=== PATIENT | male | born 1965 | race Caucasian/White ===

== ENCOUNTER 2018-07-21 11:43 | Emergency (ER) | payer MEDICAID ==
[~2018-07-21] VITALS: Ht 182.9 cm; Wt 109.0 kg
[~2018-07-21 11:43] MED LIST: CLON-529 PO; HYDR-4353 PO; HYDR12.5 PO; LATA1OIL EACHEYE; LEVO500T2 PO; LISI40TA4 PO; METR500T4 PO
[2018-07-21 12:39] LABS: BASOPHILS % (AUTO) 0.4 % (0-1); EOSINOPHILS # (AUTO) 0.2 X10'3 (0-0.9); EOSINOPHILS % (AUTO) 1.6 % (0-6); HEMATOCRIT 44.9 % (42.0-52.0); HEMOGLOBIN 15.5 g/dl (14.0-17.9); LYMPHOCYTES # (AUTO) 2.5 X10'3 (1.1-4.8); LYMPHOCYTES % (AUTO) 22.2 % (21-51); MEAN CORPUSCULAR HEMOGLOBIN 28.2 PG (27.0-31.0); MEAN CORPUSCULAR HGB CONC 34.6 % (33.0-36.5); MEAN CORPUSCULAR VOLUME 81.3 FL (78-98); MEAN PLATELET VOLUME 7.1 FL (7.4-10.4); MONOCYTES # (AUTO) 0.5 X10'3 (0-0.9); MONOCYTES % (AUTO) 4.6 % (2-12); NEUTROPHILS # (AUTO) 8.1 X10'3 (1.8-7.7); NEUTROPHILS % (AUTO) 71.2 % (42-75); PLATELET COUNT 370 X10'3 (140-440); RED BLOOD COUNT 5.52 X10'6 (4.70-6.10); RED CELL DISTRIBUTION WIDTH 13.3 % (11.5-14.5); WHITE BLOOD COUNT 11.3 X10'3 (4.5-11.0)
[2018-07-21] MEDS ORDERED: normal saline 1000ML IV soln IVB ONE ×2 (12:45→13:20)
[2018-07-21] MEDS ORDERED: ondansetron/PF 4mg/2ml inj IV ONE (12:45)
[2018-07-21 12:54] LABS: ALANINE AMINOTRANSFERASE 31 U/L (12-78); ALBUMIN 3.3 G/DL (3.4-5.0); ALBUMIN/GLOBULIN RATIO 0.7 (1.1-1.5); ALKALINE PHOSPHATASE 87 IU/L (46-116); ANION GAP 12 (8-16); ASPARTATE AMINO TRANSFERASE 16 U/L (10-37); BILIRUBIN,TOTAL 0.3 MG/DL (0.1-1.0); BLOOD UREA NITROGEN 16 MG/DL (7-18); BUN/CREATININE RATIO 16.2 (5.4-32.0); CALCIUM 8.8 MG/DL (8.5-10.1); CHLORIDE 94 MMOL/L (99-107); CREATININE 0.99 MG/DL (0.60-1.10); GLUCOSE 324 MG/DL (70-104); POTASSIUM 4.1 MMOL/L (3.5-5.1); SODIUM 131 MMOL/L (135-145); TOTAL CARBON DIOXIDE 25.2 MMOL/L (24-32); eGFR 79 ML/MIN
[2018-07-21 13:07] LABS: INR 0.9 INR; PROTHROMBIN TIME 9.5 SECONDS (9.0-12.0)
[2018-07-21] MEDS: morphine 4 MG/ML inj SYRINge IV PRN ×2 (13:08→14:03)
[2018-07-21 13:13] LABS: CLARITY,URINE CLEAR (Clear); COLOR,URINE YELLOW (Yellow); GLUCOSE, URINE >=1000 mg/dl (Neg); KETONES,URINE NEGATIVE (Neg); LEUKOCYTE ESTERASE ,URINE NEGATIVE (Neg); NITRITES, URINE NEGATIVE (Neg); OCCULT BLOOD,URINE SMALL (Neg); PH,URINE 5.5 (4.8-8.0); PROTEIN,URINE NEGATIVE (Neg); UROBILINOGEN,URINE 0.2 E.U/dL (0.2-1.0)
[2018-07-21] MEDS ORDERED: iohexol 300mg/ml 100ml inj. ONE (13:13)
[2018-07-21 13:15] LABS: UA COLLECTION TYPE CLN CATCH MIDSTREAM
[2018-07-21] MEDS ORDERED: insulin regular, human 10 units/0.1 ml syringe IV ONE (13:20)
[2018-07-21 13:22] LABS: BACTERIA,URINE NONE SEEN /HPF (Neg); MUCUS STRANDS NONE SEEN /LPF (Neg); RBC,URINE 0-2 /HPF (0-2); SQUAMOUS EPITHELIAL CELL,UR NONE SEEN /LPF (FEW); WBC,URINE NONE SEEN /HPF (0-4)
[2018-07-21] MEDS ORDERED: MESSAGE TO NURSING PO SCH (13:25)
[2018-07-21 14:43] VITALS: BP 160/104
== END 2018-07-21 14:45 | disposition home or self-care (01) ==
LOC: ER 11:43
DX: R10.33 Periumbilical pain (principal); E11.9 Type 2 diabetes mellitus without complications; I10 Essential (primary) hypertension; Z85.038 Personal history of other malignant neoplasm of large intestine; Z98.890 Other specified postprocedural states; Z90.89 Acquired absence of other organs; Z88.0 Allergy status to penicillin; Z79.899 Other long term (current) drug therapy
CPT/HCPCS: 36415; 74177; 80053; 81001; 82948; 83605; 83690; 85025; 85610; 96361; 96374; 96375; 96376; 99285; J1815; J2270; J2405; J7030; Q9967

== ENCOUNTER 2018-08-10 15:28 | Emergency (ER) | payer MEDICAID ==
[~2018-08-10] VITALS: Ht 182.9 cm; Wt 108.2 kg
[~2018-08-10 15:28] MED LIST changes: -LEVO500T2 PO; -METR500T4 PO
[2018-08-10] MEDS ORDERED: aspirin 81mg tab.chew PO ONE (15:40)
[2018-08-10] MEDS ORDERED: normal saline 1000ML IV soln IVB ONE (15:45)
[2018-08-10] MEDS ORDERED: ondansetron/PF 4mg/2ml inj IV ONE (15:55)
[2018-08-10] MEDS ORDERED: morphine 4 MG/ML inj SYRINge IV ONE (15:55)
[2018-08-10 15:56] LABS: BASOPHILS % (AUTO) 0.4 % (0-1); EOSINOPHILS # (AUTO) 0.2 X10'3 (0-0.9); EOSINOPHILS % (AUTO) 1.9 % (0-6); HEMATOCRIT 40.5 % (42.0-52.0); LYMPHOCYTES # (AUTO) 2.3 X10'3 (1.1-4.8); LYMPHOCYTES % (AUTO) 22.9 % (21-51); MEAN CORPUSCULAR HEMOGLOBIN 28.2 PG (27.0-31.0); MEAN CORPUSCULAR HGB CONC 34.6 % (33.0-36.5); MEAN CORPUSCULAR VOLUME 81.7 FL (78-98); MEAN PLATELET VOLUME 7.2 FL (7.4-10.4); MONOCYTES # (AUTO) 0.8 X10'3 (0-0.9); MONOCYTES % (AUTO) 7.9 % (2-12); NEUTROPHILS # (AUTO) 6.8 X10'3 (1.8-7.7); NEUTROPHILS % (AUTO) 66.9 % (42-75); PLATELET COUNT 318 X10'3 (140-440); RED BLOOD COUNT 4.96 X10'6 (4.70-6.10); RED CELL DISTRIBUTION WIDTH 13.7 % (11.5-14.5); WHITE BLOOD COUNT 10.1 X10'3 (4.5-11.0)
[2018-08-10 16:12] LABS: ALANINE AMINOTRANSFERASE 25 U/L (12-78); ALBUMIN 2.9 G/DL (3.4-5.0); ALBUMIN/GLOBULIN RATIO 0.7 (1.1-1.5); ALKALINE PHOSPHATASE 76 IU/L (46-116); ANION GAP 12 (8-16); ASPARTATE AMINO TRANSFERASE 13 U/L (10-37); BILIRUBIN,TOTAL 0.3 MG/DL (0.1-1.0); BLOOD UREA NITROGEN 16 MG/DL (7-18); BUN/CREATININE RATIO 11.8 (5.4-32.0); CALCIUM 8.5 MG/DL (8.5-10.1); CHLORIDE 98 MMOL/L (99-107); CREATININE 1.36 MG/DL (0.60-1.10); GLUCOSE 448 MG/DL (70-104); POTASSIUM 3.6 MMOL/L (3.5-5.1); SODIUM 134 MMOL/L (135-145); TOTAL CARBON DIOXIDE 24.4 MMOL/L (24-32); TOTAL PROTEIN 6.9 G/DL (6.4-8.2); eGFR 55 ML/MIN
[2018-08-10] MEDS ORDERED: famotidine/PF 10 mg/ml inj IV ONE (16:25)
[2018-08-10] MEDS ORDERED: pantoprazole 40 MG vial IV ONE (16:25)
[2018-08-10] MEDS ORDERED: LIDOcaine Viscous 15ml cup PO ONE (16:25)
[2018-08-10] MEDS ORDERED: mag hydrox/Alum hydrox/simeth 30ml oral suspension PO ONE (16:25)
[2018-08-10] MEDS ORDERED: insulin regular, human 10 units/0.1 ml syringe IV ONE ×3 (16:40→21:10)
[2018-08-10 16:54] LABS: D-DIMER < 0.19 MG/L FEU (0-0.50)
[2018-08-10] MEDS ORDERED: magnesium 1gm/100ml D5W IVPB 100 ML IV SCH (17:05)
[2018-08-10] MEDS ORDERED: ketorolac tromethamine 15mg/ml inj. IV ONE (17:05)
[2018-08-10] MEDS ORDERED: HYDROcodone/acetaminophen 5mg/325mg tablet PO ONE ×2 (17:05→20:35)
[2018-08-10] MEDS ORDERED: magnesium 2GM in 50ml NS 50 ML IV ONE (17:15)
[2018-08-10 17:19] LABS: CLARITY,URINE CLEAR (Clear); COLOR,URINE YELLOW (Yellow); GLUCOSE, URINE >=1000 mg/dl (Neg); KETONES,URINE NEGATIVE (Neg); LEUKOCYTE ESTERASE ,URINE NEGATIVE (Neg); NITRITES, URINE NEGATIVE (Neg); OCCULT BLOOD,URINE TRACE-LYSED (Neg); PH,URINE 5.5 (4.8-8.0); PROTEIN,URINE NEGATIVE (Neg); UROBILINOGEN,URINE 0.2 E.U/dL (0.2-1.0)
[2018-08-10 17:24] LABS: UA COLLECTION TYPE VOIDED
[2018-08-10 17:25] LABS: BACTERIA,URINE NONE SEEN /HPF (Neg); MUCUS STRANDS FEW /LPF (Neg); RBC,URINE 0-2 /HPF (0-2); SQUAMOUS EPITHELIAL CELL,UR NONE SEEN /LPF (FEW); WBC,URINE NONE SEEN /HPF (0-4)
[2018-08-10 17:30] LABS: URINE AMPHETAMINE SCREEN NEGATIVE (Neg); URINE BARBITUATE SCREEN NEGATIVE (Neg); URINE BENZODIAZEPINES SCREEN NEGATIVE (Neg); URINE CANNABINOID SCREEN NEGATIVE (Neg); URINE COCAINE SCREEN NEGATIVE (Neg); URINE METHADONE SCREEN NEGATIVE (Neg); URINE OPIATE SCREEN NEGATIVE (Neg); URINE PHENCYCLIDINE SCREEN NEGATIVE (Neg)
[2018-08-10] MEDS ORDERED: HYDR-4353 PO (17:34)
[2018-08-10] MEDS ORDERED: METF-950 (17:34)
[2018-08-10 18:55] VITALS: BP 133/99
[2018-08-10] MEDS ORDERED: ONDA8TAB9 PO (20:33)
== END 2018-08-10 21:26 | disposition home or self-care (01) ==
LOC: ER 15:28
DX: R07.89 Other chest pain (principal); R00.2 Palpitations; R06.02 Shortness of breath; R11.0 Nausea; R55 Syncope and collapse; I10 Essential (primary) hypertension; E11.9 Type 2 diabetes mellitus without complications; Z85.038 Personal history of other malignant neoplasm of large intestine; Z98.890 Other specified postprocedural states; Z88.0 Allergy status to penicillin; Z79.899 Other long term (current) drug therapy
CPT/HCPCS: 36415; 71045; 80053; 80305; 81001; 82948; 83735; 83880; 84484; 85025; 85379; 93005; 96361; 96365; 96375; 96376; 99284; C9113; J1815; J1885; J2270; J2405; J3475; J3490; J7030

== ENCOUNTER 2018-10-14 16:16 | Inpatient (IN) | payer MEDICAID ==
[~2018-10-14] VITALS: Ht 182.9 cm; Wt 115.0 kg
[~2018-10-14 16:16] MED LIST changes: -LATA1OIL EACHEYE; +METF-950; +ONDA8TAB9 PO
[2018-10-14] MEDS ORDERED: morphine 4 MG/ML inj SYRINge IV ONE ×2 (16:55→18:40)
[2018-10-14] MEDS ORDERED: ondansetron/PF 4mg/2ml inj IV ONE (16:55)
[2018-10-14 17:02] LABS: BASOPHILS % (AUTO) 0.3 % (0-1); EOSINOPHILS # (AUTO) 0.4 X10'3 (0-0.9); EOSINOPHILS % (AUTO) 3.5 % (0-6); HEMATOCRIT 42.2 % (42.0-52.0); HEMOGLOBIN 14.4 g/dl (14.0-17.9); LYMPHOCYTES # (AUTO) 2.1 X10'3 (1.1-4.8); LYMPHOCYTES % (AUTO) 20.8 % (21-51); MEAN CORPUSCULAR HEMOGLOBIN 28.1 PG (27.0-31.0); MEAN CORPUSCULAR HGB CONC 34.2 % (33.0-36.5); MEAN CORPUSCULAR VOLUME 82.2 FL (78-98); MEAN PLATELET VOLUME 7.6 FL (7.4-10.4); MONOCYTES # (AUTO) 0.6 X10'3 (0-0.9); MONOCYTES % (AUTO) 5.8 % (2-12); NEUTROPHILS # (AUTO) 6.9 X10'3 (1.8-7.7); NEUTROPHILS % (AUTO) 69.6 % (42-75); PLATELET COUNT 286 X10'3 (140-440); RED BLOOD COUNT 5.13 X10'6 (4.70-6.10); RED CELL DISTRIBUTION WIDTH 13.2 % (11.5-14.5); WHITE BLOOD COUNT 9.9 X10'3 (4.5-11.0)
[2018-10-14 17:03] LABS: INR 0.9 INR; PARTIAL THROMBOPLASTIN TIME 25 SECONDS (22-32); PROTHROMBIN TIME 9.4 SECONDS (9.0-12.0)
[2018-10-14 17:04] LABS: ALANINE AMINOTRANSFERASE 33 U/L (12-78); ALBUMIN 3.2 G/DL (3.4-5.0); ALBUMIN/GLOBULIN RATIO 0.7 (1.1-1.5); ALKALINE PHOSPHATASE 93 IU/L (46-116); ANION GAP 13 (8-16); ASPARTATE AMINO TRANSFERASE 16 U/L (10-37); BILIRUBIN,TOTAL 0.3 MG/DL (0.1-1.0); BLOOD UREA NITROGEN 11 MG/DL (7-18); BUN/CREATININE RATIO 10.5 (5.4-32.0); CALCIUM 8.6 MG/DL (8.5-10.1); CHLORIDE 98 MMOL/L (99-107); CREATININE 1.05 MG/DL (0.60-1.10); GLUCOSE 440 MG/DL (70-104); POTASSIUM 3.7 MMOL/L (3.5-5.1); SODIUM 134 MMOL/L (135-145); TOTAL CARBON DIOXIDE 23.5 MMOL/L (24-32); TOTAL PROTEIN 7.6 G/DL (6.4-8.2); eGFR 74 ML/MIN
[2018-10-14] MEDS ORDERED: normal saline 1000ML IV soln IVB ONE (17:20)
[2018-10-14] MEDS ORDERED: insulin regular, human 10 units/0.1 ml syringe IV ONE (17:20)
[2018-10-14] MEDS ORDERED: METO50TA16 (19:29)
[2018-10-14] MEDS ORDERED: LANTUS SQ (19:30)
--- NOTE | 2018-10-14 19:31 | NUR ---
DR SORENSON UPDATED PT THAT HE IS TO BE PUT UP FOR ADMISSION. MED REC COMPLETED, PT JUST GIVEN MSIV FOR 7 OUT OF 10 RIGHT CP. BP NOW 155/106
[2018-10-14] MEDS ORDERED: LATA2.5D2 EACHEYE (19:35)
[2018-10-14] MEDS ORDERED: potassium Cl 40MEQ/NS 500ml 500 ML IV PRN ×2 (20:40)
[2018-10-14] MEDS ORDERED: magnesium 2GM in 50ml NS 50 ML IV PRN (20:40)
[2018-10-14] MEDS ORDERED: albuterol 2.5 MG/3 ML nebule NEB PRN (20:40)
[2018-10-14] MEDS ORDERED: morphine 4 MG/ML inj SYRINge IV PRN (20:40)
[2018-10-14] MEDS ORDERED: magnesium 4gm in 100ml NS 100 ML IV PRN (20:40)
[2018-10-14] MEDS ORDERED: dextrose 50%-water 50ml dispensing syringe IV PRN ×2 (20:40)
[2018-10-14] MEDS ORDERED: potassium Cl 20 mEq SR tablet PO PRN ×2 (20:40)
[2018-10-14] MEDS ORDERED: acetaminophen 325mg tablet PO PRN (20:40)
[2018-10-14] MEDS ORDERED: glucagon, human recombinant 1mg kit SUBCUT PRN (20:40)
[2018-10-14] MEDS ORDERED: insulin Lispro (HumaLOG) vial - multi-dose SQ SCH (20:40)
[2018-10-14] MEDS ORDERED: docusate sod 100mg capsule PO PRN (20:40)
[2018-10-14] MEDS ORDERED: MESSAGE TO PHARMACY PO ONE (20:40)
[2018-10-14] MEDS ORDERED: dextrose ORAL solution 15 GM/59 ML bottle PO PRN ×2 (20:40)
[2018-10-14] MEDS ORDERED: ondansetron/PF 4mg/2ml inj IV PRN (20:40)
[2018-10-14] MEDS ORDERED: hydrALAZINE 20mg/ml inj. IV PRN (20:50)
[2018-10-14] MEDS ORDERED: latanoprost 0.005% 2.5ml ophthalmic drops EACHEYE SCH (21:00)
[2018-10-14] MEDS ORDERED: insulin glargine (Lantus) pen - multi-dose SQ SCH (21:00)
[2018-10-14] MEDS: normal saline 1000ml 1,000 ML IV SCH (21:17)
[2018-10-14] MEDS: diatr meglu/diatrizoate 30ml oral sol.-(3 dose) bottle PO SCH (21:17)
[2018-10-14] MEDS: morphine 4 MG/ML inj SYRINge IV PRN (21:18)
--- NOTE | 2018-10-14 21:37 | NUR ---
BLOOD SUGAR 351, STARTED ON PROTOCOL AND GIVEN HUMALOG 3 U PER LEVEL 2 PROTOCOL. PT JUST GIVEN MSIV 2 MG FOR PAIN TO HIS BACK AND CHEST. MIVF INFUSING. AWAITING IPA.
[2018-10-15 00:04] LABS: HEMOGLOBIN A1C 8.8 % (4.5-6.2)
[2018-10-15] MEDS: morphine 4 MG/ML inj SYRINge IV PRN ×2 (00:27→04:26)
--- NOTE | 2018-10-15 00:32 | NUR ---
PT GIVEN MORPHINE FOR 7 OUT OF 10 PAIN TO HE CHEST AND LOW BACK. VSS. AWAITING IPA
--- NOTE | 2018-10-15 03:27 | NUR ---
NON-ADMIN OF NORCO SCHEDULED AT 0500 DUE TO PT GIVEN MORPHINE AT 0327.
[2018-10-15] MEDS: HYDROcodone/acetaminophen 10/325mg tab PO SCH ×2 (05:00→07:23)
[2018-10-15] MEDS: diatr meglu/diatrizoate 30ml oral sol.-(3 dose) bottle PO SCH ×2 (07:22→09:01)
[2018-10-15] MEDS: normal saline 1000ml 1,000 ML IV SCH (07:22)
[2018-10-15] MEDS ORDERED: iohexol 300mg/ml 100ml inj. ONE (07:26)
[2018-10-15] MEDS ORDERED: enoxaparin 40mg/0.4ml syringe SQ SCH (08:00)
[2018-10-15] MEDS ORDERED: K and/or MAG REPLACEMENT MC SCH (08:00)
[2018-10-15] MEDS ORDERED: HYDROchlorothiazide 12.5mg capsule PO SCH (08:00)
[2018-10-15] MEDS ORDERED: cloNIDine 0.1 mg tablet PO SCH (08:00)
[2018-10-15] MEDS ORDERED: HYDROcodone/acetaminophen 10/325mg tab PO SCH ×2 (08:00)
[2018-10-15] MEDS ORDERED: metoprolol tartrate 50mg tablet PO SCH (08:00)
--- NOTE | 2018-10-15 09:07 | NUR ---
OFF TO CT
[2018-10-15 10:00] VITALS: BP 116/79
[2018-10-15 10:03] LABS: BASOPHILS % (AUTO) 0.6 % (0-1); EOSINOPHILS # (AUTO) 0.4 X10'3 (0-0.9); EOSINOPHILS % (AUTO) 4.8 % (0-6); HEMOGLOBIN 13.4 g/dl (14.0-17.9); LYMPHOCYTES # (AUTO) 2.1 X10'3 (1.1-4.8); LYMPHOCYTES % (AUTO) 24.9 % (21-51); MEAN CORPUSCULAR HEMOGLOBIN 28.2 PG (27.0-31.0); MEAN CORPUSCULAR HGB CONC 34.3 % (33.0-36.5); MEAN CORPUSCULAR VOLUME 82.3 FL (78-98); MEAN PLATELET VOLUME 7.3 FL (7.4-10.4); MONOCYTES # (AUTO) 0.5 X10'3 (0-0.9); MONOCYTES % (AUTO) 5.9 % (2-12); NEUTROPHILS # (AUTO) 5.5 X10'3 (1.8-7.7); NEUTROPHILS % (AUTO) 63.8 % (42-75); PLATELET COUNT 248 X10'3 (140-440); RED BLOOD COUNT 4.73 X10'6 (4.70-6.10); RED CELL DISTRIBUTION WIDTH 13.3 % (11.5-14.5); WHITE BLOOD COUNT 8.6 X10'3 (4.5-11.0)
[2018-10-15 10:29] LABS: ALANINE AMINOTRANSFERASE 29 U/L (12-78); ALBUMIN 2.7 G/DL (3.4-5.0); ALBUMIN/GLOBULIN RATIO 0.7 (1.1-1.5); ALKALINE PHOSPHATASE 64 IU/L (46-116); ANION GAP 7 (8-16); ASPARTATE AMINO TRANSFERASE 16 U/L (10-37); BILIRUBIN,TOTAL 0.4 MG/DL (0.1-1.0); BLOOD UREA NITROGEN 9 MG/DL (7-18); BUN/CREATININE RATIO 10.8 (5.4-32.0); CALCIUM 7.8 MG/DL (8.5-10.1); CHLORIDE 100 MMOL/L (99-107); CHOL/HDL RATIO 4.1 (0.00-4.99); CHOLESTEROL 146 MG/DL (0-200); CREATININE 0.83 MG/DL (0.60-1.10); GLUCOSE 234 MG/DL (70-104); HDL CHOLESTEROL 36 MG/DL (35-60); LDL CHOLESTEROL 90 MG/DL (50-100); MAGNESIUM 1.8 MG/DL (1.5-2.4); POTASSIUM 3.7 MMOL/L (3.5-5.1); SODIUM 134 MMOL/L (135-145); TOTAL CARBON DIOXIDE 26.8 MMOL/L (24-32); TOTAL PROTEIN 6.4 G/DL (6.4-8.2); TRIGLYCERIDES 202 MG/DL (20-135); eGFR > 90 ML/MIN
[2018-10-15] MEDS ORDERED: ALPRAZolam 0.25mg tablet PO PRN (11:45)
[2018-10-15] MEDS ORDERED: NIFEdipine XL 30mg tablet PO SCH (11:45)
[2018-10-15] MEDS ORDERED: nitroGLYCERIN 0.4mg SUBLingual tab SL PRN (11:45)
--- NOTE | 2018-10-15 11:45 | NUR ---
PAGER ID: [phone] MESSAGE: [id number] pt Raf. He wants to order [employer]...can he eat or is he still NPO? - Ekaterina [id number]
--- NOTE | 2018-10-15 12:03 | NUR ---
PAGER ID: [phone] MESSAGE: [id number] pt Raf. KAM He asked for [place] I told him it was q12 per EMAR order. He got very upset, cursed and demanded to talk to MD. Velia Tobar
--- NOTE | 2018-10-15 12:13 | NUR ---
PAGER ID: [phone] MESSAGE: [id number] Ababruna HUMPHREY he declined the Xanax and left AMA, he said he will "go home watch football and take my pain pills" - Ekaterina
[2018-10-15] MEDS ORDERED: HYDROcodone/acetaminophen 10/325mg tab PO PRN (20:00)
[2018-10-16] MEDS ORDERED: chlorthalidone 25mg tablet PO SCH (08:00)
== END 2018-10-15 12:10 | disposition left against medical advice (07) | DRG 241 ==
LOC: ER 16:16 → ED HOLD 20:39 → PCU 3S 10-15 09:55
PROVIDERS: ADMIT Family Medicine; ATTEND Family Medicine
DX: K29.70 Gastritis, unspecified, without bleeding (principal); E11.65 Type 2 diabetes mellitus with hyperglycemia; E27.8 Other specified disorders of adrenal gland; I16.0 Hypertensive urgency; Z53.21 Procedure and treatment not carried out due to patient leaving prior to being seen by health care provider; I10 Essential (primary) hypertension; E66.9 Obesity, unspecified; K21.9 Gastro-esophageal reflux disease without esophagitis; F41.9 Anxiety disorder, unspecified; K57.30 Diverticulosis of large intestine without perforation or abscess without bleeding; Z88.0 Allergy status to penicillin; Z80.1 Family history of malignant neoplasm of trachea, bronchus and lung; Z82.49 Family history of ischemic heart disease and other diseases of the circulatory system; Z83.3 Family history of diabetes mellitus; Z85.038 Personal history of other malignant neoplasm of large intestine; Z87.891 Personal history of nicotine dependence; Z79.899 Other long term (current) drug therapy; Z90.49 Acquired absence of other specified parts of digestive tract; Z79.4 Long term (current) use of insulin; Z68.34 Body mass index [BMI] 34.0-34.9, adult
CPT/HCPCS: 36415; 71045; 74177; 80053; 80061; 82948; 83036; 83735; 84443; 84484; 85025; 85610; 85730; 93005; 93306; 94760; 96374; 96375; 96376; 99285; G0378; J0360; J1650; J1815; J2270; J2405; J7030; Q9963; Q9967

== ENCOUNTER 2019-05-18 16:00 | Inpatient (IN) | payer MEDICAID ==
[~2019-05-18] VITALS: Ht 182.9 cm; Wt 50.6 kg
[~2019-05-18 16:00] MED LIST changes: +LANTUS SQ; +LATA2.5D2 EACHEYE; -LISI40TA4 PO; -METF-950; +METO50TA16; -ONDA8TAB9 PO
[2019-05-18 16:25] LABS: BASOPHILS # (AUTO) 0.1 X10'3 (0-0.2); EOSINOPHILS # (AUTO) 0.1 X10'3 (0-0.9); EOSINOPHILS % (AUTO) 1.3 % (0-6); HEMATOCRIT 46.3 % (42.0-52.0); HEMOGLOBIN 15.9 g/dl (14.0-17.9); LYMPHOCYTES # (AUTO) 2.5 X10'3 (1.1-4.8); LYMPHOCYTES % (AUTO) 23.8 % (21-51); MEAN CORPUSCULAR HEMOGLOBIN 28.4 PG (27.0-31.0); MEAN CORPUSCULAR HGB CONC 34.4 g/dL (33.0-36.5); MEAN CORPUSCULAR VOLUME 82.4 FL (78-98); MEAN PLATELET VOLUME 7.1 FL (7.4-10.4); MONOCYTES # (AUTO) 0.7 X10'3 (0-0.9); MONOCYTES % (AUTO) 6.8 % (2-12); NEUTROPHILS % (AUTO) 67.1 % (42-75); PLATELET COUNT 373 X10'3 (140-440); RED BLOOD COUNT 5.61 X10'6 (4.70-6.10); RED CELL DISTRIBUTION WIDTH 13.5 % (11.5-14.5); WHITE BLOOD COUNT 10.5 X10'3 (4.5-11.0)
[2019-05-18 16:39] LABS: PARTIAL THROMBOPLASTIN TIME 27 SECONDS (22-32)
[2019-05-18 16:41] LABS: ALANINE AMINOTRANSFERASE 27 U/L (12-78); ALBUMIN 3.5 G/DL (3.4-5.0); ALBUMIN/GLOBULIN RATIO 0.8 (1.1-1.5); ALKALINE PHOSPHATASE 72 IU/L (46-116); ANION GAP 11 (8-16); ASPARTATE AMINO TRANSFERASE 17 U/L (10-37); BILIRUBIN,TOTAL 0.6 MG/DL (0.1-1.0); BLOOD UREA NITROGEN 10 MG/DL (7-18); BUN/CREATININE RATIO 9.1 (5.4-32.0); CALCIUM 8.9 MG/DL (8.5-10.1); CHLORIDE 101 MMOL/L (99-107); GLUCOSE 324 MG/DL (70-104); POTASSIUM 3.7 MMOL/L (3.5-5.1); SODIUM 138 MMOL/L (135-145); TOTAL CARBON DIOXIDE 26.4 MMOL/L (24-32); TOTAL PROTEIN 8.1 G/DL (6.4-8.2); eGFR 69 ML/MIN
[2019-05-18 17:30] LABS: URINE AMPHETAMINE SCREEN NEGATIVE (Neg); URINE BARBITUATE SCREEN NEGATIVE (Neg); URINE BENZODIAZEPINES SCREEN NEGATIVE (Neg); URINE CANNABINOID SCREEN NEGATIVE (Neg); URINE COCAINE SCREEN NEGATIVE (Neg); URINE METHADONE SCREEN NEGATIVE (Neg); URINE OPIATE SCREEN NEGATIVE (Neg); URINE PHENCYCLIDINE SCREEN NEGATIVE (Neg)
[2019-05-18] MEDS ORDERED: metoprolol tartrate 50mg tablet PO ONE (17:40)
[2019-05-18] MEDS ORDERED: metoprolol tartrate 1mg/ml inj IV ONE (17:40)
[2019-05-18 17:42] LABS: ETHANOL < 0.010 GM/DL (0.0-0.010); MAGNESIUM 2.1 MG/DL (1.5-2.4)
[2019-05-18] MEDS ORDERED: morphine 4 MG/ML inj SYRINge IV ONE (19:40)
[2019-05-18] MEDS ORDERED: acetaminophen 325mg tablet PO PRN ×2 (20:05)
[2019-05-18] MEDS ORDERED: morphine 2 MG/ML inj. syringe IV PRN ×2 (20:05)
[2019-05-18] MEDS ORDERED: mag hydrox/Alum hydrox/simeth 30ml oral suspension PO PRN (20:05)
[2019-05-18] MEDS ORDERED: potassium CL 10mEq/100ml bag 100 ML IV PRN ×2 (20:05)
[2019-05-18] MEDS ORDERED: magnesium Cl slow-release 64mg tablet PO PRN (20:05)
[2019-05-18] MEDS ORDERED: potassium Cl 20 mEq SR tablet PO PRN (20:05)
[2019-05-18] MEDS ORDERED: HYDROcodone/acetaminophen 5mg/325mg tablet PO PRN (20:05)
[2019-05-18] MEDS ORDERED: ondansetron/PF 4mg/2ml inj IV PRN (20:05)
[2019-05-18] MEDS ORDERED: magnesium hydroxide 30ml (MOM) UD suspension PO PRN (20:05)
[2019-05-18] MEDS ORDERED: magnesium 4gm in 100ml NS 100 ML IV PRN (20:05)
[2019-05-18] MEDS ORDERED: magnesium 2GM in 50ml NS 50 ML IV PRN (20:05)
[2019-05-18] MEDS ORDERED: dextrose ORAL solution 15 GM/59 ML bottle PO PRN ×2 (20:30)
[2019-05-18] MEDS ORDERED: MESSAGE TO PHARMACY PO ONE (20:30)
[2019-05-18] MEDS ORDERED: glucagon, human recombinant 1mg kit SUBCUT PRN (20:30)
[2019-05-18] MEDS ORDERED: dextrose 50%-water 50ml dispensing syringe IV PRN ×2 (20:30)
[2019-05-18 21:00] VITALS: BP 171/93
[2019-05-18] MEDS ORDERED: insulin glargine (Lantus) pen - multi-dose SQ SCH (21:00)
--- NOTE | 2019-05-18 21:09 | NUR ---
Patient in room PCU 3027. I have received report from Frank LAURA and had the opportunity to ask questions and assume patient care.
[2019-05-18] MEDS: hydrALAZINE 20mg/ml inj. IV PRN (21:31)
[2019-05-18 21:50] VITALS: BP 139/88
[2019-05-18 22:00] VITALS: BP 155/109
[2019-05-18 22:37] LABS: HEMOGLOBIN A1C 9.3 % (4.5-6.2)
[2019-05-18] MEDS: insulin Lispro (HumaLOG) vial - multi-dose SQ SCH (22:39)
[2019-05-18] MEDS: HYDROcodone/acetaminophen 10/325mg tab PO PRN (22:51)
[2019-05-18] MEDS ORDERED: metoprolol tartrate 1mg/ml inj IV PRN (23:05)
[2019-05-18] MEDS ORDERED: regadenoson 0.4mg/5ml syringe IV ONE (23:05)
[2019-05-18] MEDS ORDERED: nitroGLYCERIN 0.4mg SUBLingual tab SL PRN ×2 (23:05)
[2019-05-18] MEDS ORDERED: aminophylline 250mg/10ml inj. IV PRN (23:05)
[2019-05-19] VITALS (10 sets, daily range): BP systolic 104–141; BP diastolic 65–89
[2019-05-19] MEDS: HYDROcodone/acetaminophen 10/325mg tab PO PRN ×2 (03:02→13:15)
[2019-05-19] MEDS: hydrALAZINE 20mg/ml inj. IV PRN (03:10)
[2019-05-19 05:26] LABS: ALBUMIN 2.9 G/DL (3.4-5.0); ANION GAP 9 (8-16); BLOOD UREA NITROGEN 13 MG/DL (7-18); BUN/CREATININE RATIO 17.6 (5.4-32.0); CALCIUM 8.3 MG/DL (8.5-10.1); CHLORIDE 103 MMOL/L (99-107); CREATININE 0.74 MG/DL (0.60-1.10); GLUCOSE 270 MG/DL (70-104); POTASSIUM 3.2 MMOL/L (3.5-5.1); SODIUM 137 MMOL/L (135-145); eGFR > 90 ML/MIN
--- NOTE | 2019-05-19 06:17 | NUR ---
Problems reprioritized. Patient report given, questions answered & plan of care reviewed with Riana LAURA.
--- NOTE | 2019-05-19 06:17 | NUR ---
Patient in room PCU 3027. I have received report from Rio LAURA and had the opportunity to ask questions and assume patient care.
[2019-05-19 06:21] LABS: BASOPHILS # (AUTO) 0.1 X10'3 (0-0.2); BASOPHILS % (AUTO) 0.9 % (0-1); EOSINOPHILS # (AUTO) 0.3 X10'3 (0-0.9); EOSINOPHILS % (AUTO) 3.3 % (0-6); HEMATOCRIT 41.2 % (42.0-52.0); HEMOGLOBIN 14.2 g/dl (14.0-17.9); LYMPHOCYTES # (AUTO) 2.5 X10'3 (1.1-4.8); LYMPHOCYTES % (AUTO) 29.5 % (21-51); MEAN CORPUSCULAR HEMOGLOBIN 28.5 PG (27.0-31.0); MEAN CORPUSCULAR HGB CONC 34.5 g/dL (33.0-36.5); MEAN CORPUSCULAR VOLUME 82.5 FL (78-98); MEAN PLATELET VOLUME 7.5 FL (7.4-10.4); MONOCYTES # (AUTO) 0.7 X10'3 (0-0.9); MONOCYTES % (AUTO) 7.9 % (2-12); NEUTROPHILS % (AUTO) 58.4 % (42-75); PLATELET COUNT 285 X10'3 (140-440); RED BLOOD COUNT 4.99 X10'6 (4.70-6.10); RED CELL DISTRIBUTION WIDTH 13.8 % (11.5-14.5); WHITE BLOOD COUNT 8.6 X10'3 (4.5-11.0)
[2019-05-19] MEDS ORDERED: cloNIDine 0.1 mg tablet PO SCH (08:00)
[2019-05-19] MEDS ORDERED: HYDROchlorothiazide 12.5mg capsule PO SCH (08:00)
[2019-05-19] MEDS ORDERED: K and/or MAG REPLACEMENT MC SCH (08:00)
[2019-05-19] MEDS ORDERED: enoxaparin 40mg/0.4ml syringe SQ SCH (08:00)
[2019-05-19] MEDS ORDERED: aspirin 81mg tablet.DR PO SCH (08:00)
[2019-05-19] MEDS ORDERED: metoprolol tartrate 50mg tablet PO SCH (08:00)
[2019-05-19] MEDS: potassium Cl 20 mEq SR tablet PO PRN ×2 (08:03→13:26)
[2019-05-19] MEDS: insulin Lispro (HumaLOG) vial - multi-dose SQ SCH (13:24)
[2019-05-19] MEDS ORDERED: ASPI81TA52 PO (14:16)
[2019-05-19] MEDS ORDERED: INSU100C10 SQ (14:19)
[2019-05-19] MEDS ORDERED: LANTUS SQ (14:19)
--- NOTE | 2019-05-19 14:48 | NUR ---
DM consult: Pt with A1c 9.3 seen at bedside. Pt reports no questions about DM management at this time. Written DM education with referral to outpatient DM class and RD contact information provided. Pt admit with tachycardia. Based on documented wt hx and patient's visual appearance likely current documented wt of 50.62 kg resulting in BMI of 15.1 not accurate. Pt with scaled wt hx greater than 100 kg. Pt currently on CHO controlled diet with documented 75-100% PO intake. No edema or wounds. Pt currently pending discharge. Will continue to follow. Recommendations: 1) Continue CHO controlled diet 2) Wt per rx Addendum: 05/19/19 at [address] Amended: Links added.
--- NOTE | 2019-05-19 14:50 | NUR ---
patient discharged. All discharge instructions given to patient. Hand written prescription given to patient. Patient refused for me to call in aspirin prescription to his pharmacy since it was not written on the prescription. States he will get OTC. okay by Dr. Jamil. Tele removed and returned to tele box. IV removed cannula intact. Patient was accompanied and walked down where his ride was waiting for him
[2019-05-19] MEDS ORDERED: latanoprost 0.005% 2.5ml ophthalmic drops EACHEYE SCH (21:00)
== END 2019-05-19 14:50 | disposition home or self-care (01) | DRG 201 ==
LOC: ER 16:01 → PCU 3S 20:54
PROVIDERS: ADMIT Hospitalist; ATTEND Hospitalist
PROC: 4A02XM4 Measurement of Cardiac Total Activity, External Approach (ICD-10-PCS; principal; 2019-05-19)
PROC: 3E033HZ Introduction of Radioactive Substance into Peripheral Vein, Percutaneous Approach (ICD-10-PCS; 2019-05-19)
DX: I47.1 Supraventricular tachycardia (principal); I65.22 Occlusion and stenosis of left carotid artery; E11.9 Type 2 diabetes mellitus without complications; I10 Essential (primary) hypertension; Z80.1 Family history of malignant neoplasm of trachea, bronchus and lung; Z82.49 Family history of ischemic heart disease and other diseases of the circulatory system; Z88.0 Allergy status to penicillin; Z90.49 Acquired absence of other specified parts of digestive tract; Z83.3 Family history of diabetes mellitus; Z85.038 Personal history of other malignant neoplasm of large intestine; Z79.82 Long term (current) use of aspirin
CPT/HCPCS: 36415; 71045; 78452; 80048; 80053; 80305; 80320; 82948; 83036; 83735; 84443; 84484; 85025; 85610; 85730; 87081; 93005; 93017; 93306; 96374; 96375; 99285; A9500; G0378; J0360; J1650; J1815; J2270; J2785; J3490

== ENCOUNTER 2019-07-12 15:25 | Emergency (ER) | payer MEDICAID ==
[~2019-07-12] VITALS: Ht 182.9 cm; Wt 114.0 kg
[~2019-07-12 15:25] MED LIST changes: +ASPI81TA52 PO; -HYDR-4353 PO; +INSU100C10 SQ; -LANTUS SQ
[2019-07-12 16:53] LABS: CLARITY,URINE CLEAR (Clear); COLOR,URINE YELLOW (Yellow); GLUCOSE, URINE >=1000 mg/dl (Neg); KETONES,URINE NEGATIVE (Neg); LEUKOCYTE ESTERASE ,URINE NEGATIVE (Neg); NITRITES, URINE NEGATIVE (Neg); OCCULT BLOOD,URINE SMALL (Neg); PROTEIN,URINE 30 mg/dl (Neg); UROBILINOGEN,URINE 0.2 E.U/dL (0.2-1.0)
[2019-07-12 16:55] LABS: BASOPHILS # (AUTO) 0.1 X10'3 (0-0.2); BASOPHILS % (AUTO) 0.8 % (0-1); EOSINOPHILS # (AUTO) 0.1 X10'3 (0-0.9); EOSINOPHILS % (AUTO) 1.1 % (0-6); HEMATOCRIT 44.9 % (42.0-52.0); HEMOGLOBIN 15.7 g/dl (14.0-17.9); LYMPHOCYTES # (AUTO) 1.7 X10'3 (1.1-4.8); LYMPHOCYTES % (AUTO) 20.9 % (21-51); MEAN CORPUSCULAR HEMOGLOBIN 28.4 PG (27.0-31.0); MEAN CORPUSCULAR HGB CONC 34.9 g/dL (33.0-36.5); MEAN CORPUSCULAR VOLUME 81.4 FL (78-98); MEAN PLATELET VOLUME 7.5 FL (7.4-10.4); MONOCYTES # (AUTO) 0.4 X10'3 (0-0.9); MONOCYTES % (AUTO) 5.3 % (2-12); NEUTROPHILS # (AUTO) 5.9 X10'3 (1.8-7.7); NEUTROPHILS % (AUTO) 71.9 % (42-75); PLATELET COUNT 308 X10'3 (140-440); RED BLOOD COUNT 5.52 X10'6 (4.70-6.10); RED CELL DISTRIBUTION WIDTH 13.8 % (11.5-14.5); WHITE BLOOD COUNT 8.2 X10'3 (4.5-11.0)
[2019-07-12 17:00] LABS: ALANINE AMINOTRANSFERASE 27 U/L (12-78); ALBUMIN 3.5 G/DL (3.4-5.0); ALBUMIN/GLOBULIN RATIO 0.7 (1.1-1.5); ALKALINE PHOSPHATASE 79 IU/L (46-116); AMYLASE 31 U/L (25-115); ANION GAP 10 (8-16); ASPARTATE AMINO TRANSFERASE 22 U/L (10-37); BILIRUBIN,TOTAL 0.4 MG/DL (0.1-1.0); BLOOD UREA NITROGEN 7 MG/DL (7-18); BUN/CREATININE RATIO 6.5 (5.4-32.0); CALCIUM 9.4 MG/DL (8.5-10.1); CHLORIDE 97 MMOL/L (99-107); CREATININE 1.07 MG/DL (0.60-1.10); GLUCOSE 380 MG/DL (70-104); LIPASE 135 U/L (73-393); POTASSIUM 3.8 MMOL/L (3.5-5.1); SODIUM 134 MMOL/L (135-145); TOTAL CARBON DIOXIDE 26.8 MMOL/L (24-32); TOTAL PROTEIN 8.4 G/DL (6.4-8.2); eGFR 72 ML/MIN
[2019-07-12 17:00] LABS: UA COLLECTION TYPE CLN CATCH MIDSTREAM
[2019-07-12 17:01] LABS: BACTERIA,URINE NONE SEEN /HPF (Neg); SQUAMOUS EPITHELIAL CELL,UR NONE SEEN /LPF (FEW); WBC,URINE 0-4 /HPF (0-4)
--- NOTE | 2019-07-12 18:42 | NUR ---
EXPLAINED TO PATIENT WAIT TIME AND RETOOK HIS VS. HE STATES HIS PAIN HAS WORSENED. HE IS PWD AND HE ASKED ABOUT HIS LABS, INFORMED HIM. LAST SOLID BM YESTERDAY, 2 LIQUID BMS TODAY.
[2019-07-12] MEDS ORDERED: HYDROcodone/acetaminophen 5mg/325mg tablet PO ONE (20:20)
[2019-07-12] MEDS ORDERED: ketorolac trometh inj. 60 MG/2 ML VIAL IM ONE (20:20)
[2019-07-12] MEDS ORDERED: ondansetron 4mg rapidly disintigrating tab PO ONE (20:20)
[2019-07-12] MEDS ORDERED: HYDR-3965 PO (21:11)
[2019-07-12 21:21] VITALS: BP 171/114
== END 2019-07-12 21:25 | disposition home or self-care (01) ==
LOC: ER 15:25
DX: R91.1 Solitary pulmonary nodule (principal); R10.84 Generalized abdominal pain; I10 Essential (primary) hypertension; E11.9 Type 2 diabetes mellitus without complications; Z85.038 Personal history of other malignant neoplasm of large intestine; Z98.890 Other specified postprocedural states; Z90.49 Acquired absence of other specified parts of digestive tract; Z79.82 Long term (current) use of aspirin; Z79.4 Long term (current) use of insulin; Z88.0 Allergy status to penicillin; Z88.8 Allergy status to other drugs, medicaments and biological substances
CPT/HCPCS: 36415; 74176; 80053; 81001; 82150; 82948; 83605; 83690; 85025; 85610; 99284; J1885

== ENCOUNTER 2019-10-08 17:09 | Emergency (ER) | payer MEDICAID ==
[~2019-10-08] VITALS: Ht 182.9 cm; Wt 123.4 kg
[2019-10-08 17:46] LABS: BASOPHILS # (AUTO) 0.1 X10'3 (0-0.2); BASOPHILS % (AUTO) 1.1 % (0-1); EOSINOPHILS # (AUTO) 0.2 X10'3 (0-0.9); EOSINOPHILS % (AUTO) 3.6 % (0-6); HEMATOCRIT 41.7 % (42.0-52.0); HEMOGLOBIN 14.5 g/dl (14.0-17.9); LYMPHOCYTES # (AUTO) 1.8 X10'3 (1.1-4.8); LYMPHOCYTES % (AUTO) 40.9 % (21-51); MEAN CORPUSCULAR HGB CONC 34.8 g/dL (33.0-36.5); MEAN CORPUSCULAR VOLUME 77.7 FL (78-98); MEAN PLATELET VOLUME 6.7 FL (7.4-10.4); MONOCYTES # (AUTO) 0.5 X10'3 (0-0.9); MONOCYTES % (AUTO) 10.5 % (2-12); NEUTROPHILS % (AUTO) 43.9 % (42-75); PLATELET COUNT 275 X10'3 (140-440); RED BLOOD COUNT 5.37 X10'6 (4.70-6.10); RED CELL DISTRIBUTION WIDTH 14.4 % (11.5-14.5); WHITE BLOOD COUNT 4.5 X10'3 (4.5-11.0)
[2019-10-08 17:56] LABS: PARTIAL THROMBOPLASTIN TIME 27 SECONDS (22-32)
[2019-10-08 18:05] LABS: ALANINE AMINOTRANSFERASE 25 U/L (12-78); ALBUMIN/GLOBULIN RATIO 0.6 (1.1-1.5); ALKALINE PHOSPHATASE 92 IU/L (46-116); ANION GAP 6 (8-16); ASPARTATE AMINO TRANSFERASE 20 U/L (10-37); BILIRUBIN,TOTAL 0.3 MG/DL (0.1-1.0); BLOOD UREA NITROGEN 12 MG/DL (7-18); BUN/CREATININE RATIO 11.8 (5.4-32.0); CALCIUM 8.8 MG/DL (8.5-10.1); CHLORIDE 99 MMOL/L (99-107); CREATININE 1.02 MG/DL (0.60-1.10); GLUCOSE 307 MG/DL (70-104); POTASSIUM 3.3 MMOL/L (3.5-5.1); SODIUM 137 MMOL/L (135-145); TOTAL CARBON DIOXIDE 32.2 MMOL/L (24-32); TOTAL PROTEIN 8.1 G/DL (6.4-8.2); eGFR 76 ML/MIN
[2019-10-08 18:30] LABS: CLARITY,URINE CLEAR (Clear); COLOR,URINE STRAW (Yellow); GLUCOSE, URINE >=1000 mg/dl (Neg); KETONES,URINE NEGATIVE (Neg); LEUKOCYTE ESTERASE ,URINE NEGATIVE (Neg); NITRITES, URINE NEGATIVE (Neg); OCCULT BLOOD,URINE LARGE (Neg); PROTEIN,URINE 100 mg/dl (Neg); UROBILINOGEN,URINE 0.2 E.U/dL (0.2-1.0)
[2019-10-08 18:32] LABS: UA COLLECTION TYPE CLN CATCH MIDSTREAM
[2019-10-08 18:40] LABS: MUCUS STRANDS FEW /LPF (Neg); SQUAMOUS EPITHELIAL CELL,UR FEW /LPF (FEW); TRANSITIONAL EPI CELLS,URINE FEW /HPF
[2019-10-08 18:41] LABS: BACTERIA,URINE NONE SEEN /HPF (Neg); RBC,URINE 20-50 /HPF (0-2); WBC,URINE 0-4 /HPF (0-4)
[2019-10-08] MEDS ORDERED: ipratropium/albuterol 3ml nebule NEB ONE (22:20)
[2019-10-08] MEDS ORDERED: PRED20TA PO (22:53)
[2019-10-08] MEDS ORDERED: ALBU8HFA PO (22:53)
[2019-10-08] MEDS ORDERED: AZIT-72 PO (22:53)
[2019-10-08 22:54] VITALS: BP 170/110
== END 2019-10-08 23:43 | disposition home or self-care (01) ==
LOC: ER 17:09
DX: J18.9 Pneumonia, unspecified organism (principal); I10 Essential (primary) hypertension; E11.9 Type 2 diabetes mellitus without complications; Z85.038 Personal history of other malignant neoplasm of large intestine; Z98.890 Other specified postprocedural states; Z88.0 Allergy status to penicillin; Z88.8 Allergy status to other drugs, medicaments and biological substances; Z79.82 Long term (current) use of aspirin; Z79.899 Other long term (current) drug therapy; Z79.4 Long term (current) use of insulin
CPT/HCPCS: 36415; 71045; 80053; 81001; 83605; 84145; 84484; 85025; 85610; 85730; 87040; 93005; 94640; 94760; 99284

== ENCOUNTER 2019-11-06 16:49 | Emergency (ER) | payer MEDICAID ==
[~2019-11-06] VITALS: Ht 182.9 cm; Wt 129.0 kg
[~2019-11-06 16:49] MED LIST changes: +ALBU8HFA PO
[2019-11-06 17:58] LABS: BASOPHILS # (AUTO) 0.1 X10'3 (0-0.2); BASOPHILS % (AUTO) 0.9 % (0-1); EOSINOPHILS # (AUTO) 0.1 X10'3 (0-0.9); EOSINOPHILS % (AUTO) 1.2 % (0-6); HEMATOCRIT 38.8 % (42.0-52.0); HEMOGLOBIN 13.2 g/dl (14.0-17.9); LYMPHOCYTES # (AUTO) 0.8 X10'3 (1.1-4.8); LYMPHOCYTES % (AUTO) 9.4 % (21-51); MEAN CORPUSCULAR HEMOGLOBIN 27.1 PG (27.0-31.0); MEAN CORPUSCULAR HGB CONC 34.1 g/dL (33.0-36.5); MEAN CORPUSCULAR VOLUME 79.4 FL (78-98); MEAN PLATELET VOLUME 6.7 FL (7.4-10.4); MONOCYTES # (AUTO) 0.5 X10'3 (0-0.9); MONOCYTES % (AUTO) 6.3 % (2-12); NEUTROPHILS # (AUTO) 7.1 X10'3 (1.8-7.7); NEUTROPHILS % (AUTO) 82.2 % (42-75); PLATELET COUNT 337 X10'3 (140-440); RED BLOOD COUNT 4.89 X10'6 (4.70-6.10); RED CELL DISTRIBUTION WIDTH 15.7 % (11.5-14.5); WHITE BLOOD COUNT 8.6 X10'3 (4.5-11.0)
[2019-11-06 18:06] LABS: ALANINE AMINOTRANSFERASE 29 U/L (12-78); ALBUMIN 3.2 G/DL (3.4-5.0); ALBUMIN/GLOBULIN RATIO 0.7 (1.1-1.5); ALKALINE PHOSPHATASE 73 IU/L (46-116); ANION GAP 11 (8-16); ASPARTATE AMINO TRANSFERASE 17 U/L (10-37); BILIRUBIN,TOTAL 0.5 MG/DL (0.1-1.0); BLOOD UREA NITROGEN 8 MG/DL (7-18); BUN/CREATININE RATIO 7.1 (5.4-32.0); CALCIUM 8.8 MG/DL (8.5-10.1); CHLORIDE 104 MMOL/L (99-107); CREATININE 1.13 MG/DL (0.60-1.10); GLUCOSE 234 MG/DL (70-104); POTASSIUM 3.6 MMOL/L (3.5-5.1); SODIUM 141 MMOL/L (135-145); TOTAL CARBON DIOXIDE 26.2 MMOL/L (24-32); TOTAL PROTEIN 7.5 G/DL (6.4-8.2); eGFR 67 ML/MIN
[2019-11-06 18:13] LABS: LIPASE 123 U/L (73-393)
[2019-11-06] MEDS ORDERED: furosemide 10 MG/1 ML 10ml inj IV ONE (19:40)
[2019-11-06] MEDS ORDERED: nitroGLYCERIN 0.4mg/hour patch TD ONE (19:40)
[2019-11-06 20:16] LABS: MAGNESIUM 2.1 MG/DL (1.5-2.4); TROPONIN I < 0.04 NG/ML (0.0-0.05)
[2019-11-06] MEDS ORDERED: ondansetron/PF 4mg/2ml inj IV ONE (20:50)
[2019-11-06] MEDS ORDERED: ketorolac tromethamine 15mg/ml inj. IV ONE (20:50)
[2019-11-06] MEDS ORDERED: dicyclomine 10 MG capsule PO ONE (20:50)
[2019-11-06] MEDS ORDERED: morphine 4 MG/ML inj SYRINge IV ONE (20:50)
[2019-11-06] MEDS ORDERED: carVEDilol 12.5mg tablet PO ONE (20:55)
[2019-11-06] MEDS ORDERED: carVEDilol 12.5mg tablet PO SCH (20:55)
[2019-11-06] MEDS ORDERED: DICY10CA88 PO (21:04)
[2019-11-06 21:51] LABS: CLARITY,URINE CLEAR (Clear); COLOR,URINE YELLOW (Yellow); GLUCOSE, URINE 100 mg/dl (Neg); KETONES,URINE NEGATIVE (Neg); LEUKOCYTE ESTERASE ,URINE NEGATIVE (Neg); NITRITES, URINE NEGATIVE (Neg); OCCULT BLOOD,URINE MODERATE (Neg); PH,URINE 7.5 (4.8-8.0); PROTEIN,URINE >=300 mg/dl (Neg)
[2019-11-06 22:01] LABS: URINE AMPHETAMINE SCREEN NEGATIVE (Neg); URINE BARBITUATE SCREEN NEGATIVE (Neg); URINE BENZODIAZEPINES SCREEN NEGATIVE (Neg); URINE CANNABINOID SCREEN NEGATIVE (Neg); URINE COCAINE SCREEN NEGATIVE (Neg); URINE METHADONE SCREEN NEGATIVE (Neg); URINE OPIATE SCREEN POSITIVE (Neg); URINE PHENCYCLIDINE SCREEN NEGATIVE (Neg)
[2019-11-06 22:05] LABS: UA COLLECTION TYPE NON-SPECIFIED
[2019-11-06 22:07] LABS: BACTERIA,URINE NONE SEEN /HPF (Neg); RBC,URINE 20-50 /HPF (0-2); SQUAMOUS EPITHELIAL CELL,UR NONE SEEN /LPF (FEW); WBC,URINE 0-4 /HPF (0-4)
[2019-11-06 22:08] LABS: OVAL FAT BODIES,URINE 1+ /HPF (NEGATIVE)
--- NOTE | 2019-11-06 22:40 | NUR ---
Called to give report to floor, no RN availble to take report.
[2019-11-07 00:12] VITALS: BP 158/58
== END 2019-11-07 00:14 | disposition home or self-care (01) ==
LOC: ER 16:50
DX: I11.0 Hypertensive heart disease with heart failure (principal); I50.9 Heart failure, unspecified; I48.91 Unspecified atrial fibrillation; E11.9 Type 2 diabetes mellitus without complications; R10.84 Generalized abdominal pain; Z93.3 Colostomy status; Z85.038 Personal history of other malignant neoplasm of large intestine; Z88.0 Allergy status to penicillin; Z88.8 Allergy status to other drugs, medicaments and biological substances; Z79.82 Long term (current) use of aspirin; Z79.4 Long term (current) use of insulin
CPT/HCPCS: 36415; 71045; 80053; 80305; 81001; 83690; 83735; 83880; 84484; 85025; 93005; 94660; 94760; 96374; 96375; 99285; J1885; J1940; J2270; J2405

== ENCOUNTER 2020-02-07 11:41 | Emergency (ER) | payer MEDICAID ==
[~2020-02-07] VITALS: Ht 182.9 cm; Wt 118.2 kg
[~2020-02-07 11:41] MED LIST changes: -ALBU8HFA PO; +DICY10CA88 PO
[2020-02-07 12:01] VITALS: BP 206/119
== END 2020-02-07 13:54 | disposition home or self-care (01) ==
LOC: ER 11:43
DX: G56.21 Lesion of ulnar nerve, right upper limb (principal); M25.511 Pain in right shoulder; I10 Essential (primary) hypertension; E11.9 Type 2 diabetes mellitus without complications; Z98.890 Other specified postprocedural states; Z88.0 Allergy status to penicillin; Z88.8 Allergy status to other drugs, medicaments and biological substances; Z79.82 Long term (current) use of aspirin; Z79.899 Other long term (current) drug therapy
CPT/HCPCS: 99281

== ENCOUNTER 2022-07-23 15:07 | Outpatient (CLI) | payer MEDICAID ==
[~2022-07-23 15:07] MED LIST changes: +LATA2.5D14 EACHEYE; -LATA2.5D2 EACHEYE
== END 2022-07-23 23:59 | disposition home or self-care (01) ==
LOC: VAS 15:07
PROVIDERS: ATTEND Family Medicine
DX: R22.43 Localized swelling, mass and lump, lower limb, bilateral (principal)
CPT/HCPCS: 93970

== ENCOUNTER 2024-03-02 09:08 | Emergency (ER) | payer MEDICAID ==
[~2024-03-02] VITALS: Ht 185.4 cm; Wt 130.2 kg
[2024-03-02] MEDS: normal saline 1000ml 1,000 ML IV ONE ×2 (09:48→10:35)
[2024-03-02 10:45] LABS: BASOPHILS # (AUTO) 0.1 X10'3 (0-0.2); BASOPHILS % (AUTO) 0.9 % (0-1); EOSINOPHILS % (AUTO) 0.4 % (0-6); HEMATOCRIT 43.2 % (42.0-52.0); HEMOGLOBIN 14.5 g/dl (14.0-17.9); LYMPHOCYTES # (AUTO) 1.7 X10'3 (1.1-4.8); LYMPHOCYTES % (AUTO) 13.2 % (21-51); MEAN CORPUSCULAR HEMOGLOBIN 26.8 PG (27.0-31.0); MEAN CORPUSCULAR HGB CONC 33.5 g/dL (33.0-36.5); MONOCYTES # (AUTO) 0.6 X10'3 (0-0.9); MONOCYTES % (AUTO) 4.4 % (2-12); NEUTROPHILS # (AUTO) 10.3 X10'3 (1.8-7.7); NEUTROPHILS % (AUTO) 81.1 % (42-75); PLATELET COUNT 323 X10'3 (140-440); WHITE BLOOD COUNT 12.7 X10'3 (4.5-11.0)
[2024-03-02 11:04] LABS: ALANINE AMINOTRANSFERASE 34 U/L (12-78); ALBUMIN 3.2 G/DL (3.4-5.0); ALBUMIN/GLOBULIN RATIO 0.7 (1.1-1.5); ALKALINE PHOSPHATASE 98 IU/L (46-116); ANION GAP 14 (8-16); ASPARTATE AMINO TRANSFERASE 18 U/L (10-37); BILIRUBIN,TOTAL 0.8 MG/DL (0.1-1.0); BLOOD UREA NITROGEN 15 MG/DL (7-18); BUN/CREATININE RATIO 12.2 (10.0-20.0); CHLORIDE 97 MMOL/L (99-107); CREATININE 1.23 MG/DL (0.60-1.10); GLUCOSE 356 MG/DL (70-104); LIPASE 39 U/L (16-77); POTASSIUM 4.1 MMOL/L (3.5-5.1); SODIUM 134 MMOL/L (135-145); TOTAL CARBON DIOXIDE 23.2 MMOL/L (24-32); TOTAL PROTEIN 8.1 G/DL (6.4-8.2); eCRCL 72 ML/MIN; eGFR 60 ML/MIN
[2024-03-02 11:46] LABS: BILIRUBIN,URINE NEGATIVE (Neg); CLARITY,URINE CLEAR (Clear); COLOR,URINE YELLOW (Yellow); GLUCOSE, URINE >=1000 mg/dl (Neg); KETONES,URINE NEGATIVE (Neg); LEUKOCYTE ESTERASE ,URINE NEGATIVE (Neg); NITRITES, URINE NEGATIVE (Neg); OCCULT BLOOD,URINE NEGATIVE (Neg); PH,URINE 7.5 (4.8-8.0); PROTEIN,URINE TRACE mg/dl (Neg); UROBILINOGEN,URINE 0.2 E.U/dL (0.2-1.0)
[2024-03-02 11:53] LABS: UA COLLECTION TYPE CLN CATCH MIDSTREAM
[2024-03-02 12:17] LABS: RBC,URINE 0-2 /HPF (0-2); WBC,URINE 0-4 /HPF (0-4)
[2024-03-02 12:18] LABS: BACTERIA,URINE NONE SEEN /HPF (Neg); MUCUS STRANDS NONE SEEN /LPF (Neg); SQUAMOUS EPITHELIAL CELL,UR NONE SEEN /LPF (FEW)
[2024-03-02 12:34] VITALS: TEMP 98.1
[2024-03-02] MEDS: HYDROcodone/acetaminophen 10/325mg tab PO ONE (13:00)
[2024-03-02 13:10] VITALS: BP 152/95; PULSE 84; RESP 18; O2SAT 98
== END 2024-03-02 13:14 | disposition home or self-care (01) ==
LOC: ER 09:08
DX: K62.5 Hemorrhage of anus and rectum (principal); R10.84 Generalized abdominal pain; I10 Essential (primary) hypertension; E11.9 Type 2 diabetes mellitus without complications; Z79.01 Long term (current) use of anticoagulants; Z98.890 Other specified postprocedural states; Z88.0 Allergy status to penicillin; Z88.8 Allergy status to other drugs, medicaments and biological substances; Z79.899 Other long term (current) drug therapy
CPT/HCPCS: 36415; 80053; 81001; 82948; 83690; 85025; 96360; 96361; 99285; J7030

== ENCOUNTER 2024-03-03 10:33 | Emergency (ER) | payer MEDICAID ==
[~2024-03-03] VITALS: Ht 185.4 cm; Wt 132.0 kg
[2024-03-03 11:34] LABS: BILIRUBIN,URINE NEGATIVE (Neg); CLARITY,URINE CLEAR (Clear); COLOR,URINE YELLOW (Yellow); GLUCOSE, URINE >=1000 mg/dl (Neg); KETONES,URINE NEGATIVE (Neg); LEUKOCYTE ESTERASE ,URINE NEGATIVE (Neg); NITRITES, URINE NEGATIVE (Neg); OCCULT BLOOD,URINE TRACE-INTACT (Neg); PH,URINE 5.5 (4.8-8.0); PROTEIN,URINE NEGATIVE (Neg); UROBILINOGEN,URINE 0.2 E.U/dL (0.2-1.0)
[2024-03-03 11:37] LABS: UA COLLECTION TYPE VOIDED
[2024-03-03 11:39] LABS: BACTERIA,URINE NONE SEEN /HPF (Neg); MUCUS STRANDS NONE SEEN /LPF (Neg); RBC,URINE 0-2 /HPF (0-2); SQUAMOUS EPITHELIAL CELL,UR NONE SEEN /LPF (FEW); WBC,URINE NONE SEEN /HPF (0-4)
[2024-03-03 12:03] LABS: ALBUMIN 3.4 G/DL (3.4-5.0); ANION GAP 9 (8-16); BLOOD UREA NITROGEN 15 MG/DL (7-18); BUN/CREATININE RATIO 12.2 (10.0-20.0); CALCIUM 8.8 MG/DL (8.5-10.1); CHLORIDE 98 MMOL/L (99-107); CREATININE 1.23 MG/DL (0.60-1.10); POTASSIUM 3.9 MMOL/L (3.5-5.1); SODIUM 134 MMOL/L (135-145); TOTAL CARBON DIOXIDE 26.7 MMOL/L (24-32); eCRCL 72 ML/MIN; eGFR 60 ML/MIN
[2024-03-03 12:06] LABS: BASOPHILS # (AUTO) 0.3 X10'3 (0-0.2); BASOPHILS % (AUTO) 2.5 % (0-1); EOSINOPHILS # (AUTO) 0.2 X10'3 (0-0.9); EOSINOPHILS % (AUTO) 1.4 % (0-6); HEMATOCRIT 43.2 % (42.0-52.0); HEMOGLOBIN 14.4 g/dl (14.0-17.9); LYMPHOCYTES # (AUTO) 1.3 X10'3 (1.1-4.8); LYMPHOCYTES % (AUTO) 10.6 % (21-51); MEAN CORPUSCULAR HEMOGLOBIN 26.8 PG (27.0-31.0); MEAN CORPUSCULAR HGB CONC 33.3 g/dL (33.0-36.5); MEAN CORPUSCULAR VOLUME 80.6 FL (78-98); MEAN PLATELET VOLUME 7.8 FL (7.4-10.4); MONOCYTES # (AUTO) 0.7 X10'3 (0-0.9); MONOCYTES % (AUTO) 5.2 % (2-12); NEUTROPHILS # (AUTO) 10.1 X10'3 (1.8-7.7); NEUTROPHILS % (AUTO) 80.3 % (42-75); PLATELET COUNT 317 X10'3 (140-440); RED BLOOD COUNT 5.36 X10'6 (4.70-6.10); WHITE BLOOD COUNT 12.6 X10'3 (4.5-11.0)
[2024-03-03 12:08] LABS: GLUCOSE 436 MG/DL (70-104)
[2024-03-03] MEDS: normal saline 1000ml 1,000 ML IV ONE ×2 (12:33)
[2024-03-03 13:49] VITALS: BP 138/59; PULSE 73; RESP 16; TEMP 98.6; O2SAT 98
== END 2024-03-03 13:50 | disposition home or self-care (01) ==
LOC: ER 10:34
DX: R10.84 Generalized abdominal pain (principal); Z79.01 Long term (current) use of anticoagulants; E11.65 Type 2 diabetes mellitus with hyperglycemia; Z88.0 Allergy status to penicillin; Z88.8 Allergy status to other drugs, medicaments and biological substances; Z79.82 Long term (current) use of aspirin; Z79.4 Long term (current) use of insulin; Z79.899 Other long term (current) drug therapy; I10 Essential (primary) hypertension; Z85.038 Personal history of other malignant neoplasm of large intestine
CPT/HCPCS: 36415; 74176; 80048; 81001; 82948; 85025; 96360; 99284; J7030

== ENCOUNTER 2024-03-04 11:30 | Emergency (ER) | payer MEDICAID ==
[~2024-03-04] VITALS: Ht 185.4 cm; Wt 130.8 kg
[2024-03-04] MEDS ORDERED: INSULIN LISPRO 100 UNIT/ML INSULN.PEN MULTI-DOSE SQ SCH (13:50)
[2024-03-04] MEDS ORDERED: ketorolac tromethamine 15mg/ml inj. IM ONE (13:55)
[2024-03-04] MEDS: normal saline 1000ml 1,000 ML IV ONE (14:26)
[2024-03-04] MEDS: insulin regular, human 10 units/0.1 ml syringe IV ONE (14:27)
[2024-03-04 14:53] LABS: BASOPHILS # (AUTO) 0.1 X10'3 (0-0.2); EOSINOPHILS # (AUTO) 0.1 X10'3 (0-0.9); EOSINOPHILS % (AUTO) 1.1 % (0-6); HEMATOCRIT 39.9 % (42.0-52.0); HEMOGLOBIN 13.5 g/dl (14.0-17.9); LYMPHOCYTES # (AUTO) 2.3 X10'3 (1.1-4.8); LYMPHOCYTES % (AUTO) 17.8 % (21-51); MEAN CORPUSCULAR VOLUME 79.4 FL (78-98); MEAN PLATELET VOLUME 7.7 FL (7.4-10.4); MONOCYTES # (AUTO) 0.9 X10'3 (0-0.9); MONOCYTES % (AUTO) 6.9 % (2-12); NEUTROPHILS # (AUTO) 9.5 X10'3 (1.8-7.7); NEUTROPHILS % (AUTO) 73.2 % (42-75); PLATELET COUNT 289 X10'3 (140-440); RED BLOOD COUNT 5.03 X10'6 (4.70-6.10); RED CELL DISTRIBUTION WIDTH 15.3 % (11.5-14.5); WHITE BLOOD COUNT 12.9 X10'3 (4.5-11.0)
[2024-03-04] MEDS ORDERED: HYDROcodone/acetaminophen 10/325mg tab PO ONE (15:00)
[2024-03-04 15:04] LABS: ALANINE AMINOTRANSFERASE 34 U/L (12-78); ALBUMIN 3.1 G/DL (3.4-5.0); ALBUMIN/GLOBULIN RATIO 0.7 (1.1-1.5); ALKALINE PHOSPHATASE 95 IU/L (46-116); ANION GAP 10 (8-16); ASPARTATE AMINO TRANSFERASE 17 U/L (10-37); BILIRUBIN,TOTAL 0.5 MG/DL (0.1-1.0); BLOOD UREA NITROGEN 18 MG/DL (7-18); BUN/CREATININE RATIO 15.1 (10.0-20.0); CALCIUM 8.5 MG/DL (8.5-10.1); CHLORIDE 100 MMOL/L (99-107); CREATININE 1.19 MG/DL (0.60-1.10); GLUCOSE 349 MG/DL (70-104); LIPASE 88 U/L (16-77); POTASSIUM 3.7 MMOL/L (3.5-5.1); SODIUM 137 MMOL/L (135-145); TOTAL CARBON DIOXIDE 26.9 MMOL/L (24-32); TOTAL PROTEIN 7.7 G/DL (6.4-8.2); eCRCL 75 ML/MIN; eGFR 62 ML/MIN
[2024-03-04] MEDS: normal saline 1000ml 1,000 ML IV SCH (15:13)
[2024-03-04] MEDS: HYDROcodone/acetaminophen 10/325mg tab PO ONE (15:13)
[2024-03-04 15:43] VITALS: BP 155/78; PULSE 68; RESP 14; TEMP 98; O2SAT 100
[2024-03-05] MEDS ORDERED: LISI40TA13 PO (19:01)
[2024-03-05] MEDS ORDERED: APIX5TAB3 PO (19:01)
[2024-03-05] MEDS ORDERED: SITA100T11 PO (19:02)
[2024-03-05] MEDS ORDERED: BUME1TAB8 PO (19:03)
[2024-03-05] MEDS ORDERED: CARV-50 PO (19:03)
[2024-03-05] MEDS ORDERED: ISOS30TA9 PO (19:03)
[2024-03-05] MEDS ORDERED: AMI200T PO (19:04)
[2024-03-05] MEDS ORDERED: HYDR-3973 PO (19:05)
[2024-03-05] MEDS ORDERED: AMLO2.5T2 PO (19:05)
[2024-03-05] MEDS ORDERED: ATOR40TA PO (19:06)
[2024-03-05] MEDS ORDERED: INSU100C10 SQ (19:06)
[2024-03-05] MEDS ORDERED: INSU100I31 SQ (19:07)
== END 2024-03-04 15:45 | disposition home or self-care (01) ==
LOC: ER 11:31
DX: E11.43 Type 2 diabetes mellitus with diabetic autonomic (poly)neuropathy (principal); K31.84 Gastroparesis; I10 Essential (primary) hypertension; E11.9 Type 2 diabetes mellitus without complications; Z88.0 Allergy status to penicillin; Z88.8 Allergy status to other drugs, medicaments and biological substances; Z79.82 Long term (current) use of aspirin; Z79.4 Long term (current) use of insulin; Z79.899 Other long term (current) drug therapy; Z90.49 Acquired absence of other specified parts of digestive tract; Z85.038 Personal history of other malignant neoplasm of large intestine
CPT/HCPCS: 36415; 80053; 82948; 83690; 85025; 96361; 96374; 99285; J1815; J7030

== ENCOUNTER 2024-03-05 13:56 | Inpatient (IN) | payer MEDICAID ==
[~2024-03-05] VITALS: Ht 185.4 cm; Wt 106.0 kg
[2024-03-05 16:16] LABS: BILIRUBIN,URINE NEGATIVE (Neg); CLARITY,URINE CLEAR (Clear); COLOR,URINE STRAW (Yellow); GLUCOSE, URINE >=1000 mg/dl (Neg); KETONES,URINE NEGATIVE (Neg); LEUKOCYTE ESTERASE ,URINE NEGATIVE (Neg); NITRITES, URINE NEGATIVE (Neg); OCCULT BLOOD,URINE TRACE-INTACT (Neg); PROTEIN,URINE NEGATIVE (Neg); UROBILINOGEN,URINE 0.2 E.U/dL (0.2-1.0)
[2024-03-05 16:31] LABS: UA COLLECTION TYPE CLN CATCH MIDSTREAM
[2024-03-05 16:32] LABS: BACTERIA,URINE FEW /HPF (Neg); RBC,URINE 0-2 /HPF (0-2); SQUAMOUS EPITHELIAL CELL,UR FEW /LPF (FEW); WBC,URINE 0-4 /HPF (0-4)
[2024-03-05 16:38] LABS: ALANINE AMINOTRANSFERASE 35 U/L (12-78); ALBUMIN 3.4 G/DL (3.4-5.0); ALBUMIN/GLOBULIN RATIO 0.6 (1.1-1.5); ALKALINE PHOSPHATASE 107 IU/L (46-116); ANION GAP 9 (8-16); ASPARTATE AMINO TRANSFERASE 18 U/L (10-37); BILIRUBIN,TOTAL 0.5 MG/DL (0.1-1.0); BLOOD UREA NITROGEN 15 MG/DL (7-18); CALCIUM 9.2 MG/DL (8.5-10.1); CHLORIDE 100 MMOL/L (99-107); CREATININE 1.15 MG/DL (0.60-1.10); GLUCOSE 358 MG/DL (70-104); LIPASE 99 U/L (16-77); POTASSIUM 3.7 MMOL/L (3.5-5.1); SODIUM 136 MMOL/L (135-145); TOTAL CARBON DIOXIDE 26.8 MMOL/L (24-32); eCRCL 77 ML/MIN; eGFR 65 ML/MIN
[2024-03-05] MEDS: hydrALAZINE 20mg/ml inj. IV ONE (16:44)
[2024-03-05] MEDS ORDERED: ketorolac tromethamine 15mg/ml inj. IV ONE (16:50)
[2024-03-05 17:00] LABS: ACETONE NEGATIVE (NEGATIVE)
[2024-03-05 17:24] LABS: BASOPHILS # (AUTO) 0.1 X10'3 (0-0.2); BASOPHILS % (AUTO) 1.1 % (0-1); EOSINOPHILS # (AUTO) 0.2 X10'3 (0-0.9); EOSINOPHILS % (AUTO) 1.6 % (0-6); HEMATOCRIT 42.5 % (42.0-52.0); HEMOGLOBIN 14.4 g/dl (14.0-17.9); LYMPHOCYTES # (AUTO) 2.5 X10'3 (1.1-4.8); LYMPHOCYTES % (AUTO) 20.4 % (21-51); MEAN CORPUSCULAR HEMOGLOBIN 26.9 PG (27.0-31.0); MEAN CORPUSCULAR HGB CONC 33.9 g/dL (33.0-36.5); MEAN CORPUSCULAR VOLUME 79.6 FL (78-98); MEAN PLATELET VOLUME 7.6 FL (7.4-10.4); MONOCYTES # (AUTO) 0.8 X10'3 (0-0.9); MONOCYTES % (AUTO) 6.5 % (2-12); NEUTROPHILS # (AUTO) 8.6 X10'3 (1.8-7.7); NEUTROPHILS % (AUTO) 70.4 % (42-75); PLATELET COUNT 282 X10'3 (140-440); RED BLOOD COUNT 5.34 X10'6 (4.70-6.10); WHITE BLOOD COUNT 12.2 X10'3 (4.5-11.0)
[2024-03-05] MEDS: HYDROmorphone inj. 0.5 MG/0.5 ML DISP.SYRIN IV ONE (17:29)
[2024-03-05] MEDS ORDERED: magnesium Cl slow-release 64mg tablet PO PRN (17:30)
[2024-03-05] MEDS ORDERED: potassium Cl 40MEQ/1/2NS 520ml 520 ML IV PRN (17:30)
[2024-03-05] MEDS ORDERED: magnesium hydroxide 30ml (MOM) UD suspension PO PRN (17:30)
[2024-03-05] MEDS ORDERED: ondansetron/PF 4mg/2ml inj IV PRN (17:30)
[2024-03-05] MEDS: normal saline 1000ml 1,000 ML IV SCH (17:30)
[2024-03-05] MEDS ORDERED: acetaminophen 325mg tablet PO PRN (17:30)
[2024-03-05] MEDS ORDERED: magnesium 4gm in 100ml NS 100 ML IV PRN (17:30)
[2024-03-05] MEDS ORDERED: potassium Cl 20 mEq SR tablet PO PRN ×2 (17:30)
[2024-03-05] MEDS ORDERED: mag hydrox/Alum hydrox/simeth 30ml oral suspension PO PRN (17:30)
[2024-03-05] MEDS ORDERED: dextrose 50%-water 50ml dispensing syringe IV PRN ×2 (18:05)
[2024-03-05] MEDS ORDERED: glucagon, human recombinant 1mg kit SUBCUT PRN (18:05)
[2024-03-05] MEDS ORDERED: metoclopramide 5 mg/ml inj IV PRN (18:05)
[2024-03-05] MEDS ORDERED: DEXTROSE 15 GM of carb/4 tabs (each vial/BOTTLE has 4 tablets) PO PRN ×2 (18:05)
[2024-03-05] MEDS ORDERED: LISI40TA13 PO (19:01)
[2024-03-05] MEDS ORDERED: APIX5TAB3 PO (19:01)
[2024-03-05] MEDS ORDERED: SITA100T11 PO (19:02)
[2024-03-05] MEDS ORDERED: CARV-50 PO (19:03)
[2024-03-05] MEDS ORDERED: ISOS30TA9 PO (19:03)
[2024-03-05] MEDS ORDERED: BUME1TAB8 PO (19:03)
[2024-03-05] MEDS ORDERED: AMI200T PO (19:04)
[2024-03-05] MEDS ORDERED: HYDR-3973 PO (19:05)
[2024-03-05] MEDS ORDERED: AMLO2.5T2 PO (19:05)
[2024-03-05] MEDS ORDERED: INSU100C10 SQ (19:06)
[2024-03-05] MEDS ORDERED: ATOR40TA PO (19:06)
[2024-03-05] MEDS ORDERED: INSU100I31 SQ (19:07)
[2024-03-05] MEDS: morphine 2 MG/ML inj. syringe IV PRN (19:12)
[2024-03-05] MEDS: docusate sod 100mg capsule PO SCH (19:13)
[2024-03-05] MEDS: metoprolol tartrate 50mg tablet PO SCH (19:16)
[2024-03-05] MEDS: enoxaparin 40mg/0.4ml syringe SQ SCH (19:17)
[2024-03-05] MEDS: cloNIDine 0.1 mg tablet PO SCH (19:17)
[2024-03-05] MEDS: insulin glargine (Lantus) pen - multi-dose SQ SCH (21:00)
[2024-03-05] MEDS: latanoprost 0.005% 2.5ml ophthalmic drops EACHEYE SCH (21:00)
[2024-03-05] MEDS ORDERED: temazepam 15mg capsule PO PRN (21:00)
[2024-03-05] MEDS: HYDROcodone/acetaminophen 10/325mg tab PO ONE (21:18)
[2024-03-05] MEDS: diatr meglu/diatrizoate 30ml oral sol.-(3 dose) bottle PO SCH (22:16)
[2024-03-06] VITALS (7 sets, daily range): BP systolic 132–160; BP diastolic 71–87; PULSE 60–78; RESP 16–18; TEMP 96.5–98.3; O2SAT 96–99
[2024-03-06] MEDS: metroNIDAZOLE-Flagyl 500mg/NS 100 ML IV SCH (02:32)
[2024-03-06] MEDS: HYDROcodone/acetaminophen 10/325mg tab PO ONE (03:45)
[2024-03-06 06:30] LABS: BASOPHILS # (AUTO) 0.1 X10'3 (0-0.2); BASOPHILS % (AUTO) 0.9 % (0-1); EOSINOPHILS # (AUTO) 0.3 X10'3 (0-0.9); EOSINOPHILS % (AUTO) 3.2 % (0-6); HEMATOCRIT 37.4 % (42.0-52.0); HEMOGLOBIN 12.8 g/dl (14.0-17.9); LYMPHOCYTES # (AUTO) 2.6 X10'3 (1.1-4.8); LYMPHOCYTES % (AUTO) 25.7 % (21-51); MEAN CORPUSCULAR HEMOGLOBIN 27.5 PG (27.0-31.0); MEAN CORPUSCULAR HGB CONC 34.3 g/dL (33.0-36.5); MEAN CORPUSCULAR VOLUME 80.1 FL (78-98); MEAN PLATELET VOLUME 7.3 FL (7.4-10.4); MONOCYTES # (AUTO) 0.7 X10'3 (0-0.9); NEUTROPHILS # (AUTO) 6.4 X10'3 (1.8-7.7); NEUTROPHILS % (AUTO) 63.2 % (42-75); PLATELET COUNT 226 X10'3 (140-440); RED BLOOD COUNT 4.67 X10'6 (4.70-6.10); WHITE BLOOD COUNT 10.1 X10'3 (4.5-11.0)
[2024-03-06 06:42] LABS: INR 1.1 INR; PROTHROMBIN TIME 11.1 SECONDS (9.0-12.0)
[2024-03-06 06:51] LABS: ALANINE AMINOTRANSFERASE 32 U/L (12-78); ALBUMIN 2.8 G/DL (3.4-5.0); ALBUMIN/GLOBULIN RATIO 0.7 (1.1-1.5); ALKALINE PHOSPHATASE 80 IU/L (46-116); ANION GAP 9 (8-16); ASPARTATE AMINO TRANSFERASE 19 U/L (10-37); BILIRUBIN,TOTAL 0.6 MG/DL (0.1-1.0); BLOOD UREA NITROGEN 13 MG/DL (7-18); BUN/CREATININE RATIO 14.8 (10.0-20.0); CALCIUM 8.2 MG/DL (8.5-10.1); CHLORIDE 104 MMOL/L (99-107); CREATININE 0.88 MG/DL (0.60-1.10); GLUCOSE 229 MG/DL (70-104); POTASSIUM 3.5 MMOL/L (3.5-5.1); SODIUM 139 MMOL/L (135-145); TOTAL CARBON DIOXIDE 26.3 MMOL/L (24-32); TOTAL PROTEIN 6.7 G/DL (6.4-8.2); eCRCL 101 ML/MIN; eGFR 88 ML/MIN
[2024-03-06] MEDS: INSULIN LISPRO 100 UNIT/ML INSULN.PEN MULTI-DOSE SQ SCH ×3 (07:30→19:26)
[2024-03-06] MEDS: pantoprazole 40mg Tablet.DR PO SCH (07:35)
[2024-03-06] MEDS: HYDROchlorothiazide 12.5mg capsule PO SCH (07:40)
[2024-03-06] MEDS ORDERED: SEMA0.258 SQ (07:53)
[2024-03-06] MEDS: levoFLOXACIN-Levaquin 750MG/D5 150 ML IV SCH (09:40)
[2024-03-06] MEDS: HYDROcodone/acetaminophen 10/325mg tab PO PRN (09:42)
[2024-03-06] MEDS: dicyclomine 10 MG capsule PO SCH (13:00)
[2024-03-06] MEDS ORDERED: iohexol 350MG/ML 100ml bottle IV ONE (13:08)
[2024-03-06] MEDS ORDERED: INSU100C10 SQ (14:50)
[2024-03-06] MEDS: apixaban 5mg tablet PO SCH (19:28)
[2024-03-06] MEDS: carVEDilol 12.5mg tablet PO SCH (19:30)
[2024-03-06] MEDS: lisinopril 20mg tablet PO SCH (19:31)
[2024-03-06] MEDS: PEG 3350/Na sulf,bicarb,Cl/KCl oral sol 4 liter bottle PO ONE (22:25)
[2024-03-07] VITALS (8 sets, daily range): BP systolic 115–166; BP diastolic 61–91; PULSE 63–89; RESP 16–19; TEMP 97–97.4; O2SAT 97–99
[2024-03-07 07:00] LABS: BASOPHILS # (AUTO) 0.1 X10'3 (0-0.2); EOSINOPHILS # (AUTO) 0.3 X10'3 (0-0.9); HEMATOCRIT 37.3 % (42.0-52.0); HEMOGLOBIN 12.5 g/dl (14.0-17.9); LYMPHOCYTES # (AUTO) 1.9 X10'3 (1.1-4.8); LYMPHOCYTES % (AUTO) 22.4 % (21-51); MEAN CORPUSCULAR HEMOGLOBIN 26.8 PG (27.0-31.0); MEAN CORPUSCULAR HGB CONC 33.4 g/dL (33.0-36.5); MEAN CORPUSCULAR VOLUME 80.4 FL (78-98); MEAN PLATELET VOLUME 7.5 FL (7.4-10.4); MONOCYTES # (AUTO) 0.7 X10'3 (0-0.9); MONOCYTES % (AUTO) 7.9 % (2-12); NEUTROPHILS # (AUTO) 5.4 X10'3 (1.8-7.7); NEUTROPHILS % (AUTO) 64.7 % (42-75); PLATELET COUNT 222 X10'3 (140-440); RED BLOOD COUNT 4.64 X10'6 (4.70-6.10); RED CELL DISTRIBUTION WIDTH 14.9 % (11.5-14.5); WHITE BLOOD COUNT 8.4 X10'3 (4.5-11.0)
[2024-03-07 07:10] LABS: PROTHROMBIN TIME 10.9 SECONDS (9.0-12.0)
[2024-03-07 07:28] LABS: ALANINE AMINOTRANSFERASE 29 U/L (12-78); ALBUMIN 2.6 G/DL (3.4-5.0); ALBUMIN/GLOBULIN RATIO 0.7 (1.1-1.5); ALKALINE PHOSPHATASE 80 IU/L (46-116); ANION GAP 9 (8-16); ASPARTATE AMINO TRANSFERASE 20 U/L (10-37); BILIRUBIN,TOTAL 0.5 MG/DL (0.1-1.0); BLOOD UREA NITROGEN 14 MG/DL (7-18); BUN/CREATININE RATIO 16.9 (10.0-20.0); CALCIUM 8.2 MG/DL (8.5-10.1); CHLORIDE 101 MMOL/L (99-107); CREATININE 0.83 MG/DL (0.60-1.10); GLUCOSE 236 MG/DL (70-104); POTASSIUM 3.7 MMOL/L (3.5-5.1); SODIUM 136 MMOL/L (135-145); TOTAL CARBON DIOXIDE 25.7 MMOL/L (24-32); TOTAL PROTEIN 6.2 G/DL (6.4-8.2); eCRCL 107 ML/MIN; eGFR > 90 ML/MIN
[2024-03-07] MEDS: isosorbide dinitrate 30mg tablet PO SCH (07:37)
[2024-03-07] MEDS: amLODIPine 5mg tablet PO SCH (07:38)
[2024-03-07] MEDS: atorvastatin 20mg tablet PO SCH (07:38)
[2024-03-07] MEDS: amiodarone 100mg tablet PO SCH (07:38)
[2024-03-07] MEDS: aspirin 81mg, enteric-coated 1 TAB TABLET.DR PO SCH (07:38)
[2024-03-07] MEDS ORDERED: fentaNYL/PF 50MCG/1 ML 2ML syringe ONE (17:18)
[2024-03-07] MEDS ORDERED: MIDAZolam 1 MG/ML 5ML VIAL ONE (17:18)
[2024-03-07] MEDS ORDERED: diphenhydrAMINE 50 mg/ml inj ONE (17:18)
[2024-03-07] MEDS: insulin glargine (Lantus) pen - multi-dose SQ SCH (21:05)
[2024-03-08 01:17] VITALS: BP 173/88; PULSE 71; RESP 15; TEMP 98.6; O2SAT 99
[2024-03-08 06:00] VITALS: BP 158/86; PULSE 66; RESP 17; TEMP 98.3; O2SAT 100
[2024-03-08 07:00] LABS: BASOPHILS # (AUTO) 0.1 X10'3 (0-0.2); BASOPHILS % (AUTO) 0.7 % (0-1); EOSINOPHILS # (AUTO) 0.2 X10'3 (0-0.9); EOSINOPHILS % (AUTO) 2.7 % (0-6); HEMATOCRIT 35.5 % (42.0-52.0); LYMPHOCYTES # (AUTO) 1.8 X10'3 (1.1-4.8); LYMPHOCYTES % (AUTO) 20.5 % (21-51); MEAN CORPUSCULAR HEMOGLOBIN 27.1 PG (27.0-31.0); MEAN CORPUSCULAR HGB CONC 33.8 g/dL (33.0-36.5); MEAN CORPUSCULAR VOLUME 80.1 FL (78-98); MEAN PLATELET VOLUME 7.5 FL (7.4-10.4); MONOCYTES # (AUTO) 0.6 X10'3 (0-0.9); MONOCYTES % (AUTO) 6.8 % (2-12); NEUTROPHILS # (AUTO) 5.9 X10'3 (1.8-7.7); NEUTROPHILS % (AUTO) 69.3 % (42-75); PLATELET COUNT 226 X10'3 (140-440); RED BLOOD COUNT 4.43 X10'6 (4.70-6.10); RED CELL DISTRIBUTION WIDTH 15.1 % (11.5-14.5); WHITE BLOOD COUNT 8.6 X10'3 (4.5-11.0)
[2024-03-08] MEDS: INSULIN LISPRO 100 UNIT/ML INSULN.PEN MULTI-DOSE SQ SCH ×3 (07:22→17:57)
[2024-03-08 07:27] LABS: ALANINE AMINOTRANSFERASE 31 U/L (12-78); ALBUMIN 2.6 G/DL (3.4-5.0); ALBUMIN/GLOBULIN RATIO 0.7 (1.1-1.5); ALKALINE PHOSPHATASE 76 IU/L (46-116); ANION GAP 7 (8-16); ASPARTATE AMINO TRANSFERASE 17 U/L (10-37); BILIRUBIN,TOTAL 0.3 MG/DL (0.1-1.0); BLOOD UREA NITROGEN 14 MG/DL (7-18); BUN/CREATININE RATIO 14.7 (10.0-20.0); CALCIUM 8.2 MG/DL (8.5-10.1); CHLORIDE 105 MMOL/L (99-107); CREATININE 0.95 MG/DL (0.60-1.10); GLUCOSE 165 MG/DL (70-104); POTASSIUM 3.8 MMOL/L (3.5-5.1); SODIUM 140 MMOL/L (135-145); TOTAL CARBON DIOXIDE 27.6 MMOL/L (24-32); TOTAL PROTEIN 6.3 G/DL (6.4-8.2); eCRCL 93 ML/MIN; eGFR 81 ML/MIN
[2024-03-08 10:00] VITALS: BP 123/64; PULSE 66; RESP 20; TEMP 97.4; O2SAT 98
[2024-03-08 18:00] VITALS: BP 154/90; PULSE 72; RESP 20; TEMP 98.1; O2SAT 98
[2024-03-08 22:00] VITALS: BP 138/90; PULSE 80; RESP 19; TEMP 98.2; O2SAT 97
[2024-03-09 03:07] VITALS: RESP 18
[2024-03-09 07:15] VITALS: BP_SYST 150
[2024-03-09 08:03] LABS: BASOPHILS # (AUTO) 0.1 X10'3 (0-0.2); BASOPHILS % (AUTO) 0.7 % (0-1); EOSINOPHILS # (AUTO) 0.2 X10'3 (0-0.9); EOSINOPHILS % (AUTO) 2.3 % (0-6); HEMATOCRIT 36.5 % (42.0-52.0); HEMOGLOBIN 12.2 g/dl (14.0-17.9); LYMPHOCYTES % (AUTO) 21.3 % (21-51); MEAN CORPUSCULAR HEMOGLOBIN 26.8 PG (27.0-31.0); MEAN CORPUSCULAR HGB CONC 33.5 g/dL (33.0-36.5); MEAN CORPUSCULAR VOLUME 79.9 FL (78-98); MEAN PLATELET VOLUME 7.9 FL (7.4-10.4); MONOCYTES # (AUTO) 0.7 X10'3 (0-0.9); MONOCYTES % (AUTO) 7.7 % (2-12); NEUTROPHILS # (AUTO) 6.5 X10'3 (1.8-7.7); PLATELET COUNT 230 X10'3 (140-440); RED BLOOD COUNT 4.57 X10'6 (4.70-6.10); RED CELL DISTRIBUTION WIDTH 14.9 % (11.5-14.5); WHITE BLOOD COUNT 9.5 X10'3 (4.5-11.0)
[2024-03-09 08:13] LABS: PROTHROMBIN TIME 10.9 SECONDS (9.0-12.0)
[2024-03-09 08:23] LABS: ALANINE AMINOTRANSFERASE 28 U/L (12-78); ALBUMIN 2.6 G/DL (3.4-5.0); ALBUMIN/GLOBULIN RATIO 0.7 (1.1-1.5); ALKALINE PHOSPHATASE 82 IU/L (46-116); ANION GAP 8 (8-16); ASPARTATE AMINO TRANSFERASE 17 U/L (10-37); BILIRUBIN,TOTAL 0.3 MG/DL (0.1-1.0); BLOOD UREA NITROGEN 19 MG/DL (7-18); BUN/CREATININE RATIO 18.8 (10.0-20.0); CALCIUM 8.4 MG/DL (8.5-10.1); CHLORIDE 103 MMOL/L (99-107); CREATININE 1.01 MG/DL (0.60-1.10); GLUCOSE 272 MG/DL (70-104); POTASSIUM 3.7 MMOL/L (3.5-5.1); SODIUM 136 MMOL/L (135-145); TOTAL CARBON DIOXIDE 25.4 MMOL/L (24-32); TOTAL PROTEIN 6.5 G/DL (6.4-8.2); eCRCL 88 ML/MIN; eGFR 75 ML/MIN
[2024-03-09] MEDS ORDERED: ASPI81TA52 PO (11:18)
[2024-03-09] MEDS ORDERED: LEVO-65 PO (11:18)
[2024-03-09] MEDS ORDERED: METR-159 PO (11:18)
[2024-03-09] MEDS ORDERED: BUME1TAB8 PO (11:18)
[2024-03-09] MEDS ORDERED: APIX5TAB3 PO (11:18)
[2024-03-09] MEDS ORDERED: ATOR40TA PO (11:18)
[2024-03-09] MEDS ORDERED: INSU100I31 SQ (11:18)
[2024-03-09] MEDS ORDERED: CARV-50 PO (11:18)
[2024-03-09] MEDS ORDERED: SITA100T11 PO (11:18)
[2024-03-09] MEDS ORDERED: LISI40TA13 PO (11:18)
== END 2024-03-09 14:50 | disposition home health service (06) | DRG 249 ==
LOC: ER 13:57 → ED HOLD 17:51 → ORTHO 4S 03-06 03:02
PROVIDERS: ADMIT Internal Medicine; ATTEND Internal Medicine
PROC: B4201ZZ Computerized Tomography (CT Scan) of Abdominal Aorta using Low Osmolar Contrast (ICD-10-PCS; 2024-03-06)
PROC: B4241ZZ Computerized Tomography (CT Scan) of Superior Mesenteric Artery using Low Osmolar Contrast (ICD-10-PCS; 2024-03-06)
PROC: B4281ZZ Computerized Tomography (CT Scan) of Bilateral Renal Arteries using Low Osmolar Contrast (ICD-10-PCS; 2024-03-06)
PROC: B42C1ZZ Computerized Tomography (CT Scan) of Pelvic Arteries using Low Osmolar Contrast (ICD-10-PCS; 2024-03-06)
PROC: B42H1ZZ Computerized Tomography (CT Scan) of Bilateral Lower Extremity Arteries using Low Osmolar Contrast (ICD-10-PCS; 2024-03-06)
PROC: B4211ZZ Computerized Tomography (CT Scan) of Celiac Artery using Low Osmolar Contrast (ICD-10-PCS; 2024-03-06)
PROC: 0DBK8ZZ Excision of Ascending Colon, Via Natural or Artificial Opening Endoscopic (ICD-10-PCS; principal; 2024-03-07)
PROC: 0DBL8ZZ Excision of Transverse Colon, Via Natural or Artificial Opening Endoscopic (ICD-10-PCS; 2024-03-07)
DX: K52.9 Noninfective gastroenteritis and colitis, unspecified (principal); N17.0 Acute kidney failure with tubular necrosis; K31.84 Gastroparesis; D12.2 Benign neoplasm of ascending colon; D12.3 Benign neoplasm of transverse colon; E11.21 Type 2 diabetes mellitus with diabetic nephropathy; I50.32 Chronic diastolic (congestive) heart failure; I11.0 Hypertensive heart disease with heart failure; E11.40 Type 2 diabetes mellitus with diabetic neuropathy, unspecified; I48.91 Unspecified atrial fibrillation; E11.43 Type 2 diabetes mellitus with diabetic autonomic (poly)neuropathy; K57.30 Diverticulosis of large intestine without perforation or abscess without bleeding; I25.10 Atherosclerotic heart disease of native coronary artery without angina pectoris; Z79.4 Long term (current) use of insulin; Z88.0 Allergy status to penicillin; Z88.6 Allergy status to analgesic agent; Z83.3 Family history of diabetes mellitus; Z80.1 Family history of malignant neoplasm of trachea, bronchus and lung
CPT/HCPCS: 36415; 45385; 74174; 74176; 80053; 81001; 82009; 82948; 83036; 83605; 83690; 84484; 85025; 85610; 87045; 87046; 87081; 93005; 93306; 93925; 99152; 99153; 99285; A4620; A6213; A6449; C1889; G0378; J0360; J1170; J1200; J1815; J1956; J2250; J2270; J3010; J3490; J7030; J7040; Q9963; Q9967

== ENCOUNTER 2024-04-03 12:45 | Emergency (ER) | payer MEDICAID ==
[~2024-04-03] VITALS: Ht 182.9 cm; Wt 132.8 kg
[~2024-04-03 12:45] MED LIST changes: +AMI200T PO; +APIX5TAB3 PO; +ATOR40TA PO; +BUME1TAB8 PO; +CARV-50 PO; -CLON-529 PO; -DICY10CA88 PO; +HYDR-3973 PO; -HYDR12.5 PO; +INSU100I31 SQ; +ISOS30TA9 PO; -LATA2.5D14 EACHEYE; +LISI40TA13 PO; -METO50TA16; +SEMA0.258 SQ; +SITA100T11 PO
[2024-04-03 13:45] LABS: BASOPHILS # (AUTO) 0.1 X10'3 (0-0.2); BASOPHILS % (AUTO) 0.7 % (0-1); EOSINOPHILS # (AUTO) 0.1 X10'3 (0-0.9); EOSINOPHILS % (AUTO) 0.5 % (0-6); HEMATOCRIT 39.3 % (42.0-52.0); HEMOGLOBIN 13.1 g/dl (14.0-17.9); LYMPHOCYTES # (AUTO) 1.6 X10'3 (1.1-4.8); LYMPHOCYTES % (AUTO) 14.5 % (21-51); MEAN CORPUSCULAR HEMOGLOBIN 26.9 PG (27.0-31.0); MEAN CORPUSCULAR HGB CONC 33.4 g/dL (33.0-36.5); MEAN CORPUSCULAR VOLUME 80.6 FL (78-98); MEAN PLATELET VOLUME 7.9 FL (7.4-10.4); MONOCYTES # (AUTO) 0.6 X10'3 (0-0.9); MONOCYTES % (AUTO) 5.7 % (2-12); NEUTROPHILS # (AUTO) 8.7 X10'3 (1.8-7.7); NEUTROPHILS % (AUTO) 78.6 % (42-75); PLATELET COUNT 252 X10'3 (140-440); RED BLOOD COUNT 4.88 X10'6 (4.70-6.10); WHITE BLOOD COUNT 11.1 X10'3 (4.5-11.0)
[2024-04-03] MEDS: normal saline 1000ml 1,000 ML IV ONE (13:45)
[2024-04-03 14:11] LABS: ALANINE AMINOTRANSFERASE 39 U/L (12-78); ALBUMIN/GLOBULIN RATIO 0.7 (1.1-1.5); ALKALINE PHOSPHATASE 86 IU/L (46-116); AMYLASE 38 U/L (25-115); ANION GAP 9 (8-16); ASPARTATE AMINO TRANSFERASE 16 U/L (10-37); BILIRUBIN,TOTAL 0.5 MG/DL (0.1-1.0); BLOOD UREA NITROGEN 19 MG/DL (7-18); BUN/CREATININE RATIO 16.5 (10.0-20.0); CALCIUM 8.7 MG/DL (8.5-10.1); CHLORIDE 98 MMOL/L (99-107); CREATININE 1.15 MG/DL (0.60-1.10); GLUCOSE 378 MG/DL (70-104); LIPASE 41 U/L (16-77); POTASSIUM 4.2 MMOL/L (3.5-5.1); SODIUM 133 MMOL/L (135-145); TOTAL CARBON DIOXIDE 25.9 MMOL/L (24-32); TOTAL PROTEIN 7.6 G/DL (6.4-8.2); eCRCL 75 ML/MIN; eGFR 65 ML/MIN
[2024-04-03 14:23] LABS: BILIRUBIN,URINE NEGATIVE (Neg); CLARITY,URINE CLEAR (Clear); COLOR,URINE YELLOW (Yellow); GLUCOSE, URINE >=1000 mg/dl (Neg); KETONES,URINE NEGATIVE (Neg); LEUKOCYTE ESTERASE ,URINE NEGATIVE (Neg); NITRITES, URINE NEGATIVE (Neg); OCCULT BLOOD,URINE TRACE-INTACT (Neg); PROTEIN,URINE NEGATIVE (Neg); UROBILINOGEN,URINE 0.2 E.U/dL (0.2-1.0)
[2024-04-03] MEDS ORDERED: iohexol 300mg/ml 100ml inj. ONE (14:24)
[2024-04-03 14:25] LABS: UA COLLECTION TYPE URINAL
[2024-04-03 14:27] VITALS: TEMP 98.3
[2024-04-03 14:30] LABS: SQUAMOUS EPITHELIAL CELL,UR NONE SEEN /LPF (FEW)
[2024-04-03] MEDS: ketorolac trometh. 30mg/ml inj. IV ONE (14:31)
[2024-04-03 14:32] LABS: BACTERIA,URINE NONE SEEN /HPF (Neg); RBC,URINE 0-2 /HPF (0-2); WBC,URINE NONE SEEN /HPF (0-4)
[2024-04-03] MEDS: ondansetron/PF 4mg/2ml inj IV ONE (14:48)
[2024-04-03 16:12] VITALS: BP 173/104; PULSE 74; O2SAT 98
[2024-04-03] MEDS: HYDROcodone/acetaminophen 10/325mg tab PO ONE (16:19)
[2024-04-03 17:08] VITALS: RESP 13
== END 2024-04-03 17:00 | disposition home or self-care (01) ==
LOC: ER 12:46
DX: R10.30 Lower abdominal pain, unspecified (principal); E11.65 Type 2 diabetes mellitus with hyperglycemia; R19.7 Diarrhea, unspecified; R11.2 Nausea with vomiting, unspecified; B34.9 Viral infection, unspecified; I10 Essential (primary) hypertension; Z85.038 Personal history of other malignant neoplasm of large intestine; Z98.890 Other specified postprocedural states; Z88.0 Allergy status to penicillin; Z88.8 Allergy status to other drugs, medicaments and biological substances; Z79.899 Other long term (current) drug therapy; Z79.82 Long term (current) use of aspirin; Z79.4 Long term (current) use of insulin
CPT/HCPCS: 36415; 74177; 80053; 81001; 82150; 83690; 85025; 96361; 96374; 99285; J2405; J7030; Q9967

== ENCOUNTER 2024-04-04 11:33 | Emergency (ER) | payer MEDICAID ==
[~2024-04-04] VITALS: Ht 182.9 cm; Wt 132.3 kg
[2024-04-04 11:59] VITALS: PULSE 80; TEMP 98; O2SAT 98
[2024-04-04 12:57] LABS: BASOPHILS # (AUTO) 0.1 X10'3 (0-0.2); BASOPHILS % (AUTO) 0.6 % (0-1); EOSINOPHILS # (AUTO) 0.1 X10'3 (0-0.9); EOSINOPHILS % (AUTO) 0.8 % (0-6); HEMATOCRIT 41.8 % (42.0-52.0); HEMOGLOBIN 13.9 g/dl (14.0-17.9); LYMPHOCYTES # (AUTO) 1.8 X10'3 (1.1-4.8); LYMPHOCYTES % (AUTO) 14.4 % (21-51); MEAN CORPUSCULAR HEMOGLOBIN 26.8 PG (27.0-31.0); MEAN CORPUSCULAR HGB CONC 33.3 g/dL (33.0-36.5); MEAN CORPUSCULAR VOLUME 80.7 FL (78-98); MEAN PLATELET VOLUME 7.8 FL (7.4-10.4); MONOCYTES # (AUTO) 0.7 X10'3 (0-0.9); MONOCYTES % (AUTO) 5.9 % (2-12); NEUTROPHILS # (AUTO) 9.8 X10'3 (1.8-7.7); NEUTROPHILS % (AUTO) 78.3 % (42-75); PLATELET COUNT 292 X10'3 (140-440); RED BLOOD COUNT 5.18 X10'6 (4.70-6.10); RED CELL DISTRIBUTION WIDTH 14.9 % (11.5-14.5); WHITE BLOOD COUNT 12.6 X10'3 (4.5-11.0)
[2024-04-04 13:07] LABS: ALANINE AMINOTRANSFERASE 34 U/L (12-78); ALBUMIN 3.3 G/DL (3.4-5.0); ALBUMIN/GLOBULIN RATIO 0.7 (1.1-1.5); ALKALINE PHOSPHATASE 91 IU/L (46-116); AMYLASE 41 U/L (25-115); ANION GAP 10 (8-16); ASPARTATE AMINO TRANSFERASE 17 U/L (10-37); BILIRUBIN,TOTAL 0.6 MG/DL (0.1-1.0); BLOOD UREA NITROGEN 19 MG/DL (7-18); BUN/CREATININE RATIO 16.1 (10.0-20.0); CALCIUM 9.1 MG/DL (8.5-10.1); CHLORIDE 100 MMOL/L (99-107); CREATININE 1.18 MG/DL (0.60-1.10); GLUCOSE 258 MG/DL (70-104); LIPASE 49 U/L (16-77); POTASSIUM 4.2 MMOL/L (3.5-5.1); SODIUM 137 MMOL/L (135-145); TOTAL CARBON DIOXIDE 27.1 MMOL/L (24-32); eCRCL 73 ML/MIN; eGFR 63 ML/MIN
[2024-04-04 13:38] VITALS: BP 166/103; RESP 18
[2024-04-04] MEDS: mag hydrox/Alum hydrox/simeth 30ml oral suspension PO ONE (14:32)
[2024-04-04] MEDS: LIDOcaine 2% Viscous 15ml cup MM PRN (14:33)
== END 2024-04-04 14:56 | disposition home or self-care (01) ==
LOC: ER 11:33
DX: R10.32 Left lower quadrant pain (principal); I10 Essential (primary) hypertension; E11.9 Type 2 diabetes mellitus without complications; Z85.038 Personal history of other malignant neoplasm of large intestine; Z98.890 Other specified postprocedural states; Z88.0 Allergy status to penicillin; Z88.8 Allergy status to other drugs, medicaments and biological substances; Z79.899 Other long term (current) drug therapy; Z72.89 Other problems related to lifestyle; Z79.4 Long term (current) use of insulin
CPT/HCPCS: 36415; 80053; 82150; 83690; 85025; 99284

== ENCOUNTER 2024-05-04 09:40 | Emergency (ER) | payer MEDICAID ==
[~2024-05-04] VITALS: Ht 182.9 cm; Wt 134.6 kg
[2024-05-04 09:48] VITALS: TEMP 97.1; O2SAT 99
[2024-05-04] MEDS ORDERED: OFLO5DRO5 RIGHT EAR (10:20)
[2024-05-04] MEDS: acetaminophen 325mg tablet PO ONE (10:52)
[2024-05-04 10:56] VITALS: BP 133/84; PULSE 85; RESP 20
== END 2024-05-04 10:55 | disposition home or self-care (01) ==
LOC: ER 09:41
DX: H60.91 Unspecified otitis externa, right ear (principal); H92.01 Otalgia, right ear; I10 Essential (primary) hypertension; E11.9 Type 2 diabetes mellitus without complications; Z88.0 Allergy status to penicillin; Z88.8 Allergy status to other drugs, medicaments and biological substances; Z79.899 Other long term (current) drug therapy; Z79.82 Long term (current) use of aspirin; Z79.4 Long term (current) use of insulin; Z79.2 Long term (current) use of antibiotics; Z90.49 Acquired absence of other specified parts of digestive tract
CPT/HCPCS: 99284

== ENCOUNTER 2024-05-06 12:24 | Emergency (ER) | payer MEDICAID ==
[~2024-05-06] VITALS: Ht 182.9 cm; Wt 134.0 kg
[~2024-05-06 12:24] MED LIST changes: +OFLO5DRO5 RIGHT EAR
[2024-05-06] MEDS: HYDROcodone/acetaminophen 10/325mg tab PO ONE (13:30)
[2024-05-06] MEDS: ketorolac trometh 30MG/ML vial 30 MG/ML VIAL IM ONE (13:30)
[2024-05-06 13:32] LABS: BASOPHILS # (AUTO) 0.1 X10'3 (0-0.2); BASOPHILS % (AUTO) 1.1 % (0-1); EOSINOPHILS # (AUTO) 0.2 X10'3 (0-0.9); EOSINOPHILS % (AUTO) 1.6 % (0-6); HEMOGLOBIN 13.3 g/dl (14.0-17.9); LYMPHOCYTES # (AUTO) 1.8 X10'3 (1.1-4.8); LYMPHOCYTES % (AUTO) 16.4 % (21-51); MEAN CORPUSCULAR HEMOGLOBIN 27.1 PG (27.0-31.0); MEAN CORPUSCULAR HGB CONC 33.1 g/dL (33.0-36.5); MEAN CORPUSCULAR VOLUME 81.8 FL (78-98); MEAN PLATELET VOLUME 7.8 FL (7.4-10.4); MONOCYTES # (AUTO) 0.7 X10'3 (0-0.9); MONOCYTES % (AUTO) 6.8 % (2-12); NEUTROPHILS # (AUTO) 8.2 X10'3 (1.8-7.7); NEUTROPHILS % (AUTO) 74.1 % (42-75); PLATELET COUNT 260 X10'3 (140-440); RED BLOOD COUNT 4.89 X10'6 (4.70-6.10)
[2024-05-06 13:53] LABS: ANION GAP 11 (8-16); BLOOD UREA NITROGEN 21 MG/DL (7-18); BUN/CREATININE RATIO 16.4 (10.0-20.0); CALCIUM 8.5 MG/DL (8.5-10.1); CHLORIDE 99 MMOL/L (99-107); CREATININE 1.28 MG/DL (0.60-1.10); GLUCOSE 368 MG/DL (70-104); PRO BRAIN NATRIURETIC PEPTIDE 125 PG/ML (0-125); SODIUM 135 MMOL/L (135-145); TOTAL CARBON DIOXIDE 24.6 MMOL/L (24-32); eCRCL 67 ML/MIN; eGFR 57 ML/MIN
[2024-05-06] MEDS: HYDROcodone/acetaminophen 5mg/325mg tablet PO ONE (14:23)
[2024-05-06] MEDS: cephalexin 250mg capsule PO ONE (14:23)
[2024-05-06] MEDS ORDERED: CEPH-585 PO (14:35)
[2024-05-06 14:39] VITALS: BP 133/79; PULSE 97; RESP 14; TEMP 98.8; O2SAT 97
[2024-05-07] MEDS ORDERED: ATOR-411 PO (22:41)
[2024-05-07] MEDS ORDERED: APIX5TAB3 PO (22:41)
[2024-05-07] MEDS ORDERED: BUME1TAB8 PO (22:43)
[2024-05-07] MEDS ORDERED: CARV-50 PO (22:43)
[2024-05-07] MEDS ORDERED: INSU100C10 SQ (22:45)
[2024-05-07] MEDS ORDERED: SITA100T15 PO (22:47)
[2024-05-07] MEDS ORDERED: LISI40TA13 PO (22:47)
[2024-05-07] MEDS ORDERED: INSU100I31 SQ (22:50)
== END 2024-05-06 14:41 | disposition home or self-care (01) ==
LOC: ER 12:25
DX: H60.91 Unspecified otitis externa, right ear (principal); I10 Essential (primary) hypertension; E11.9 Type 2 diabetes mellitus without complications; Z88.0 Allergy status to penicillin; Z79.84 Long term (current) use of oral hypoglycemic drugs; Z88.6 Allergy status to analgesic agent; Z79.899 Other long term (current) drug therapy; Z79.82 Long term (current) use of aspirin; Z79.2 Long term (current) use of antibiotics; Z79.4 Long term (current) use of insulin; Z90.49 Acquired absence of other specified parts of digestive tract
CPT/HCPCS: 36415; 71045; 80048; 83880; 84484; 85025; 93005; 99285

== ENCOUNTER 2024-05-07 19:18 | Inpatient (IN) | payer MEDICAID ==
[~2024-05-07] VITALS: Ht 182.9 cm; Wt 136.3 kg
[~2024-05-07 19:18] MED LIST changes: +CEPH-585 PO
[2024-05-07] MEDS: ondansetron 4mg rapidly disintigrating tab PO ONE (19:44)
[2024-05-07] MEDS: HYDROcodone/acetaminophen 5mg/325mg tablet PO ONE (19:44)
[2024-05-07] MEDS: meclizine 12.5mg tablet PO ONE (19:46)
[2024-05-07 19:50] LABS: BASOPHILS # (AUTO) 0.1 X10'3 (0-0.2); BASOPHILS % (AUTO) 0.7 % (0-1); EOSINOPHILS # (AUTO) 0.3 X10'3 (0-0.9); EOSINOPHILS % (AUTO) 2.2 % (0-6); HEMATOCRIT 39.9 % (42.0-52.0); HEMOGLOBIN 13.2 g/dl (14.0-17.9); LYMPHOCYTES # (AUTO) 2.5 X10'3 (1.1-4.8); LYMPHOCYTES % (AUTO) 22.1 % (21-51); MEAN CORPUSCULAR HEMOGLOBIN 26.8 PG (27.0-31.0); MEAN CORPUSCULAR HGB CONC 33.1 g/dL (33.0-36.5); MEAN CORPUSCULAR VOLUME 80.8 FL (78-98); MEAN PLATELET VOLUME 7.4 FL (7.4-10.4); MONOCYTES # (AUTO) 0.8 X10'3 (0-0.9); MONOCYTES % (AUTO) 7.1 % (2-12); NEUTROPHILS # (AUTO) 7.8 X10'3 (1.8-7.7); NEUTROPHILS % (AUTO) 67.9 % (42-75); PLATELET COUNT 239 X10'3 (140-440); RED BLOOD COUNT 4.94 X10'6 (4.70-6.10); RED CELL DISTRIBUTION WIDTH 14.7 % (11.5-14.5); WHITE BLOOD COUNT 11.5 X10'3 (4.5-11.0)
[2024-05-07 20:08] LABS: ALBUMIN 3.1 G/DL (3.4-5.0); ANION GAP 6 (8-16); BLOOD UREA NITROGEN 20 MG/DL (7-18); BUN/CREATININE RATIO 16.5 (10.0-20.0); CALCIUM 8.6 MG/DL (8.5-10.1); CHLORIDE 101 MMOL/L (99-107); CREATININE 1.21 MG/DL (0.60-1.10); GLUCOSE 298 MG/DL (70-104); MAGNESIUM 2.2 MG/DL (1.5-2.4); POTASSIUM 3.9 MMOL/L (3.5-5.1); PRO BRAIN NATRIURETIC PEPTIDE 95 PG/ML (0-125); SODIUM 137 MMOL/L (135-145); TOTAL CARBON DIOXIDE 29.8 MMOL/L (24-32); eCRCL 71 ML/MIN; eGFR 61 ML/MIN
[2024-05-07] MEDS: morphine 4 MG/ML inj SYRINge IV ONE (22:04)
[2024-05-07] MEDS ORDERED: magnesium sulf-water 2g/50mL 50 ML IV PRN (22:40)
[2024-05-07] MEDS ORDERED: magnesium Cl slow-release 64mg tablet PO PRN (22:40)
[2024-05-07] MEDS ORDERED: magnesium sulf-water 4G/100mL 100 ML IV PRN (22:40)
[2024-05-07] MEDS ORDERED: potassium Cl 20 mEq SR tablet PO PRN ×2 (22:40)
[2024-05-07] MEDS ORDERED: ondansetron/PF 4mg/2ml inj IV PRN (22:40)
[2024-05-07] MEDS ORDERED: mag hydrox/Alum hydrox/simeth 30ml oral suspension PO PRN (22:40)
[2024-05-07] MEDS ORDERED: potassium Cl 40MEQ/1/2NS 520ml 520 ML IV PRN (22:40)
[2024-05-07] MEDS ORDERED: acetaminophen 325mg tablet PO PRN ×2 (22:40)
[2024-05-07] MEDS ORDERED: APIX5TAB3 PO (22:41)
[2024-05-07] MEDS ORDERED: ATOR-411 PO (22:41)
[2024-05-07] MEDS ORDERED: BUME1TAB8 PO (22:43)
[2024-05-07] MEDS ORDERED: CARV-50 PO (22:43)
[2024-05-07] MEDS ORDERED: INSU100C10 SQ (22:45)
[2024-05-07] MEDS ORDERED: SITA100T15 PO (22:47)
[2024-05-07] MEDS ORDERED: LISI40TA13 PO (22:47)
[2024-05-07] MEDS ORDERED: INSU100I31 SQ (22:50)
[2024-05-07] MEDS ORDERED: dextrose 50%-water 50ml dispensing syringe IV PRN ×2 (23:20)
[2024-05-07] MEDS ORDERED: DEXTROSE 15 GM of carb/4 tabs (each vial/BOTTLE has 4 tablets) PO PRN ×2 (23:20)
[2024-05-07] MEDS ORDERED: glucagon, human recombinant 1mg kit SUBCUT PRN (23:20)
[2024-05-07] MEDS: normal saline 1000ml 1,000 ML IV SCH (23:51)
[2024-05-07] MEDS: HYDROcodone/acetaminophen 10/325mg tab PO PRN (23:51)
[2024-05-07 23:55] LABS: BILIRUBIN,URINE NEGATIVE (Neg); CLARITY,URINE CLEAR (Clear); COLOR,URINE YELLOW (Yellow); GLUCOSE, URINE >=1000 mg/dl (Neg); KETONES,URINE NEGATIVE (Neg); LEUKOCYTE ESTERASE ,URINE NEGATIVE (Neg); NITRITES, URINE NEGATIVE (Neg); OCCULT BLOOD,URINE TRACE-INTACT (Neg); PROTEIN,URINE NEGATIVE (Neg); UROBILINOGEN,URINE 0.2 E.U/dL (0.2-1.0)
[2024-05-08] VITALS (8 sets, daily range): BP systolic 111–181; BP diastolic 65–95; PULSE 63–75; RESP 18–20; TEMP 97.2–97.8; O2SAT 96–99
[2024-05-08 00:02] LABS: UA COLLECTION TYPE VOIDED
[2024-05-08 00:05] LABS: BACTERIA,URINE NONE SEEN /HPF (Neg); RBC,URINE 0-2 /HPF (0-2); SQUAMOUS EPITHELIAL CELL,UR NONE SEEN /LPF (FEW); WBC,URINE 0-4 /HPF (0-4)
[2024-05-08 00:06] LABS: STARCH,URINE FEW /HPF (NEGATIVE)
[2024-05-08 06:53] LABS: BASOPHILS # (AUTO) 0.1 X10'3 (0-0.2); BASOPHILS % (AUTO) 1.2 % (0-1); EOSINOPHILS # (AUTO) 0.3 X10'3 (0-0.9); EOSINOPHILS % (AUTO) 2.7 % (0-6); HEMATOCRIT 38.4 % (42.0-52.0); HEMOGLOBIN 12.6 g/dl (14.0-17.9); LYMPHOCYTES # (AUTO) 2.8 X10'3 (1.1-4.8); LYMPHOCYTES % (AUTO) 29.5 % (21-51); MEAN CORPUSCULAR HEMOGLOBIN 26.7 PG (27.0-31.0); MEAN CORPUSCULAR HGB CONC 32.8 g/dL (33.0-36.5); MEAN CORPUSCULAR VOLUME 81.3 FL (78-98); MEAN PLATELET VOLUME 7.7 FL (7.4-10.4); MONOCYTES # (AUTO) 0.7 X10'3 (0-0.9); MONOCYTES % (AUTO) 7.4 % (2-12); NEUTROPHILS # (AUTO) 5.7 X10'3 (1.8-7.7); NEUTROPHILS % (AUTO) 59.2 % (42-75); PLATELET COUNT 232 X10'3 (140-440); RED BLOOD COUNT 4.73 X10'6 (4.70-6.10); WHITE BLOOD COUNT 9.6 X10'3 (4.5-11.0)
[2024-05-08 06:54] LABS: PROTHROMBIN TIME 11.1 SECONDS (9.0-12.0)
[2024-05-08] MEDS: INSULIN LISPRO 100 UNIT/ML INSULN.PEN MULTI-DOSE SQ SCH ×2 (07:00→09:00)
[2024-05-08 07:14] LABS: ALBUMIN 2.8 G/DL (3.4-5.0); ANION GAP 8 (8-16); BLOOD UREA NITROGEN 17 MG/DL (7-18); BUN/CREATININE RATIO 16.8 (10.0-20.0); CALCIUM 8.2 MG/DL (8.5-10.1); CHLORIDE 102 MMOL/L (99-107); CREATININE 1.01 MG/DL (0.60-1.10); GLUCOSE 143 MG/DL (70-104); MAGNESIUM 2.2 MG/DL (1.5-2.4); PHOSPHORUS 4.3 MG/DL (2.3-4.5); POTASSIUM 3.7 MMOL/L (3.5-5.1); SODIUM 137 MMOL/L (135-145); TOTAL CARBON DIOXIDE 27.2 MMOL/L (24-32); eCRCL 85 ML/MIN; eGFR 75 ML/MIN
[2024-05-08] MEDS: apixaban 5mg tablet PO SCH (07:36)
[2024-05-08] MEDS: amiodarone 100mg tablet PO SCH (07:37)
[2024-05-08] MEDS: atorvastatin 20mg tablet PO SCH (07:37)
[2024-05-08] MEDS: K and/or MAG REPLACEMENT MC SCH (08:00)
[2024-05-08] MEDS: ringers solution, lacted 1,000 ML IV SCH (11:37)
[2024-05-08] MEDS: normal saline 500ml IV soln 500 ML IV ONE (11:37)
[2024-05-08] MEDS: Cipro HC otic suspension 10ML bottle RIGHT EAR SCH (13:18)
[2024-05-08] MEDS ORDERED: ondansetron 4mg rapidly disintigrating tab PO PRN (14:01)
[2024-05-08 14:18] LABS: HEMOGLOBIN A1C 8.6 % (4.5-6.2)
[2024-05-08] MEDS: HYDROcodone/acetaminophen 10/325mg tab PO PRN (14:49)
[2024-05-08] MEDS: lisinopril 20mg tablet PO SCH (20:19)
[2024-05-08] MEDS: carVEDilol 12.5mg tablet PO SCH (20:19)
[2024-05-08] MEDS: insulin glargine (Lantus) pen - multi-dose SQ SCH (20:51)
[2024-05-09 01:00] VITALS: BP 156/74; PULSE 55; RESP 13; TEMP 97.7; O2SAT 98
[2024-05-09 06:00] VITALS: BP 151/76; PULSE 63; RESP 14; TEMP 97.5; O2SAT 99
[2024-05-09 07:26] LABS: ALBUMIN 2.5 G/DL (3.4-5.0); ANION GAP 6 (8-16); BLOOD UREA NITROGEN 12 MG/DL (7-18); BUN/CREATININE RATIO 16.2 (10.0-20.0); CALCIUM 8.6 MG/DL (8.5-10.1); CHLORIDE 104 MMOL/L (99-107); CREATININE 0.74 MG/DL (0.60-1.10); GLUCOSE 143 MG/DL (70-104); MAGNESIUM 2.3 MG/DL (1.5-2.4); PHOSPHORUS 4.4 MG/DL (2.3-4.5); POTASSIUM 4.1 MMOL/L (3.5-5.1); SODIUM 137 MMOL/L (135-145); TOTAL CARBON DIOXIDE 27.1 MMOL/L (24-32); eCRCL 117 ML/MIN; eGFR > 90 ML/MIN
[2024-05-09 07:34] LABS: BASOPHILS # (AUTO) 0.1 X10'3 (0-0.2); BASOPHILS % (AUTO) 0.9 % (0-1); EOSINOPHILS # (AUTO) 0.3 X10'3 (0-0.9); EOSINOPHILS % (AUTO) 3.1 % (0-6); HEMATOCRIT 37.9 % (42.0-52.0); HEMOGLOBIN 12.6 g/dl (14.0-17.9); LYMPHOCYTES # (AUTO) 2.2 X10'3 (1.1-4.8); LYMPHOCYTES % (AUTO) 26.5 % (21-51); MEAN CORPUSCULAR HEMOGLOBIN 27.1 PG (27.0-31.0); MEAN CORPUSCULAR HGB CONC 33.4 g/dL (33.0-36.5); MEAN CORPUSCULAR VOLUME 81.2 FL (78-98); MEAN PLATELET VOLUME 7.9 FL (7.4-10.4); MONOCYTES # (AUTO) 0.6 X10'3 (0-0.9); MONOCYTES % (AUTO) 7.6 % (2-12); NEUTROPHILS # (AUTO) 5.1 X10'3 (1.8-7.7); NEUTROPHILS % (AUTO) 61.9 % (42-75); PLATELET COUNT 204 X10'3 (140-440); RED BLOOD COUNT 4.67 X10'6 (4.70-6.10); RED CELL DISTRIBUTION WIDTH 15.1 % (11.5-14.5); WHITE BLOOD COUNT 8.2 X10'3 (4.5-11.0)
[2024-05-09 08:00] VITALS: RESP 16; O2SAT 98
[2024-05-09] MEDS: bumetanide 1mg tablet PO SCH (08:55)
[2024-05-09 11:00] VITALS: BP 117/66; PULSE 60; RESP 16; TEMP 97.8; O2SAT 98
[2024-05-09] MEDS ORDERED: CIPR10DR RIGHT EAR (12:34)
[2024-05-09 13:18] VITALS: RESP 14
== END 2024-05-09 14:40 | disposition home or self-care (01) | DRG 204 ==
LOC: ER 19:20 → ED HOLD 22:49 → PCU 3S 05-08 00:50
PROVIDERS: ADMIT Surgery Surgical Critical Care; ATTEND Internal Medicine
DX: I95.1 Orthostatic hypotension (principal); E11.9 Type 2 diabetes mellitus without complications; I10 Essential (primary) hypertension; E86.0 Dehydration; I48.91 Unspecified atrial fibrillation; I25.10 Atherosclerotic heart disease of native coronary artery without angina pectoris; Z79.899 Other long term (current) drug therapy; Z82.49 Family history of ischemic heart disease and other diseases of the circulatory system; Z85.118 Personal history of other malignant neoplasm of bronchus and lung; Z83.3 Family history of diabetes mellitus; Z85.038 Personal history of other malignant neoplasm of large intestine; Z88.0 Allergy status to penicillin; Z88.8 Allergy status to other drugs, medicaments and biological substances; Z79.4 Long term (current) use of insulin; Z90.49 Acquired absence of other specified parts of digestive tract
CPT/HCPCS: 36415; 70450; 70480; 80048; 81001; 81003; 82948; 83036; 83735; 83880; 84100; 84484; 85025; 85610; 87081; 93005; 93306; 93308; 93880; 99285; G0378; J1815; J2270; J7030; J7040; J7120; J8597

== ENCOUNTER 2024-06-04 15:35 | Inpatient (IN) | payer MEDICAID, SELFPAY ==
[~2024-06-04] VITALS: Ht 185.4 cm; Wt 134.2 kg
[~2024-06-04 15:35] MED LIST changes: -ASPI81TA52 PO; +ATOR-411 PO; -ATOR40TA PO; -CEPH-585 PO; +CIPR10DR RIGHT EAR; -OFLO5DRO5 RIGHT EAR; -SEMA0.258 SQ; -SITA100T11 PO; +SITA100T15 PO
[2024-06-04] MEDS: meclizine 12.5mg tablet PO ONE (16:31)
[2024-06-04] MEDS: morphine 4 MG/ML inj SYRINge IV ONE ×2 (16:33→19:11)
[2024-06-04 16:42] LABS: BASOPHILS # (AUTO) 0.1 X10'3 (0-0.2); BASOPHILS % (AUTO) 1.2 % (0-1); EOSINOPHILS # (AUTO) 0.2 X10'3 (0-0.9); EOSINOPHILS % (AUTO) 1.6 % (0-6); HEMATOCRIT 41.3 % (42.0-52.0); HEMOGLOBIN 13.8 g/dl (14.0-17.9); LYMPHOCYTES # (AUTO) 2.3 X10'3 (1.1-4.8); LYMPHOCYTES % (AUTO) 19.9 % (21-51); MEAN CORPUSCULAR HEMOGLOBIN 27.3 PG (27.0-31.0); MEAN CORPUSCULAR HGB CONC 33.4 g/dL (33.0-36.5); MEAN CORPUSCULAR VOLUME 81.9 FL (78-98); MEAN PLATELET VOLUME 7.6 FL (7.4-10.4); MONOCYTES # (AUTO) 0.9 X10'3 (0-0.9); MONOCYTES % (AUTO) 7.4 % (2-12); NEUTROPHILS % (AUTO) 69.9 % (42-75); PLATELET COUNT 268 X10'3 (140-440); RED BLOOD COUNT 5.04 X10'6 (4.70-6.10); RED CELL DISTRIBUTION WIDTH 15.1 % (11.5-14.5); WHITE BLOOD COUNT 11.5 X10'3 (4.5-11.0)
[2024-06-04 16:59] LABS: ALANINE AMINOTRANSFERASE 26 U/L (12-78); ALBUMIN 3.1 G/DL (3.4-5.0); ALBUMIN/GLOBULIN RATIO 0.7 (1.1-1.5); ALKALINE PHOSPHATASE 88 IU/L (46-116); ANION GAP 10 (8-16); ASPARTATE AMINO TRANSFERASE 19 U/L (10-37); BILIRUBIN,TOTAL 0.4 MG/DL (0.1-1.0); BLOOD UREA NITROGEN 19 MG/DL (7-18); BUN/CREATININE RATIO 12.8 (10.0-20.0); CALCIUM 8.7 MG/DL (8.5-10.1); CHLORIDE 101 MMOL/L (99-107); CREATININE 1.49 MG/DL (0.60-1.10); GLUCOSE 266 MG/DL (70-104); POTASSIUM 4.2 MMOL/L (3.5-5.1); SODIUM 138 MMOL/L (135-145); TOTAL PROTEIN 7.5 G/DL (6.4-8.2); eCRCL 58 ML/MIN; eGFR 48 ML/MIN
[2024-06-04 17:03] LABS: PRO BRAIN NATRIURETIC PEPTIDE 92 PG/ML (0-125)
[2024-06-04] MEDS ORDERED: AMLO-708 PO (19:19)
[2024-06-04] MEDS ORDERED: INSU100I8 SQ (19:21)
[2024-06-04] MEDS ORDERED: potassium Cl 40MEQ/1/2NS 520ml 520 ML IV PRN (20:25)
[2024-06-04] MEDS ORDERED: mag hydrox/Alum hydrox/simeth 30ml oral suspension PO PRN (20:25)
[2024-06-04] MEDS ORDERED: ondansetron/PF 4mg/2ml inj IV PRN (20:25)
[2024-06-04] MEDS ORDERED: magnesium sulf-water 2g/50mL 50 ML IV PRN (20:25)
[2024-06-04] MEDS ORDERED: magnesium Cl slow-release 64mg tablet PO PRN (20:25)
[2024-06-04] MEDS ORDERED: magnesium hydroxide 30ml (MOM) UD suspension PO PRN (20:25)
[2024-06-04] MEDS ORDERED: potassium Cl 20 mEq SR tablet PO PRN ×2 (20:25)
[2024-06-04] MEDS ORDERED: magnesium sulf-water 4G/100mL 100 ML IV PRN (20:25)
[2024-06-04] MEDS ORDERED: acetaminophen 325mg tablet PO PRN (20:25)
[2024-06-04] MEDS: ofloxacin 0.3% 5ml otic drops RIGHT EAR SCH (20:30)
[2024-06-04] MEDS: PERFLUTREN PROTEIN-A MICROSPHR (Optison) 0.22 MG/ML 3ML VIAL IV ONE (20:31)
[2024-06-04] MEDS: K and/or MAG REPLACEMENT MC SCH (20:32)
[2024-06-04] MEDS ORDERED: PERFLUTREN PROTEIN-A MICROSPHR (Optison) 0.22 MG/ML 3ML VIAL IV PRN (20:32)
[2024-06-04] MEDS ORDERED: DEXTROSE 15 GM of carb/4 tabs (each vial/BOTTLE has 4 tablets) PO PRN ×2 (20:45)
[2024-06-04] MEDS ORDERED: dextrose 50%-water 50ml dispensing syringe IV PRN ×2 (20:45)
[2024-06-04] MEDS ORDERED: glucagon, human recombinant 1mg kit SUBCUT PRN (20:45)
[2024-06-04] MEDS: labetalol 20mg/4ml (5mg/ml) syringe IV ONE (20:47)
[2024-06-04] MEDS: HYDROcodone/acetaminophen 10/325mg tab PO PRN (21:01)
[2024-06-04] MEDS ORDERED: aminophylline 250mg/10ml inj. IV PRN (21:35)
[2024-06-04] MEDS ORDERED: metoprolol tartrate 1mg/ml inj IV PRN (21:35)
[2024-06-04] MEDS ORDERED: nitroGLYCERIN 0.4mg SUBLingual tab SL PRN (21:35)
[2024-06-04] MEDS: INSULIN LISPRO 100 UNIT/ML INSULN.PEN MULTI-DOSE SQ SCH (21:35)
[2024-06-04] MEDS: insulin glargine (Lantus) pen - multi-dose SQ SCH (21:36)
[2024-06-05] VITALS (16 sets, daily range): BP systolic 100–166; BP diastolic 52–78; PULSE 55–76; RESP 12–19; TEMP 97–98.4; O2SAT 95–100
[2024-06-05 06:32] LABS: BASOPHILS # (AUTO) 0.1 X10'3 (0-0.2); BASOPHILS % (AUTO) 1.1 % (0-1); EOSINOPHILS # (AUTO) 0.3 X10'3 (0-0.9); EOSINOPHILS % (AUTO) 2.8 % (0-6); HEMOGLOBIN 12.8 g/dl (14.0-17.9); LYMPHOCYTES # (AUTO) 2.9 X10'3 (1.1-4.8); LYMPHOCYTES % (AUTO) 30.9 % (21-51); MEAN CORPUSCULAR VOLUME 81.9 FL (78-98); MEAN PLATELET VOLUME 7.3 FL (7.4-10.4); MONOCYTES # (AUTO) 0.8 X10'3 (0-0.9); NEUTROPHILS # (AUTO) 5.2 X10'3 (1.8-7.7); NEUTROPHILS % (AUTO) 56.2 % (42-75); PLATELET COUNT 236 X10'3 (140-440); RED BLOOD COUNT 4.76 X10'6 (4.70-6.10); RED CELL DISTRIBUTION WIDTH 14.6 % (11.5-14.5); WHITE BLOOD COUNT 9.3 X10'3 (4.5-11.0)
[2024-06-05 06:45] LABS: ALANINE AMINOTRANSFERASE 24 U/L (12-78); ALBUMIN 2.8 G/DL (3.4-5.0); ALBUMIN/GLOBULIN RATIO 0.7 (1.1-1.5); ALKALINE PHOSPHATASE 71 IU/L (46-116); ANION GAP 7 (8-16); ASPARTATE AMINO TRANSFERASE 21 U/L (10-37); BILIRUBIN,TOTAL 0.4 MG/DL (0.1-1.0); BLOOD UREA NITROGEN 19 MG/DL (7-18); BUN/CREATININE RATIO 18.8 (10.0-20.0); CALCIUM 8.6 MG/DL (8.5-10.1); CHLORIDE 106 MMOL/L (99-107); CHOL/HDL RATIO 2.7 (0.00-4.99); CHOLESTEROL 101 MG/DL (0-200); CREATININE 1.01 MG/DL (0.60-1.10); GLUCOSE 133 MG/DL (70-104); HDL CHOLESTEROL 38 MG/DL (35-60); LDL CHOLESTEROL 44 MG/DL (50-100); MAGNESIUM 2.5 MG/DL (1.5-2.4); POTASSIUM 3.6 MMOL/L (3.5-5.1); SODIUM 140 MMOL/L (135-145); TOTAL CARBON DIOXIDE 26.9 MMOL/L (24-32); TOTAL PROTEIN 6.8 G/DL (6.4-8.2); TRIGLYCERIDES 125 MG/DL (20-135); eCRCL 88 ML/MIN; eGFR 75 ML/MIN
[2024-06-05] MEDS: docusate sod 100mg capsule PO SCH (08:00)
[2024-06-05] MEDS: INSULIN LISPRO 100 UNIT/ML INSULN.PEN MULTI-DOSE SQ SCH (08:45)
[2024-06-05] MEDS: atorvastatin 20mg tablet PO SCH (08:54)
[2024-06-05] MEDS: bumetanide 1mg tablet PO SCH (08:54)
[2024-06-05] MEDS: isosorbide dinitrate 30mg tablet PO SCH (08:54)
[2024-06-05] MEDS: lisinopril 20mg tablet PO SCH (08:55)
[2024-06-05] MEDS: carVEDilol 12.5mg tablet PO SCH (08:55)
[2024-06-05] MEDS: apixaban 5mg tablet PO SCH (08:55)
[2024-06-05] MEDS: linagliptin 5mg tablet PO SCH (10:32)
[2024-06-05] MEDS: regadenoson 0.4mg/5ml syringe IV PRN (12:38)
[2024-06-05] MEDS: amLODIPine 5mg tablet PO STA (17:53)
[2024-06-05] MEDS ORDERED: iohexol 350MG/ML 100ml bottle IV ONE (18:03)
[2024-06-06 02:00] VITALS: BP 132/70; PULSE 59; RESP 14; TEMP 97.7; O2SAT 98
[2024-06-06 06:28] LABS: BASOPHILS # (AUTO) 0.1 X10'3 (0-0.2); BASOPHILS % (AUTO) 1.1 % (0-1); EOSINOPHILS # (AUTO) 0.3 X10'3 (0-0.9); EOSINOPHILS % (AUTO) 3.3 % (0-6); HEMATOCRIT 36.9 % (42.0-52.0); HEMOGLOBIN 12.4 g/dl (14.0-17.9); LYMPHOCYTES # (AUTO) 2.8 X10'3 (1.1-4.8); LYMPHOCYTES % (AUTO) 28.5 % (21-51); MEAN CORPUSCULAR HEMOGLOBIN 27.7 PG (27.0-31.0); MEAN CORPUSCULAR HGB CONC 33.7 g/dL (33.0-36.5); MEAN CORPUSCULAR VOLUME 82.3 FL (78-98); MEAN PLATELET VOLUME 7.4 FL (7.4-10.4); MONOCYTES # (AUTO) 0.8 X10'3 (0-0.9); MONOCYTES % (AUTO) 8.4 % (2-12); NEUTROPHILS # (AUTO) 5.8 X10'3 (1.8-7.7); NEUTROPHILS % (AUTO) 58.7 % (42-75); PLATELET COUNT 228 X10'3 (140-440); RED BLOOD COUNT 4.48 X10'6 (4.70-6.10); RED CELL DISTRIBUTION WIDTH 14.7 % (11.5-14.5); WHITE BLOOD COUNT 9.8 X10'3 (4.5-11.0)
[2024-06-06 06:45] LABS: ALANINE AMINOTRANSFERASE 27 U/L (12-78); ALBUMIN 2.6 G/DL (3.4-5.0); ALBUMIN/GLOBULIN RATIO 0.7 (1.1-1.5); ALKALINE PHOSPHATASE 74 IU/L (46-116); ANION GAP 6 (8-16); ASPARTATE AMINO TRANSFERASE 18 U/L (10-37); BILIRUBIN,TOTAL 0.6 MG/DL (0.1-1.0); BLOOD UREA NITROGEN 19 MG/DL (7-18); CALCIUM 8.2 MG/DL (8.5-10.1); CHLORIDE 104 MMOL/L (99-107); GLUCOSE 159 MG/DL (70-104); MAGNESIUM 2.1 MG/DL (1.5-2.4); POTASSIUM 3.9 MMOL/L (3.5-5.1); SODIUM 138 MMOL/L (135-145); TOTAL CARBON DIOXIDE 27.8 MMOL/L (24-32); TOTAL PROTEIN 6.4 G/DL (6.4-8.2); eCRCL 89 ML/MIN; eGFR 76 ML/MIN
[2024-06-06 07:00] VITALS: BP 128/68; PULSE 60; RESP 17; TEMP 97.4; O2SAT 99
[2024-06-06 08:00] VITALS: BP_SYST 91; BP_SYST 95; BP_SYST 98; BP_DIAS 49; BP_DIAS 55; BP_DIAS 68; PULSE 80; PULSE 82
[2024-06-06] MEDS: pantoprazole 40 MG vial IV SCH (08:16)
[2024-06-06] MEDS: amLODIPine 5mg tablet PO SCH (08:18)
[2024-06-06] MEDS ORDERED: CARV6.253 PO (10:35)
[2024-06-06 11:00] VITALS: BP 96/56; PULSE 68; RESP 13; TEMP 97.6; O2SAT 96
[2024-06-06 13:33] VITALS: RESP 17
[2024-06-06] MEDS ORDERED: carvedilol 6.25mg tablet PO SCH (20:00)
== END 2024-06-06 13:50 | disposition home or self-care (01) | DRG 199 ==
LOC: ER 15:36 → ED HOLD 20:28 → EDBEDREQ 23:53 → PCU 3S 06-05 00:27
PROVIDERS: ADMIT Internal Medicine Critical Care Medicine; ATTEND Nurse Practitioner Family
PROC: B3251ZZ Computerized Tomography (CT Scan) of Bilateral Common Carotid Arteries using Low Osmolar Contrast (ICD-10-PCS; principal; 2024-06-05)
PROC: B32G1ZZ Computerized Tomography (CT Scan) of Bilateral Vertebral Arteries using Low Osmolar Contrast (ICD-10-PCS; 2024-06-05)
PROC: B32R1ZZ Computerized Tomography (CT Scan) of Intracranial Arteries using Low Osmolar Contrast (ICD-10-PCS; 2024-06-05)
PROC: B3281ZZ Computerized Tomography (CT Scan) of Bilateral Internal Carotid Arteries using Low Osmolar Contrast (ICD-10-PCS; 2024-06-05)
PROC: 4A02XM4 Measurement of Cardiac Total Activity, External Approach (ICD-10-PCS; 2024-06-05)
PROC: 3E033HZ Introduction of Radioactive Substance into Peripheral Vein, Percutaneous Approach (ICD-10-PCS; 2024-06-05)
DX: I16.0 Hypertensive urgency (principal); I48.11 Longstanding persistent atrial fibrillation; E11.9 Type 2 diabetes mellitus without complications; G89.29 Other chronic pain; M54.9 Dorsalgia, unspecified; I10 Essential (primary) hypertension; Z79.01 Long term (current) use of anticoagulants; Z88.0 Allergy status to penicillin; Z88.8 Allergy status to other drugs, medicaments and biological substances; Z79.899 Other long term (current) drug therapy; Z85.038 Personal history of other malignant neoplasm of large intestine; Z85.118 Personal history of other malignant neoplasm of bronchus and lung; Z90.49 Acquired absence of other specified parts of digestive tract; Z83.3 Family history of diabetes mellitus
CPT/HCPCS: 36415; 70450; 70496; 70498; 71045; 78452; 80053; 80061; 82948; 83735; 83880; 84484; 85025; 87081; 93005; 93017; 96374; 96376; 97161; 97530; 97535; 99285; A9500; G0378; J1815; J2270; J2470; J2785; J3490; J8597; Q9967

== ENCOUNTER 2024-06-30 11:39 | Inpatient (IN) | payer MEDICAID ==
[~2024-06-30] VITALS: Ht 185.4 cm; Wt 131.8 kg
[~2024-06-30 11:39] MED LIST changes: -AMI200T PO; -CARV-50 PO; +CARV6.253 PO; -CIPR10DR RIGHT EAR; -INSU100C10 SQ; +INSU100I8 SQ
[2024-06-30] MEDS ORDERED: iohexol 350MG/ML 100ml bottle IV ONE (11:56)
[2024-06-30 12:07] LABS: BASOPHILS # (AUTO) 0.1 X10'3 (0-0.2); EOSINOPHILS # (AUTO) 0.1 X10'3 (0-0.9); EOSINOPHILS % (AUTO) 0.6 % (0-6); HEMATOCRIT 41.4 % (42.0-52.0); LYMPHOCYTES # (AUTO) 1.6 X10'3 (1.1-4.8); LYMPHOCYTES % (AUTO) 13.9 % (21-51); MEAN CORPUSCULAR HEMOGLOBIN 27.6 PG (27.0-31.0); MEAN CORPUSCULAR HGB CONC 33.9 g/dL (33.0-36.5); MEAN CORPUSCULAR VOLUME 81.5 FL (78-98); MEAN PLATELET VOLUME 7.5 FL (7.4-10.4); MONOCYTES # (AUTO) 0.6 X10'3 (0-0.9); NEUTROPHILS # (AUTO) 8.9 X10'3 (1.8-7.7); NEUTROPHILS % (AUTO) 79.5 % (42-75); PLATELET COUNT 272 X10'3 (140-440); RED BLOOD COUNT 5.07 X10'6 (4.70-6.10); RED CELL DISTRIBUTION WIDTH 14.6 % (11.5-14.5); WHITE BLOOD COUNT 11.1 X10'3 (4.5-11.0)
[2024-06-30 12:23] LABS: ALANINE AMINOTRANSFERASE 22 U/L (12-78); ALBUMIN 3.2 G/DL (3.4-5.0); ALBUMIN/GLOBULIN RATIO 0.7 (1.1-1.5); ALKALINE PHOSPHATASE 94 IU/L (46-116); ANION GAP 9 (8-16); ASPARTATE AMINO TRANSFERASE 16 U/L (10-37); BILIRUBIN,TOTAL 0.6 MG/DL (0.1-1.0); BLOOD UREA NITROGEN 12 MG/DL (7-18); BUN/CREATININE RATIO 10.2 (10.0-20.0); CALCIUM 8.6 MG/DL (8.5-10.1); CHLORIDE 98 MMOL/L (99-107); CREATININE 1.18 MG/DL (0.60-1.10); ETHANOL < 10 MG/DL (<10); GLUCOSE 311 MG/DL (70-104); POTASSIUM 4.1 MMOL/L (3.5-5.1); SODIUM 133 MMOL/L (135-145); TOTAL CARBON DIOXIDE 26.2 MMOL/L (24-32); TOTAL PROTEIN 7.8 G/DL (6.4-8.2); eCRCL 75 ML/MIN; eGFR 63 ML/MIN
[2024-06-30] MEDS: HYDROcodone/acetaminophen 10/325mg tab PO ONE (14:40)
[2024-06-30 15:02] LABS: BILIRUBIN,URINE NEGATIVE (Neg); CLARITY,URINE CLEAR (Clear); COLOR,URINE STRAW (Yellow); GLUCOSE, URINE 500 mg/dl (Neg); KETONES,URINE NEGATIVE (Neg); LEUKOCYTE ESTERASE ,URINE NEGATIVE (Neg); NITRITES, URINE NEGATIVE (Neg); OCCULT BLOOD,URINE TRACE-INTACT (Neg); PROTEIN,URINE NEGATIVE (Neg); UROBILINOGEN,URINE 0.2 E.U/dL (0.2-1.0)
[2024-06-30 15:06] LABS: UA COLLECTION TYPE VOIDED
[2024-06-30 15:07] LABS: BACTERIA,URINE FEW /HPF (Neg); RBC,URINE 0-2 /HPF (0-2); SQUAMOUS EPITHELIAL CELL,UR FEW /LPF (FEW); WBC,URINE 0-4 /HPF (0-4)
[2024-06-30 15:22] LABS: URINE AMPHETAMINE SCREEN NEGATIVE (Neg); URINE BARBITUATE SCREEN NEGATIVE (Neg); URINE BENZODIAZEPINES SCREEN NEGATIVE (Neg); URINE CANNABINOID SCREEN NEGATIVE (Neg); URINE COCAINE SCREEN NEGATIVE (Neg); URINE METHADONE SCREEN NEGATIVE (Neg); URINE OPIATE SCREEN POSITIVE (Neg); URINE PHENCYCLIDINE SCREEN NEGATIVE (Neg)
[2024-06-30] MEDS ORDERED: ondansetron/PF 4mg/2ml inj IV PRN (16:45)
[2024-06-30] MEDS ORDERED: magnesium hydroxide 30ml (MOM) UD suspension PO PRN (16:45)
[2024-06-30] MEDS ORDERED: magnesium sulf-water 4G/100mL 100 ML IV PRN (16:45)
[2024-06-30] MEDS ORDERED: HYDROcodone/acetaminophen 5mg/325mg tablet PO PRN (16:45)
[2024-06-30] MEDS ORDERED: potassium Cl 20 mEq SR tablet PO PRN ×2 (16:45)
[2024-06-30] MEDS ORDERED: mag hydrox/Alum hydrox/simeth 30ml oral suspension PO PRN (16:45)
[2024-06-30] MEDS ORDERED: potassium Cl 40MEQ/1/2NS 520ml 520 ML IV PRN (16:45)
[2024-06-30] MEDS ORDERED: acetaminophen 325mg tablet PO PRN ×2 (16:45)
[2024-06-30] MEDS ORDERED: magnesium Cl slow-release 64mg tablet PO PRN (16:45)
[2024-06-30] MEDS ORDERED: magnesium sulf-water 2g/50mL 50 ML IV PRN (16:45)
[2024-06-30 17:19] LABS: CHOL/HDL RATIO 2.5 (0.00-4.99); CHOLESTEROL 107 MG/DL (0-200); HDL CHOLESTEROL 43 MG/DL (35-60); LDL CHOLESTEROL 48 MG/DL (50-100); TRIGLYCERIDES 172 MG/DL (20-135)
[2024-06-30] MEDS ORDERED: DEXTROSE 15 GM of carb/4 tabs (each vial/BOTTLE has 4 tablets) PO PRN ×2 (17:40)
[2024-06-30] MEDS ORDERED: glucagon, human recombinant 1mg kit SUBCUT PRN (17:40)
[2024-06-30] MEDS ORDERED: dextrose 50%-water 50ml dispensing syringe IV PRN ×2 (17:40)
[2024-06-30] MEDS ORDERED: hydrALAZINE 20mg/ml inj. IV PRN (17:45)
[2024-06-30] MEDS: HYDROcodone/acetaminophen 10/325mg tab PO PRN (18:25)
[2024-06-30 18:46] LABS: OSMOLALITY 297 MOSM/K (280-300)
[2024-06-30 20:00] VITALS: BP 187/84; PULSE 71; RESP 19; TEMP 97.8; O2SAT 99
[2024-06-30] MEDS: K and/or MAG REPLACEMENT MC SCH (20:00)
[2024-06-30 20:30] VITALS: RESP 19; O2SAT 99
[2024-06-30] MEDS: apixaban 5mg tablet PO SCH (21:02)
[2024-06-30] MEDS: INSULIN LISPRO 100 UNIT/ML INSULN.PEN MULTI-DOSE SQ SCH (21:25)
[2024-06-30] MEDS: insulin glargine (Lantus) pen - multi-dose SQ SCH (21:27)
[2024-06-30 22:00] VITALS: BP 138/80; PULSE 61; RESP 21; TEMP 97.2; O2SAT 99
[2024-07-01] VITALS (7 sets, daily range): BP systolic 110–159; BP diastolic 48–94; PULSE 62–88; RESP 11–16; TEMP 96.7–97.9; O2SAT 93–98
[2024-07-01 07:00] LABS: ALANINE AMINOTRANSFERASE 22 U/L (12-78); ALBUMIN 2.8 G/DL (3.4-5.0); ALBUMIN/GLOBULIN RATIO 0.7 (1.1-1.5); ALKALINE PHOSPHATASE 74 IU/L (46-116); ANION GAP 3 (8-16); ASPARTATE AMINO TRANSFERASE 19 U/L (10-37); BILIRUBIN,TOTAL 0.5 MG/DL (0.1-1.0); BLOOD UREA NITROGEN 11 MG/DL (7-18); BUN/CREATININE RATIO 12.2 (10.0-20.0); CALCIUM 8.7 MG/DL (8.5-10.1); CHLORIDE 101 MMOL/L (99-107); GLUCOSE 160 MG/DL (70-104); POTASSIUM 3.7 MMOL/L (3.5-5.1); SODIUM 135 MMOL/L (135-145); TOTAL CARBON DIOXIDE 31.1 MMOL/L (24-32); TOTAL PROTEIN 6.8 G/DL (6.4-8.2); eCRCL 99 ML/MIN; eGFR 86 ML/MIN
[2024-07-01 07:22] LABS: BASOPHILS # (AUTO) 0.1 X10'3 (0-0.2); EOSINOPHILS # (AUTO) 0.2 X10'3 (0-0.9); EOSINOPHILS % (AUTO) 2.8 % (0-6); HEMATOCRIT 39.2 % (42.0-52.0); LYMPHOCYTES # (AUTO) 2.2 X10'3 (1.1-4.8); MEAN CORPUSCULAR HEMOGLOBIN 27.2 PG (27.0-31.0); MEAN CORPUSCULAR HGB CONC 33.3 g/dL (33.0-36.5); MEAN CORPUSCULAR VOLUME 81.6 FL (78-98); MEAN PLATELET VOLUME 7.8 FL (7.4-10.4); MONOCYTES # (AUTO) 0.7 X10'3 (0-0.9); NEUTROPHILS % (AUTO) 61.2 % (42-75); PLATELET COUNT 236 X10'3 (140-440); RED CELL DISTRIBUTION WIDTH 14.9 % (11.5-14.5); WHITE BLOOD COUNT 8.2 X10'3 (4.5-11.0)
[2024-07-01] MEDS: aspirin 81mg tab.chew PO SCH (08:02)
[2024-07-01] MEDS: normal saline 1000ml 1,000 ML IV SCH (08:38)
[2024-07-01] MEDS: carvedilol 6.25mg tablet PO SCH (20:25)
[2024-07-02 06:00] VITALS: BP 158/80; PULSE 88; RESP 18; TEMP 97.5; O2SAT 98
[2024-07-02 06:14] LABS: BASOPHILS # (AUTO) 0.1 X10'3 (0-0.2); BASOPHILS % (AUTO) 1.2 % (0-1); EOSINOPHILS # (AUTO) 0.3 X10'3 (0-0.9); EOSINOPHILS % (AUTO) 3.9 % (0-6); HEMATOCRIT 39.6 % (42.0-52.0); HEMOGLOBIN 13.2 g/dl (14.0-17.9); LYMPHOCYTES # (AUTO) 2.2 X10'3 (1.1-4.8); LYMPHOCYTES % (AUTO) 28.7 % (21-51); MEAN CORPUSCULAR HEMOGLOBIN 27.2 PG (27.0-31.0); MEAN CORPUSCULAR HGB CONC 33.3 g/dL (33.0-36.5); MEAN CORPUSCULAR VOLUME 81.7 FL (78-98); MEAN PLATELET VOLUME 7.3 FL (7.4-10.4); MONOCYTES # (AUTO) 0.6 X10'3 (0-0.9); MONOCYTES % (AUTO) 8.3 % (2-12); NEUTROPHILS # (AUTO) 4.4 X10'3 (1.8-7.7); NEUTROPHILS % (AUTO) 57.9 % (42-75); PLATELET COUNT 221 X10'3 (140-440); RED BLOOD COUNT 4.85 X10'6 (4.70-6.10); RED CELL DISTRIBUTION WIDTH 14.7 % (11.5-14.5); WHITE BLOOD COUNT 7.6 X10'3 (4.5-11.0)
[2024-07-02 06:32] LABS: ALANINE AMINOTRANSFERASE 16 U/L (12-78); ALBUMIN 2.7 G/DL (3.4-5.0); ALBUMIN/GLOBULIN RATIO 0.7 (1.1-1.5); ALKALINE PHOSPHATASE 69 IU/L (46-116); ANION GAP 4 (8-16); ASPARTATE AMINO TRANSFERASE 17 U/L (10-37); BILIRUBIN,TOTAL 0.4 MG/DL (0.1-1.0); BLOOD UREA NITROGEN 14 MG/DL (7-18); BUN/CREATININE RATIO 15.4 (10.0-20.0); CALCIUM 8.2 MG/DL (8.5-10.1); CHLORIDE 103 MMOL/L (99-107); CREATININE 0.91 MG/DL (0.60-1.10); GLUCOSE 147 MG/DL (70-104); MAGNESIUM 2.3 MG/DL (1.5-2.4); POTASSIUM 3.9 MMOL/L (3.5-5.1); SODIUM 136 MMOL/L (135-145); TOTAL CARBON DIOXIDE 29.2 MMOL/L (24-32); TOTAL PROTEIN 6.7 G/DL (6.4-8.2); eCRCL 98 ML/MIN; eGFR 85 ML/MIN
[2024-07-02 08:00] VITALS: RESP 18; O2SAT 98
[2024-07-02 10:00] VITALS: BP 140/81; PULSE 69; RESP 18; TEMP 97.8; O2SAT 99
[2024-07-02] MEDS ORDERED: LISI5TAB22 PO (15:29)
[2024-07-02 16:00] VITALS: BP_SYST 189; BP_SYST 193; BP_SYST 201; BP_DIAS 101; BP_DIAS 94; BP_DIAS 96; PULSE 66; PULSE 67; PULSE 72
[2024-07-02 16:30] VITALS: BP 172/91; PULSE 75; RESP 18; TEMP 98.8; O2SAT 97
== END 2024-07-02 18:11 | disposition home or self-care (01) | DRG 47 ==
LOC: ER 11:39 → ED HOLD 16:50 → ORTHO 4S 19:55
PROVIDERS: ADMIT Family Medicine; ATTEND Family Medicine
PROC: B3251ZZ Computerized Tomography (CT Scan) of Bilateral Common Carotid Arteries using Low Osmolar Contrast (ICD-10-PCS; principal; 2024-06-30)
PROC: B32G1ZZ Computerized Tomography (CT Scan) of Bilateral Vertebral Arteries using Low Osmolar Contrast (ICD-10-PCS; 2024-06-30)
PROC: B32R1ZZ Computerized Tomography (CT Scan) of Intracranial Arteries using Low Osmolar Contrast (ICD-10-PCS; 2024-06-30)
PROC: B3281ZZ Computerized Tomography (CT Scan) of Bilateral Internal Carotid Arteries using Low Osmolar Contrast (ICD-10-PCS; 2024-06-30)
DX: G45.9 Transient cerebral ischemic attack, unspecified (principal); N17.0 Acute kidney failure with tubular necrosis; E11.22 Type 2 diabetes mellitus with diabetic chronic kidney disease; I48.91 Unspecified atrial fibrillation; E78.5 Hyperlipidemia, unspecified; I12.9 Hypertensive chronic kidney disease with stage 1 through stage 4 chronic kidney disease, or unspecified chronic kidney disease; M54.9 Dorsalgia, unspecified; G89.29 Other chronic pain; I16.1 Hypertensive emergency; N18.9 Chronic kidney disease, unspecified; Z88.0 Allergy status to penicillin; Z88.8 Allergy status to other drugs, medicaments and biological substances; Z79.01 Long term (current) use of anticoagulants; Z79.4 Long term (current) use of insulin; Z85.038 Personal history of other malignant neoplasm of large intestine; Z79.899 Other long term (current) drug therapy; Z90.49 Acquired absence of other specified parts of digestive tract
CPT/HCPCS: 36415; 70450; 70496; 70498; 71045; 80053; 80061; 80305; 80320; 81001; 82948; 83036; 83735; 83930; 84484; 85025; 87081; 92508; 92616; 93306; 97116; 97161; 97530; 99285; G0378; J1815; J7030; Q9967

== ENCOUNTER 2024-07-31 10:39 | Inpatient (IN) | payer MEDICAID ==
[~2024-07-31] VITALS: Ht 182.9 cm; Wt 136.6 kg
[~2024-07-31 10:39] MED LIST changes: -LISI40TA13 PO; +LISI5TAB22 PO
[2024-07-31] MEDS ORDERED: iohexol 350MG/ML 100ml bottle IV ONE (10:50)
[2024-07-31 11:36] LABS: BILIRUBIN,URINE NEGATIVE (Neg); CLARITY,URINE CLEAR (Clear); COLOR,URINE STRAW (Yellow); GLUCOSE, URINE >=1000 mg/dl (Neg); KETONES,URINE NEGATIVE (Neg); LEUKOCYTE ESTERASE ,URINE NEGATIVE (Neg); NITRITES, URINE NEGATIVE (Neg); OCCULT BLOOD,URINE NEGATIVE (Neg); PROTEIN,URINE NEGATIVE (Neg); UROBILINOGEN,URINE 0.2 E.U/dL (0.2-1.0)
[2024-07-31 11:40] LABS: BASOPHILS # (AUTO) 0.1 X10'3 (0-0.2); BASOPHILS % (AUTO) 0.8 % (0-1); EOSINOPHILS # (AUTO) 0.1 X10'3 (0-0.9); HEMATOCRIT 37.2 % (42.0-52.0); HEMOGLOBIN 12.7 g/dl (14.0-17.9); LYMPHOCYTES # (AUTO) 1.3 X10'3 (1.1-4.8); LYMPHOCYTES % (AUTO) 13.5 % (21-51); MEAN CORPUSCULAR HEMOGLOBIN 27.8 PG (27.0-31.0); MEAN CORPUSCULAR HGB CONC 34.2 g/dL (33.0-36.5); MEAN CORPUSCULAR VOLUME 81.1 FL (78-98); MEAN PLATELET VOLUME 7.4 FL (7.4-10.4); MONOCYTES # (AUTO) 0.6 X10'3 (0-0.9); MONOCYTES % (AUTO) 6.1 % (2-12); NEUTROPHILS # (AUTO) 7.4 X10'3 (1.8-7.7); NEUTROPHILS % (AUTO) 78.6 % (42-75); PLATELET COUNT 251 X10'3 (140-440); RED BLOOD COUNT 4.58 X10'6 (4.70-6.10); RED CELL DISTRIBUTION WIDTH 14.5 % (11.5-14.5); WHITE BLOOD COUNT 9.5 X10'3 (4.5-11.0)
[2024-07-31 11:41] LABS: UA COLLECTION TYPE VOIDED
[2024-07-31 11:42] LABS: BACTERIA,URINE NONE SEEN /HPF (Neg); MUCUS STRANDS FEW /LPF (Neg); RBC,URINE 0-2 /HPF (0-2); SQUAMOUS EPITHELIAL CELL,UR FEW /LPF (FEW); WBC,URINE 0-4 /HPF (0-4)
[2024-07-31 11:44] LABS: URINE AMPHETAMINE SCREEN NEGATIVE (Neg); URINE BARBITUATE SCREEN NEGATIVE (Neg); URINE BENZODIAZEPINES SCREEN NEGATIVE (Neg); URINE CANNABINOID SCREEN NEGATIVE (Neg); URINE COCAINE SCREEN NEGATIVE (Neg); URINE METHADONE SCREEN NEGATIVE (Neg); URINE OPIATE SCREEN POSITIVE (Neg); URINE PHENCYCLIDINE SCREEN NEGATIVE (Neg)
[2024-07-31 11:58] LABS: ALANINE AMINOTRANSFERASE 20 U/L (12-78); ALBUMIN 2.8 G/DL (3.4-5.0); ALBUMIN/GLOBULIN RATIO 0.7 (1.1-1.5); ALKALINE PHOSPHATASE 83 IU/L (46-116); ANION GAP 7 (8-16); ASPARTATE AMINO TRANSFERASE 19 U/L (10-37); BILIRUBIN,TOTAL 0.5 MG/DL (0.1-1.0); BLOOD UREA NITROGEN 15 MG/DL (7-18); BUN/CREATININE RATIO 13.4 (10.0-20.0); CHLORIDE 97 MMOL/L (99-107); CREATININE 1.12 MG/DL (0.60-1.10); GLUCOSE 348 MG/DL (70-104); POTASSIUM 4.1 MMOL/L (3.5-5.1); SODIUM 132 MMOL/L (135-145); TOTAL CARBON DIOXIDE 27.9 MMOL/L (24-32); TOTAL PROTEIN 6.8 G/DL (6.4-8.2); eCRCL 77 ML/MIN; eGFR 67 ML/MIN
[2024-07-31 12:00] LABS: ETHANOL < 10 MG/DL (<10)
[2024-07-31] MEDS ORDERED: magnesium hydroxide 30ml (MOM) UD suspension PO PRN (15:40)
[2024-07-31] MEDS ORDERED: HYDROmorphone inj. 0.5 MG/0.5 ML DISP.SYRIN IV PRN (15:40)
[2024-07-31] MEDS ORDERED: acetaminophen 325mg tablet PO PRN (15:40)
[2024-07-31] MEDS ORDERED: potassium Cl 40MEQ/1/2NS 520ml 520 ML IV PRN (15:40)
[2024-07-31] MEDS ORDERED: potassium Cl 20 mEq SR tablet PO PRN ×2 (15:40)
[2024-07-31] MEDS ORDERED: magnesium sulf-water 4G/100mL 100 ML IV PRN (15:40)
[2024-07-31] MEDS ORDERED: magnesium sulf-water 2g/50mL 50 ML IV PRN (15:40)
[2024-07-31] MEDS ORDERED: ondansetron/PF 4mg/2ml inj IV PRN (15:40)
[2024-07-31] MEDS ORDERED: mag hydrox/Alum hydrox/simeth 30ml oral suspension PO PRN (15:40)
[2024-07-31] MEDS ORDERED: magnesium Cl slow-release 64mg tablet PO PRN (15:40)
[2024-07-31] MEDS ORDERED: morphine 2 MG/ML inj. syringe IV PRN (15:40)
[2024-07-31] MEDS: normal saline 1000ml 1,000 ML IV SCH (15:52)
[2024-07-31] MEDS: HYDROcodone/acetaminophen 10/325mg tab PO ONE (15:55)
[2024-07-31] MEDS ORDERED: DEXTROSE 15 GM of carb/4 tabs (each vial/BOTTLE has 4 tablets) PO PRN ×2 (16:00)
[2024-07-31] MEDS ORDERED: dextrose 50%-water 50ml dispensing syringe IV PRN ×2 (16:00)
[2024-07-31] MEDS ORDERED: glucagon, human recombinant 1mg kit SUBCUT PRN (16:00)
[2024-07-31] MEDS: atorvastatin 20mg tablet PO SCH (17:36)
[2024-07-31] MEDS: aspirin 81mg, enteric-coated 1 TAB TABLET.DR PO SCH (17:36)
[2024-07-31] MEDS: INSULIN LISPRO 100 UNIT/ML INSULN.PEN MULTI-DOSE SQ SCH (17:38)
[2024-07-31] MEDS ORDERED: labetalol 20mg/4ml (5mg/ml) syringe IV PRN ×2 (19:20→21:45)
[2024-07-31] MEDS: HYDROcodone/acetaminophen 10/325mg tab PO PRN (19:33)
[2024-07-31] MEDS: docusate sod 100mg capsule PO SCH (20:00)
[2024-07-31] MEDS: K and/or MAG REPLACEMENT MC SCH (20:00)
[2024-07-31 20:01] LABS: CREATININE 1.21 MG/DL (0.60-1.10); SODIUM 135 MMOL/L (135-145); eCRCL 71 ML/MIN; eGFR 61 ML/MIN
[2024-07-31 20:17] LABS: OSMOLALITY 297.5 MOSM/K (280-300)
[2024-07-31] MEDS: carvedilol 6.25mg tablet PO SCH (20:40)
[2024-07-31] MEDS: bumetanide 1mg tablet PO SCH (20:40)
[2024-07-31] MEDS: insulin glargine (Lantus) pen - multi-dose SQ SCH (20:46)
[2024-07-31 22:50] VITALS: BP 167/92; RESP 15; TEMP 97.9; O2SAT 99
[2024-08-01 06:00] VITALS: BP 157/77; PULSE 58; RESP 18; TEMP 96.7; O2SAT 97
[2024-08-01 06:09] LABS: BASOPHILS # (AUTO) 0.1 X10'3 (0-0.2); BASOPHILS % (AUTO) 0.9 % (0-1); EOSINOPHILS # (AUTO) 0.2 X10'3 (0-0.9); EOSINOPHILS % (AUTO) 2.6 % (0-6); HEMATOCRIT 38.2 % (42.0-52.0); HEMOGLOBIN 12.8 g/dl (14.0-17.9); LYMPHOCYTES % (AUTO) 23.3 % (21-51); MEAN CORPUSCULAR HEMOGLOBIN 27.4 PG (27.0-31.0); MEAN CORPUSCULAR HGB CONC 33.6 g/dL (33.0-36.5); MEAN CORPUSCULAR VOLUME 81.6 FL (78-98); MEAN PLATELET VOLUME 7.6 FL (7.4-10.4); MONOCYTES # (AUTO) 0.6 X10'3 (0-0.9); MONOCYTES % (AUTO) 7.7 % (2-12); NEUTROPHILS # (AUTO) 5.5 X10'3 (1.8-7.7); NEUTROPHILS % (AUTO) 65.5 % (42-75); PLATELET COUNT 250 X10'3 (140-440); RED BLOOD COUNT 4.68 X10'6 (4.70-6.10); RED CELL DISTRIBUTION WIDTH 14.4 % (11.5-14.5); WHITE BLOOD COUNT 8.4 X10'3 (4.5-11.0)
[2024-08-01 06:22] LABS: ALANINE AMINOTRANSFERASE 22 U/L (12-78); ALBUMIN 2.8 G/DL (3.4-5.0); ALBUMIN/GLOBULIN RATIO 0.7 (1.1-1.5); ALKALINE PHOSPHATASE 79 IU/L (46-116); ANION GAP 10 (8-16); ASPARTATE AMINO TRANSFERASE 14 U/L (10-37); BILIRUBIN,TOTAL 0.5 MG/DL (0.1-1.0); BLOOD UREA NITROGEN 13 MG/DL (7-18); BUN/CREATININE RATIO 13.3 (10.0-20.0); CALCIUM 8.3 MG/DL (8.5-10.1); CHLORIDE 102 MMOL/L (99-107); CHOL/HDL RATIO 2.4 (0.00-4.99); CHOLESTEROL 88 MG/DL (0-200); CREATININE 0.98 MG/DL (0.60-1.10); GLUCOSE 232 MG/DL (70-104); HDL CHOLESTEROL 36 MG/DL (35-60); LDL CHOLESTEROL 40 MG/DL (50-100); MAGNESIUM 2.1 MG/DL (1.5-2.4); POTASSIUM 3.9 MMOL/L (3.5-5.1); SODIUM 139 MMOL/L (135-145); TOTAL CARBON DIOXIDE 27.4 MMOL/L (24-32); TOTAL PROTEIN 6.8 G/DL (6.4-8.2); TRIGLYCERIDES 136 MG/DL (20-135); eCRCL 88 ML/MIN; eGFR 78 ML/MIN
[2024-08-01] MEDS: lisinopril 5mg tablet PO SCH (07:54)
[2024-08-01 10:00] VITALS: BP 152/67; PULSE 71; RESP 20; TEMP 97.6; O2SAT 97
[2024-08-01 18:00] VITALS: BP 158/88; PULSE 66; RESP 18; TEMP 97.5; O2SAT 98
[2024-08-01] MEDS: apixaban 5mg tablet PO SCH (19:37)
[2024-08-01] MEDS: insulin glargine (Lantus) pen - multi-dose SQ SCH (21:43)
[2024-08-01 22:00] VITALS: BP 140/71; PULSE 63; RESP 16; TEMP 98.8; O2SAT 97
[2024-08-02 02:00] VITALS: BP 145/76; PULSE 68; RESP 19; TEMP 97.9; O2SAT 97
[2024-08-02 06:00] VITALS: BP 159/90; PULSE 60; RESP 20; TEMP 98.6; O2SAT 97
[2024-08-02 06:50] LABS: BASOPHILS # (AUTO) 0.1 X10'3 (0-0.2); EOSINOPHILS # (AUTO) 0.3 X10'3 (0-0.9); EOSINOPHILS % (AUTO) 3.1 % (0-6); HEMATOCRIT 39.2 % (42.0-52.0); HEMOGLOBIN 13.3 g/dl (14.0-17.9); LYMPHOCYTES # (AUTO) 1.9 X10'3 (1.1-4.8); LYMPHOCYTES % (AUTO) 22.7 % (21-51); MEAN CORPUSCULAR HEMOGLOBIN 27.8 PG (27.0-31.0); MEAN CORPUSCULAR VOLUME 81.7 FL (78-98); MEAN PLATELET VOLUME 7.6 FL (7.4-10.4); MONOCYTES # (AUTO) 0.7 X10'3 (0-0.9); MONOCYTES % (AUTO) 8.1 % (2-12); NEUTROPHILS # (AUTO) 5.4 X10'3 (1.8-7.7); NEUTROPHILS % (AUTO) 65.1 % (42-75); PLATELET COUNT 227 X10'3 (140-440); RED CELL DISTRIBUTION WIDTH 14.2 % (11.5-14.5); WHITE BLOOD COUNT 8.2 X10'3 (4.5-11.0)
[2024-08-02 07:02] LABS: ALANINE AMINOTRANSFERASE 21 U/L (12-78); ALBUMIN/GLOBULIN RATIO 0.7 (1.1-1.5); ALKALINE PHOSPHATASE 85 IU/L (46-116); ANION GAP 5 (8-16); ASPARTATE AMINO TRANSFERASE 20 U/L (10-37); BILIRUBIN,TOTAL 0.6 MG/DL (0.1-1.0); BLOOD UREA NITROGEN 16 MG/DL (7-18); BUN/CREATININE RATIO 16.2 (10.0-20.0); CALCIUM 8.2 MG/DL (8.5-10.1); CHLORIDE 99 MMOL/L (99-107); CREATININE 0.99 MG/DL (0.60-1.10); GLUCOSE 228 MG/DL (70-104); MAGNESIUM 2.1 MG/DL (1.5-2.4); POTASSIUM 3.9 MMOL/L (3.5-5.1); SODIUM 135 MMOL/L (135-145); TOTAL CARBON DIOXIDE 30.6 MMOL/L (24-32); TOTAL PROTEIN 7.1 G/DL (6.4-8.2); eCRCL 87 ML/MIN; eGFR 77 ML/MIN
[2024-08-02] MEDS: isosorbide dinitrate 30mg tablet PO SCH (07:31)
[2024-08-02 10:00] VITALS: BP 105/73; PULSE 82; RESP 18; TEMP 97.3; O2SAT 92
[2024-08-02] MEDS ORDERED: ASPI-1071 PO (10:17)
[2024-08-02 14:00] VITALS: RESP 18
== END 2024-08-02 14:05 | disposition home health service (06) | DRG 47 ==
LOC: ER 10:39 → ED HOLD 14:58 → ORTHO 4S 22:50
PROVIDERS: ADMIT Family Medicine; ATTEND Family Medicine
PROC: B3251ZZ Computerized Tomography (CT Scan) of Bilateral Common Carotid Arteries using Low Osmolar Contrast (ICD-10-PCS; principal; 2024-07-31)
PROC: B32G1ZZ Computerized Tomography (CT Scan) of Bilateral Vertebral Arteries using Low Osmolar Contrast (ICD-10-PCS; 2024-07-31)
PROC: B32R1ZZ Computerized Tomography (CT Scan) of Intracranial Arteries using Low Osmolar Contrast (ICD-10-PCS; 2024-07-31)
PROC: B3281ZZ Computerized Tomography (CT Scan) of Bilateral Internal Carotid Arteries using Low Osmolar Contrast (ICD-10-PCS; 2024-07-31)
DX: G45.9 Transient cerebral ischemic attack, unspecified (principal); N17.0 Acute kidney failure with tubular necrosis; E11.22 Type 2 diabetes mellitus with diabetic chronic kidney disease; I16.1 Hypertensive emergency; I12.9 Hypertensive chronic kidney disease with stage 1 through stage 4 chronic kidney disease, or unspecified chronic kidney disease; N18.9 Chronic kidney disease, unspecified; I48.91 Unspecified atrial fibrillation; G89.29 Other chronic pain; M54.9 Dorsalgia, unspecified; Z88.0 Allergy status to penicillin; Z88.8 Allergy status to other drugs, medicaments and biological substances; Z79.01 Long term (current) use of anticoagulants; Z79.899 Other long term (current) drug therapy; Z79.4 Long term (current) use of insulin; Z90.49 Acquired absence of other specified parts of digestive tract; Z85.038 Personal history of other malignant neoplasm of large intestine
CPT/HCPCS: 36415; 70450; 70496; 70498; 70551; 71045; 80053; 80061; 80305; 80320; 81001; 82565; 82948; 83605; 83735; 83930; 84295; 84484; 85025; 87081; 92508; 92616; 93005; 97110; 97116; 97161; 97530; 99285; A6212; G0378; J1815; J7030; Q9967

== ENCOUNTER 2024-08-08 17:32 | Emergency (ER) | payer MEDICAID ==
[~2024-08-08] VITALS: Ht 182.9 cm; Wt 134.5 kg
[~2024-08-08 17:32] MED LIST changes: +ASPI-1071 PO
[2024-08-08 17:58] LABS: BASOPHILS # (AUTO) 0.1 X10'3 (0-0.2); EOSINOPHILS # (AUTO) 0.2 X10'3 (0-0.9); EOSINOPHILS % (AUTO) 1.8 % (0-6); HEMATOCRIT 39.6 % (42.0-52.0); HEMOGLOBIN 13.5 g/dl (14.0-17.9); LYMPHOCYTES # (AUTO) 2.2 X10'3 (1.1-4.8); LYMPHOCYTES % (AUTO) 19.8 % (21-51); MEAN CORPUSCULAR HEMOGLOBIN 27.9 PG (27.0-31.0); MEAN CORPUSCULAR HGB CONC 34.1 g/dL (33.0-36.5); MEAN CORPUSCULAR VOLUME 81.6 FL (78-98); MEAN PLATELET VOLUME 7.6 FL (7.4-10.4); MONOCYTES # (AUTO) 0.7 X10'3 (0-0.9); NEUTROPHILS # (AUTO) 7.8 X10'3 (1.8-7.7); NEUTROPHILS % (AUTO) 71.4 % (42-75); PLATELET COUNT 292 X10'3 (140-440); RED BLOOD COUNT 4.86 X10'6 (4.70-6.10); RED CELL DISTRIBUTION WIDTH 14.5 % (11.5-14.5); WHITE BLOOD COUNT 10.9 X10'3 (4.5-11.0)
[2024-08-08 18:17] LABS: ALANINE AMINOTRANSFERASE 29 U/L (12-78); ALBUMIN 3.1 G/DL (3.4-5.0); ALBUMIN/GLOBULIN RATIO 0.7 (1.1-1.5); ALKALINE PHOSPHATASE 108 IU/L (46-116); ANION GAP 9 (8-16); ASPARTATE AMINO TRANSFERASE 13 U/L (10-37); BILIRUBIN,TOTAL 0.5 MG/DL (0.1-1.0); BLOOD UREA NITROGEN 17 MG/DL (7-18); BUN/CREATININE RATIO 14.4 (10.0-20.0); CALCIUM 8.6 MG/DL (8.5-10.1); CHLORIDE 102 MMOL/L (99-107); CREATININE 1.18 MG/DL (0.60-1.10); POTASSIUM 3.7 MMOL/L (3.5-5.1); SODIUM 137 MMOL/L (135-145); TOTAL CARBON DIOXIDE 26.4 MMOL/L (24-32); TOTAL PROTEIN 7.5 G/DL (6.4-8.2); eCRCL 73 ML/MIN; eGFR 63 ML/MIN
[2024-08-08 18:24] LABS: PRO BRAIN NATRIURETIC PEPTIDE 72 PG/ML (0-125)
[2024-08-08 18:27] LABS: GLUCOSE 412 MG/DL (70-104)
[2024-08-08] MEDS: HYDROcodone/acetaminophen 10/325mg tab PO ONE (20:10)
[2024-08-08] MEDS: insulin regular, human 10 units/0.1 ml syringe IV ONE (20:14)
[2024-08-08 20:32] VITALS: BP 123/97; PULSE 81; RESP 16; TEMP 98.5; O2SAT 97
== END 2024-08-08 20:34 | disposition home or self-care (01) ==
LOC: ER 17:33
DX: R07.89 Other chest pain (principal); R11.0 Nausea; I48.91 Unspecified atrial fibrillation; I10 Essential (primary) hypertension; E11.9 Type 2 diabetes mellitus without complications; Z88.0 Allergy status to penicillin; Z88.5 Allergy status to narcotic agent; Z88.6 Allergy status to analgesic agent; Z88.8 Allergy status to other drugs, medicaments and biological substances; Z90.49 Acquired absence of other specified parts of digestive tract; Z85.038 Personal history of other malignant neoplasm of large intestine
CPT/HCPCS: 36415; 71045; 80053; 83880; 84484; 85025; 93005; 96374; 99285; J1815

== ENCOUNTER 2024-08-31 17:02 | Emergency (ER) | payer MEDICAID ==
[~2024-08-31] VITALS: Ht 182.9 cm; Wt 131.8 kg
[2024-08-31 17:46] LABS: BASOPHILS # (AUTO) 0.1 X10'3 (0-0.2); BASOPHILS % (AUTO) 1.2 % (0-1); EOSINOPHILS # (AUTO) 0.1 X10'3 (0-0.9); HEMATOCRIT 41.6 % (42.0-52.0); HEMOGLOBIN 14.1 g/dl (14.0-17.9); LYMPHOCYTES # (AUTO) 2.4 X10'3 (1.1-4.8); MEAN CORPUSCULAR HEMOGLOBIN 27.6 PG (27.0-31.0); MEAN CORPUSCULAR VOLUME 81.4 FL (78-98); MEAN PLATELET VOLUME 7.4 FL (7.4-10.4); MONOCYTES # (AUTO) 0.8 X10'3 (0-0.9); MONOCYTES % (AUTO) 6.2 % (2-12); NEUTROPHILS # (AUTO) 9.1 X10'3 (1.8-7.7); NEUTROPHILS % (AUTO) 72.6 % (42-75); PLATELET COUNT 309 X10'3 (140-440); RED CELL DISTRIBUTION WIDTH 14.9 % (11.5-14.5); WHITE BLOOD COUNT 12.5 X10'3 (4.5-11.0)
[2024-08-31 18:04] LABS: ALANINE AMINOTRANSFERASE 18 U/L (12-78); ALBUMIN 3.4 G/DL (3.4-5.0); ALBUMIN/GLOBULIN RATIO 0.7 (1.1-1.5); ALKALINE PHOSPHATASE 97 IU/L (46-116); ANION GAP 14 (8-16); ASPARTATE AMINO TRANSFERASE 15 U/L (10-37); BILIRUBIN,TOTAL 0.7 MG/DL (0.1-1.0); BLOOD UREA NITROGEN 17 MG/DL (7-18); BUN/CREATININE RATIO 13.2 (10.0-20.0); CALCIUM 8.9 MG/DL (8.5-10.1); CHLORIDE 99 MMOL/L (99-107); CREATININE 1.29 MG/DL (0.60-1.10); GLUCOSE 307 MG/DL (70-104); POTASSIUM 3.8 MMOL/L (3.5-5.1); SODIUM 136 MMOL/L (135-145); TOTAL CARBON DIOXIDE 22.7 MMOL/L (24-32); TOTAL PROTEIN 8.3 G/DL (6.4-8.2); eCRCL 67 ML/MIN; eGFR 57 ML/MIN
[2024-08-31 18:09] LABS: PRO BRAIN NATRIURETIC PEPTIDE 226 PG/ML (0-125)
[2024-08-31] MEDS: HYDROcodone/acetaminophen 10/325mg tab PO ONE (19:13)
[2024-08-31] MEDS: normal saline 1000ml 1,000 ML IV ONE (19:24)
[2024-08-31 19:53] VITALS: TEMP 98.2
[2024-08-31 21:49] LABS: BILIRUBIN,URINE NEGATIVE (Neg); CLARITY,URINE CLEAR (Clear); COLOR,URINE YELLOW (Yellow); GLUCOSE, URINE 250 mg/dl (Neg); KETONES,URINE NEGATIVE (Neg); LEUKOCYTE ESTERASE ,URINE NEGATIVE (Neg); NITRITES, URINE NEGATIVE (Neg); OCCULT BLOOD,URINE TRACE-INTACT (Neg); PH,URINE 5.5 (4.8-8.0); PROTEIN,URINE 100 mg/dl (Neg); UROBILINOGEN,URINE 0.2 E.U/dL (0.2-1.0)
[2024-08-31] MEDS: acetaminophen 325mg tablet PO ONE (22:06)
[2024-08-31] MEDS: traMADol 50MG tablet PO ONE (22:15)
[2024-08-31 22:16] LABS: URINE AMPHETAMINE SCREEN NEGATIVE (Neg); URINE BARBITUATE SCREEN NEGATIVE (Neg); URINE BENZODIAZEPINES SCREEN NEGATIVE (Neg); URINE CANNABINOID SCREEN NEGATIVE (Neg); URINE COCAINE SCREEN NEGATIVE (Neg); URINE METHADONE SCREEN NEGATIVE (Neg); URINE OPIATE SCREEN POSITIVE (Neg); URINE PHENCYCLIDINE SCREEN NEGATIVE (Neg)
[2024-08-31 22:22] LABS: UA COLLECTION TYPE CLN CATCH MIDSTREAM
[2024-08-31 22:23] LABS: SQUAMOUS EPITHELIAL CELL,UR FEW /LPF (FEW)
[2024-08-31 22:24] LABS: BACTERIA,URINE FEW /HPF (Neg); MUCUS STRANDS MODERATE /LPF (Neg); WBC,URINE 0-4 /HPF (0-4)
[2024-08-31] MEDS: insulin regular, human 10 units/0.1 ml syringe SQ ONE (22:45)
[2024-08-31 22:54] VITALS: BP 140/90; PULSE 89; RESP 16; O2SAT 98
== END 2024-08-31 22:56 | disposition home or self-care (01) ==
LOC: ER 17:03
DX: R00.2 Palpitations (principal); E11.9 Type 2 diabetes mellitus without complications; I48.91 Unspecified atrial fibrillation; I10 Essential (primary) hypertension; Z88.0 Allergy status to penicillin; Z88.6 Allergy status to analgesic agent; Z85.038 Personal history of other malignant neoplasm of large intestine; Z90.49 Acquired absence of other specified parts of digestive tract
CPT/HCPCS: 36415; 71045; 80053; 80305; 81001; 82948; 83880; 84484; 85025; 93005; 96360; 96361; 96372; 99285; J1815; J7030

== ENCOUNTER 2024-09-04 11:40 | Inpatient (IN) | payer MEDICAID ==
[~2024-09-04] VITALS: Ht 185.4 cm; Wt 127.3 kg
[2024-09-04 12:11] LABS: BASOPHILS # (AUTO) 0.1 X10'3 (0-0.2); EOSINOPHILS # (AUTO) 0.2 X10'3 (0-0.9); EOSINOPHILS % (AUTO) 1.4 % (0-6); HEMATOCRIT 40.4 % (42.0-52.0); HEMOGLOBIN 13.8 g/dl (14.0-17.9); LYMPHOCYTES # (AUTO) 2.1 X10'3 (1.1-4.8); LYMPHOCYTES % (AUTO) 17.3 % (21-51); MEAN CORPUSCULAR HEMOGLOBIN 27.7 PG (27.0-31.0); MEAN CORPUSCULAR HGB CONC 34.2 g/dL (33.0-36.5); MEAN PLATELET VOLUME 7.4 FL (7.4-10.4); MONOCYTES # (AUTO) 0.9 X10'3 (0-0.9); MONOCYTES % (AUTO) 7.2 % (2-12); NEUTROPHILS % (AUTO) 73.1 % (42-75); PLATELET COUNT 297 X10'3 (140-440); RED BLOOD COUNT 4.99 X10'6 (4.70-6.10); RED CELL DISTRIBUTION WIDTH 14.4 % (11.5-14.5); WHITE BLOOD COUNT 12.2 X10'3 (4.5-11.0)
[2024-09-04 12:31] LABS: ALANINE AMINOTRANSFERASE 34 U/L (12-78); ALBUMIN 3.2 G/DL (3.4-5.0); ALBUMIN/GLOBULIN RATIO 0.7 (1.1-1.5); ALKALINE PHOSPHATASE 101 IU/L (46-116); ANION GAP 8 (8-16); ASPARTATE AMINO TRANSFERASE 17 U/L (10-37); BILIRUBIN,TOTAL 0.6 MG/DL (0.1-1.0); BLOOD UREA NITROGEN 14 MG/DL (7-18); CALCIUM 8.8 MG/DL (8.5-10.1); CHLORIDE 102 MMOL/L (99-107); CREATININE 1.17 MG/DL (0.60-1.10); GLUCOSE 271 MG/DL (70-104); SODIUM 138 MMOL/L (135-145); TOTAL CARBON DIOXIDE 27.9 MMOL/L (24-32); TOTAL PROTEIN 7.9 G/DL (6.4-8.2); eCRCL 76 ML/MIN; eGFR 64 ML/MIN
[2024-09-04 12:39] LABS: PRO BRAIN NATRIURETIC PEPTIDE 176 PG/ML (0-125)
[2024-09-04] MEDS: HYDROmorphone 1 mg/ml syringe IV ONE (14:07)
[2024-09-04] MEDS ORDERED: magnesium hydroxide 30ml (MOM) UD suspension PO PRN (15:15)
[2024-09-04] MEDS ORDERED: metoprolol tartrate 1mg/ml inj IV PRN (15:15)
[2024-09-04] MEDS ORDERED: morphine 2 MG/ML inj. syringe IV PRN (15:15)
[2024-09-04] MEDS ORDERED: acetaminophen 325mg tablet PO PRN ×2 (15:15)
[2024-09-04] MEDS ORDERED: aminophylline 250mg/10ml inj. IV PRN (15:15)
[2024-09-04] MEDS ORDERED: regadenoson 0.4mg/5ml syringe IV PRN (15:15)
[2024-09-04] MEDS ORDERED: mag hydrox/Alum hydrox/simeth 30ml oral suspension PO PRN (15:15)
[2024-09-04] MEDS ORDERED: nitroGLYCERIN 0.4mg SUBLingual tab SL PRN ×2 (15:15)
[2024-09-04] MEDS ORDERED: ondansetron/PF 4mg/2ml inj IV PRN (15:15)
[2024-09-04 15:45] LABS: D-DIMER < 0.19 MG/L FEU (0-0.50)
[2024-09-04] MEDS: HYDROcodone/acetaminophen 5mg/325mg tablet PO PRN (15:52)
[2024-09-04] MEDS: morphine 2 MG/ML inj. syringe IV PRN (16:50)
[2024-09-04 17:06] LABS: HEMOGLOBIN A1C 8.5 % (4.5-6.2)
[2024-09-04] MEDS: docusate sod 100mg capsule PO SCH (19:59)
[2024-09-04 20:00] VITALS: RESP 12; O2SAT 99
[2024-09-04 20:05] VITALS: BP 144/82; PULSE 78; RESP 12; TEMP 98.6; O2SAT 99
[2024-09-04] MEDS ORDERED: DEXTROSE 15 GM of carb/4 tabs (each vial/BOTTLE has 4 tablets) PO PRN ×2 (20:50)
[2024-09-04] MEDS ORDERED: dextrose 50%-water 50ml dispensing syringe IV PRN ×2 (20:50)
[2024-09-04] MEDS ORDERED: glucagon, human recombinant 1mg kit SUBCUT PRN (20:50)
[2024-09-04] MEDS: HYDROcodone/acetaminophen 10/325mg tab PO PRN (21:10)
[2024-09-04 22:00] VITALS: BP 135/70; PULSE 64; RESP 18; TEMP 97.8; O2SAT 98
[2024-09-04] MEDS: INSULIN LISPRO 100 UNIT/ML INSULN.PEN MULTI-DOSE SQ SCH (22:08)
[2024-09-04] MEDS: insulin glargine (Lantus) pen - multi-dose SQ SCH (22:10)
[2024-09-05] VITALS (14 sets, daily range): BP systolic 101–188; BP diastolic 56–93; PULSE 58–87; RESP 11–20; TEMP 97.7–98.7; O2SAT 97–99
[2024-09-05 07:07] LABS: BASOPHILS # (AUTO) 0.1 X10'3 (0-0.2); BASOPHILS % (AUTO) 0.9 % (0-1); EOSINOPHILS # (AUTO) 0.3 X10'3 (0-0.9); EOSINOPHILS % (AUTO) 3.5 % (0-6); HEMATOCRIT 36.5 % (42.0-52.0); HEMOGLOBIN 12.7 g/dl (14.0-17.9); LYMPHOCYTES # (AUTO) 2.8 X10'3 (1.1-4.8); LYMPHOCYTES % (AUTO) 28.4 % (21-51); MEAN CORPUSCULAR HEMOGLOBIN 28.1 PG (27.0-31.0); MEAN CORPUSCULAR HGB CONC 34.8 g/dL (33.0-36.5); MEAN CORPUSCULAR VOLUME 80.9 FL (78-98); MEAN PLATELET VOLUME 7.7 FL (7.4-10.4); MONOCYTES # (AUTO) 0.7 X10'3 (0-0.9); MONOCYTES % (AUTO) 7.6 % (2-12); NEUTROPHILS # (AUTO) 5.8 X10'3 (1.8-7.7); NEUTROPHILS % (AUTO) 59.6 % (42-75); PLATELET COUNT 230 X10'3 (140-440); RED BLOOD COUNT 4.51 X10'6 (4.70-6.10); RED CELL DISTRIBUTION WIDTH 14.4 % (11.5-14.5); WHITE BLOOD COUNT 9.7 X10'3 (4.5-11.0)
[2024-09-05 07:35] LABS: ALBUMIN 2.9 G/DL (3.4-5.0); ANION GAP 5 (8-16); BLOOD UREA NITROGEN 16 MG/DL (7-18); CHLORIDE 103 MMOL/L (99-107); CHOL/HDL RATIO 2.2 (0.00-4.99); CHOLESTEROL 83 MG/DL (0-200); GLUCOSE 168 MG/DL (70-104); HDL CHOLESTEROL 38 MG/DL (35-60); LDL CHOLESTEROL 35 MG/DL (50-100); POTASSIUM 3.5 MMOL/L (3.5-5.1); SODIUM 137 MMOL/L (135-145); TOTAL CARBON DIOXIDE 28.7 MMOL/L (24-32); TRIGLYCERIDES 149 MG/DL (20-135); eCRCL 89 ML/MIN; eGFR 76 ML/MIN
[2024-09-05 08:34] LABS: CALCIUM 8.8 MG/DL (8.5-10.1)
[2024-09-05] MEDS: aspirin 81mg, enteric-coated 1 TAB TABLET.DR PO SCH (09:45)
[2024-09-05] MEDS: regadenoson 0.4mg/5ml syringe IV PRN (15:48)
[2024-09-05] MEDS: insulin glargine (Lantus) pen - multi-dose SQ SCH (21:18)
[2024-09-05] MEDS: INSULIN LISPRO 100 UNIT/ML INSULN.PEN MULTI-DOSE SQ SCH (21:18)
[2024-09-06 02:00] VITALS: BP 125/51; PULSE 78; RESP 16; TEMP 98.2; O2SAT 98
[2024-09-06 05:58] LABS: BASOPHILS # (AUTO) 0.1 X10'3 (0-0.2); BASOPHILS % (AUTO) 0.9 % (0-1); EOSINOPHILS # (AUTO) 0.3 X10'3 (0-0.9); EOSINOPHILS % (AUTO) 3.5 % (0-6); HEMATOCRIT 35.3 % (42.0-52.0); HEMOGLOBIN 12.2 g/dl (14.0-17.9); LYMPHOCYTES # (AUTO) 2.7 X10'3 (1.1-4.8); LYMPHOCYTES % (AUTO) 28.5 % (21-51); MEAN CORPUSCULAR HEMOGLOBIN 27.8 PG (27.0-31.0); MEAN CORPUSCULAR HGB CONC 34.4 g/dL (33.0-36.5); MEAN CORPUSCULAR VOLUME 80.8 FL (78-98); MEAN PLATELET VOLUME 7.4 FL (7.4-10.4); MONOCYTES # (AUTO) 0.8 X10'3 (0-0.9); MONOCYTES % (AUTO) 8.9 % (2-12); NEUTROPHILS # (AUTO) 5.4 X10'3 (1.8-7.7); NEUTROPHILS % (AUTO) 58.2 % (42-75); PLATELET COUNT 211 X10'3 (140-440); RED BLOOD COUNT 4.37 X10'6 (4.70-6.10); RED CELL DISTRIBUTION WIDTH 14.6 % (11.5-14.5); WHITE BLOOD COUNT 9.3 X10'3 (4.5-11.0)
[2024-09-06 06:00] VITALS: BP 135/74; PULSE 67; RESP 12; TEMP 96.7; O2SAT 98
[2024-09-06 06:34] LABS: ALBUMIN 2.6 G/DL (3.4-5.0); ANION GAP 9 (8-16); BLOOD UREA NITROGEN 18 MG/DL (7-18); BUN/CREATININE RATIO 16.4 (10.0-20.0); CALCIUM 8.1 MG/DL (8.5-10.1); CHLORIDE 102 MMOL/L (99-107); GLUCOSE 274 MG/DL (70-104); POTASSIUM 3.6 MMOL/L (3.5-5.1); SODIUM 137 MMOL/L (135-145); TOTAL CARBON DIOXIDE 26.1 MMOL/L (24-32); eCRCL 81 ML/MIN; eGFR 68 ML/MIN
[2024-09-06 08:00] VITALS: RESP 12; O2SAT 98
[2024-09-06] MEDS ORDERED: aspirin 81mg, enteric-coated 1 TAB TABLET.DR PO SCH (08:00)
[2024-09-06] MEDS: atorvastatin 20mg tablet PO SCH (08:06)
[2024-09-06] MEDS: carvedilol 6.25mg tablet PO SCH (08:06)
[2024-09-06] MEDS: bumetanide 1mg tablet PO SCH (08:07)
[2024-09-06] MEDS: linagliptin 5mg tablet PO SCH (08:07)
[2024-09-06] MEDS: apixaban 5mg tablet PO SCH (08:07)
[2024-09-06] MEDS: isosorbide dinitrate 30mg tablet PO SCH (08:08)
[2024-09-06] MEDS: lisinopril 5mg tablet PO SCH (08:08)
[2024-09-06 11:00] VITALS: BP 123/77; PULSE 80; RESP 17; TEMP 98.3; O2SAT 100
[2024-09-06] MEDS ORDERED: PANT-47 PO (11:57)
[2024-09-06 14:24] VITALS: RESP 15
== END 2024-09-06 15:06 | disposition home or self-care (01) | DRG 243 ==
LOC: ER 11:41 → ED HOLD 15:20 → PCU 3S 20:03
PROVIDERS: ADMIT Internal Medicine; ATTEND Internal Medicine
PROC: 4A02XM4 Measurement of Cardiac Total Activity, External Approach (ICD-10-PCS; principal; 2024-09-05)
PROC: 3E033HZ Introduction of Radioactive Substance into Peripheral Vein, Percutaneous Approach (ICD-10-PCS; 2024-09-05)
DX: K21.9 Gastro-esophageal reflux disease without esophagitis (principal); I20.0 Unstable angina; I10 Essential (primary) hypertension; I48.0 Paroxysmal atrial fibrillation; E78.5 Hyperlipidemia, unspecified; E11.9 Type 2 diabetes mellitus without complications; G89.29 Other chronic pain; M54.9 Dorsalgia, unspecified; Z79.01 Long term (current) use of anticoagulants; Z79.82 Long term (current) use of aspirin; Z79.4 Long term (current) use of insulin; Z79.899 Other long term (current) drug therapy; Z85.038 Personal history of other malignant neoplasm of large intestine; Z90.49 Acquired absence of other specified parts of digestive tract; Z83.3 Family history of diabetes mellitus; Z82.49 Family history of ischemic heart disease and other diseases of the circulatory system; Z88.0 Allergy status to penicillin; Z80.1 Family history of malignant neoplasm of trachea, bronchus and lung
CPT/HCPCS: 36415; 71045; 78452; 80048; 80053; 80061; 82948; 83036; 83880; 84484; 85025; 85379; 87081; 93005; 93017; 96374; 99285; A6449; A9500; G0378; J1171; J1815; J2270; J2785

== ENCOUNTER 2024-10-01 14:20 | Inpatient (IN) | payer MEDICAID, SELFPAY ==
[~2024-10-01] VITALS: Ht 185.4 cm; Wt 137.7 kg
[~2024-10-01 14:20] MED LIST changes: +PANT-47 PO
[2024-10-01 14:53] LABS: BASOPHILS # (AUTO) 0.1 X10'3 (0-0.2); BASOPHILS % (AUTO) 0.8 % (0-1); EOSINOPHILS # (AUTO) 0.1 X10'3 (0-0.9); EOSINOPHILS % (AUTO) 0.6 % (0-6); HEMATOCRIT 39.5 % (42.0-52.0); HEMOGLOBIN 13.7 g/dl (14.0-17.9); LYMPHOCYTES # (AUTO) 1.7 X10'3 (1.1-4.8); LYMPHOCYTES % (AUTO) 13.9 % (21-51); MEAN CORPUSCULAR HGB CONC 34.8 g/dL (33.0-36.5); MEAN CORPUSCULAR VOLUME 80.4 FL (78-98); MEAN PLATELET VOLUME 7.5 FL (7.4-10.4); MONOCYTES # (AUTO) 0.6 X10'3 (0-0.9); MONOCYTES % (AUTO) 4.9 % (2-12); NEUTROPHILS # (AUTO) 9.6 X10'3 (1.8-7.7); NEUTROPHILS % (AUTO) 79.8 % (42-75); PLATELET COUNT 287 X10'3 (140-440); RED BLOOD COUNT 4.91 X10'6 (4.70-6.10); RED CELL DISTRIBUTION WIDTH 14.6 % (11.5-14.5)
[2024-10-01 14:57] LABS: APTT 25 SECONDS (22-32); PROTHROMBIN TIME 10.7 SECONDS (9.0-12.0)
[2024-10-01] MEDS ORDERED: iohexol 350MG/ML 100ml bottle IV ONE (15:08)
[2024-10-01 16:36] LABS: ALANINE AMINOTRANSFERASE 31 U/L (12-78); ALBUMIN 3.2 G/DL (3.4-5.0); ALBUMIN/GLOBULIN RATIO 0.7 (1.1-1.5); ANION GAP 9 (8-16); ASPARTATE AMINO TRANSFERASE 26 U/L (10-37); BILIRUBIN,TOTAL 0.6 MG/DL (0.1-1.0); BLOOD UREA NITROGEN 13 MG/DL (7-18); CALCIUM 8.7 MG/DL (8.5-10.1); CHLORIDE 99 MMOL/L (99-107); CREATININE 1.18 MG/DL (0.60-1.10); POTASSIUM 4.4 MMOL/L (3.5-5.1); SODIUM 135 MMOL/L (135-145); TOTAL CARBON DIOXIDE 27.2 MMOL/L (24-32); TOTAL PROTEIN 7.6 G/DL (6.4-8.2); eGFR 63 ML/MIN
[2024-10-01 16:40] LABS: ETHANOL < 10 MG/DL (<10); MAGNESIUM 2.2 MG/DL (1.5-2.4)
[2024-10-01 16:41] LABS: ALKALINE PHOSPHATASE 108 IU/L (46-116); GLUCOSE 349 MG/DL (70-104); PRO BRAIN NATRIURETIC PEPTIDE 226 PG/ML (0-125)
[2024-10-01] MEDS: normal saline 1000ml 1,000 ML IV ONE (17:42)
[2024-10-01 17:53] LABS: URINE AMPHETAMINE SCREEN NEGATIVE (Neg); URINE BARBITUATE SCREEN NEGATIVE (Neg); URINE BENZODIAZEPINES SCREEN NEGATIVE (Neg); URINE CANNABINOID SCREEN NEGATIVE (Neg); URINE COCAINE SCREEN NEGATIVE (Neg); URINE METHADONE SCREEN NEGATIVE (Neg); URINE OPIATE SCREEN POSITIVE (Neg); URINE PHENCYCLIDINE SCREEN NEGATIVE (Neg)
[2024-10-01] MEDS: HYDROcodone/acetaminophen 10/325mg tab PO ONE ×2 (18:04→22:35)
[2024-10-01 20:40] LABS: BILIRUBIN,URINE NEGATIVE (Neg); CLARITY,URINE CLEAR (Clear); COLOR,URINE YELLOW (Yellow); GLUCOSE, URINE >=1000 mg/dl (Neg); KETONES,URINE TRACE mg/dl (Neg); LEUKOCYTE ESTERASE ,URINE NEGATIVE (Neg); NITRITES, URINE NEGATIVE (Neg); OCCULT BLOOD,URINE TRACE-INTACT (Neg); PROTEIN,URINE 30 mg/dl (Neg); UROBILINOGEN,URINE 0.2 E.U/dL (0.2-1.0)
[2024-10-01 20:45] LABS: UA COLLECTION TYPE NON-SPECIFIED
[2024-10-01 20:48] LABS: BACTERIA,URINE NONE SEEN /HPF (Neg); RBC,URINE 0-2 /HPF (0-2); SQUAMOUS EPITHELIAL CELL,UR FEW /LPF (FEW); WBC,URINE 0-4 /HPF (0-4)
[2024-10-01] MEDS ORDERED: magnesium Cl slow-release 64mg tablet PO PRN (22:50)
[2024-10-01] MEDS ORDERED: potassium Cl 20 mEq SR tablet PO PRN ×2 (22:50)
[2024-10-01] MEDS ORDERED: magnesium sulf-water 4G/100mL 100 ML IV PRN (22:50)
[2024-10-01] MEDS ORDERED: magnesium hydroxide 30ml (MOM) UD suspension PO PRN (22:50)
[2024-10-01] MEDS: PERFLUTREN PROTEIN-A MICROSPHR (Optison) 0.22 MG/ML 3ML VIAL IV ONE (22:50)
[2024-10-01] MEDS ORDERED: HYDROmorphone/PF 0.2 MG/ML SYRINGE IV PRN (22:50)
[2024-10-01] MEDS ORDERED: ondansetron/PF 4mg/2ml inj IV PRN (22:50)
[2024-10-01] MEDS ORDERED: potassium Cl 40MEQ/1/2NS 520ml 520 ML IV PRN (22:50)
[2024-10-01] MEDS ORDERED: HYDROmorphone inj. 0.5 MG/0.5 ML DISP.SYRIN IV PRN (22:50)
[2024-10-01] MEDS ORDERED: mag hydrox/Alum hydrox/simeth 30ml oral suspension PO PRN (22:50)
[2024-10-01] MEDS ORDERED: acetaminophen 325mg tablet PO PRN (22:50)
[2024-10-01] MEDS ORDERED: magnesium sulf-water 2g/50mL 50 ML IV PRN (22:50)
[2024-10-01] MEDS ORDERED: ASPI-1265 PO (23:28)
[2024-10-01] MEDS ORDERED: LISI40TA13 PO (23:28)
[2024-10-01] MEDS ORDERED: SEMA0.258 SQ (23:28)
[2024-10-01] MEDS ORDERED: CARV-50 PO (23:29)
[2024-10-01] MEDS ORDERED: isosorbide dinitrate 30mg tablet PO SCH (23:35)
[2024-10-01] MEDS ORDERED: ISOS30TA84 PO (23:52)
[2024-10-02] MEDS: aspirin 81mg tab.chew PO SCH (00:38)
[2024-10-02] MEDS: PERFLUTREN PROTEIN-A MICROSPHR (Optison) 0.22 MG/ML 3ML VIAL IV ONE (00:48)
[2024-10-02] MEDS ORDERED: HYDROmorphone inj. 0.5 MG/0.5 ML DISP.SYRIN IV PRN (01:50)
[2024-10-02] MEDS ORDERED: HYDROmorphone/PF 0.2 MG/ML SYRINGE IV PRN (01:50)
[2024-10-02 02:05] VITALS: BP 162/82; PULSE 67; RESP 19; TEMP 98.1; O2SAT 97
[2024-10-02] MEDS ORDERED: dextrose 50%-water 50ml dispensing syringe IV PRN ×2 (02:05)
[2024-10-02] MEDS ORDERED: DEXTROSE 15 GM of carb/4 tabs (each vial/BOTTLE has 4 tablets) PO PRN ×2 (02:05)
[2024-10-02] MEDS ORDERED: glucagon, human recombinant 1mg kit SUBCUT PRN (02:05)
[2024-10-02] MEDS ORDERED: insulin glargine (Lantus) pen - multi-dose SQ SCH (02:05)
[2024-10-02] MEDS: HYDROcodone/acetaminophen 10/325mg tab PO PRN (03:00)
[2024-10-02] MEDS: INSULIN LISPRO 100 UNIT/ML INSULN.PEN MULTI-DOSE SQ SCH (03:02)
[2024-10-02 04:50] VITALS: RESP 17; O2SAT 95
[2024-10-02 06:00] VITALS: BP 151/91; PULSE 76; RESP 16; TEMP 98.4; O2SAT 98
[2024-10-02 06:24] LABS: BASOPHILS # (AUTO) 0.1 X10'3 (0-0.2); BASOPHILS % (AUTO) 1.1 % (0-1); EOSINOPHILS # (AUTO) 0.2 X10'3 (0-0.9); EOSINOPHILS % (AUTO) 2.7 % (0-6); HEMATOCRIT 37.2 % (42.0-52.0); HEMOGLOBIN 12.7 g/dl (14.0-17.9); LYMPHOCYTES # (AUTO) 2.2 X10'3 (1.1-4.8); LYMPHOCYTES % (AUTO) 25.4 % (21-51); MEAN CORPUSCULAR HGB CONC 34.3 g/dL (33.0-36.5); MEAN CORPUSCULAR VOLUME 81.6 FL (78-98); MEAN PLATELET VOLUME 7.3 FL (7.4-10.4); MONOCYTES # (AUTO) 0.7 X10'3 (0-0.9); MONOCYTES % (AUTO) 8.3 % (2-12); NEUTROPHILS # (AUTO) 5.5 X10'3 (1.8-7.7); NEUTROPHILS % (AUTO) 62.5 % (42-75); PLATELET COUNT 252 X10'3 (140-440); RED BLOOD COUNT 4.56 X10'6 (4.70-6.10); RED CELL DISTRIBUTION WIDTH 14.7 % (11.5-14.5); WHITE BLOOD COUNT 8.8 X10'3 (4.5-11.0)
[2024-10-02 06:29] LABS: ALANINE AMINOTRANSFERASE 27 U/L (12-78); ALBUMIN 2.8 G/DL (3.4-5.0); ALBUMIN/GLOBULIN RATIO 0.7 (1.1-1.5); ALKALINE PHOSPHATASE 87 IU/L (46-116); ANION GAP 8 (8-16); ASPARTATE AMINO TRANSFERASE 21 U/L (10-37); BILIRUBIN,TOTAL 0.8 MG/DL (0.1-1.0); BLOOD UREA NITROGEN 13 MG/DL (7-18); BUN/CREATININE RATIO 14.6 (10.0-20.0); CALCIUM 8.3 MG/DL (8.5-10.1); CHLORIDE 103 MMOL/L (99-107); CREATININE 0.89 MG/DL (0.60-1.10); GLUCOSE 198 MG/DL (70-104); MAGNESIUM 2.3 MG/DL (1.5-2.4); POTASSIUM 3.9 MMOL/L (3.5-5.1); SODIUM 137 MMOL/L (135-145); TOTAL CARBON DIOXIDE 26.2 MMOL/L (24-32); TOTAL PROTEIN 6.7 G/DL (6.4-8.2); eCRCL 100 ML/MIN; eGFR 87 ML/MIN
[2024-10-02] MEDS: K and/or MAG REPLACEMENT MC SCH (06:58)
[2024-10-02] MEDS: bumetanide 1mg tablet PO SCH (07:07)
[2024-10-02] MEDS: docusate sod 100mg capsule PO SCH (07:09)
[2024-10-02] MEDS: atorvastatin 20mg tablet PO SCH (07:09)
[2024-10-02] MEDS: carVEDilol 12.5mg tablet PO SCH (07:10)
[2024-10-02] MEDS: isosorbide mononitrate 30mg tab.SR.24H PO SCH (07:10)
[2024-10-02] MEDS: apixaban 5mg tablet PO SCH (07:10)
[2024-10-02] MEDS: lisinopril 20mg tablet PO SCH (07:11)
[2024-10-02 07:44] LABS: TOTAL PROTEIN,URINE RANDOM 67.3 MG/DL
[2024-10-02 08:07] LABS: BILIRUBIN,URINE NEGATIVE (Neg); CLARITY,URINE CLEAR (Clear); COLOR,URINE YELLOW (Yellow); GLUCOSE, URINE 500 mg/dl (Neg); KETONES,URINE NEGATIVE (Neg); LEUKOCYTE ESTERASE ,URINE NEGATIVE (Neg); NITRITES, URINE NEGATIVE (Neg); OCCULT BLOOD,URINE TRACE-INTACT (Neg); PROTEIN,URINE 30 mg/dl (Neg); UROBILINOGEN,URINE 0.2 E.U/dL (0.2-1.0)
[2024-10-02 08:08] LABS: OSMOLALITY 291 MOSM/K (280-300)
[2024-10-02 08:20] LABS: UA COLLECTION TYPE CLN CATCH MIDSTREAM
[2024-10-02 08:21] LABS: BACTERIA,URINE NONE SEEN /HPF (Neg); MUCUS STRANDS NONE SEEN /LPF (Neg); RBC,URINE 0-2 /HPF (0-2); SQUAMOUS EPITHELIAL CELL,UR NONE SEEN /LPF (FEW); WBC,URINE 0-4 /HPF (0-4)
[2024-10-02 08:22] LABS: HYALINE CASTS 0-3 /LPF (NEGATIVE)
[2024-10-02 10:00] VITALS: BP 120/70; PULSE 70; RESP 16; TEMP 97.5; O2SAT 97
[2024-10-02 18:00] VITALS: BP 143/74; PULSE 88; RESP 18; TEMP 97.5; O2SAT 94
[2024-10-02] MEDS: insulin glargine (Lantus) pen - multi-dose SQ SCH (20:08)
[2024-10-02 22:00] VITALS: BP_SYST 139; BP_SYST 146; BP_SYST 148; BP_DIAS 77; BP_DIAS 81; PULSE 60; PULSE 71; PULSE 72; RESP 12; TEMP 97.6; O2SAT 97
[2024-10-02] MEDS: prednisone 10mg tablet PO SCH (22:10)
[2024-10-03 02:00] VITALS: BP 132/60; PULSE 57; RESP 18; TEMP 97.1; O2SAT 98
[2024-10-03 06:00] VITALS: BP 146/78; PULSE 57; RESP 12; TEMP 97; O2SAT 97
[2024-10-03 06:14] LABS: BASOPHILS # (AUTO) 0.1 X10'3 (0-0.2); EOSINOPHILS # (AUTO) 0.3 X10'3 (0-0.9); EOSINOPHILS % (AUTO) 3.6 % (0-6); HEMOGLOBIN 12.5 g/dl (14.0-17.9); LYMPHOCYTES # (AUTO) 2.3 X10'3 (1.1-4.8); LYMPHOCYTES % (AUTO) 26.1 % (21-51); MEAN CORPUSCULAR HEMOGLOBIN 27.7 PG (27.0-31.0); MEAN CORPUSCULAR HGB CONC 33.9 g/dL (33.0-36.5); MEAN CORPUSCULAR VOLUME 81.7 FL (78-98); MEAN PLATELET VOLUME 7.3 FL (7.4-10.4); MONOCYTES # (AUTO) 0.8 X10'3 (0-0.9); NEUTROPHILS # (AUTO) 5.3 X10'3 (1.8-7.7); NEUTROPHILS % (AUTO) 60.3 % (42-75); PLATELET COUNT 244 X10'3 (140-440); RED BLOOD COUNT 4.53 X10'6 (4.70-6.10); RED CELL DISTRIBUTION WIDTH 14.5 % (11.5-14.5); WHITE BLOOD COUNT 8.8 X10'3 (4.5-11.0)
[2024-10-03 06:51] LABS: ALANINE AMINOTRANSFERASE 31 U/L (12-78); ALBUMIN 2.8 G/DL (3.4-5.0); ALBUMIN/GLOBULIN RATIO 0.7 (1.1-1.5); ALKALINE PHOSPHATASE 85 IU/L (46-116); ANION GAP 9 (8-16); ASPARTATE AMINO TRANSFERASE 21 U/L (10-37); BILIRUBIN,TOTAL 0.5 MG/DL (0.1-1.0); BLOOD UREA NITROGEN 18 MG/DL (7-18); BUN/CREATININE RATIO 19.8 (10.0-20.0); CALCIUM 8.2 MG/DL (8.5-10.1); CHLORIDE 102 MMOL/L (99-107); CREATININE 0.91 MG/DL (0.60-1.10); GLUCOSE 148 MG/DL (70-104); MAGNESIUM 1.9 MG/DL (1.5-2.4); POTASSIUM 3.9 MMOL/L (3.5-5.1); SODIUM 137 MMOL/L (135-145); TOTAL CARBON DIOXIDE 25.9 MMOL/L (24-32); TOTAL PROTEIN 6.6 G/DL (6.4-8.2); eCRCL 98 ML/MIN; eGFR 85 ML/MIN
[2024-10-03 08:00] VITALS: RESP 16; O2SAT 96
[2024-10-03] MEDS: pantoprazole 40 MG vial IV SCH (08:00)
[2024-10-03 08:13] LABS: CHOL/HDL RATIO 2.6 (0.00-4.99); CHOLESTEROL 96 MG/DL (0-200); HDL CHOLESTEROL 37 MG/DL (35-60); LDL CHOLESTEROL 41 MG/DL (50-100); TRIGLYCERIDES 167 MG/DL (20-135)
[2024-10-03 10:00] VITALS: BP 137/80; PULSE 55; RESP 16; TEMP 97.5; O2SAT 96
[2024-10-03 13:29] VITALS: RESP 14
== END 2024-10-03 15:05 | disposition home or self-care (01) | DRG 47 ==
LOC: ER 14:21 → ED HOLD 22:25 → ORTHO 4S 10-02 02:13
PROVIDERS: ADMIT Surgery; ATTEND Internal Medicine
PROC: B3251ZZ Computerized Tomography (CT Scan) of Bilateral Common Carotid Arteries using Low Osmolar Contrast (ICD-10-PCS; 2024-10-01)
PROC: B32G1ZZ Computerized Tomography (CT Scan) of Bilateral Vertebral Arteries using Low Osmolar Contrast (ICD-10-PCS; 2024-10-01)
PROC: B32R1ZZ Computerized Tomography (CT Scan) of Intracranial Arteries using Low Osmolar Contrast (ICD-10-PCS; 2024-10-01)
PROC: B3281ZZ Computerized Tomography (CT Scan) of Bilateral Internal Carotid Arteries using Low Osmolar Contrast (ICD-10-PCS; 2024-10-01)
PROC: 4A00X4Z Measurement of Central Nervous Electrical Activity, External Approach (ICD-10-PCS; principal; 2024-10-03)
DX: G45.9 Transient cerebral ischemic attack, unspecified (principal); N17.9 Acute kidney failure, unspecified; R56.9 Unspecified convulsions; E11.9 Type 2 diabetes mellitus without complications; E78.5 Hyperlipidemia, unspecified; K21.9 Gastro-esophageal reflux disease without esophagitis; I10 Essential (primary) hypertension; M54.9 Dorsalgia, unspecified; I48.0 Paroxysmal atrial fibrillation; G89.29 Other chronic pain; Z85.038 Personal history of other malignant neoplasm of large intestine; Z79.01 Long term (current) use of anticoagulants; Z79.82 Long term (current) use of aspirin; Z79.899 Other long term (current) drug therapy
CPT/HCPCS: 36415; 70450; 70496; 70498; 70551; 71045; 80053; 80061; 80305; 80320; 81001; 82570; 82948; 83735; 83880; 83930; 83935; 84145; 84156; 84300; 84484; 85025; 85610; 85730; 87081; 87207; 87502; 87503; 92508; 92616; 93005; 93306; 95816; 99285; G0378; J1815; J7030; J7512; Q9967

== ENCOUNTER 2024-10-30 10:22 | Emergency (ER) | payer MEDICAID ==
[~2024-10-30] VITALS: Ht 182.9 cm; Wt 120.1 kg
[~2024-10-30 10:22] MED LIST changes: -ASPI-1071 PO; +ASPI-1265 PO; +CARV-50 PO; -CARV6.253 PO; +ISOS30TA84 PO; -ISOS30TA9 PO; +LISI40TA13 PO; -LISI5TAB22 PO; -PANT-47 PO; +SEMA0.258 SQ
[2024-10-30 12:22] LABS: BASOPHILS # (AUTO) 0.1 X10'3 (0-0.2); BASOPHILS % (AUTO) 0.8 % (0-1); EOSINOPHILS # (AUTO) 0.1 X10'3 (0-0.9); EOSINOPHILS % (AUTO) 0.8 % (0-6); HEMATOCRIT 41.6 % (42.0-52.0); HEMOGLOBIN 14.1 g/dl (14.0-17.9); LYMPHOCYTES # (AUTO) 1.4 X10'3 (1.1-4.8); LYMPHOCYTES % (AUTO) 13.2 % (21-51); MEAN CORPUSCULAR HEMOGLOBIN 27.7 PG (27.0-31.0); MEAN CORPUSCULAR HGB CONC 33.9 g/dL (33.0-36.5); MEAN CORPUSCULAR VOLUME 81.8 FL (78-98); MEAN PLATELET VOLUME 8.2 FL (7.4-10.4); MONOCYTES # (AUTO) 0.5 X10'3 (0-0.9); MONOCYTES % (AUTO) 4.6 % (2-12); NEUTROPHILS # (AUTO) 8.4 X10'3 (1.8-7.7); NEUTROPHILS % (AUTO) 80.6 % (42-75); PLATELET COUNT 290 X10'3 (140-440); RED BLOOD COUNT 5.08 X10'6 (4.70-6.10); RED CELL DISTRIBUTION WIDTH 14.6 % (11.5-14.5); WHITE BLOOD COUNT 10.4 X10'3 (4.5-11.0)
[2024-10-30 12:39] LABS: ALBUMIN 3.4 G/DL (3.4-5.0); ANION GAP 8 (8-16); BLOOD UREA NITROGEN 16 MG/DL (7-18); CALCIUM 8.9 MG/DL (8.5-10.1); CHLORIDE 100 MMOL/L (99-107); CREATININE 1.07 MG/DL (0.60-1.10); GLUCOSE 346 MG/DL (70-104); POTASSIUM 4.2 MMOL/L (3.5-5.1); PRO BRAIN NATRIURETIC PEPTIDE 116 PG/ML (0-125); SODIUM 138 MMOL/L (135-145); TOTAL CARBON DIOXIDE 29.7 MMOL/L (24-32); eCRCL 81 ML/MIN; eGFR 70 ML/MIN
[2024-10-30] MEDS: oxyCODONE/APAP 10/325mg tablet PO ONE (13:25)
[2024-10-30] MEDS: normal saline 1000ML IV soln IVB ONE (13:26)
[2024-10-30 15:07] VITALS: BP 156/86; PULSE 70; RESP 16; TEMP 97.7; O2SAT 98
== END 2024-10-30 15:08 | disposition home or self-care (01) ==
LOC: ER 10:23
DX: R07.89 Other chest pain (principal); I48.0 Paroxysmal atrial fibrillation; I10 Essential (primary) hypertension; E11.9 Type 2 diabetes mellitus without complications; Z85.038 Personal history of other malignant neoplasm of large intestine; Z88.0 Allergy status to penicillin; Z88.8 Allergy status to other drugs, medicaments and biological substances; Z90.49 Acquired absence of other specified parts of digestive tract; Z98.890 Other specified postprocedural states; Z79.82 Long term (current) use of aspirin
CPT/HCPCS: 36415; 71045; 80048; 83735; 83880; 84484; 85025; 93005; 96360; 99285; J7030

== ENCOUNTER 2024-11-01 11:13 | Emergency (ER) | payer MEDICAID ==
[~2024-11-01] VITALS: Ht 185.4 cm; Wt 131.8 kg
[2024-11-01 11:49] VITALS: TEMP 97.5
[2024-11-01 12:02] LABS: BASOPHILS # (AUTO) 0.1 X10'3 (0-0.2); BASOPHILS % (AUTO) 0.9 % (0-1); EOSINOPHILS # (AUTO) 0.1 X10'3 (0-0.9); HEMATOCRIT 41.5 % (42.0-52.0); HEMOGLOBIN 14.1 g/dl (14.0-17.9); LYMPHOCYTES # (AUTO) 1.8 X10'3 (1.1-4.8); LYMPHOCYTES % (AUTO) 15.3 % (21-51); MEAN CORPUSCULAR HEMOGLOBIN 27.6 PG (27.0-31.0); MEAN CORPUSCULAR VOLUME 81.2 FL (78-98); MEAN PLATELET VOLUME 7.8 FL (7.4-10.4); MONOCYTES # (AUTO) 0.7 X10'3 (0-0.9); MONOCYTES % (AUTO) 6.1 % (2-12); NEUTROPHILS # (AUTO) 9.1 X10'3 (1.8-7.7); NEUTROPHILS % (AUTO) 76.7 % (42-75); PLATELET COUNT 316 X10'3 (140-440); RED BLOOD COUNT 5.11 X10'6 (4.70-6.10); RED CELL DISTRIBUTION WIDTH 14.5 % (11.5-14.5); WHITE BLOOD COUNT 11.9 X10'3 (4.5-11.0)
[2024-11-01 12:23] LABS: ALANINE AMINOTRANSFERASE 33 U/L (12-78); ALBUMIN 3.4 G/DL (3.4-5.0); ALBUMIN/GLOBULIN RATIO 0.7 (1.1-1.5); ALKALINE PHOSPHATASE 103 IU/L (46-116); ANION GAP 9 (8-16); ASPARTATE AMINO TRANSFERASE 16 U/L (10-37); BILIRUBIN,TOTAL 0.5 MG/DL (0.1-1.0); BLOOD UREA NITROGEN 16 MG/DL (7-18); BUN/CREATININE RATIO 13.8 (10.0-20.0); CALCIUM 8.8 MG/DL (8.5-10.1); CHLORIDE 99 MMOL/L (99-107); CREATININE 1.16 MG/DL (0.60-1.10); POTASSIUM 4.1 MMOL/L (3.5-5.1); PRO BRAIN NATRIURETIC PEPTIDE 160 PG/ML (0-125); SODIUM 137 MMOL/L (135-145); TOTAL CARBON DIOXIDE 28.7 MMOL/L (24-32); TOTAL PROTEIN 8.2 G/DL (6.4-8.2); eCRCL 77 ML/MIN; eGFR 64 ML/MIN
[2024-11-01 12:32] LABS: GLUCOSE 460 MG/DL (70-104)
[2024-11-01] MEDS ORDERED: ketorolac trometh 15mg/ml vial 15 MG/ML ML IV ONE (13:05)
[2024-11-01] MEDS: normal saline 1000ml 1,000 ML IV ONE (13:21)
[2024-11-01] MEDS: HYDROcodone/acetaminophen 10/325mg tab PO ONE (13:33)
[2024-11-01] MEDS: insulin regular, human 10 units/0.1 ml syringe IV ONE (13:35)
[2024-11-01 15:07] VITALS: BP 145/102; PULSE 92; RESP 18; O2SAT 96
== END 2024-11-01 15:09 | disposition home or self-care (01) ==
LOC: ER 11:14
DX: R07.89 Other chest pain (principal); E11.65 Type 2 diabetes mellitus with hyperglycemia; I10 Essential (primary) hypertension; I48.91 Unspecified atrial fibrillation; Z85.038 Personal history of other malignant neoplasm of large intestine; Z90.49 Acquired absence of other specified parts of digestive tract; Z88.0 Allergy status to penicillin; Z88.8 Allergy status to other drugs, medicaments and biological substances; Z79.82 Long term (current) use of aspirin; Z79.4 Long term (current) use of insulin; Z79.899 Other long term (current) drug therapy
CPT/HCPCS: 36415; 71045; 80053; 82948; 83880; 84484; 85025; 93005; 96361; 96374; 99285; J1815; J7030

== ENCOUNTER 2024-11-26 11:25 | Emergency (ER) | payer MEDICAID ==
[~2024-11-26] VITALS: Ht 182.9 cm; Wt 132.8 kg
[2024-11-26 11:42] VITALS: BP 116/72; PULSE 89; RESP 18; TEMP 97.8; O2SAT 98
[2024-11-26 12:41] LABS: BASOPHILS # (AUTO) 0.1 X10'3 (0-0.2); BASOPHILS % (AUTO) 0.7 % (0-1); EOSINOPHILS # (AUTO) 0.1 X10'3 (0-0.9); HEMATOCRIT 40.1 % (42.0-52.0); HEMOGLOBIN 13.3 g/dl (14.0-17.9); LYMPHOCYTES # (AUTO) 1.7 X10'3 (1.1-4.8); LYMPHOCYTES % (AUTO) 13.6 % (21-51); MEAN CORPUSCULAR HGB CONC 33.2 g/dL (33.0-36.5); MEAN CORPUSCULAR VOLUME 81.2 FL (78-98); MEAN PLATELET VOLUME 7.6 FL (7.4-10.4); MONOCYTES # (AUTO) 0.7 X10'3 (0-0.9); NEUTROPHILS # (AUTO) 9.6 X10'3 (1.8-7.7); NEUTROPHILS % (AUTO) 78.7 % (42-75); PLATELET COUNT 281 X10'3 (140-440); RED BLOOD COUNT 4.94 X10'6 (4.70-6.10); RED CELL DISTRIBUTION WIDTH 14.6 % (11.5-14.5); WHITE BLOOD COUNT 12.2 X10'3 (4.5-11.0)
[2024-11-26 13:01] LABS: ALANINE AMINOTRANSFERASE 28 U/L (12-78); ALBUMIN 3.3 G/DL (3.4-5.0); ALBUMIN/GLOBULIN RATIO 0.7 (1.1-1.5); ALKALINE PHOSPHATASE 88 IU/L (46-116); ANION GAP 10 (8-16); ASPARTATE AMINO TRANSFERASE 16 U/L (10-37); BILIRUBIN,TOTAL 0.5 MG/DL (0.1-1.0); BLOOD UREA NITROGEN 13 MG/DL (7-18); BUN/CREATININE RATIO 13.7 (10.0-20.0); CALCIUM 8.7 MG/DL (8.5-10.1); CHLORIDE 98 MMOL/L (99-107); CREATININE 0.95 MG/DL (0.60-1.10); GLUCOSE 391 MG/DL (70-104); LIPASE 46 U/L (16-77); POTASSIUM 4.6 MMOL/L (3.5-5.1); SODIUM 136 MMOL/L (135-145); TOTAL CARBON DIOXIDE 27.8 MMOL/L (24-32); TOTAL PROTEIN 7.9 G/DL (6.4-8.2); eCRCL 91 ML/MIN; eGFR 81 ML/MIN
== END 2024-11-26 13:08 | disposition left against medical advice (07) ==
LOC: ER 11:26
DX: K92.1 Melena (principal); Z53.21 Procedure and treatment not carried out due to patient leaving prior to being seen by health care provider; Z88.0 Allergy status to penicillin; Z88.8 Allergy status to other drugs, medicaments and biological substances
CPT/HCPCS: 36415; 80053; 83690; 85025

== ENCOUNTER 2024-12-05 13:04 | Inpatient (IN) | payer MEDICAID ==
[~2024-12-05] VITALS: Ht 182.9 cm; Wt 129.9 kg
[2024-12-05 13:35] LABS: BASOPHILS # (AUTO) 0.1 X10'3 (0-0.2); BASOPHILS % (AUTO) 0.8 % (0-1); EOSINOPHILS # (AUTO) 0.1 X10'3 (0-0.9); HEMATOCRIT 44.4 % (42.0-52.0); HEMOGLOBIN 14.8 g/dl (14.0-17.9); LYMPHOCYTES # (AUTO) 1.9 X10'3 (1.1-4.8); LYMPHOCYTES % (AUTO) 14.8 % (21-51); MEAN CORPUSCULAR HEMOGLOBIN 26.9 PG (27.0-31.0); MEAN CORPUSCULAR HGB CONC 33.3 g/dL (33.0-36.5); MEAN CORPUSCULAR VOLUME 80.7 FL (78-98); MEAN PLATELET VOLUME 7.6 FL (7.4-10.4); MONOCYTES # (AUTO) 0.8 X10'3 (0-0.9); MONOCYTES % (AUTO) 6.5 % (2-12); NEUTROPHILS # (AUTO) 9.8 X10'3 (1.8-7.7); NEUTROPHILS % (AUTO) 76.9 % (42-75); PLATELET COUNT 334 X10'3 (140-440); RED CELL DISTRIBUTION WIDTH 14.7 % (11.5-14.5); WHITE BLOOD COUNT 12.8 X10'3 (4.5-11.0)
[2024-12-05 13:48] LABS: ALANINE AMINOTRANSFERASE 44 U/L (12-78); ALBUMIN 3.3 G/DL (3.4-5.0); ALBUMIN/GLOBULIN RATIO 0.7 (1.1-1.5); ALKALINE PHOSPHATASE 94 IU/L (46-116); ANION GAP 9 (8-16); ASPARTATE AMINO TRANSFERASE 32 U/L (10-37); BILIRUBIN,TOTAL 0.7 MG/DL (0.1-1.0); BLOOD UREA NITROGEN 21 MG/DL (7-18); BUN/CREATININE RATIO 13.5 (10.0-20.0); CALCIUM 8.8 MG/DL (8.5-10.1); CHLORIDE 99 MMOL/L (99-107); CREATININE 1.55 MG/DL (0.60-1.10); GLUCOSE 299 MG/DL (70-104); POTASSIUM 3.8 MMOL/L (3.5-5.1); SODIUM 137 MMOL/L (135-145); TOTAL CARBON DIOXIDE 28.8 MMOL/L (24-32); TOTAL PROTEIN 8.1 G/DL (6.4-8.2); eCRCL 55 ML/MIN; eGFR 46 ML/MIN
[2024-12-05 13:54] LABS: PRO BRAIN NATRIURETIC PEPTIDE 138 PG/ML (0-125)
[2024-12-05] MEDS: meclizine 12.5mg tablet PO ONE (16:30)
[2024-12-05] MEDS: normal saline 1000ML IV soln IVB ONE ×2 (16:31→17:00)
[2024-12-05] MEDS: HYDROmorphone 1 mg/ml syringe IV ONE (17:42)
[2024-12-05] MEDS ORDERED: magnesium Cl slow-release 64mg tablet PO PRN (17:45)
[2024-12-05] MEDS ORDERED: potassium Cl 40MEQ/1/2NS 520ml 520 ML IV PRN (17:45)
[2024-12-05] MEDS ORDERED: magnesium sulf-water 4G/100mL 100 ML IV PRN (17:45)
[2024-12-05] MEDS ORDERED: magnesium sulf-water 2g/50mL 50 ML IV PRN (17:45)
[2024-12-05] MEDS ORDERED: normal saline 1000ml 1,000 ML IV SCH (17:45)
[2024-12-05] MEDS ORDERED: potassium Cl 20 mEq SR tablet PO PRN ×2 (17:45)
[2024-12-05] MEDS ORDERED: acetaminophen 325mg tablet PO PRN (17:45)
[2024-12-05] MEDS ORDERED: ondansetron/PF 4mg/2ml inj IV PRN (17:45)
[2024-12-05] MEDS ORDERED: HYDROcodone/acetaminophen 5mg/325mg tablet PO PRN (17:45)
[2024-12-05] MEDS ORDERED: glucagon, human recombinant 1mg kit SUBCUT PRN (17:55)
[2024-12-05] MEDS ORDERED: DEXTROSE 15 GM of carb/4 tabs (each vial/BOTTLE has 4 tablets) PO PRN ×2 (17:55)
[2024-12-05] MEDS ORDERED: dextrose 50%-water 50ml dispensing syringe IV PRN ×2 (17:55)
[2024-12-05] MEDS ORDERED: labetalol 20mg/4ml (5mg/ml) syringe IV PRN (18:25)
[2024-12-05 18:38] LABS: HEMOGLOBIN A1C 8.6 % (4.5-6.2)
[2024-12-05 18:55] LABS: BILIRUBIN,URINE NEGATIVE (Neg); CLARITY,URINE CLEAR (Clear); COLOR,URINE YELLOW (Yellow); GLUCOSE, URINE 500 mg/dl (Neg); KETONES,URINE TRACE mg/dl (Neg); LEUKOCYTE ESTERASE ,URINE NEGATIVE (Neg); NITRITES, URINE NEGATIVE (Neg); OCCULT BLOOD,URINE NEGATIVE (Neg); PROTEIN,URINE 30 mg/dl (Neg); UROBILINOGEN,URINE 0.2 E.U/dL (0.2-1.0)
[2024-12-05 19:01] LABS: UA COLLECTION TYPE URINAL
[2024-12-05 19:03] LABS: BACTERIA,URINE FEW /HPF (Neg); HYALINE CASTS >30 /LPF (NEGATIVE); RBC,URINE 0-2 /HPF (0-2); SQUAMOUS EPITHELIAL CELL,UR FEW /LPF (FEW); WBC,URINE 0-4 /HPF (0-4)
[2024-12-05] MEDS: labetalol 20mg/4ml (5mg/ml) syringe IV ONE (19:10)
[2024-12-05] MEDS: apixaban 5mg tablet PO SCH (19:34)
[2024-12-05] MEDS: HYDROcodone/acetaminophen 10/325mg tab PO PRN (19:35)
[2024-12-05] MEDS: carVEDilol 12.5mg tablet PO SCH (19:35)
[2024-12-05] MEDS: docusate sod 100mg capsule PO SCH (19:36)
[2024-12-05] MEDS: INSULIN LISPRO 100 UNIT/ML INSULN.PEN MULTI-DOSE SQ SCH (19:47)
[2024-12-05] MEDS: K and/or MAG REPLACEMENT MC SCH (20:00)
[2024-12-05] MEDS: bumetanide 1mg tablet PO SCH (20:46)
[2024-12-05] MEDS: insulin glargine (Lantus) pen - multi-dose SQ SCH (21:36)
[2024-12-05 23:37] VITALS: BP 121/79; PULSE 70; RESP 18; TEMP 98.4; O2SAT 96
[2024-12-06] VITALS (11 sets, daily range): BP systolic 91–137; BP diastolic 53–81; PULSE 61–79; RESP 11–20; TEMP 97.2–97.8; O2SAT 94–98
[2024-12-06] MEDS ORDERED: CYAN-104 PO (01:02)
[2024-12-06] MEDS ORDERED: CHOL500044 PO (01:02)
[2024-12-06 05:56] LABS: BASOPHILS # (AUTO) 0.1 X10'3 (0-0.2); BASOPHILS % (AUTO) 1.1 % (0-1); EOSINOPHILS # (AUTO) 0.4 X10'3 (0-0.9); EOSINOPHILS % (AUTO) 3.5 % (0-6); HEMATOCRIT 39.3 % (42.0-52.0); HEMOGLOBIN 13.4 g/dl (14.0-17.9); LYMPHOCYTES # (AUTO) 2.7 X10'3 (1.1-4.8); LYMPHOCYTES % (AUTO) 25.1 % (21-51); MEAN CORPUSCULAR HEMOGLOBIN 27.7 PG (27.0-31.0); MEAN CORPUSCULAR HGB CONC 34.1 g/dL (33.0-36.5); MEAN CORPUSCULAR VOLUME 81.3 FL (78-98); MEAN PLATELET VOLUME 7.5 FL (7.4-10.4); MONOCYTES # (AUTO) 0.8 X10'3 (0-0.9); MONOCYTES % (AUTO) 7.7 % (2-12); NEUTROPHILS # (AUTO) 6.7 X10'3 (1.8-7.7); NEUTROPHILS % (AUTO) 62.6 % (42-75); PLATELET COUNT 251 X10'3 (140-440); RED BLOOD COUNT 4.83 X10'6 (4.70-6.10); RED CELL DISTRIBUTION WIDTH 14.6 % (11.5-14.5); WHITE BLOOD COUNT 10.7 X10'3 (4.5-11.0)
[2024-12-06 06:21] LABS: ANION GAP 8 (8-16); BLOOD UREA NITROGEN 18 MG/DL (7-18); BUN/CREATININE RATIO 17.1 (10.0-20.0); CALCIUM 8.2 MG/DL (8.5-10.1); CHLORIDE 103 MMOL/L (99-107); CREATININE 1.05 MG/DL (0.60-1.10); GLUCOSE 197 MG/DL (70-104); MAGNESIUM 1.9 MG/DL (1.5-2.4); POTASSIUM 3.7 MMOL/L (3.5-5.1); SODIUM 138 MMOL/L (135-145); TOTAL CARBON DIOXIDE 26.6 MMOL/L (24-32); eCRCL 81 ML/MIN; eGFR 72 ML/MIN
[2024-12-06] MEDS ORDERED: CefTRIAXone/D5W-Rocephin 1gm 50 ML IV SCH (08:00)
[2024-12-06] MEDS: aspirin 81mg tab.chew PO SCH (08:10)
[2024-12-06] MEDS: isosorbide mononitrate 30mg tab.SR.24H PO SCH (08:10)
[2024-12-06] MEDS: atorvastatin 20mg tablet PO SCH (08:11)
[2024-12-06] MEDS: lisinopril 20mg tablet PO SCH (08:12)
[2024-12-06] MEDS: cyanocobalamin 500mcg tablet PO SCH (08:17)
[2024-12-06] MEDS: meclizine 12.5mg tablet PO SCH (13:00)
[2024-12-06] MEDS: normal saline 1000ml 1,000 ML IV SCH (14:20)
[2024-12-06 18:58] LABS: ALBUMIN 2.9 G/DL (3.4-5.0); ANION GAP 8 (8-16); BLOOD UREA NITROGEN 26 MG/DL (7-18); BUN/CREATININE RATIO 17.4 (10.0-20.0); CALCIUM 8.3 MG/DL (8.5-10.1); CHLORIDE 101 MMOL/L (99-107); CREATININE 1.49 MG/DL (0.60-1.10); GLUCOSE 307 MG/DL (70-104); POTASSIUM 4.3 MMOL/L (3.5-5.1); SODIUM 136 MMOL/L (135-145); TOTAL CARBON DIOXIDE 27.5 MMOL/L (24-32); eCRCL 57 ML/MIN; eGFR 48 ML/MIN
[2024-12-06] MEDS: INSULIN LISPRO 100 UNIT/ML INSULN.PEN MULTI-DOSE SQ SCH (19:02)
[2024-12-06] MEDS: normal saline 1000ml 1,000 ML IV ONE (19:03)
[2024-12-06] MEDS: insulin glargine (Lantus) pen - multi-dose SQ SCH (20:10)
[2024-12-07 05:08] LABS: BASOPHILS # (AUTO) 0.1 X10'3 (0-0.2); EOSINOPHILS # (AUTO) 0.3 X10'3 (0-0.9); HEMATOCRIT 34.5 % (42.0-52.0); HEMOGLOBIN 11.7 g/dl (14.0-17.9); LYMPHOCYTES # (AUTO) 2.1 X10'3 (1.1-4.8); LYMPHOCYTES % (AUTO) 24.9 % (21-51); MEAN CORPUSCULAR HEMOGLOBIN 27.6 PG (27.0-31.0); MEAN CORPUSCULAR HGB CONC 33.8 g/dL (33.0-36.5); MEAN CORPUSCULAR VOLUME 81.7 FL (78-98); MEAN PLATELET VOLUME 7.6 FL (7.4-10.4); MONOCYTES # (AUTO) 0.8 X10'3 (0-0.9); MONOCYTES % (AUTO) 9.1 % (2-12); NEUTROPHILS # (AUTO) 5.2 X10'3 (1.8-7.7); PLATELET COUNT 194 X10'3 (140-440); RED BLOOD COUNT 4.22 X10'6 (4.70-6.10); RED CELL DISTRIBUTION WIDTH 14.9 % (11.5-14.5); WHITE BLOOD COUNT 8.6 X10'3 (4.5-11.0)
[2024-12-07 05:26] LABS: ALBUMIN 2.4 G/DL (3.4-5.0); ANION GAP 6 (8-16); BLOOD UREA NITROGEN 24 MG/DL (7-18); BUN/CREATININE RATIO 21.4 (10.0-20.0); CALCIUM 7.9 MG/DL (8.5-10.1); CHLORIDE 107 MMOL/L (99-107); CREATININE 1.12 MG/DL (0.60-1.10); GLUCOSE 168 MG/DL (70-104); POTASSIUM 4.6 MMOL/L (3.5-5.1); SODIUM 141 MMOL/L (135-145); TOTAL CARBON DIOXIDE 28.5 MMOL/L (24-32); eCRCL 76 ML/MIN; eGFR 67 ML/MIN
[2024-12-07 06:00] VITALS: BP 114/66; PULSE 59; RESP 17; TEMP 97.9; O2SAT 97
[2024-12-07 08:00] VITALS: BP_SYST 146; BP_SYST 160; BP_SYST 179; BP_DIAS 82; BP_DIAS 89; BP_DIAS 91; PULSE 60; PULSE 67
[2024-12-07] MEDS ORDERED: MECL-226 PO (08:23)
[2024-12-07] MEDS: normal saline 1000ml 1,000 ML IV ONE (08:27)
[2024-12-07] MEDS ORDERED: INSULIN LISPRO 100 UNIT/ML INSULN.PEN MULTI-DOSE SQ SCH (09:00)
[2024-12-07 10:00] VITALS: BP 143/78; PULSE 72; RESP 11; TEMP 97.9; O2SAT 96
[2024-12-07] MEDS ORDERED: AMLO5TAB PO (11:54)
== END 2024-12-07 13:01 | disposition home or self-care (01) | DRG 204 ==
LOC: ER 13:05 → ED HOLD 17:46 → ORTHO 4S 23:35
PROVIDERS: ADMIT Family Medicine; ATTEND Family Medicine
DX: I95.1 Orthostatic hypotension (principal); I42.1 Obstructive hypertrophic cardiomyopathy; N17.9 Acute kidney failure, unspecified; E11.40 Type 2 diabetes mellitus with diabetic neuropathy, unspecified; E66.9 Obesity, unspecified; E78.5 Hyperlipidemia, unspecified; G31.9 Degenerative disease of nervous system, unspecified; I48.0 Paroxysmal atrial fibrillation; N18.9 Chronic kidney disease, unspecified; I12.9 Hypertensive chronic kidney disease with stage 1 through stage 4 chronic kidney disease, or unspecified chronic kidney disease; G89.29 Other chronic pain; M54.50 Low back pain, unspecified; Z79.01 Long term (current) use of anticoagulants; Z79.4 Long term (current) use of insulin; Z79.891 Long term (current) use of opiate analgesic; Z79.899 Other long term (current) drug therapy; Z80.1 Family history of malignant neoplasm of trachea, bronchus and lung; Z86.73 Personal history of transient ischemic attack (TIA), and cerebral infarction without residual deficits; Z85.038 Personal history of other malignant neoplasm of large intestine; Z85.118 Personal history of other malignant neoplasm of bronchus and lung; Z83.3 Family history of diabetes mellitus; Z90.49 Acquired absence of other specified parts of digestive tract; Z88.0 Allergy status to penicillin; Z88.8 Allergy status to other drugs, medicaments and biological substances; Z68.38 Body mass index [BMI] 38.0-38.9, adult
CPT/HCPCS: 36415; 70450; 70551; 71045; 73130; 80048; 80053; 81001; 82570; 82948; 83036; 83735; 83880; 83930; 83935; 84133; 84300; 84484; 84540; 85025; 87081; 93005; 93308; 96361; 96372; 96374; 97116; 97161; 97530; 99285; G0378; J1171; J1815; J3490; J7030; J8597

== ENCOUNTER 2024-12-28 11:23 | Emergency (ER) | payer MEDICAID ==
[~2024-12-28] VITALS: Ht 182.9 cm; Wt 132.0 kg
[~2024-12-28 11:23] MED LIST changes: +AMLO5TAB PO; -BUME1TAB8 PO; +CHOL500044 PO; +CYAN-104 PO; +MECL-226 PO; -SEMA0.258 SQ; -SITA100T15 PO
[2024-12-28 12:09] LABS: BASOPHILS # (AUTO) 0.1 X10'3 (0-0.2); BASOPHILS % (AUTO) 0.8 % (0-1); EOSINOPHILS # (AUTO) 0.1 X10'3 (0-0.9); EOSINOPHILS % (AUTO) 1.2 % (0-6); HEMATOCRIT 40.3 % (42.0-52.0); HEMOGLOBIN 13.7 g/dl (14.0-17.9); LYMPHOCYTES # (AUTO) 1.4 X10'3 (1.1-4.8); LYMPHOCYTES % (AUTO) 13.6 % (21-51); MEAN CORPUSCULAR HEMOGLOBIN 27.3 PG (27.0-31.0); MEAN CORPUSCULAR HGB CONC 33.9 g/dL (33.0-36.5); MEAN CORPUSCULAR VOLUME 80.5 FL (78-98); MEAN PLATELET VOLUME 7.4 FL (7.4-10.4); MONOCYTES # (AUTO) 0.5 X10'3 (0-0.9); MONOCYTES % (AUTO) 5.3 % (2-12); NEUTROPHILS # (AUTO) 7.9 X10'3 (1.8-7.7); NEUTROPHILS % (AUTO) 79.1 % (42-75); PLATELET COUNT 294 X10'3 (140-440); RED BLOOD COUNT 5.01 X10'6 (4.70-6.10); RED CELL DISTRIBUTION WIDTH 14.9 % (11.5-14.5)
[2024-12-28 12:19] LABS: ALANINE AMINOTRANSFERASE 26 U/L (12-78); ALBUMIN 3.5 G/DL (3.4-5.0); ALBUMIN/GLOBULIN RATIO 0.9 (1.1-1.5); ALKALINE PHOSPHATASE 102 IU/L (46-116); ANION GAP 8 (8-16); ASPARTATE AMINO TRANSFERASE 18 U/L (10-37); BILIRUBIN,TOTAL 0.7 MG/DL (0.1-1.0); BLOOD UREA NITROGEN 12 MG/DL (7-18); BUN/CREATININE RATIO 9.9 (10.0-20.0); CALCIUM 8.8 MG/DL (8.5-10.1); CHLORIDE 98 MMOL/L (99-107); CREATININE 1.21 MG/DL (0.60-1.10); LIPASE 49 U/L (16-77); POTASSIUM 4.8 MMOL/L (3.5-5.1); SODIUM 133 MMOL/L (135-145); TOTAL CARBON DIOXIDE 27.3 MMOL/L (24-32); TOTAL PROTEIN 7.6 G/DL (6.4-8.2); eCRCL 70 ML/MIN; eGFR 61 ML/MIN
[2024-12-28 12:25] LABS: BILIRUBIN,URINE NEGATIVE (Neg); CLARITY,URINE CLEAR (Clear); COLOR,URINE YELLOW (Yellow); GLUCOSE, URINE >=1000 mg/dl (Neg); KETONES,URINE NEGATIVE (Neg); LEUKOCYTE ESTERASE ,URINE NEGATIVE (Neg); NITRITES, URINE NEGATIVE (Neg); OCCULT BLOOD,URINE TRACE-INTACT (Neg); PROTEIN,URINE NEGATIVE (Neg); UROBILINOGEN,URINE 0.2 E.U/dL (0.2-1.0)
[2024-12-28 12:26] LABS: GLUCOSE 420 MG/DL (70-104)
[2024-12-28 12:40] LABS: UA COLLECTION TYPE VOIDED
[2024-12-28 12:42] LABS: BACTERIA,URINE NONE SEEN /HPF (Neg); MUCUS STRANDS NONE SEEN /LPF (Neg); SQUAMOUS EPITHELIAL CELL,UR FEW /LPF (FEW); WBC,URINE 0-4 /HPF (0-4)
[2024-12-28 12:43] LABS: HYALINE CASTS 0-3 /LPF (NEGATIVE)
[2024-12-28] MEDS: HYDROcodone/acetaminophen 10/325mg tab PO ONE (13:17)
[2024-12-28] MEDS: insulin regular, human 10 units/0.1 ml syringe SQ ONE (13:20)
[2024-12-28 13:59] VITALS: BP 172/90; PULSE 86; RESP 18; TEMP 98.3; O2SAT 99
== END 2024-12-28 14:11 | disposition home or self-care (01) ==
LOC: ER 11:24
DX: R10.84 Generalized abdominal pain (principal); E11.65 Type 2 diabetes mellitus with hyperglycemia; E11.22 Type 2 diabetes mellitus with diabetic chronic kidney disease; I12.9 Hypertensive chronic kidney disease with stage 1 through stage 4 chronic kidney disease, or unspecified chronic kidney disease; N18.9 Chronic kidney disease, unspecified; I48.91 Unspecified atrial fibrillation; Z88.8 Allergy status to other drugs, medicaments and biological substances; Z90.49 Acquired absence of other specified parts of digestive tract; Z85.038 Personal history of other malignant neoplasm of large intestine; Z79.82 Long term (current) use of aspirin; Z79.4 Long term (current) use of insulin; Z79.899 Other long term (current) drug therapy; Z88.0 Allergy status to penicillin
CPT/HCPCS: 36415; 80053; 81001; 82948; 83690; 85025; 96372; 99283; J1815

== ENCOUNTER 2025-01-22 10:54 | Inpatient (IN) | payer MEDICAID ==
[~2025-01-22] VITALS: Ht 182.9 cm; Wt 126.4 kg
--- NOTE | 2025-01-22 11:12 | ELECTROCARDIOGRAPH REPORT ---
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 Reading MD: Dr. New Loyd Measurements Intervals [place] Rate: 92 P: -54 NC: 168 QRS: 54 QRSD: 91 T: 46 QT: 365 QTc: 452 Interpretive Statements Ectopic atrial rhythm Electronically Signed On 01-23-2025 15:45:[address] New Loyd Please click the below link to view image of tracing.
--- NOTE | 2025-01-22 11:13 | Physician Documentation ---
History of Present Illness ~ Stated Complaint: DIZZINESS/L ARM NUMBNESS/HIGH BP Time Seen by MD: 11:07 Primary Medical Doctor: Lela Arellano ([facility]) [facility] This is a 59-year-old gentleman with a prior history of weakness on the right side, now resolved, prior history of TIAs, presents for evaluation of left-sided weakness that began sometime yesterday evening, got worse today at 7:00 a.m.. He had sustained a fall around 7:00 a.m. and hit the ground striking his head. He reports a weakness in the left upper extremity, numbness in the left upper extremity. The particular palliating or aggravating factors. Did not attempt to treat his symptoms. This is similar to his prior TIAs but on the other side. Denies any chest pain or difficulty breathing. Denies use of alcohol, drugs or tobacco Medication Reconciliation Allergies: Coded Allergies: Penicillins (Verified Allergy, Mild, HIVES, 01/22/25) metformin (Verified Allergy, Unknown, 01/22/25) ketorolac (Verified Adverse Reaction, Unknown, n/v, 01/22/25) Scheduled Amlodipine Besylate (Amlodipine Besylate), 1 TABLET PO DAILY Apixaban (Eliquis), 1 TAB PO Q12H, (Reported) Aspirin (Aspirin), 1 TAB PO DAILY, (Reported) Atorvastatin Calcium (Lipitor), 1 TAB PO DAILY, (Reported) Carvedilol (Carvedilol), 1 TAB PO BID, (Reported) Cholecalciferol (Vitamin D3) (Vitamin D3), 1 TAB PO DAILY, (Reported) Cyanocobalamin (Vitamin B-12), 1 TAB PO DAILY, (Reported) Insulin Glargine,Hum.rec.anlog (Basaglar Kwikpen U-100), 50 SQ HS, (Reported) Insulin Lispro (Humalog), 12 UNIT SQ TID, (Reported) Isosorbide Mononitrate (Isosorbide Mononitrate Er), 1 TAB PO DAILY, (Reported) Lisinopril* (Lisinopril*), 1 TAB PO BID, (Reported) Meclizine HCl (Meclizine HCl), 12.5 MG PO TID Scheduled PRN Hydrocodone Bit/Acetaminophen (Hydrocodone-Apap 10-325 Tablet), 1 TAB PO Q4H PRN for pain, (Reported) Past Medical History Past Medical History: Arrhythmia, Atrial Fibrillation, Hypertension, Chronic Kidney Disease, Diabetes, Colon Cancer Past Surgical History: cancer surgery, colectomy Patient History: FH: diabetes mellitus FATHER FH: lung cancer maternal uncle FH: myocardial infarction maternal grandfather FH: suicide FATHER Alcohol Use: None Drug Use: none Lives with: Mother, Family Lives In: Home Review of Systems ROS 10 point review of systems was performed and unless noted above in HPI is negative for acute process/complaint. Physical Exam General Appearance GENERAL: Awake, alert, oriented, GCS 15, no apparent distress, non-toxic appearing, answers questions, follows commands appropriately. HEENT: Atraumatic, normocephalic, pupils equal, extraocular muscles intact, sclerae anicteric, mucus membranes moist, oropharynx is clear, no stridor. NECK: supple, full active range of motion, trachea midline, no thyromegaly, no lymphadenopathy, no JVD. CARDIOVASCULAR: regular rate/rhythm, no murmurs/gallops/rubs, Pulses are 2+ in all extremities and symmetric. Capillary refill less than 2 seconds. PULMONARY: Nonlabored, good air movement ,no respiratory distress, speaking in full sentences, clear to auscultation bilaterally, no wheezing, no ronchi, no rales, no accessory muscle use. GASTROINTESTINAL: Soft, non-tender, non-distended, normal active bowel sounds, no organomegaly, no pulsatile masses, no CVA tenderness. NEUROLOGIC: Lucid with normal mental status. Normal facial symmetry. Moves all extremities symmetrically and with purpose. No truncal ataxia. Speech is fluid without evidence of dysarthria or aphasia, cranial nerves 2-12 are within normal limits and symmetric. Left upper extremity 4/5 strength in all muscle groups, right upper extremity is 5/5 strength in all muscle groups. Bilateral lower extremities 5/5 strength. DTRs globally depressed. No ataxia. Decreased sensation in the left upper extremity compared to contralateral side. MUSCULOSKELETAL: There is full range of motion of all extremities. There is no joint pain or joint swelling or joint erythema. There is no muscle pain or tenderness or swelling. EXTREMITIES: warm, well-perfused, no cyanosis, no clubbing, no edema, no acute deformities. Skin: warm, dry, no rashes or lesions, no jaundice, no petechiae orpurpura. No ecchymosis. PSYCHIATRIC: Normal affect, normal insight, normal concentration. Focused exam: [] Progress Results/Orders Results/Orders Orders - FERMÍN DOWD DO Type And Screen (01/22/25 11:09) Chest,Single View (01/22/25 11:09) Ct Stroke Alert (01/22/25 11:17) Cta Neck/Head (01/22/25 12:05) * Vital Signs Routine* [id number] (01/22/25 11:09) * Blood Glucose Assessment * ONCE (01/22/25 11:09) * Npo Until Passed Bedside Swa (01/22/25 11:09) Nursing Swallow Screen (01/22/25 11:09) Hs Troponin I W Calculations (01/22/25 13:09) Hs Troponin I W Calculations (01/22/25 14:09) [place] Prov.Neuro Consult (01/22/25 14:45) Completed Orders - FERMÍN DOWD DO Electrocardiogram (01/22/25 11:09) Cbc/Diff (01/22/25 11:09) BMP (01/22/25 11:09) Pt Inr (01/22/25 11:09) PTT (01/22/25 11:09) Drug Screen, Urine (01/22/25 11:09) Chest,Single View (01/22/25 11:09) Ct Stroke Alert (01/22/25 11:17) Cta Neck/Head (01/22/25 12:05) CMP (01/22/25 11:09) Hs Troponin I W Calculations (01/22/25 11:09) Iohexol 350mg/Ml 100ml (Omnipaque 350mg/ (01/22/25 11:36) Ua W/Microscopic, Cult If Ind (01/22/25 12:30) Vital Signs 01/22/25 01/22/25 01/22/25 01/22/25 11:12 11:43 11:52 12:29 Temp 98.6 98.6 Pulse 65 99 100 93 Resp 18 12 10 20 B/P (MAP) 153/83 165/90 142/84 148/90 (109) Pulse Ox 99 97 98 98 5/601/22/25 01/22/25 01/22/25 12:31 13:45 14:51 15:51 Temp 98.6 98.6 Pulse 89 99 98 Resp 13 10 15 13 B/P (MAP) 158/95 (116) 163/93 (116) 161/105 (123) Pulse Ox 98 96 98 O2 Flow Rate 0 0 Laboratory Tests Test 01/22/25 11:00 01/22/25 11:11 01/22/25 12:30 White Blood Count 11.1 H Red Blood Count 4.94 Hemoglobin 13.7 L Hematocrit 40.2 L Mean Corpuscular Volume 81.3 Mean Corpuscular Hemoglobin 27.6 Mean Corpuscular Hemoglobin Concent 34.0 Red Cell Distribution Width 14.8 H Platelet Count 272 Mean Platelet Volume 7.5 Neutrophils (%) (Auto) 82.2 H Lymphocytes (%) (Auto) 12.7 L Monocytes (%) (Auto) 3.8 Eosinophils (%) (Auto) 0.7 Basophils (%) (Auto) 0.6 Neutrophils # (Auto) 9.1 H Lymphocytes # (Auto) 1.4 Monocytes # (Auto) 0.4 Eosinophils # (Auto) 0.1 Basophils # (Auto) 0.1 CBC Comment Prothrombin Time 10.8 INR International Normalized Ratio 1.1 Activated Partial Thromboplast Time 24 Coagulation Comments Sodium Level 135 Potassium Level 5.0 Chloride Level 99 Carbon Dioxide Level 29.3 Anion Gap 7 L Blood Urea Nitrogen 13 Creatinine 1.25 H Estimated GFR/1.73 m2 59 BUN/Creatinine Ratio 10.4 Glucose Level 383 H Calcium Level 9.1 Total Bilirubin 0.6 Aspartate Amino Transf (AST/SGOT) 21 Alanine Aminotransferase (ALT/SGPT) 30 Alkaline Phosphatase 98 Troponin I High Sensitivity 7 Total Protein 7.8 Albumin 3.4 Globulin 4.4 H Albumin/Globulin Ratio 0.8 L Chemistry Comments Glucometer 356 H Urine Specimen Description Voided Urine Color Yellow Urine Clarity Clear Urine pH 6.0 Urine Specific [place] 1.010 Urine Protein Negative Urine Glucose (UA) >=1000 H Urine Ketones Negative Urine Occult Blood Negative Urine Nitrite Negative Urine Bilirubin Negative Urine Urobilinogen 0.2 Urine Leukocyte Esterase Negative Urine RBC 0-2 Urine WBC 0-4 Urine Squamous Epithelial Cells None seen Urine Bacteria None seen Urine Mucus None seen Urine Culture Indicated Not ind Volume Urine Centrifuged 10 ml Urine Comment Urine Opiates Screen Positive Urine Methadone Screen Negative Urine Fentanyl Screen Negative Urine Barbiturates Screen Negative Urine Phencyclidine Screen Negative Urine Amphetamines Screen Negative Urine Benzodiazepines Screen Negative Urine Cocaine Screen Negative Urine Cannabinoids Screen Negative Drug Screen Comment Medical Decision Making Findings Facility Status: ED Holds, [facility] process The plan was discussed with the patient, who demonstrates clear understanding of the plan and is in agreement with the plan unless otherwise noted in the chart. All questions have been answered, all concerns were addressed unless otherwise documented. I was available throughout their ED stay for frequent reassessment and questions. Differential Diagnoses (considered and possible or likely): [TIA, CVA, partial seizure, complex migraine, hypoglycemia, electrolyte derangement, intracranial neoplasm, trauma including subdural, subarachnoid, cervical spine fracture or subluxation given history of a fall] ??Differential Diagnoses (considered and unlikely, not requiring evaluation currently): [See above] MDM Data Please see [facility] for the following: Independent Historians and external Records Review. Historian: [Patient] Independent Historians: ?[Record review] Medication Management: [Reviewed medication list] Social History and determinants: [Reviewed] Please see the body of the note for the following: Any independent interpretations of ECG, imaging studies. All vitals signs/haemodynamics, ordered tests were independently reviewed and interpreted by myself. Nursing triage complaint and vitals reviewed, additional nursing notes were reviewed as available and I agree unless otherwise noted or documented in contradiction in the chart Vital Signs: Independently reviewed Labs: Independently interpreted Imaging: Independently interpreted Old Medical Records: Independently reviewed, see HPI for relevant summary and information Pulse Oximetry: [100%] interpreted as [normal on room air] by me [[employer] S[employer]: [Regular Rate, Regular rhythm, no ectopy, NSR] reviewed and interpreted by me] Additionally notably showing: [Hemodynamically stable. CT notable for diminut arabella left vertebral artery, no large vessel occlusion, no bleed.] Tests considered but not ordered include: [MRI can be done on an inpatient basis] Social Determinants of Health Impact: Patient was evaluated in [facility], or [facility] [place] to healthcare due to below par ratio of patient to medical providers. [] Comorbid Conditions Impacting Present Evaluation and Care/Treatment: [History of TIA] Management Discussions with other Healthcare Providers: [Tele neurology who recommends admission, MRI, hold Eliquis. Hospitalist regarding admission] Treatment and Disposition Medication Management (Given or considered): [TPA has been considered but risks outweigh benefits especially given uncertain timeline]. See EMR for details Consideration for Hospitalization/Escalation/Deescalation of Care: Admission for observation has been considered, and appears to be necessary for further management of his stroke-like symptoms in the workup per recommendation of specialist ?ED Course:?[No clinical deterioration] ?Shared decision making:?[] Code status:?FULL Please see the full Electronic Medical Record for full details of nursing documentation, medications list, other records of complete past medical history and conditions, vital signs, laboratory studies, and any radiologic study interpretations by radiologists. Portions of this note were completed using [employer] dictation software and as a result there may exist minor errors in spelling. I have reviewed elements of past family and social history and agree as included in note. Departure Disposition: ADMITTED INPATIENT Admitted to Inpatient Unit: to hospitalist Admission Level of Care: Med/Surg with Tele Impression: Primary Impression: Cerebrovascular accident Additional Impressions: Left upper extremity numbness Left arm weakness History of CVA (cerebrovascular accident) Anticoagulated Referrals: NO PRIMARY CARE PROVIDER (PCP) Critical Care Note Critical Care Note CRITICAL CARE TIME: [40 ] minutes Treatments/Evaluations: Close monitoring and treatment of unstable vital signs, cardiorespiratory, and neurologic status, while maintaining tight balance of fluid, respiratory, and cardiac interventions. This time includes discussing the case with the patient and the patients family. This time does not include all procedures stated elsewhere in this record. This time also includes reviewing old records, labs and radiological studies. This time includes examining and re- examining the patient. Additionally, this time also includes arranging care with admitting and consulting physicians. Signature Scribe Signature: No scribe Attestation: This note accurately reflects clinical decisions, work performed by myself, Fermín Dowd, FERMÍN BOYER DO January 22, 2025 11:13
[2025-01-22 11:19] LABS: BASOPHILS # (AUTO) 0.1 X10'3 (0-0.2); BASOPHILS % (AUTO) 0.6 % (0-1); EOSINOPHILS # (AUTO) 0.1 X10'3 (0-0.9); EOSINOPHILS % (AUTO) 0.7 % (0-6); HEMATOCRIT 40.2 % (42.0-52.0); HEMOGLOBIN 13.7 g/dl (14.0-17.9); LYMPHOCYTES # (AUTO) 1.4 X10'3 (1.1-4.8); LYMPHOCYTES % (AUTO) 12.7 % (21-51); MEAN CORPUSCULAR HEMOGLOBIN 27.6 PG (27.0-31.0); MEAN CORPUSCULAR VOLUME 81.3 FL (78-98); MEAN PLATELET VOLUME 7.5 FL (7.4-10.4); MONOCYTES # (AUTO) 0.4 X10'3 (0-0.9); MONOCYTES % (AUTO) 3.8 % (2-12); NEUTROPHILS # (AUTO) 9.1 X10'3 (1.8-7.7); NEUTROPHILS % (AUTO) 82.2 % (42-75); PLATELET COUNT 272 X10'3 (140-440); RED BLOOD COUNT 4.94 X10'6 (4.70-6.10); RED CELL DISTRIBUTION WIDTH 14.8 % (11.5-14.5); WHITE BLOOD COUNT 11.1 X10'3 (4.5-11.0)
[2025-01-22 11:31] LABS: APTT 24 SECONDS (22-32); INR 1.1 INR; PROTHROMBIN TIME 10.8 SECONDS (9.0-12.0)
[2025-01-22 11:32] LABS: ALANINE AMINOTRANSFERASE 30 U/L (12-78); ALBUMIN 3.4 G/DL (3.4-5.0); ALBUMIN/GLOBULIN RATIO 0.8 (1.1-1.5); ALKALINE PHOSPHATASE 98 IU/L (46-116); ANION GAP 7 (8-16); ASPARTATE AMINO TRANSFERASE 21 U/L (10-37); BILIRUBIN,TOTAL 0.6 MG/DL (0.1-1.0); BLOOD UREA NITROGEN 13 MG/DL (7-18); BUN/CREATININE RATIO 10.4 (10.0-20.0); CALCIUM 9.1 MG/DL (8.5-10.1); CHLORIDE 99 MMOL/L (99-107); CREATININE 1.25 MG/DL (0.60-1.10); GLUCOSE 383 MG/DL (70-104); SODIUM 135 MMOL/L (135-145); TOTAL CARBON DIOXIDE 29.3 MMOL/L (24-32); TOTAL PROTEIN 7.8 G/DL (6.4-8.2); eCRCL 68 ML/MIN; eGFR 59 ML/MIN
[2025-01-22] MEDS ORDERED: iohexol 350MG/ML 100ml bottle IV ONE (11:36)
--- NOTE | 2025-01-22 11:36 | RADIOLOGY REPORT ---
EXAM: CT CT STROKE ALERT INDICATION: LUE numbness and weaknbess x 4 hrs TECHNIQUE: CT of the head without intravenous contrast. Radiation Dose : 1. Head: CT Dose: CTDI volume is 66 mGy. Dose-length product is 1372.7 mGy*cm The dose indicators for CT are the volume Computed Tomography (CT) Dose Index (CTDIvol) and the Dose Length Product (DLP), and are measured in units of mGy and mGy-cm, respectively. These indicators are not patient dose, but values generated from the CT scanner acquisition factors. The report includes radiation exposure data for exposures received during this examination. COMPARISON: CT CT HEAD on DOS: 12/05/24, CT CT STROKE ALERT on DOS: 10/01/24, CT CT STROKE ALERT on DOS : 07/31/24, CT CT HEAD on DOS: 07/02/24, CT CT HEAD on DOS: 06/30/24 FINDINGS: There is no evidence of acute intracranial hemorrhage, extra-axial collection, mass effect, midline s hift, herniation or hydrocephalus. The ventricles, sulci and cisterns are age appropriate. The kennedy-white differentiation is intact. Patchy periventricular and subcortical white matter hypoattenuation is nonspecific but may be related to small vessel ischemic disease. The visualized paranasal sinuses and mastoid air cells are clear. The surrounding soft tissues and osseous structures are unremarkable. IMPRESSION: No acute intracranial abnormality. Radiation optimization: All CT scans at this facility use at least one of these dose optimization stephon hniques: automated exposure control mA and/or kV adjustment per patient size (includes targeted exam s where dose is matched to clinical indication) or iterative reconstruction.
--- NOTE | 2025-01-22 11:53 | RADIOLOGY REPORT ---
EXAM: DI CHEST,SINGLE VIEW Indication: Stroke Alert Technique: Single frontal view of the chest was obtained Comparison: DI CHEST,SINGLE VIEW on DOS: 12/25/24, DI CHEST,SINGLE VIEW on DOS: 12/05/24, DI CHEST,SINGL E VIEW on DOS: 11/01/24, DI CHEST,SINGLE VIEW on DOS: 10/30/24, DI CHEST,SINGLE VIEW on DOS: 10/01/24 FINDINGS: Lines and Tubes: None Lungs: No focal consolidation. Pleura: No effusion. No pneumothorax. Cardiomediastinal contours: Cardiomegaly. Bones: No acute osseous abnormality. IMPRESSION: No acute cardiopulmonary disease.
[2025-01-22 12:52] LABS: BILIRUBIN,URINE NEGATIVE (Neg); CLARITY,URINE CLEAR (Clear); COLOR,URINE YELLOW (Yellow); GLUCOSE, URINE >=1000 mg/dl (Neg); KETONES,URINE NEGATIVE (Neg); LEUKOCYTE ESTERASE ,URINE NEGATIVE (Neg); OCCULT BLOOD,URINE NEGATIVE (Neg); PROTEIN,URINE NEGATIVE (Neg); UROBILINOGEN,URINE 0.2 E.U/dL (0.2-1.0)
[2025-01-22 13:05] LABS: UA COLLECTION TYPE VOIDED
[2025-01-22 13:06] LABS: NITRITES, URINE NEGATIVE (Neg)
[2025-01-22 13:07] LABS: BACTERIA,URINE NONE SEEN /HPF (Neg); MUCUS STRANDS NONE SEEN /LPF (Neg); RBC,URINE 0-2 /HPF (0-2); SQUAMOUS EPITHELIAL CELL,UR NONE SEEN /LPF (FEW); WBC,URINE 0-4 /HPF (0-4)
--- NOTE | 2025-01-22 13:11 | RADIOLOGY REPORT ---
INDICATION: LUE numbness and weaknbess x 4 hrs COMPARISON: CT CTA NECK/HEAD on DOS: 10/01/24, CT CTA NECK/HEAD on DOS: 07/31/24, CT CTA NECK/HEAD on DOS: 06/30/24 TECHNIQUE: CTA head with intravenous contrast. CTA neck with intravenous contrast. 3D image postproce ssing was performed on a dedicated workstation and images were used for interpretation and reporting. Radiation Dose Information: CT Dose: CTDI volume is 18 mGy. Dose-length product is 778 mGy*cm CONTRAST: Type of contrast: Omni 350 Contrast injected: 100 ml FINDINGS: CTA head: There is normal enhancement of the visualized distal internal carotid, anterior and middle cerebral a rteries. There is calcified atherosclerotic disease involving the bilateral cavernous carotid arterie s without high-grade stenosis. Left V4 segment is diminutive and may be occluded. Dominant right post erior communicating artery. The vertebral, basilar, cerebellar and posterior cerebral arteries are ot herwise within normal limits. The early parenchymal enhancement is grossly unremarkable. The visualiz ed intracranial venous structures are grossly unremarkable. CTA neck: The visualized thoracic aortic arch and proximal great vessels are unremarkable. Calcified plaque in the proximal left internal carotid artery without hemodynamically significant wilfredo nosis. Dense calcified plaque in the right carotid bulb likely resulting in a [id number], approximatel y 50% stenosis. No hemodynamically significant stenosis in the right internal carotid artery. There is a high-grade stenosis of the origin of the left vertebral artery. Left vertebral artery is d iminutive. Right vertebral artery is patent without hemodynamically significant stenosis. The limited visualized lung apices are clear. Degenerative changes in the cervical spine. IMPRESSION: 1. Clam-hc-otapbijs, approximately 50% stenosis of the right carotid bulb. 2. Likely high-grade stenosis of the origin of the left vertebral artery which is diminutive througho ut its course. Left V4 segment is diminutive and may be occluded. 3. Overall, findings are not significantly changed compared to prior. All CT scans at this medical facility are performed using dose modulation techniques as appropriate t o a performed exam including the following: Automated exposure control was utilized; adjustment of th e MA and/or KV according to patient size; and use of iterative reconstruction technique. HS:Y
[2025-01-22 13:26] LABS: URINE AMPHETAMINE SCREEN NEGATIVE (Neg); URINE BARBITUATE SCREEN NEGATIVE (Neg); URINE BENZODIAZEPINES SCREEN NEGATIVE (Neg); URINE CANNABINOID SCREEN NEGATIVE (Neg); URINE COCAINE SCREEN NEGATIVE (Neg); URINE METHADONE SCREEN NEGATIVE (Neg); URINE OPIATE SCREEN POSITIVE (Neg); URINE PHENCYCLIDINE SCREEN NEGATIVE (Neg)
--- NOTE | 2025-01-22 16:31 | [facility] CONSULT REPORT ---
[facility] Procedure Note [facility] Procedure Note Consult [facility] Note # Demographics Consult Type: Acute Stroke Level 2 (4.5-24 hrs) Patient Location: Emergency Room First Name: FLYNN Last Name: WILBER Date of : 1965 Age: 59 Gender: Male Facility: [facility] Time of Initial Page (): 01/22/2025 15:59 Time of Return Call ( Time): 01/22/2025 15:59 # HPI History: 55 yo M PMH DM, CAD, afib on Eliquis last night onset 9 pm blood pressure 200 and felt dizzy, weak, tingling LUE, woke dizzy and "passed out", no feeling and can't grab things LUE, tingling/burning LUE fingers gluc 364 Eliquis BID and ASA every other day, no missed meds # Scores Time of exam and NIHSS (): 01/22/2025 16:10 Level of Consciousness 1a: [0] = Alert; keenly responsive LOC Questions 1b: [0] = Answers both questions correctly LOC Commands 1c: [0] = Performs both tasks correctly Best Gaze 2: [0] = Normal Visual 3: [0] = No visual loss Facial Palsy 4: [0] = Normal symmetrical movements Motor Arm Left 5a: [1] = Drift Motor Arm Right 5b: [0] = No drift Motor Leg Left 6a: [1] = Drift Motor Leg Right 6b: [1] = Drift Limb Ataxia 7: [1] = Present in one limb Sensory 8: [1] = Liap-me-nmlqeofj sensory loss Best Language 9: [0] = No aphasia Dysarthria 10: [0] = Normal Extinction and Inattention 11: [1] = Visual, tactile, auditory, spatial, or personal inattention NIHSS Total: 6 # Exam Additional Neurologic Exam: bouncing RLE, drifts more LLE. dec sens L face/LUE/LLE # Data Head CT: - no bleed - preliminarily reviewed by me, please refer to radiology read for official reading per ED per radiology CTA Head: - no large vessel occlusion - preliminarily reviewed by me, please refer to radiology read for official reading CTA Neck: - patent vessels - per radiologist read 50% stenosis R carotid bulb, L vert diminutive, no LVO, unchange # Assessment Impression: - Ischemic Stroke (Acute) # Plan Thrombolytic/Intervention: NOT IV Thrombolysis or IA Intervention candidate Thrombolytic Exclusion: > 4.5 hours Intraarterial Exclusion: - no large vessel occlusion (LVO) Target Blood Pressure: - SBP < 220 - DBP < 120 Labs: - hemoglobin A1c - lipid panel Imaging: (urgency: routine): - MRI Brain without contrast Diagnostic Test: - echo with bubble study Therapy/Evaluation: - NPO until swallow evaluation - PT/OT evaluation - speech/swallow consultation Medication: - aspirin 81 mg daily - start statin with goal of LDL < 70 HOLD Eliquis for now, MRI pending. Small stroke hold for 48 hrs, larger stroke hold Eliquis 7-10 days Other: - If patient has any neurological deterioration please call me back immediately - permissive hypertension - I have discussed my recommendations with the referring provider Additional Recommendations: outpatient vascular surgery referral to be seen within 1 week for R carotid stenosis 50% with L sided symptoms. # Logistics Attestation of consult completion: The patient is located at: [facility]. Facility staff participated in the visit. I performed this telemedicine visit from my offsite office utilizing interactive 2 way audio and visual telecommunication technology. Total time spent in telemedicine encounter: I spent 20 minutes reviewing clinical data and/or imaging, obtaining history, examining the patient, communicating with the onsite care team, and in preparation of this report. # Demographics First Name: FLYNN Last Name: WILBER Facility: [facility] Electronically signed at 01/22/2025 16:31 ([place] Time) by Eusebio Gupta MD Neuro Consult Order placed for: Yes EUSEBIO GUPTA MD January 22, 2025 16:31
[2025-01-22] MEDS ORDERED: bisacodyl 10mg suppository rectal RC PRN (16:50)
[2025-01-22] MEDS ORDERED: acetaminophen 325mg tablet PO PRN ×2 (16:50)
[2025-01-22] MEDS ORDERED: magnesium hydroxide 30ml (MOM) UD suspension PO PRN (16:50)
[2025-01-22] MEDS ORDERED: acetaminophen 650mg rectal suppository RC PRN (16:50)
[2025-01-22] MEDS ORDERED: mag hydrox/Alum hydrox/simeth 30ml oral suspension PO PRN (16:50)
[2025-01-22] MEDS ORDERED: diphenhydrAMINE 50 mg/ml inj IV PRN (16:50)
[2025-01-22] MEDS ORDERED: ondansetron 4mg rapidly disintigrating tab PO PRN (16:50)
[2025-01-22] MEDS ORDERED: ondansetron/PF 4mg/2ml inj IV PRN (16:50)
[2025-01-22] MEDS ORDERED: morphine 2 MG/ML inj. syringe IV PRN (16:50)
[2025-01-22] MEDS ORDERED: diphenhydrAMINE 25mg capsule PO PRN (16:50)
[2025-01-22] MEDS: HYDROcodone/acetaminophen 10/325mg tab PO PRN (17:10)
[2025-01-22] MEDS: normal saline 1000ml 1,000 ML IV SCH (17:13)
[2025-01-22] MEDS ORDERED: LIDO700A47 TOP (17:21)
[2025-01-22] MEDS ORDERED: SITA100T15 PO (17:21)
[2025-01-22] MEDS ORDERED: BUME1TAB8 PO (17:21)
[2025-01-22 17:32] LABS: APTT 25 SECONDS (22-32); PROTHROMBIN TIME 10.7 SECONDS (9.0-12.0)
[2025-01-22 17:47] LABS: MAGNESIUM 2.3 MG/DL (1.5-2.4); PHOSPHORUS 3.3 MG/DL (2.3-4.5)
[2025-01-22] MEDS ORDERED: DEXTROSE 15 GM of carb/4 tabs (each vial/BOTTLE has 4 tablets) PO PRN ×2 (17:50)
[2025-01-22] MEDS ORDERED: glucagon, human recombinant 1mg kit SUBCUT PRN (17:50)
[2025-01-22] MEDS ORDERED: dextrose 50%-water 50ml dispensing syringe IV PRN ×2 (17:50)
[2025-01-22 17:54] LABS: HEMOGLOBIN A1C 8.2 % (4.5-6.2)
--- NOTE | 2025-01-22 17:59 | HISTORY AND PHYSICAL ---
History & Physical Providers to Chief complaint, high blood pressure, left arm weakness ~ History of Present Illness Reason for Admit\Complaint: As above History of Present Illness This is a 59-year-old gentleman with history of multiple medical problems including uncontrolled hypertension, diabetes mellitus type 2 poor control, history of PVD carotids, history of chronic kidney disease, chronic tobacco abuse including currently, chronic pain syndrome, history of TIA in the past, dyslipidemia, atrial fibrillation on Eliquis at home, coronary artery disease, presented today to emergency department chief complaint left arm weakness paresthesias; in addition this is the patient with a prior history of weakness on the right side, now resolved, prior history of TIAs, presents for evaluation of left-sided weakness that began sometime yesterday evening, got worse today at 7:00 a.m.. He had sustained a fall around 7:00 a.m. and hit the ground striking his head. He reports a weakness in the left upper extremity, numbness in the left upper extremity. The particular palliating or aggravating factors. Did not attempt to treat his symptoms.This is similar to his prior TIAs but on the other side.Denies any chest pain or difficulty breathing.Denies use of alcohol, drugs . Emergency department he was evaluated by physician and virtual neurologist, was diagnosed with acute ischemic CVA, and decision was made to admit patient for further evaluation and treatment. No additional complaint or concern. Allergies: Coded Allergies: Penicillins (Verified Allergy, Mild, HIVES, 01/22/25) metformin (Verified Allergy, Unknown, 01/22/25) ketorolac (Verified Adverse Reaction, Unknown, n/v, 01/22/25) Home Medications Home Medications Active Amlodipine Besylate 5 Mg Tablet 1 Tablet PO DAILY Reported Lidocaine 5 % Adh..patch 1 Patch TOP DAILY Bumetanide 1 Mg Tablet 1 Tab PO BID Januvia* (Sitagliptin Phosphate*) 100 Mg Tablet 1 Tab PO DAILY Vitamin D3 (Cholecalciferol (Vitamin D3)) 125 Mcg (5000 Unit) Tablet 1 Tab PO DAILY Vitamin B-12 (Cyanocobalamin) 1,000 Mcg Tablet 1 Tab PO DAILY Isosorbide Mononitrate Er (Isosorbide Mononitrate) 30 Mg Tab.er.24h 1 Tab PO DAILY Carvedilol 12.5 Mg Tablet 1 Tab PO BID Aspirin 81 Mg Tab.chew 1 Tab PO DAILY 30 Days Lisinopril* (Lisinopril) 40 Mg Tablet 1 Tab PO BID Humalog (Insulin Lispro) 100 Unit/Ml Insuln.pen 12 Unit SQ TID Ronnieaglar Junaidikpen U-100 (Insulin Glargine,Hum.rec.anlog) 100 Unit/Ml (3 Ml) Insuln.pen 50 SQ HS Lipitor (Atorvastatin Calcium) 40 Mg Tablet 1 Tab PO DAILY Eliquis (Apixaban) 5 Mg Tablet 1 Tab PO Q12H Hydrocodone-Apap 10-325 Tablet (Acetaminophen/Hydrocodone Bitart) 10mg/325mg Tablet 1 Tab PO Q4H PRN 5 Days Past Medical History Past Medical History As in HPI Past Surgical History Surgical History Comment As in HPI Family History Family History: FH: diabetes mellitus FATHER FH: lung cancer maternal uncle FH: myocardial infarction maternal grandfather FH: suicide FATHER Past Social History Social History Comment Positive for chronic tobacco abuse including currently, deny illicit drug use or alcohol use, live with the family good social support Health Maintenance Health Maintenance Noncontributory ROS ROS Constitutional : no fever , no chills, or weakness. No diaphoresis. Allergic/Immunologic, no lymphadenopathy, no hives, no skin eruptions. Eyes, no recent visual changes, no eye pain, no photophobia. Ears, nose, mouth, throat, no sore throat, no nosebleed, no ear pain. Cardiovascular, no palpitations, skipped beats, chest pain, no peripheral edema, Respiratory, no dyspnea, orthopnea, cough, hemoptysis, chest wall pain. Gastrointestinal, no abdominal pain, nausea, vomiting, constipation or diarrhea. : no dysuria, hematuria, pelvic pain, urethral d/c. Endocrine, no polyuria, polydipsia, recent unintentional weight gain or loss. Hematologic/Lymphatic, no petechiae, no enlarged lymph nodes, no bone pain. Integumentary, no rash, no skin lesions, Musculoskeletal, no muscle aches, or pain, no muscle cramps, no recent change in gait Neurological, no dizziness, no headache, no syncope, positive for left arm weakness and paresthesia Psychiatric, no delusions, visual hallucinations, or hearing hallucinations. ROS - in rest is as in HPI. Exam Vitals: Vital Signs Date Time Temp Pulse Resp B/P (MAP) Pulse Ox O2 Delivery O2 Flow Rate FiO2 5/6/25 17:37 98.6 99 18 138/83 (101) 98 0 Vital signs, stable ,afebrile. Pulse Oximetry reflects adequate oxygenation. BMI is 37, weight 126 kg, blood pressure yesterday 9:00 p.m. was 200 General: well developed, well nourished. Awake , alert, and oriented x4, resting comfortably in the bed, in no acute distress . Skin: Warm, dry, no pallor, no rash or petechiae. HEENT: Atraumatic, normocephalic, EOMI, anicteric sclera B; pink conjunctiva; PERRLA, normal oropharynx, moist oral and nasal mucosa. Tympanic membrane , nose , throat clear. Neck: Trachea midline. Supple, full range of motion, no JVD, bruit , hepatojugular reflex , lymphadenopathy or masses, or other lesions Cardiac: Regular rhythm, regular rate no murmurs, rubs, or gallops. Normal S1 and S2, no S3 noticed. PMI is normal. Respiratory: Equal breath sounds bilaterally, no tachypnea; lungs clear to auscultation bilaterally, no wheezing ,rub or rales, or crackles. Chest wall is symmetric and without deformity. No signs of trauma. Chest wall is nontender. No signs of respiratory distress. Resonance is normal upon percussion bilaterally. Gastrointestinal: Abdomen symmetric, non-distended, soft, non-tender, normal bowel sounds x4 quadrant, normoactive, no hepatosplenomegaly , no masses , no bruit, no flank pain bilaterally. No voluntary guarding, rebound, or rigidity. No tenderness to percussion. No pulsatile masses. Equal femoral pulses. No Champagne's sign or McBurney point tenderness. Back; no CVA tenderness bilaterally, no deformities. Neck and back are without deformity as well. No tenderness noted on palpation of the spinous processes. Spinous processes are midline. Cervical, thoracic, and lumbar paraspinal muscles are not tender and are without spasm. : normal external genitalia, without lesions, swelling, masses or tenderness. Musculoskeletal: Extremities, normal range of motion, non-tender, muscle strength 5/5 x 4. Negative Homans signs bilaterally on lower extremity. Distal pulses full symmetrical, no clubbing, cyanosis , edema. Neurological: Speech is clear, alert, and oriented x 4. No motor or sensory deficit, deep tendon reflexes normal, cerebellar intact. Cranial nerves II-XII intact, locally, NIH SS score equaled six, including give him by virtual neurologist for paresthesia and weakness left upper and right lower extremity Psych: Alert and or appropriate, normal affect. Vascular: Good distal pulses, which are equal x4; capillary refill less than 2 seconds. Lymphatic, no lymphadenopathy. Diagnostic Data Last Recorded Lab Results: 01/22/25 1100 01/22/25 1100 Diagnostic Data: Laboratory Tests Test 01/22/25 17:05 Prothrombin Time 10.7 SECONDS (9.0-12.0) INR International Normalized Ratio 1.0 INR Activated Partial Thromboplast Time 25 SECONDS (22-32) Coagulation Comments Advance Care Planning Advanced Care plannin - 30 Minutes Additional Plan Assessment Acute ischemic CVA Hypertensive emergency Fall ground level secondary to all of the above Atrial fibrillation on Eliquis at home Chronic tobacco abuse including currently History of coronary artery disease, TIA, CKD, chronic pain syndrome Peripheral vascular disease, carotids Diabetes mellitus type 2 poor control Pre morbid obesity BMI 37 Plan Hyperglycemia sliding scale IV fluids keep patient well hydrated Euvolemic Permissive hypertension, Echocardiography and brain MRI pending Consulted for 5 minutes to stop using tobacco, patient states is not ready yet to quit smoking NPO until passing swallow test Patient was evaluated by virtual neurologist, recommendation to be implemented PT evaluation and treatment Hold Eliquis Neuro checks Reconciled home medications Additional lab work pending DVT gastropathy prophylaxis addressed Sepsis Screening Reassessment Date: January 22, 2025 Date of Service: January 22, 2025 Billing Provider: BRUNO COLON MD Common Visit Codes: [id number] INP/OBS CARE (HIGH) Secondary Visit Codes: [id number] CHNG SMOKING 3-10M, [id number] CARE PLAN ADDL 30MIN BRUNO COLON MD January 22, 2025 17:59
[2025-01-22 18:20] LABS: THYROID STIMULATING HORMONE 0.48 ulU/ml (0.34-4.50)
[2025-01-22 18:31] LABS: D-DIMER < 0.19 MG/L FEU (0-0.50)
[2025-01-22] MEDS: docusate sod 100mg capsule PO SCH (20:00)
[2025-01-22 20:30] VITALS: BP 145/125; PULSE 96; RESP 18; TEMP 98.3; O2SAT 98
[2025-01-22 21:00] VITALS: BP 124/79; PULSE 83
[2025-01-22] MEDS ORDERED: temazepam 15mg capsule PO PRN (21:00)
[2025-01-22] MEDS: INSULIN LISPRO 100 UNIT/ML INSULN.PEN MULTI-DOSE SQ SCH (21:53)
[2025-01-22] MEDS: insulin glargine (Lantus) pen - multi-dose SQ SCH (21:54)
[2025-01-22 22:00] VITALS: BP 133/74; PULSE 81; RESP 16; TEMP 97.7; O2SAT 96
[2025-01-23] MEDS: morphine 2 MG/ML inj. syringe IV PRN (01:13)
[2025-01-23 04:55] LABS: BASOPHILS # (AUTO) 0.1 X10'3 (0-0.2); BASOPHILS % (AUTO) 0.8 % (0-1); EOSINOPHILS # (AUTO) 0.3 X10'3 (0-0.9); EOSINOPHILS % (AUTO) 2.8 % (0-6); HEMATOCRIT 34.2 % (42.0-52.0); LYMPHOCYTES # (AUTO) 2.6 X10'3 (1.1-4.8); LYMPHOCYTES % (AUTO) 26.7 % (21-51); MEAN CORPUSCULAR VOLUME 79.9 FL (78-98); MEAN PLATELET VOLUME 7.3 FL (7.4-10.4); MONOCYTES # (AUTO) 0.9 X10'3 (0-0.9); NEUTROPHILS # (AUTO) 5.8 X10'3 (1.8-7.7); NEUTROPHILS % (AUTO) 60.7 % (42-75); PLATELET COUNT 211 X10'3 (140-440); RED BLOOD COUNT 4.28 X10'6 (4.70-6.10); RED CELL DISTRIBUTION WIDTH 14.9 % (11.5-14.5); WHITE BLOOD COUNT 9.7 X10'3 (4.5-11.0)
[2025-01-23 05:27] LABS: ALANINE AMINOTRANSFERASE 24 U/L (12-78); ALBUMIN 2.8 G/DL (3.4-5.0); ALBUMIN/GLOBULIN RATIO 0.8 (1.1-1.5); ALKALINE PHOSPHATASE 80 IU/L (46-116); ANION GAP 7 (8-16); ASPARTATE AMINO TRANSFERASE 14 U/L (10-37); BILIRUBIN,TOTAL 0.4 MG/DL (0.1-1.0); BLOOD UREA NITROGEN 15 MG/DL (7-18); BUN/CREATININE RATIO 15.3 (10.0-20.0); CALCIUM 8.5 MG/DL (8.5-10.1); CHLORIDE 103 MMOL/L (99-107); CHOL/HDL RATIO 2.6 (0.00-4.99); CHOLESTEROL 89 MG/DL (0-200); CREATININE 0.98 MG/DL (0.60-1.10); GLUCOSE 194 MG/DL (70-104); HDL CHOLESTEROL 34 MG/DL (35-60); LDL CHOLESTEROL 37 MG/DL (50-100); POTASSIUM 3.8 MMOL/L (3.5-5.1); SODIUM 138 MMOL/L (135-145); TOTAL CARBON DIOXIDE 28.2 MMOL/L (24-32); TOTAL PROTEIN 6.4 G/DL (6.4-8.2); TRIGLYCERIDES 133 MG/DL (20-135); eCRCL 87 ML/MIN; eGFR 78 ML/MIN
[2025-01-23 06:00] VITALS: BP 156/73; PULSE 72; RESP 12; TEMP 97.1; O2SAT 96
[2025-01-23] MEDS: pantoprazole 40mg Tablet.DR PO SCH (07:00)
[2025-01-23 10:00] VITALS: BP 145/82; PULSE 67; RESP 17; TEMP 98.3; O2SAT 98
[2025-01-23] MEDS ORDERED: HYDROcodone/acetaminophen 10/325mg tab PO PRN (11:00)
--- NOTE | 2025-01-23 14:08 | RADIOLOGY REPORT ---
CLINICAL INDICATION: Cerebrovascular accident. Prior CTA exam, left upper extremity numbness and weak ness COMPARISON: MR MRI HEAD on DOS: 12/06/24, CT CT HEAD on DOS: 12/05/24, MR MRI HEAD on DOS: 10/02/24 TECHNIQUE: Multisequence multiplanar MRI images of the brain were obtained without contrast. FINDINGS: Motion artifact limits evaluation on some sequences. No acute infarct or hemorrhage. No mas s or midline shift. Ventricles and sulci are within normal limits. Basal cisterns are patent. Cerebel lum, brainstem, and midline structures are within normal limits. Mild mucosal thickening of the paran laxmi sinuses. Orbits are grossly unremarkable. IMPRESSION: No evidence of acute intracranial abnormality. No acute infarct.
[2025-01-23] MEDS: HYDROcodone/acetaminophen 5mg/325mg tablet PO PRN (15:22)
--- NOTE | 2025-01-23 17:52 | CARDIOLOGY REPORT ---
APPROVED REPORT EXAM: Comprehensive 2D, Doppler, and color-flow Echocardiogram. 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 Anderson [facility] Cardiology Previous ECHO: 12/06/24, EF: 75-80 2D Dimensions LA Diam3.8 cm IVSd 0.8 (0.7-1.1cm) LVDd 4.1 cm PWd 0.9 (0.7-1.1cm) IVSs 1.1 (0.8-1.2cm) LVDs 2.7 (2.5-4.0cm) PWs 1.0 (0.8-1.2cm) LVOT Diameter 2.12 (1.8-2.4cm) LVEF(%) 61.8 (>50%) Ao Asc Diam.2.89 cm IVC 18.99 mmFS (%) 32.8 % SV 44.7 ml CO 3.0 L/min M-Mode Dimensions Left Atrium(MM) 4.13 (2.5-4.0cm) Aortic Root 3.88 (2.2-3.7cm) Aortic Cusp Exc 2.42 (1.5-2.0cm) MV EPSS 0.3 (<0.5cm) Aortic Valve AoV Peak Jaylen. 197.1 cm/s AoV VTI 36.3 cm AO Peak GR. 15.5 mmHg AO Mean GR. 9 mmHg LVOT VTI 24.62 cm LVOT Peak Jaylen. 110.9 cm/s GINA(VTI)/BSA 2.39 cm2/m2 GINA (VTI) 2.39 cm2 Mitral Valve MV E Velocity 89.2 cm/s MV Peak Gr. 4 mmHg MV DECEL TIME 320 ms MV A Velocity 103.5 cm/s MV PHT 60 ms E/A Ratio 0.9 MVA (PHT) 3.67 cm2 MV VMax99.1 cm/s TDI Lateral E' P. V8.14 cm/s E/Lateral E' 11.0 Tricuspid Valve TR P. Velocity 148 cm/s RAP ESTIMATE 10 mmHg TR Peak Gr. 9 mmHg RVSP 19 mmHg LEFT VENTRICLE Normal LV size and wall thickness. Overall systolic function is normal. Overall LVEF is about 55-60%. RIGHT VENTRICLE RV is normal size and function. ATRIA The left atrium size is normal. AORTIC VALVE Trileaflet AV appears mildly sclerotic without stenosis. No insufficiency. MITRAL VALVE Mild mitral annular calcification without stenosis. Trace regurgitation TRICUSPID VALVE The tricuspid valve is normal in structure with trace regurgitation. PULMONIC VALVE Pulmonic valve is grossly normal in structure without insufficiency. GREAT VESSELS Aortic root is mildly dilated. The ascending aorta is normal in size. IVC is normal in size. PERICARDIUM Normal pericardium. No effusion. Prominent anterior epicardial fat pad is present. Other Information Study Quality: Fair due to body habitus Conclusion Overall LVEF is about 55-60%. Normal LV size and wall thickness. Overall systolic function is normal. RV is normal size and function. Trileaflet AV appears mildly sclerotic without stenosis. No insufficiency. Mild mitral annular calcification without stenosis. Trace regurgitation The tricuspid valve is normal in structure with trace regurgitation. Pulmonic valve is grossly normal in structure without insufficiency. Normal pericardium. No effusion. Prominent anterior epicardial fat pad is present.
[2025-01-23 18:00] VITALS: BP 160/90; PULSE 76; RESP 16; TEMP 97.4; O2SAT 96
--- NOTE | 2025-01-23 20:37 | PROGRESS NOTE ---
Daily Progress Note Providers to CC ~ complaint, headaches, anxiety Central Line/PICC still needed: No Antibiotic Timeout Antibiotic Ordered?: No Subjective As above Objective Vital Signs Date Time Temp Pulse Resp B/P (MAP) Pulse Ox O2 Delivery O2 Flow Rate FiO2 01/23/25 18:30 70 01/23/25 18:00 97.4 16 160/90 (113) 96 Room Air 01/23/25 08:00 0.0 Vital signs, stable ,afebrile. Pulse Oximetry reflects adequate oxygenation. General: well developed, well nourished. Awake , alert, and oriented x4, resting comfortably in the bed, in no acute distress . Skin: Warm, dry, no pallor, no rash or petechiae. HEENT: Atraumatic, normocephalic, EOMI, anicteric sclera B; pink conjunctiva; PERRLA, normal oropharynx, moist oral and nasal mucosa. Tympanic membrane , nose , throat clear. Neck: Trachea midline. Supple, full range of motion, no JVD, bruit , hepatojugular reflex , lymphadenopathy or masses, or other lesions Cardiac: Regular rhythm, regular rate no murmurs, rubs, or gallops. Normal S1 and S2, no S3 noticed. PMI is normal. Respiratory: Equal breath sounds bilaterally, no tachypnea; lungs clear to auscultation bilaterally, no wheezing ,rub or rales, or crackles. Chest wall is symmetric and without deformity. No signs of trauma. Chest wall is nontender. No signs of respiratory distress. Resonance is normal upon percussion bilaterally. Gastrointestinal: Abdomen symmetric, non-distended, soft, non-tender, normal bowel sounds x4 quadrant, normoactive, no hepatosplenomegaly , no masses , no bruit, no flank pain bilaterally. No voluntary guarding, rebound, or rigidity. No tenderness to percussion. No pulsatile masses. Equal femoral pulses. No Champagne's sign or McBurney point tenderness. Back; no CVA tenderness bilaterally, no deformities. Neck and back are without deformity as well. No tenderness noted on palpation of the spinous processes. Spinous processes are midline. Cervical, thoracic, and lumbar paraspinal muscles are not tender and are without spasm. : normal external genitalia, without lesions, swelling, masses or tenderness. Musculoskeletal: Extremities, normal range of motion, non-tender, muscle strength 5/5 x 4. Negative Homans signs bilaterally on lower extremity. Distal pulses full symmetrical, no clubbing, cyanosis , edema. Neurological: Speech is clear, alert, and oriented x 4. No motor or sensory deficit, deep tendon reflexes normal, cerebellar intact. Cranial nerves II-XII intact. Psych: Alert and or appropriate, normal affect. Anxious Vascular: Good distal pulses, which are equal x4; capillary refill less than 2 seconds. Lymphatic, no lymphadenopathy. Result Diagram: 01/23/2542801/23/25428 Coagulation Studies Laboratory Tests Test 01/22/25 17:05 Prothrombin Time 10.7 SECONDS (9.0-12.0) INR International Normalized Ratio 1.0 INR Activated Partial Thromboplast Time 25 SECONDS (22-32) D-Dimer < 0.19 MG/L FEU (0-0.50) D-Dimer Comment Coagulation Comments Problem\Assessment\Plan Assessment Acute ischemic CVA Common headache, acute Anxiety Hypertensive emergency Fall ground level secondary to all of the above Atrial fibrillation on Eliquis at home Chronic tobacco abuse including currently History of coronary artery disease, TIA, CKD, chronic pain syndrome Peripheral vascular disease, carotids Diabetes mellitus type 2 poor control Pre morbid obesity BMI 37 Plan Hyperglycemia sliding scale IV fluids keep patient well hydrated Euvolemic Permissive hypertension, Echocardiography and brain MRI completed NPO until passing swallow test Patient was evaluated by virtual neurologist, recommendation to be implemented PT evaluation and treatment Hold Eliquis Neuro checks Reconciled home medications Additional lab work pending DVT gastropathy prophylaxis addressed Sepsis Screening Reassessment Date: January 23, 2025 Date of Service: January 23, 2025 Billing Provider: BRUNO COLON MD Common Visit Codes: [id number] INP/OBS CARE(HIGH) BRUNO COLON MD January 23, 2025 20:37
[2025-01-23] MEDS: diazepam inj 5 MG/ML inj. IV ONE (21:31)
[2025-01-23] MEDS: carVEDilol 12.5mg tablet PO SCH (21:34)
[2025-01-23] MEDS: insulin glargine (Lantus) pen - multi-dose SQ ONE (21:34)
[2025-01-23 22:00] VITALS: BP 161/87; PULSE 68; RESP 18; TEMP 97.6; O2SAT 99
[2025-01-24 04:55] LABS: BASOPHILS # (AUTO) 0.1 X10'3 (0-0.2); BASOPHILS % (AUTO) 0.9 % (0-1); EOSINOPHILS # (AUTO) 0.2 X10'3 (0-0.9); EOSINOPHILS % (AUTO) 3.2 % (0-6); HEMATOCRIT 33.3 % (42.0-52.0); HEMOGLOBIN 11.4 g/dl (14.0-17.9); LYMPHOCYTES # (AUTO) 1.9 X10'3 (1.1-4.8); LYMPHOCYTES % (AUTO) 23.5 % (21-51); MEAN CORPUSCULAR HEMOGLOBIN 27.8 PG (27.0-31.0); MEAN CORPUSCULAR HGB CONC 34.3 g/dL (33.0-36.5); MEAN CORPUSCULAR VOLUME 80.8 FL (78-98); MEAN PLATELET VOLUME 7.4 FL (7.4-10.4); MONOCYTES # (AUTO) 0.7 X10'3 (0-0.9); MONOCYTES % (AUTO) 8.8 % (2-12); NEUTROPHILS % (AUTO) 63.6 % (42-75); PLATELET COUNT 200 X10'3 (140-440); RED BLOOD COUNT 4.12 X10'6 (4.70-6.10); RED CELL DISTRIBUTION WIDTH 14.8 % (11.5-14.5); WHITE BLOOD COUNT 7.9 X10'3 (4.5-11.0)
[2025-01-24 05:17] LABS: ALANINE AMINOTRANSFERASE 28 U/L (12-78); ALBUMIN 2.6 G/DL (3.4-5.0); ALBUMIN/GLOBULIN RATIO 0.7 (1.1-1.5); ALKALINE PHOSPHATASE 79 IU/L (46-116); ANION GAP 10 (8-16); ASPARTATE AMINO TRANSFERASE 16 U/L (10-37); BILIRUBIN,TOTAL 0.3 MG/DL (0.1-1.0); BLOOD UREA NITROGEN 14 MG/DL (7-18); BUN/CREATININE RATIO 17.7 (10.0-20.0); CALCIUM 8.4 MG/DL (8.5-10.1); CHLORIDE 104 MMOL/L (99-107); CREATININE 0.79 MG/DL (0.60-1.10); GLUCOSE 195 MG/DL (70-104); POTASSIUM 4.2 MMOL/L (3.5-5.1); SODIUM 141 MMOL/L (135-145); TOTAL CARBON DIOXIDE 27.1 MMOL/L (24-32); TOTAL PROTEIN 6.1 G/DL (6.4-8.2); eCRCL 108 ML/MIN; eGFR > 90 ML/MIN
[2025-01-24 07:00] VITALS: BP 123/62; PULSE 61; RESP 16; TEMP 98.5; O2SAT 97
[2025-01-24] MEDS: cyanocobalamin 500mcg tablet PO SCH (07:28)
[2025-01-24] MEDS: cholecalciferol (vitamin D3) 1,000 unit (25mcg) tablet PO SCH (07:28)
[2025-01-24] MEDS: atorvastatin 20mg tablet PO SCH (07:29)
[2025-01-24] MEDS: acetaminophen 1,000mg/100ml IV 100 ML IV SCH (07:31)
[2025-01-24] MEDS: isosorbide mononitrate 30mg tab.SR.24H PO SCH (08:50)
[2025-01-24 10:00] VITALS: BP 135/54; PULSE 58; RESP 17; TEMP 97.9; O2SAT 96
[2025-01-24 18:00] VITALS: BP 128/73; PULSE 66; RESP 16; TEMP 97.7; O2SAT 99
--- NOTE | 2025-01-24 19:58 | PROGRESS NOTE ---
Daily Progress Note Providers to CC Doing well today, headaches improving ~ Central Line/PICC still needed: No Coffey-Non Protocol [place] Indications Met/Not Met: F/C Indications Not Met Antibiotic Timeout Antibiotic Ordered?: No MRSA Education MRSA Education Provided to pt: No Subjective As above Objective Vital Signs Date Time Temp Pulse Resp B/P (MAP) Pulse Ox O2 Delivery O2 Flow Rate FiO2 01/24/25 16:49 16 01/24/25 10:00 97.9 58 135/54 (81) 96 Room Air 01/24/25 08:00 0.0 Vital signs, stable ,afebrile. Pulse Oximetry reflects adequate oxygenation. General: well developed, well nourished. Awake , alert, and oriented x4, resting comfortably in the bed, in no acute distress . Skin: Warm, dry, no pallor, no rash or petechiae. HEENT: Atraumatic, normocephalic, EOMI, anicteric sclera B; pink conjunctiva; PERRLA, normal oropharynx, moist oral and nasal mucosa. Tympanic membrane , nose , throat clear. Neck: Trachea midline. Supple, full range of motion, no JVD, bruit , hepatojugular reflex , lymphadenopathy or masses, or other lesions Cardiac: Regular rhythm, regular rate no murmurs, rubs, or gallops. Normal S1 and S2, no S3 noticed. PMI is normal. Respiratory: Equal breath sounds bilaterally, no tachypnea; lungs clear to auscultation bilaterally, no wheezing ,rub or rales, or crackles. Chest wall is symmetric and without deformity. No signs of trauma. Chest wall is nontender. No signs of respiratory distress. Resonance is normal upon percussion bilaterally. Gastrointestinal: Abdomen symmetric, non-distended, soft, non-tender, normal bowel sounds x4 quadrant, normoactive, no hepatosplenomegaly , no masses , no bruit, no flank pain bilaterally. No voluntary guarding, rebound, or rigidity. No tenderness to percussion. No pulsatile masses. Equal femoral pulses. No Champagne's sign or McBurney point tenderness. Back; no CVA tenderness bilaterally, no deformities. Neck and back are without deformity as well. No tenderness noted on palpation of the spinous processes. Spinous processes are midline. Cervical, thoracic, and lumbar paraspinal muscles are not tender and are without spasm. : normal external genitalia, without lesions, swelling, masses or tenderness. Musculoskeletal: Extremities, normal range of motion, non-tender, muscle strength 5/5 x 4. Negative Homans signs bilaterally on lower extremity. Distal pulses full symmetrical, no clubbing, cyanosis , edema. Neurological: Speech is clear, alert, and oriented x 4. No motor or sensory deficit, deep tendon reflexes normal, cerebellar intact. Cranial nerves II-XII intact. Psych: Alert and or appropriate, normal affect. Vascular: Good distal pulses, which are equal x4; capillary refill less than 2 seconds. Lymphatic, no lymphadenopathy. Result Diagram: 01/24/255 01/24/25434 Coagulation Studies Laboratory Tests Test 01/22/25 17:05 Prothrombin Time 10.7 SECONDS (9.0-12.0) INR International Normalized Ratio 1.0 INR Activated Partial Thromboplast Time 25 SECONDS (22-32) D-Dimer < 0.19 MG/L FEU (0-0.50) D-Dimer Comment Coagulation Comments Problem\Assessment\Plan Assessment Acute ischemic CVA Common headache, acute Anxiety Hypertensive emergency Fall ground level secondary to all of the above Atrial fibrillation on Eliquis at home Chronic tobacco abuse including currently History of coronary artery disease, TIA, CKD, chronic pain syndrome Peripheral vascular disease, carotids Diabetes mellitus type 2 poor control Pre morbid obesity BMI 37 Plan Hyperglycemia sliding scale IV fluids keep patient well hydrated Euvolemic Permissive hypertension, Echocardiography and brain MRI completed Low-sodium diet Patient was evaluated by virtual neurologist, recommendation to be implemented PT evaluation and treatment Hold Eliquis Neuro checks Reconciled home medications Additional lab work pending DVT gastropathy prophylaxis addressed Anticipate discharge in the morning Sepsis Screening Reassessment Date: January 24, 2025 Date of Service: January 24, 2025 Billing Provider: BRUNO COLON MD Common Visit Codes: [id number] INP/OBS CARE(HIGH) BRUNO COLON MD January 24, 2025 19:58
[2025-01-24] MEDS: apixaban 5mg tablet PO SCH (19:59)
[2025-01-24] MEDS: bumetanide 1mg tablet PO SCH (19:59)
[2025-01-24 20:00] VITALS: RESP 16; O2SAT 99
[2025-01-24] MEDS: lisinopril 20mg tablet PO SCH (20:00)
[2025-01-24 22:00] VITALS: BP 95/44; PULSE 58; RESP 18; TEMP 98; O2SAT 98
[2025-01-25 02:00] VITALS: BP 124/62; PULSE 60; RESP 18; TEMP 98.2; O2SAT 97
[2025-01-25 05:11] LABS: ALANINE AMINOTRANSFERASE 23 U/L (12-78); ALBUMIN 2.6 G/DL (3.4-5.0); ALBUMIN/GLOBULIN RATIO 0.8 (1.1-1.5); ALKALINE PHOSPHATASE 80 IU/L (46-116); ANION GAP 5 (8-16); ASPARTATE AMINO TRANSFERASE 14 U/L (10-37); BILIRUBIN,TOTAL 0.4 MG/DL (0.1-1.0); BLOOD UREA NITROGEN 15 MG/DL (7-18); BUN/CREATININE RATIO 16.9 (10.0-20.0); CALCIUM 8.2 MG/DL (8.5-10.1); CHLORIDE 105 MMOL/L (99-107); CREATININE 0.89 MG/DL (0.60-1.10); GLUCOSE 242 MG/DL (70-104); POTASSIUM 4.5 MMOL/L (3.5-5.1); SODIUM 139 MMOL/L (135-145); TOTAL CARBON DIOXIDE 28.6 MMOL/L (24-32); eCRCL 96 ML/MIN; eGFR 87 ML/MIN
[2025-01-25 05:15] LABS: BASOPHILS # (AUTO) 0.1 X10'3 (0-0.2); BASOPHILS % (AUTO) 0.9 % (0-1); EOSINOPHILS # (AUTO) 0.3 X10'3 (0-0.9); EOSINOPHILS % (AUTO) 3.6 % (0-6); HEMATOCRIT 33.4 % (42.0-52.0); HEMOGLOBIN 11.4 g/dl (14.0-17.9); LYMPHOCYTES % (AUTO) 25.3 % (21-51); MEAN CORPUSCULAR HEMOGLOBIN 27.7 PG (27.0-31.0); MEAN CORPUSCULAR HGB CONC 34.2 g/dL (33.0-36.5); MEAN PLATELET VOLUME 7.6 FL (7.4-10.4); MONOCYTES # (AUTO) 0.6 X10'3 (0-0.9); MONOCYTES % (AUTO) 7.1 % (2-12); NEUTROPHILS # (AUTO) 4.9 X10'3 (1.8-7.7); NEUTROPHILS % (AUTO) 63.1 % (42-75); PLATELET COUNT 196 X10'3 (140-440); RED BLOOD COUNT 4.12 X10'6 (4.70-6.10); RED CELL DISTRIBUTION WIDTH 14.9 % (11.5-14.5); WHITE BLOOD COUNT 7.8 X10'3 (4.5-11.0)
[2025-01-25 06:00] VITALS: BP 116/61; PULSE 70; RESP 18; TEMP 97.9; O2SAT 97
[2025-01-25 07:06] VITALS: PULSE 61
[2025-01-25 08:00] VITALS: RESP 16; O2SAT 99
[2025-01-25] MEDS: LIDOcaine 5% patch TP SCH (08:00)
[2025-01-25 09:30] VITALS: BP 130/64
[2025-01-25 09:56] VITALS: RESP 16
--- NOTE | 2025-01-25 18:48 | DISCHARGE SUMMARY ---
Discharge Summary Providers to No new complaint today, asking to be discharged home ~ Discharge Summary Assessment Acute ischemic CVA Hypertensive emergency Fall ground level secondary to all of the above Atrial fibrillation on Eliquis at home Chronic tobacco abuse including currently History of coronary artery disease, TIA, CKD, chronic pain syndrome Peripheral vascular disease, carotids Diabetes mellitus type 2 poor control Pre morbid obesity BMI 37 Admission Diagnosis: CVA Admission Diagnosis Comment: Acute ischemic CVA Hypertensive emergency Fall ground level secondary to all of the above Atrial fibrillation on Eliquis at home Chronic tobacco abuse including currently History of coronary artery disease, TIA, CKD, chronic pain syndrome Peripheral vascular disease, carotids Diabetes mellitus type 2 poor control Pre morbid obesity BMI 37 Hospital Course DATE OF ADMISSION: Jan 22 2025 DATE OF DISCHARGE: January 25, 2025 Discharge Diagnosis\Comment: Acute ischemic CVA Hypertensive emergency Fall ground level secondary to all of the above Atrial fibrillation on Eliquis at home Chronic tobacco abuse including currently History of coronary artery disease, TIA, CKD, chronic pain syndrome Peripheral vascular disease, carotids Diabetes mellitus type 2 poor control Pre morbid obesity BMI 37 Operations\Procedures: Non Consultants: Neurologist virtual Complications: Non Condition on DC: Stable Discharge Summary: This is a 59-year-old gentleman with history of multiple medical problems including uncontrolled hypertension, diabetes mellitus type 2 poor control, history of PVD carotids, history of chronic kidney disease, chronic tobacco a buse including currently, chronic pain syndrome, history of TIA in the past, dyslipidemia, atrial fibrillation on Eliquis at home, coronary artery disease, presented today to emergency department chief complaint left arm weakness paresthesias; in addition this is the patient with a prior history of weakness on the right side, now resolved, prior history of TIAs, presents for evaluation of left-sided weakness that began sometime yesterday evening, got worse today at 7:00 a.m.. He had sustained a fall around 7:00 a.m. and hit the ground striking his head. He reports a weakness in the left upper extremity, numbness in the left upper extremity. The particular palliating or aggravating factors. Did not attempt to treat his symptoms.This is similar to his prior TIAs but on the other side.Denies any chest pain or difficulty breathing.Denies use of alcohol, drugs . Emergency department he was evaluated by physician and virtual neurologist, was diagnosed with acute ischemic CVA, and decision was made to admit patient for further evaluation and treatment. No additional complaint or concern. After admission patient was extensively evaluated and treatment, today he is feeling better, no complaint, asking to be discharged home, he will be discharged in stable condition, medication reconciled, follow-up PCP in the morning, recommended to return to emergency department if condition worsens, to day on physical exam Vital signs, stable ,afebrile. Pulse Oximetry reflects adequate oxygenation. General: well developed, well nourished. Awake , alert, and oriented x4, resting comfortably in the bed, in no acute distress . Skin: Warm, dry, no pallor, no rash or petechiae. HEENT: Atraumatic, normocephalic, EOMI, anicteric sclera B; pink conjunctiva; PERRLA, normal oropharynx, moist oral and nasal mucosa. Tympanic membrane , nose , throat clear. Neck: Trachea midline. Supple, full range of motion, no JVD, bruit , hepatojugular reflex , lymphadenopathy or masses, or other lesions Cardiac: Regular rhythm, regular rate no murmurs, rubs, or gallops. Normal S1 and S2, no S3 noticed. PMI is normal. Respiratory: Equal breath sounds bilaterally, no tachypnea; lungs clear to auscultation bilaterally, no wheezing ,rub or rales, or crackles. Chest wall is symmetric and without deformity. No signs of trauma. Chest wall is nontender. No signs of respiratory distress. Resonance is normal upon percussion bilaterally. Gastrointestinal: Abdomen symmetric, non-distended, soft, non-tender, normal bowel sounds x4 quadrant, normoactive, no hepatosplenomegaly , no masses , no bruit, no flank pain bilaterally. No voluntary guarding, rebound, or rigidity. No tenderness to percussion. No pulsatile masses. Equal femoral pulses. No Champagne's sign or McBurney point tenderness. Back; no CVA tenderness bilaterally, no deformities. Neck and back are without deformity as well. No tenderness noted on palpation of the spinous processes. Spinous processes are midline. Cervical, thoracic, and lumbar paraspinal muscles are not tender and are without spasm. : normal external genitalia, without lesions, swelling, masses or tenderness. Musculoskeletal: Extremities, normal range of motion, non-tender, muscle strength 5/5 x 4. Negative Homans signs bilaterally on lower extremity. Distal pulses full symmetrical, no clubbing, cyanosis , edema. Neurological: Speech is clear, alert, and oriented x 4. No motor or sensory deficit, deep tendon reflexes normal, cerebellar intact. Cranial nerves II-XII intact. Psych: Alert and or appropriate, normal affect. Vascular: Good distal pulses, which are equal x4; capillary refill less than 2 seconds. Lymphatic, no lymphadenopathy. *Problems/Diagnosis: (1) Cerebrovascular accident Status: Acute Total Time Spent on D/C: > 30 Minutes Date of Service: January 25, 2025 Billing Provider: BRUNO COLON MD Common Visit Codes: 00349-REA/OBS DISCH DAY >30min BRUNO COLON MD January 25, 2025 18:48
== END 2025-01-25 10:30 | disposition home or self-care (01) | DRG 199 ==
LOC: ER 10:54 → ED HOLD 16:55 → EDBEDREQ 19:32 → ORTHO 4S 20:16
PROVIDERS: ADMIT Family Medicine; ATTEND Family Medicine
PROC: B3251ZZ Computerized Tomography (CT Scan) of Bilateral Common Carotid Arteries using Low Osmolar Contrast (ICD-10-PCS; principal; 2025-01-22)
PROC: B32G1ZZ Computerized Tomography (CT Scan) of Bilateral Vertebral Arteries using Low Osmolar Contrast (ICD-10-PCS; 2025-01-22)
PROC: B32R1ZZ Computerized Tomography (CT Scan) of Intracranial Arteries using Low Osmolar Contrast (ICD-10-PCS; 2025-01-22)
PROC: B3281ZZ Computerized Tomography (CT Scan) of Bilateral Internal Carotid Arteries using Low Osmolar Contrast (ICD-10-PCS; 2025-01-22)
DX: I16.1 Hypertensive emergency (principal); E11.22 Type 2 diabetes mellitus with diabetic chronic kidney disease; E11.51 Type 2 diabetes mellitus with diabetic peripheral angiopathy without gangrene; F41.9 Anxiety disorder, unspecified; G89.4 Chronic pain syndrome; I12.9 Hypertensive chronic kidney disease with stage 1 through stage 4 chronic kidney disease, or unspecified chronic kidney disease; E66.01 Morbid (severe) obesity due to excess calories; I48.91 Unspecified atrial fibrillation; N18.9 Chronic kidney disease, unspecified; I25.10 Atherosclerotic heart disease of native coronary artery without angina pectoris; E11.65 Type 2 diabetes mellitus with hyperglycemia; Z79.01 Long term (current) use of anticoagulants; Z79.4 Long term (current) use of insulin; Z79.82 Long term (current) use of aspirin; Z88.0 Allergy status to penicillin; Z88.8 Allergy status to other drugs, medicaments and biological substances; Z79.899 Other long term (current) drug therapy; Z85.038 Personal history of other malignant neoplasm of large intestine; Z90.49 Acquired absence of other specified parts of digestive tract; Z86.73 Personal history of transient ischemic attack (TIA), and cerebral infarction without residual deficits; Z68.37 Body mass index [BMI] 37.0-37.9, adult; Z72.0 Tobacco use; Z83.3 Family history of diabetes mellitus
CPT/HCPCS: 36415; 70450; 70496; 70498; 70551; 71045; 80053; 80061; 80305; 81001; 82948; 83036; 83735; 83880; 84100; 84443; 84484; 85025; 85379; 85610; 85730; 86885; 86900; 86901; 87081; 93005; 93306; 97161; 97530; 99291; G0378; J0131; J1815; J2270; J3490; J7030; Q9967

== ENCOUNTER 2025-01-31 13:42 | Emergency (ER) | payer MEDICAID ==
[~2025-01-31] VITALS: Ht 185.4 cm; Wt 131.8 kg
[~2025-01-31 13:42] MED LIST changes: +BUME1TAB8 PO; +LIDO700A47 TOP; -MECL-226 PO; +SITA100T15 PO
[2025-01-31 15:04] LABS: BASOPHILS # (AUTO) 0.1 X10'3 (0-0.2); BASOPHILS % (AUTO) 0.8 % (0-1); EOSINOPHILS # (AUTO) 0.1 X10'3 (0-0.9); EOSINOPHILS % (AUTO) 1.3 % (0-6); HEMATOCRIT 40.3 % (42.0-52.0); HEMOGLOBIN 13.7 g/dl (14.0-17.9); LYMPHOCYTES # (AUTO) 1.8 X10'3 (1.1-4.8); LYMPHOCYTES % (AUTO) 16.9 % (21-51); MEAN CORPUSCULAR HEMOGLOBIN 27.6 PG (27.0-31.0); MEAN CORPUSCULAR HGB CONC 34.1 g/dL (33.0-36.5); MEAN CORPUSCULAR VOLUME 80.8 FL (78-98); MEAN PLATELET VOLUME 7.8 FL (7.4-10.4); MONOCYTES # (AUTO) 0.6 X10'3 (0-0.9); MONOCYTES % (AUTO) 5.3 % (2-12); NEUTROPHILS # (AUTO) 8.2 X10'3 (1.8-7.7); NEUTROPHILS % (AUTO) 75.7 % (42-75); PLATELET COUNT 302 X10'3 (140-440); RED BLOOD COUNT 4.98 X10'6 (4.70-6.10); RED CELL DISTRIBUTION WIDTH 14.6 % (11.5-14.5); WHITE BLOOD COUNT 10.8 X10'3 (4.5-11.0)
[2025-01-31 15:15] LABS: ALANINE AMINOTRANSFERASE 31 U/L (12-78); ALBUMIN 3.2 G/DL (3.4-5.0); ALBUMIN/GLOBULIN RATIO 0.8 (1.1-1.5); ALKALINE PHOSPHATASE 99 IU/L (46-116); ANION GAP 6 (8-16); ASPARTATE AMINO TRANSFERASE 14 U/L (10-37); BLOOD UREA NITROGEN 12 MG/DL (7-18); BUN/CREATININE RATIO 11.2 (10.0-20.0); CALCIUM 8.6 MG/DL (8.5-10.1); CHLORIDE 101 MMOL/L (99-107); CREATININE 1.07 MG/DL (0.60-1.10); GLUCOSE 232 MG/DL (70-104); POTASSIUM 3.6 MMOL/L (3.5-5.1); SODIUM 139 MMOL/L (135-145); TOTAL CARBON DIOXIDE 31.7 MMOL/L (24-32); TOTAL PROTEIN 7.3 G/DL (6.4-8.2); eCRCL 82 ML/MIN; eGFR 70 ML/MIN
--- NOTE | 2025-01-31 15:15 | RADIOLOGY REPORT ---
CHEST RADIOGRAPH Indication: CP Technique: Single frontal view of the chest was obtained COMPARISON: DI CHEST,SINGLE VIEW on DOS: 01/22/25, DI CHEST,SINGLE VIEW on DOS: 12/25/24, DI CHEST,SINGLE VIEW on DOS: 12/05/24, DI CHEST,SINGLE VIEW on DOS: 11/01/24, DI CHEST,SINGLE VIEW on DOS: 10/30/24 FINDINGS: Lines and Tubes: None Lungs: Clear Pleura: No effusion. No pneumothorax. Cardiomediastinal contours: Unremarkable Bones: Unremarkable IMPRESSION: No acute disease.
--- NOTE | 2025-01-31 15:23 | ELECTROCARDIOGRAPH REPORT ---
[facility] Test Date: 2025-01-31 Test Time: 15:21:00 Pat Name: FLYNN MERINO Department: EMERGENCY ROOM Patient ID: [facility]-[id number] Room: Gender: M Reporting Analyst: KALE : 1965 Requested By: HANK LAMAR Order Number: [id number] Reading MD: Dr. New Loyd Measurements Intervals [place] Rate: 80 P: -17 ME: 204 QRS: 78 QRSD: 100 T: 82 QT: 371 QTc: 428 Interpretive Statements Sinus rhythm Borderline low voltage, extremity leads Electronically Signed On 02-06-2025 21:45:[address] New Loyd Please click the below link to view image of tracing.
[2025-01-31 15:24] LABS: PRO BRAIN NATRIURETIC PEPTIDE 117 PG/ML (0-125)
[2025-01-31 15:30] LABS: BILIRUBIN,TOTAL 0.5 MG/DL (0.1-1.0)
--- NOTE | 2025-01-31 18:07 | Physician Documentation ---
History of Present Illness ~ Chief Complaint: Weakness Stated Complaint: L SIDE WEAKNESS Time Seen by MD: 17:59 OK to notify your PCP?: Yes Primary Medical Doctor: Lela Arellano ([facility]) [place] [facility] Mode of Arrival: Ambulatory HPI Patient presents to the emergency room for evaluation of left upper extremity numbness. He has been seen here previously for said complaint in his also been seen by his primary care provider who tells him in his neuropathy. MRIs has been performed twice in the past six months for similar complaints. Patient has also been evaluated previously for syncope with negative workup. He has been followed up by his agriculture laboratory technician add under Holter monitor and has smell to in that has yet to hear back. He states he bent over to move a sprinkler and almost passed out today from dizziness. Although he endorses numbness to his left hand he denies any weakness. He is using a cane and walker at home. No head strike. On Eliquis. He called his primary care today to report he feels his symptoms may be worsening however could not be seen therefore was directed t o the emergency room. Medication Reconciliation Allergies: Coded Allergies: Penicillins (Verified Allergy, Mild, HIVES, 01/22/25) metformin (Verified Allergy, Unknown, 01/22/25) ketorolac (Verified Adverse Reaction, Unknown, n/v, 01/22/25) Scheduled Amlodipine Besylate (Amlodipine Besylate), 1 TABLET PO DAILY Apixaban (Eliquis), 1 TAB PO Q12H, (Reported) Aspirin (Aspirin), 1 TAB PO DAILY, (Reported) Atorvastatin Calcium (Lipitor), 1 TAB PO DAILY, (Reported) Bumetanide (Bumetanide), 1 TAB PO BID, (Reported) Carvedilol (Carvedilol), 1 TAB PO BID, (Reported) Cholecalciferol (Vitamin D3) (Vitamin D3), 1 TAB PO DAILY, (Reported) Cyanocobalamin (Vitamin B-12), 1 TAB PO DAILY, (Reported) Insulin Glargine,Hum.rec.anlog (Basaglar Kwikpen U-100), 50 SQ HS, (Reported) Insulin Lispro (Humalog), 12 UNIT SQ TID, (Reported) Isosorbide Mononitrate (Isosorbide Mononitrate Er), 1 TAB PO DAILY, (Reported) Lidocaine (Lidocaine), 1 PATCH TOP DAILY, (Reported) Lisinopril* (Lisinopril*), 1 TAB PO BID, (Reported) Sitagliptin Phosphate* (Januvia*), 1 TAB PO DAILY, (Reported) Scheduled PRN Hydrocodone Bit/Acetaminophen (Hydrocodone-Apap 10-325 Tablet), 1 TAB PO Q4H PRN for pain, (Reported) Past Medical History Past Medical History: Arrhythmia, Atrial Fibrillation, Hypertension, Chronic Kidney Disease, Diabetes, Colon Cancer Past Surgical History: cancer surgery, colectomy Patient History: FH: diabetes mellitus FATHER FH: lung cancer maternal uncle FH: myocardial infarction maternal grandfather FH: suicide FATHER Alcohol Use: None Drug Use: none Lives with: Mother, Family Lives In: Home Review of Systems ROS All review of systems negative except as per HPI Physical Exam Vital Signs: Temperature: 97.9, Heart Rate: 81, Respiratory Rate: 18, BP: 147/90, Pulse Oximetry: 97, Weight: 131.820 Oxygen Flow Rate: 0 Physical Exam General: Patient is awake, alert, oriented x4 in no acute distress, speaking clearly Head: Normocephalic and atraumatic. Eyes: Conjunctival normal. EOMI. PERRL. ENT: Mucous membranes moist. Neck: Supple, trachea is midline. Chest: Clear to auscultation bilaterally without rales, rhonchi, or wheezes. There is no accessory muscle use or retractions. Cardiac: RRR without murmurs, gallops, or rubs. Extremities: Normal strength. Normal range of motion. No deformities or edema. No weakness. Negative Tinel's Back: No midline spinal or CVA tenderness. Skin: Warm and dry with no significant rash appreciated. Neuro: Cranial nerves II-XII grossly intact. No focal neuro deficits. Progress Results/Orders Results/Orders Orders - MIKAEL HESTER MD Hydrocodone/Apap 10/325 ([place] 10/325mg (01/31/25 18:20) Vital Signs 01/31/25 01/31/25 13:54 17:39 Temp 97.9 Pulse 107 81 Resp 15 18 B/P (MAP) 120/84 147/90 (109) Pulse Ox 98 97 O2 Flow Rate 0 Laboratory Tests Test 01/31/25 13:52 01/31/25 16:41 White Blood Count 10.8 Red Blood Count 4.98 Hemoglobin 13.7 L Hematocrit 40.3 L Mean Corpuscular Volume 80.8 Mean Corpuscular Hemoglobin 27.6 Mean Corpuscular Hemoglobin Concent 34.1 Red Cell Distribution Width 14.6 H Platelet Count 302 Mean Platelet Volume 7.8 Neutrophils (%) (Auto) 75.7 H Lymphocytes (%) (Auto) 16.9 L Monocytes (%) (Auto) 5.3 Eosinophils (%) (Auto) 1.3 Basophils (%) (Auto) 0.8 Neutrophils # (Auto) 8.2 H Lymphocytes # (Auto) 1.8 Monocytes # (Auto) 0.6 Eosinophils # (Auto) 0.1 Basophils # (Auto) 0.1 CBC Comment Sodium Level 139 Potassium Level 3.6 Chloride Level 101 Carbon Dioxide Level 31.7 Anion Gap 6 L Blood Urea Nitrogen 12 Creatinine 1.07 Estimated GFR/1.73 m2 70 BUN/Creatinine Ratio 11.2 Glucose Level 232 H Calcium Level 8.6 Total Bilirubin 0.5 Aspartate Amino Transf (AST/SGOT) 14 Alanine Aminotransferase (ALT/SGPT) 31 Alkaline Phosphatase 99 Troponin I High Sensitivity 9 9 Pro-B-Type Natriuretic Peptide 117 Total Protein 7.3 Albumin 3.2 L Globulin 4.1 Albumin/Globulin Ratio 0.8 L Chemistry Comments Troponin I High Sens Percent Delta 0 Troponin I Hi Sens Absolute Change 0 EKG/XRAY/CT/US/VASC/MRI EKG : Additional Comment EKG interpreted by myself shows time of 1521, rate 80, sinus rhythm, normal axis, no ST changes Chest X-Ray : Additional Comments Exam: CHEST,SINGLE VIEW CHEST RADIOGRAPH Indication: CP Technique: Single frontal view of the chest was obtained COMPARISON: DI CHEST,SINGLE VIEW on DOS: 01/22/25, DI CHEST,SINGLE VIEW on DOS: 12/25/24, DI CHEST,SINGLE VIEW on DOS: 12/05/24, DI CHEST,SINGLE VIEW on DOS: 11/01, DI CHEST,SINGLE VIEW on DOS: 10/30/24 FINDINGS: Lines and Tubes: None Lungs: Clear Pleura: No effusion. No pneumothorax. Cardiomediastinal contours: Unremarkable Bones: Unremarkable IMPRESSION: No acute disease. Medical Decision Making Findings Patient presented to the emergency room with continued paresthesia in the near- syncope symptoms as per HPI. Differentials include but are not limited to stroke, diabetic neuropathy, cardiac arrhythmia, carpal tunnel therefore emergent labs indicated. Labs reassuring for no major pathologic derangements. Noted hyperglycemia but no DKA. Patient's symptoms are chronic in nature with no new symptoms and he had not feel he requires CT scan or admission for stroke workup. Previous MRIs are reassuring for similar symptoms. Working diagnosis by primary care provider is neuropathy. Patient may have autonomic dysregulation secondary to uncontrolled diabetes which could explain his symptoms. He was established with a agriculture laboratory technician. Patient may benefit from neurologic referral and this was discussed with the patient Departure Disposition: HOME / SELF CARE / HOMELESS Impression: Primary Impression: Diabetic neuropathy Condition: Stable Discharge Instructions: Diabetic Neuropathy Additional Instructions: Follow up with your doctor tomorrow. Inquire about possible neurologic referral. Referrals: NO PRIMARY CARE PROVIDER (PCP) Education Educated: Patient Educated regarding: diagnosis, need for follow up Signature Scribe Signature: No scribe Attestation: The note accurately reflects work and decisions made by me.Mikael Hester MD 01/31/25 18:27 MIKAEL HESTER MD January 31, 2025 18:07
[2025-01-31] MEDS: HYDROcodone/acetaminophen 10/325mg tab PO ONE (18:22)
[2025-01-31 18:41] VITALS: BP 155/90; PULSE 82; RESP 16; TEMP 97.9; O2SAT 98
== END 2025-01-31 18:44 | disposition home or self-care (01) ==
LOC: ER 13:43
DX: E11.40 Type 2 diabetes mellitus with diabetic neuropathy, unspecified (principal); I12.9 Hypertensive chronic kidney disease with stage 1 through stage 4 chronic kidney disease, or unspecified chronic kidney disease; E11.22 Type 2 diabetes mellitus with diabetic chronic kidney disease; N18.9 Chronic kidney disease, unspecified; I48.91 Unspecified atrial fibrillation; Z79.01 Long term (current) use of anticoagulants; Z88.0 Allergy status to penicillin; Z88.8 Allergy status to other drugs, medicaments and biological substances; Z90.49 Acquired absence of other specified parts of digestive tract; Z79.82 Long term (current) use of aspirin
CPT/HCPCS: 36415; 71045; 80053; 83880; 84484; 85025; 93005; 99285

== ENCOUNTER 2025-02-24 07:40 | Emergency (ER) | payer MEDICAID ==
[~2025-02-24] VITALS: Ht 185.4 cm; Wt 127.3 kg
--- NOTE | 2025-02-24 08:18 | Physician Documentation ---
History of Present Illness ~ Chief Complaint: Ear Pain Stated Complaint: R EAR INFECTION Time Seen by MD: 07:57 Primary Medical Doctor: [facility] Dr. Stephen CAMPO Pt comes in for evaluation of probable right ear infection. He reports that for the last three weeks or so he has had difficulty hearing out of his right ear, with some ear pain, and was given some antibiotic drops by his primary care doctor. He saw them again yesterday, and he was told that he did not have an infection, but says that they gave him one dose of antibiotics in clinic. A review with his pharmacy record shows that a prescription for clindamycin for 30 days was written yesterday, but the patient reports he did not know anything about it and has not picked it up. He has now had a week or two of pain in the right ear, both without manipulation of the pinna and more significantly when he touches his pinna, which creates quite a lot of pain, this has created headaches, no fever, but he did report that he had some chills at one point. He has had no sore throat but has had a mild cough productive of white phlegm and some rhinorrhea over the last three days or so. He is asking for hydrocodone, which he takes for his chronic back pain and did not take today. When asked about his diabetes he reports it a couple of weeks ago his blood sugar was as high as 490, but over the last few weeks has been fairly consistently in the 200s. Medication Reconciliation Allergies: Coded Allergies: Penicillins (Verified Allergy, Mild, HIVES, 02/24/25) metformin (Verified Allergy, Unknown, 01/22/25) ketorolac (Verified Adverse Reaction, Unknown, n/v, 01/22/25) Scheduled Amlodipine Besylate (Amlodipine Besylate), 1 TABLET PO DAILY Apixaban (Eliquis), 1 TAB PO Q12H, (Reported) Aspirin (Aspirin), 1 TAB PO DAILY, (Reported) Atorvastatin Calcium (Lipitor), 1 TAB PO DAILY, (Reported) Bumetanide (Bumetanide), 1 TAB PO BID, (Reported) Carvedilol (Carvedilol), 1 TAB PO BID, (Reported) Cholecalciferol (Vitamin D3) (Vitamin D3), 1 TAB PO DAILY, (Reported) Cyanocobalamin (Vitamin B-12), 1 TAB PO DAILY, (Reported) Insulin Glargine,Hum.rec.anlog (Basaglar Kwikpen U-100), 50 SQ HS, (Reported) Insulin Lispro (Humalog), 12 UNIT SQ TID, (Reported) Isosorbide Mononitrate (Isosorbide Mononitrate Er), 1 TAB PO DAILY, (Reported) Levofloxacin (Levofloxacin), 1 TAB PO DAILY Lidocaine (Lidocaine), 1 PATCH TOP DAILY, (Reported) Lisinopril* (Lisinopril*), 1 TAB PO BID, (Reported) Sitagliptin Phosphate* (Januvia*), 1 TAB PO DAILY, (Reported) Scheduled PRN Hydrocodone Bit/Acetaminophen (Hydrocodone-Apap 10-325 Tablet), 1 TAB PO Q4H PRN for pain, (Reported) Past Medical History Past Medical History: CVA/TIA/Stroke, Arrhythmia, Atrial Fibrillation, Hypertension, Chronic Kidney Disease, Diabetes, Colon Cancer Other Past Medical History: Obesity Past Surgical History: cancer surgery, colectomy Patient History: FH: diabetes mellitus FATHER FH: lung cancer maternal uncle FH: myocardial infarction maternal grandfather FH: suicide FATHER Smoking Status: Light Tobacco User (Chews tobacco) Alcohol Use: None Drug Use: none Lives with: Mother, Family Lives In: Home Review of Systems Respiratory Occasional trouble catching his breath Physical Exam Vital Signs: Temperature: 98.2, Source: Temporal, Heart Rate: 90, Respiratory Rate: 16, BP: 175/89, Pulse Oximetry: 99, Weight: 127.270 Oxygen Flow Rate: 0 Physical Exam General: Pt is awake, alert, oriented x4 in no acute distress and well appearing. Head: Normocephalic and atraumatic. Eyes: Conjunctiva normal. ENT: Mucous membranes moist. Mild rhinorrhea. L TM clear, R TM completely occluded with very hard, dry, dark wax. Significant pain with manipulation of the pinna, and there is tenderness (although no redness/warmth/swelling) of the right mastoid process Neck: Completely supple. Chest: Clear to auscultation bilaterally, without rales, rhonchi, or wheezes. There is no accessory muscle use or retractions. No active cough, no labored breathing. Cardiac: Regular rate and rhythm without murmurs, gallops or rubs. Palpation of the chest wall is normal. Abd: Soft, nondistended, nontender, with normoactive bowel sounds. No guarding or rebound. Extremities: Within normal limits without cyanosis, clubbing, or edema. Skin: [place], warm and dry with no significant rash appreciated. Neuro: Cranial nerves II-XII grossly intact. The gait is normal. Progress Results/Orders Results/Orders Orders - ERNESTO ROACH MD Culture Blood (02/24/25 08:20) Chest,Single View (02/24/25 08:20) Saline Lock (02/24/25 08:20) Ear Procedure (02/24/25 08:20) Ct Mastoids/Ear (02/24/25 08:20) Page Hospitalist (02/24/25 11:30) Fill Out Med Reconciliation (02/24/25 11:30) Completed Orders - ERNESTO ROACH MD Cbc/Diff (02/24/25 08:20) Electrocardiogram (02/24/25 08:20) Chest,Single View (02/24/25 08:20) BMP (02/24/25 08:20) Acetone, Serum (02/24/25 08:20) Lacticsepsis (02/24/25 08:20) Oxycodone/Acetaminophen Tablet (Percocet (02/24/25 08:20) Ct Mastoids/Ear (02/24/25 08:20) Lactic,2hr (02/24/25 10:15) Ciprofloxacin/D5w 200mg/100ml (Ciproflox (02/24/25 20:00) Ceftazidime 1 Gm/Ns 100ml Ivpb (Fortaz 1 (02/24/25 16:00) Hydromorphone 1 Mg/Ml/Pf (Dilaudid Inj.) (02/24/25 11:25) Oxycodone/Acetaminophen Tablet (Percocet (02/24/25 13:15) Medications Received in ER Medications (Trade) Dose Ordered Sig/Ivonne Route PRN Reason Start Time Stop Time Status Last Admin Dose Admin (Dilaudid inj.) 1 mg ONCE ONCE IV 02/24/25 11:25 02/24/25 11:26 DC 02/24/25 12:01 1 MG (Percocet 10-325 mg tab) 1 tab ONCE ONCE PO 02/24/25 13:15 02/24/25 13:19 DC 02/24/25 13:38 1 TAB Vital Signs 02/24/25 02/24/25 02/24/25 02/24/25 07:45 08:23 08:33 09:07 Temp 98.2 98.2 Pulse 90 89 Resp 16 18 19 14 B/P (MAP) 175/89 140/94 (109) Pulse Ox 99 100 O2 Flow Rate 0 0 02/24/25 02/24/25 02/24/25 12:01 13:38 13:43 Temp 98.2 Pulse 78 Resp 15 15 16 B/P (MAP) 147/84 Pulse Ox 98 Laboratory Tests Test 02/24/25 08:42 02/24/25 10:28 White Blood Count 11.4 H Red Blood Count 5.31 Hemoglobin 14.4 Hematocrit 42.9 Mean Corpuscular Volume 80.8 Mean Corpuscular Hemoglobin 27.1 Mean Corpuscular Hemoglobin Concent 33.6 Red Cell Distribution Width 14.8 H Platelet Count 308 Mean Platelet Volume 7.4 Neutrophils (%) (Auto) 80.5 H Lymphocytes (%) (Auto) 13.5 L Monocytes (%) (Auto) 4.3 Eosinophils (%) (Auto) 0.9 Basophils (%) (Auto) 0.8 Neutrophils # (Auto) 9.1 H Lymphocytes # (Auto) 1.5 Monocytes # (Auto) 0.5 Eosinophils # (Auto) 0.1 Basophils # (Auto) 0.1 CBC Comment Sodium Level 138 Potassium Level 4.8 Chloride Level 101 Carbon Dioxide Level 28.1 Anion Gap 9 Blood Urea Nitrogen 11 Creatinine 1.08 Estimated GFR/1.73 m2 70 BUN/Creatinine Ratio 10.2 Glucose Level 265 H Lactic Acid Level 3.0 H 1.8 Calcium Level 9.0 Albumin 3.5 Chemistry Comments Acetone Level Small Microbiology Date/Time Source Procedure Growth Status 02/24/25 08:47 Blood Arm Left Blood Culture - Preliminary NEGATIVE (LESS THAN 24 HOURS) Resulted Re-Evaluation Re-Evaluation : Progress After irrigation, I was able to visualize TM, which is normal in appearance, and external auditory canal, which is not swollen and has no purulent drainage. EKG/XRAY/CT/US/VASC/MRI EKG : Intepreting Monitor?: No Indication: other EKG Rate: 80 EKG: NSR, ST depression, ST elevation EKG Blocks: none Consults/PCP Consults/PCP #1: Time Call Requested: 11:30 Consult Reason/Comments: Hospitalist Additional Comment 12:14 Case d/w Hospitalist resident. Will consult with Dr Juan 12:44 Hospitalist service would like ID consultation before considering admission Consults/PCP #2: Time Call Requested: 12:45 Consult Reason/Comments: ID Dr. Marmolejo Additional Comment Case d/w Dr. Marmolejo. Given that the patient's lactic acid is improving and now that we are able to visualize his tympanic membrane and external auditory canal, as well as CT scan showing no evidence for mastoiditis, she feels that it is not unreasonable to send him home with Pseudomonas coverage with Levaquin 750 mg q.day for a week. This has been discussed with the patient and he is comfortable with the discharge plan, understands that he will follow up with his PMD/ENT, but will present for follow up in the next 48 hours, ED if unable to follow up with PMD/ENT Medical Decision Making Additional Comment Pt presented with several weeks cerumen impaction and pain to pinna. No improvement despite the use of appropriate topical antibiotics, although it is possible that they did not reach the target secondary to the cerumen impaction. Patient does have elevated blood sugar and initial elevated lactic acid, but the lactic acid has normalized, and CT is reassuring with no evidence for mastoiditis or any deep space infection in the angle of the jaw. Patient likely to have persistent otitis externa, and as Pseudomonas the most likely organism, he will be sent home with Levaquin, for a week, per ID recommendations. Patient should be rechecked within 48 hours, and understands he should return at any time if he develops fever, increasing pain, or any other concerns or signs of worsening. Otherwise he will follow up with his PMD, who may want to refer him to ENT. Departure Time of Disposition: 11:31 Disposition: HOME / SELF CARE / HOMELESS Impression: Primary Impression: Otitis externa Qualified Codes: H60.91 - Unspecified otitis externa, right ear Additional Impressions: Diabetes mellitus out of control Qualified Codes: E11.65 - Type 2 diabetes mellitus with hyperglycemia Ketonemia Cerumen impaction Condition: Stable Discharge Instructions: Otitis Externa Additional Instructions: It is imperative that you shredder picker the antibiotic called in for you to your pharmacy, and take it until it is finished. Follow up in 48 hours unless your symptoms have completely resolved, with your primary care doctor, or ENT. Follow up at emergency department if you still have symptoms or are worsening, after 48 hours and are unable to get into your doctor or ENT. Emergency department at [facility] has ear nose and throat coverage. New line return immediately if you have fever, swelling, or any other concerns. Referrals: NO PRIMARY CARE PROVIDER (PCP) Prescriptions Levofloxacin (Levofloxacin) 750 Mg Tablet 1 TAB PO DAILY for 7 Days, #7 TAB Prov: ERNESTO ROACH MD 02/24/25 Education Educated: Patient Educated regarding: diagnosis, treatment Signature Scribe Signature: Attestation: ERNESTO ROACH MD Feb 24, 2025 08:18
--- NOTE | 2025-02-24 08:31 | ELECTROCARDIOGRAPH REPORT ---
[facility] Test Date: 2025-02-24 Test Time: 08:30:21 Pat Name: FLYNN MERINO Department: [facility]- Patient ID: [id number] Room: Gender: M Manager Drug Safety: : 1965 Requested By: ERNESTO ROACH Order Number: [id number] Reading MD: Dr. New Loyd Measurements Intervals [place] Rate: 80 P: 45 FL: 180 QRS: 84 QRSD: 103 T: 5 QT: 370 QTc: 427 Interpretive Statements Sinus rhythm Borderline right axis deviation Baseline wander in lead(s) V3 Electronically Signed On 03-11-2025 17:42:[address] New Loyd Please click the below link to view image of tracing.
[2025-02-24] MEDS: oxyCODONE/APAP 10/325mg tablet PO ONE ×2 (08:33→13:38)
[2025-02-24 08:58] LABS: BASOPHILS # (AUTO) 0.1 X10'3 (0-0.2); BASOPHILS % (AUTO) 0.8 % (0-1); EOSINOPHILS # (AUTO) 0.1 X10'3 (0-0.9); EOSINOPHILS % (AUTO) 0.9 % (0-6); HEMATOCRIT 42.9 % (42.0-52.0); HEMOGLOBIN 14.4 g/dl (14.0-17.9); LYMPHOCYTES # (AUTO) 1.5 X10'3 (1.1-4.8); LYMPHOCYTES % (AUTO) 13.5 % (21-51); MEAN CORPUSCULAR HEMOGLOBIN 27.1 PG (27.0-31.0); MEAN CORPUSCULAR HGB CONC 33.6 g/dL (33.0-36.5); MEAN CORPUSCULAR VOLUME 80.8 FL (78-98); MEAN PLATELET VOLUME 7.4 FL (7.4-10.4); MONOCYTES # (AUTO) 0.5 X10'3 (0-0.9); MONOCYTES % (AUTO) 4.3 % (2-12); NEUTROPHILS # (AUTO) 9.1 X10'3 (1.8-7.7); NEUTROPHILS % (AUTO) 80.5 % (42-75); PLATELET COUNT 308 X10'3 (140-440); RED BLOOD COUNT 5.31 X10'6 (4.70-6.10); RED CELL DISTRIBUTION WIDTH 14.8 % (11.5-14.5); WHITE BLOOD COUNT 11.4 X10'3 (4.5-11.0)
[2025-02-24 09:07] LABS: ALBUMIN 3.5 G/DL (3.4-5.0); ANION GAP 9 (8-16); BLOOD UREA NITROGEN 11 MG/DL (7-18); BUN/CREATININE RATIO 10.2 (10.0-20.0); CHLORIDE 101 MMOL/L (99-107); CREATININE 1.08 MG/DL (0.60-1.10); GLUCOSE 265 MG/DL (70-104); POTASSIUM 4.8 MMOL/L (3.5-5.1); SODIUM 138 MMOL/L (135-145); TOTAL CARBON DIOXIDE 28.1 MMOL/L (24-32); eCRCL 81 ML/MIN; eGFR 70 ML/MIN
[2025-02-24 09:20] LABS: ACETONE SMALL (NEGATIVE)
--- NOTE | 2025-02-24 10:06 | RADIOLOGY REPORT ---
CLINICAL INFORMATION: 59 years old, Male; cough. TECHNIQUE: AP portable chest radiographs were obtained. COMPARISON: DI CHEST,SINGLE VIEW on DOS: 01/31/25, DI CHEST,SINGLE VIEW on DOS: 01/22/25, DI CHEST,SINGL E VIEW on DOS: 12/25/24 FINDINGS: Lungs: Atelectasis in the lung bases, left greater than right. No focal consolidation visualized. No pneumothorax or pleural effusion. There is artifact partially obscuring visualization of the lung bas es. Cardiac: Heart size is within normal limits. Pulmonary vasculature: Unremarkable. Mediastinum/surinder: Unremarkable. Bones: No acute osseous abnormality identified. Other: No other significant findings. IMPRESSION: Bibasilar atelectasis, left greater than right. No focal consolidation or other acute radiographic ab normality identified in the chest.
--- NOTE | 2025-02-24 10:52 | RADIOLOGY REPORT ---
CLINICAL INFORMATION: Mastoid tenderness. Diabetic. TECHNIQUE: Axial CT images were obtained without contrast through the temporal bones and displayed a t 0.63 mm slice thickness. Coronal and sagittal reformatted images were made, stored and reviewed. All CT scans at this medical facility are performed using dose modulation techniques as appropriate to a performed exam including the following: Automated exposure control was utilized; adjustment of t he MA and/or KV according to patient size; and use of iterative reconstruction technique. CTDIvol = 62.95 mGy DLP = 547.75 mGy-cm COMPARISON: CT CT MASTOIDS/EAR on DOS: 05/07/24 FINDINGS: Right temporal bone: External auditory canal: Probable cerumen in the right external auditory canal. Tympanic membrane: Unremarkable. Tympanic cavity: Unremarkable. [place] are intact and otherwise unremarkable. No soft tissue density within the epitympanum. No erosive change at the scutum. Cochlea: Unremarkable. Semicircular canals: Unremarkable. Internal auditory canal: Unremarkable. Vestibular aqueduct: Unremarkable. Carotid canal: Unremarkable. Jugular bulb: Within normal limits. No high riding jugular bulb or dehiscence. Facial nerve: Unremarkable appearance of the labyrinthine segment, genu, tympanic segment, and mastoi d segment. Antrum: Normal. Mastoid air cells: Unremarkable. Left temporal bone: External auditory canal: Unremarkable. Tympanic membrane: Unremarkable. Tympanic cavity: Unremarkable. [place] are intact and otherwise unremarkable. No soft tissue density within the epitympanum. No erosive change at the scutum. Cochlea: Unremarkable. Semicircular canals: Unremarkable. Internal auditory canal: Unremarkable. Vestibular aqueduct: Unremarkable. Carotid canal: Unremarkable. Jugular bulb: Within normal limits. No high riding jugular bulb or dehiscence. Facial nerve: Unremarkable appearance of the labyrinthine segment, genu, tympanic segment, and mastoi d segment. Antrum: Normal. Mastoid air cells: Unremarkable. IMPRESSION: No acute or suspicious abnormality identified. No findings to suggest otomastoiditis or cholesteatoma .
[2025-02-24] MEDS: HYDROmorphone 1 mg/ml syringe IV ONE (12:01)
[2025-02-24] MEDS ORDERED: LEVO750T68 PO (13:23)
[2025-02-24 13:43] VITALS: BP 147/84; PULSE 78; RESP 16; TEMP 98.2; O2SAT 98
[2025-02-24] MEDS ORDERED: cefTAZidime 1 GM/NS 100ML IVPB 100 ML IV SCH (16:00)
[2025-02-24] MEDS ORDERED: ciprofloxacin/D5W 200mg/100mL 100 ML IV SCH (20:00)
== END 2025-02-24 13:48 | disposition home or self-care (01) ==
LOC: ER 07:41
DX: H61.21 Impacted cerumen, right ear (principal); H60.91 Unspecified otitis externa, right ear; E11.22 Type 2 diabetes mellitus with diabetic chronic kidney disease; E11.65 Type 2 diabetes mellitus with hyperglycemia; I12.9 Hypertensive chronic kidney disease with stage 1 through stage 4 chronic kidney disease, or unspecified chronic kidney disease; N18.9 Chronic kidney disease, unspecified; I48.91 Unspecified atrial fibrillation; Z85.038 Personal history of other malignant neoplasm of large intestine; Z86.73 Personal history of transient ischemic attack (TIA), and cerebral infarction without residual deficits; Z88.0 Allergy status to penicillin; Z88.8 Allergy status to other drugs, medicaments and biological substances; Z90.49 Acquired absence of other specified parts of digestive tract; Z79.82 Long term (current) use of aspirin
CPT/HCPCS: 36415; 69209; 70480; 71045; 80048; 82009; 83605; 85025; 87040; 87077; 87186; 93005; 96374; 99285; J1171

== ENCOUNTER 2025-04-01 13:42 | Inpatient (IN) | payer MEDICAID ==
[~2025-04-01] VITALS: Ht 182.9 cm; Wt 130.0 kg
[2025-04-01 14:03] LABS: MEAN PLATELET VOLUME 7.5 FL (7.4-10.4); RED CELL DISTRIBUTION WIDTH 14.5 % (11.5-14.5)
--- NOTE | 2025-04-01 14:15 | ELECTROCARDIOGRAPH REPORT ---
[facility] Test Date: 2025-04-01 Test Time: 13:51:07 Pat Name: FLYNN MERINO Department: EMERGENCY ROOM Room: Gender: M Business Associate: : 1965 Requested By: MAURO ALCANTAR Order Number: [id number] Reading MD: Measurements Intervals [place] Rate: 107 P: -21 OR: 141 QRS: 94 QRSD: 99 T: 32 QT: 337 QTc: 450 Interpretive Statements Sinus tachycardia Atrial premature complexes Right axis deviation Minimal ST depression, inferior leads Please click the below link to view image of tracing.
[2025-04-01 14:24] LABS: CREATININE 1.19 MG/DL (0.60-1.10); PRO BRAIN NATRIURETIC PEPTIDE 144 PG/ML (0-125); TOTAL CARBON DIOXIDE 26.9 MMOL/L (24-32); eCRCL 72 ML/MIN; eGFR 62 ML/MIN
--- NOTE | 2025-04-01 14:43 | RADIOLOGY REPORT ---
EXAM: DI CHEST,SINGLE VIEW Indication: CP Technique: Single frontal view of the chest was obtained Comparison: DI CHEST,SINGLE VIEW on DOS: 02/24/25, DI CHEST,SINGLE VIEW on DOS: 01/31/25, DI CHEST,SINGL E VIEW on DOS: 01/22/25, DI CHEST,SINGLE VIEW on DOS: 12/25/24, DI CHEST,SINGLE VIEW on DOS: 12/05/24 FINDINGS: Lines and Tubes: None Lungs: No focal consolidation. Pleura: No effusion. No pneumothorax. Cardiomediastinal contours: Cardiomegaly. Bones: No acute osseous abnormality. IMPRESSION: Cardiomegaly. No acute cardiopulmonary disease.
--- NOTE | 2025-04-01 14:48 | Physician Documentation ---
History of Present Illness ~ Chief Complaint: Chest Pain Stated Complaint: CP Time Seen by MD: 14:00 Primary Medical Doctor: [facility] Dr. Mitchell HPI 59-year-old male presenting with acute onset chest pain that started about 2 hours ago. Patient was sitting on his couch watching television when the pain suddenly occurred. It is over the left side of his chest and radiates to his shoulder and his neck. He describes it as a sharp poking type of sensation and rates it as about 8/10 on intensity. He has also diaphoretic and states that he is slightly short of breath as well. The patient reports that he has a history of atrial fibrillation as well as diabetes. He denies any nausea, vomiting or any other associated symptoms. Medication Reconciliation Allergies: Coded Allergies: Penicillins (Verified Allergy, Mild, HIVES, 04/01/25) metformin (Verified Allergy, Unknown, 04/01/25) ketorolac (Verified Adverse Reaction, Unknown, n/v, 04/01/25) Scheduled Amlodipine Besylate (Amlodipine Besylate), 1 TABLET PO DAILY Apixaban (Eliquis), 1 TAB PO Q12H, (Reported) Aspirin (Aspirin), 1 TAB PO DAILY, (Reported) Atorvastatin Calcium (Lipitor), 1 TAB PO DAILY, (Reported) Bumetanide (Bumetanide), 1 TAB PO BID, (Reported) Carvedilol (Carvedilol), 1 TAB PO BID, (Reported) Cholecalciferol (Vitamin D3) (Vitamin D3), 1 TAB PO DAILY, (Reported) Cyanocobalamin (Vitamin B-12), 1 TAB PO DAILY, (Reported) Insulin Glargine,Hum.rec.anlog (Basaglar Kwikpen U-100), 50 SQ HS, (Reported) Insulin Lispro (Humalog), 14 UNIT SQ TID, (Reported) Isosorbide Mononitrate (Isosorbide Mononitrate Er), 1 TAB PO DAILY, (Reported) Lidocaine (Lidocaine), 1 PATCH TOP DAILY, (Reported) Lisinopril* (Lisinopril*), 1 TAB PO BID, (Reported) Sitagliptin Phosphate* (Januvia*), 1 TAB PO DAILY, (Reported) Scheduled PRN Hydrocodone Bit/Acetaminophen (Hydrocodone-Apap 10-325 Tablet), 1 TAB PO Q4H PRN for pain, (Reported) Past Medical History Past Medical History: CVA/TIA/Stroke, Arrhythmia, Atrial Fibrillation, Hypertension, Chronic Kidney Disease, Diabetes, Colon Cancer Past Surgical History: cancer surgery, colectomy Patient History: FH: diabetes mellitus FATHER FH: lung cancer maternal uncle FH: myocardial infarction maternal grandfather FH: suicide FATHER Alcohol Use: None Drug Use: none Lives with: Mother, Family Lives In: Home Review of Systems All Other Systems at this time: Reviewed and Negative Physical Exam Vital Signs: Temperature: 98.6, Source: Oral, Heart Rate: 109, Respiratory Rate: 16, BP: 136/87, Pulse Oximetry: 99, Weight: 130.050 Oxygen Flow Rate: 0 Physical Exam I have reviewed the triage vitals. CONST: Well developed and well nourished. In mild distress HENT: Head Atraumatic EYES: Pupils are equal, round and reactive to light. Normal conjunctiva NECK: Normal range of motion. Supple. CARDIO: Tachycardic. Regular rhythm. No murmurs, rubs, or gallops. S1, S2. PULM/CHEST: No respiratory distress. Lungs clear to auscultation. No wheeze. Breath sounds slightly diminished bilateral ABD: Soft and nontender. Nondistended. Bowel sounds normal. No guarding. : Exam deferred MSK: No edema. No deformity. NEURO: Alert and oriented to person, place and time. Moving all extremities SKIN: Warm and diaphoretic PSYCH: Normal mood and affect. Good eye contact. Progress Results/Orders Results/Orders Orders - MAURO ALCANTAR MD Chest,Single View (04/01/25 13:49) Monitor (04/01/25 13:49) Saline Lock (04/01/25 13:49) Oxygen (04/01/25 13:49) Culture Blood (04/01/25 14:35) * Oxygen Route-Nasal Cannula * (04/01/25 14:39) Ct Chest (04/01/25 16:29) Normal Saline 1000ml (0.9% Sodium Chlori (04/01/25 16:30) Page Hospitalist (04/01/25 17:14) Fill Out Med Reconciliation (04/01/25 17:14) Ua W/Microscopic, Cult If Ind (04/01/25 17:02) Completed Orders - MAURO ALCANTAR MD Chest,Single View (04/01/25 13:49) Cbc/Diff (04/01/25 13:49) BMP (04/01/25 13:49) PBNP (04/01/25 13:49) Electrocardiogram (04/01/25 13:49) Hs Troponin I W Calculations (04/01/25 13:49) Hs Troponin I W Calculations (04/01/25 15:49) Hs Troponin I W Calculations (04/01/25 16:49) Morphine 10mg/Ml Inj. (Morphine Inj.) (04/01/25 14:35) Ondansetron Inj. (Zofran 4mg/2ml Vial) (04/01/25 14:35) CK (04/01/25 14:35) CKMB (04/01/25 14:35) D-Dimer (04/01/25 14:35) Pt Inr (04/01/25 14:35) PTT (04/01/25 14:35) MG (04/01/25 14:35) Lacticsepsis (04/01/25 14:35) Ct Chest (04/01/25 16:29) Normal Saline 1000ml (0.9% Sodium Chlori (04/01/25 15:45) Azithromycin/Ns 500mg/250ml (Zithromax/N (04/01/25 15:45) Ceftriaxone/O6i-Koiqgfqx 1gm (Rocephin 1 (04/01/25 15:50) Lactic,2hr (04/01/25 16:37) Hydrocodone/Apap 10/325 ([place] 10/325mg (04/01/25 16:50) Medications Received in ER Medications (Trade) Dose Ordered Sig/Ivonne Route PRN Reason Start Time Stop Time Status Last Admin Dose Admin (morphine inj.) 10 mg ONCE ONCE IV 04/01/25 14:35 04/01/25 14:37 DC 04/01/25 15:00 10 MG (Zofran 4mg/2ml vial) 4 mg ONCE ONCE IV 04/01/25 14:35 04/01/25 14:37 DC 04/01/25 15:00 4 MG Sodium Chloride 1,000 ml @ 1,000 mls/hr ONCE ONCE IV 04/01/25 15:45 04/01/25 16:44 DC 04/01/25 16:00 1,000 MLS/HR Azithromycin 250 ml @ 250 mls/hr ONCE ONCE IV 04/01/25 15:45 04/01/25 16:44 DC 04/01/25 16:00 250 MLS/HR Ceftriaxone Sodium 50 ml @ 100 mls/hr ONCE ONCE IV 04/01/25 15:50 04/01/25 16:19 DC 04/01/25 16:00 100 MLS/HR Sodium Chloride 1,000 ml @ 1,000 mls/hr ONCE ONCE IV 04/01/25 16:30 04/01/25 17:29 04/01/25 17:19 1,000 MLS/HR ([place] 10/325mg tab) 1 tab ONCE ONCE PO 04/01/25 16:50 04/01/25 16:55 DC 04/01/25 17:20 1 TAB Vital Signs 04/01/25 04/01/25 04/01/25 04/01/25 13:43 13:50 13:52 15:00 Temp 98.6 Pulse 114 109 Resp 16 16 16 B/P (MAP) 136/87 136/87 (103) Pulse Ox 99 99 O2 Flow Rate 0 0 Laboratory Tests Test 04/01/25 13:57 04/01/25 14:51 04/01/25 15:36 04/01/25 16:47 White Blood Count 12.8 H Red Blood Count 5.14 Hemoglobin 13.7 L Hematocrit 41.3 L Mean Corpuscular Volume 80.4 Mean Corpuscular Hemoglobin 26.7 L Mean Corpuscular Hemoglobin Concent 33.3 Red Cell Distribution Width 14.5 Platelet Count 308 Mean Platelet Volume 7.5 Neutrophils (%) (Auto) 75.0 Lymphocytes (%) (Auto) 17.3 L Monocytes (%) (Auto) 6.1 Eosinophils (%) (Auto) 0.7 Basophils (%) (Auto) 0.9 Neutrophils # (Auto) 9.6 H Lymphocytes # (Auto) 2.2 Monocytes # (Auto) 0.8 Eosinophils # (Auto) 0.1 Basophils # (Auto) 0.1 CBC Comment Sodium Level 135 Potassium Level 3.7 Chloride Level 98 L Carbon Dioxide Level 26.9 Anion Gap 10 Blood Urea Nitrogen 12 Creatinine 1.19 H Estimated GFR/1.73 m2 62 BUN/Creatinine Ratio 10.1 Glucose Level 304 H Calcium Level 8.7 Troponin I High Sensitivity 9 10 11 Pro-B-Type Natriuretic Peptide 144 H Albumin 3.1 L Chemistry Comments Prothrombin Time 10.6 INR International Normalized Ratio 1.0 Activated Partial Thromboplast Time 25 D-Dimer < 0.19 D-Dimer Comment Coagulation Comments Lactic Acid Level 2.7 H 2.4 H Magnesium Level 2.2 Total Creatine Kinase 84 Creatine Kinase MB 1.5 Creatine Kinase MB Relative Index Troponin I High Sens Percent Delta 11 10 Troponin I Hi Sens Absolute Change 1 1 Test 04/01/25 17:02 Urine Specimen Description Voided Urine Color Yellow Urine Clarity Clear Urine pH 6.0 Urine Specific [place] 1.010 Urine Protein Trace Urine Glucose (UA) >=1000 H Urine Ketones Negative Urine Occult Blood Negative Urine Nitrite Negative Urine Bilirubin Negative Urine Urobilinogen 0.2 Urine Leukocyte Esterase Negative Volume Urine Centrifuged 10 ml Urine Comment Microbiology Date/Time Source Procedure Growth Status 04/01/25 14:51 Blood Arm Right Blood Culture - Preliminary NEGATIVE (LESS THAN 24 HOURS) Resulted EKG/XRAY/CT/US/VASC/MRI EKG : Additional Comment EKG as interpreted by ED MD indicating sinus tachycardia with a rate of 107 beats per minute, normal axis, no ischemia Chest X-Ray : Additional Comments EXAM: DI CHEST,SINGLE VIEW Indication: CP Technique: Single frontal view of the chest was obtained Comparison: DI CHEST,SINGLE VIEW on DOS: 02/24/25, DI CHEST,SINGLE VIEW on DOS: 01/31/25, DI CHEST,SINGLE VIEW on DOS: 01/22/25, DI CHEST,SINGLE VIEW on DOS: 12/25/24, DI CHEST,SINGLE VIEW on DOS: 12/05/24 FINDINGS: Lines and Tubes: None Lungs: No focal consolidation. Pleura: No effusion. No pneumothorax. Cardiomediastinal contours: Cardiomegaly. Bones: No acute osseous abnormality. IMPRESSION: Cardiomegaly. No acute cardiopulmonary disease. CT : Impression Procedure: CT CT CHEST Reason for study/Clinical History: chest pain- assess lungs and cardiac sillhouette Comparison Study: None Exam Date: 04/01/2025 04:21 PM TECHNIQUE: Multidetector CT of the chest was performed from the lung apices to the upper abdomen without the use of intravenous contract. Axial, coronal and sagittal multiplanar reformats were performed. Radiation Dose Information: CT Dose: CTDI volume is 18 mGy. Dose-length product is 732 mGy*cm The dose indicators for CT are the volume Computed Tomography (CT) Dose Index (CTDIvol) and the Dose Length Product (DLP), and are measured in units of mGy and mGy-cm, respectively. These indicators are not patient dose, but values generated from the CT scanner acquisition factors. The report includes radiation exposure data for exposures received during this examination. FINDINGS: Lower neck: Normal thyroid. Lungs: No focal consolidation, pleural effusion or pneumothorax. Heart/Vascular Structures: Normal heart size. No pericardial effusion. There is coronary artery calcification present. Aorta is tortuous. Lymph Nodes: No adenopathy Pleura: No pleural effusion or significant pneumothorax. Musculoskeletal: No acute osseous abnormality. Soft tissues: Normal. Upper abdomen: Limited portions of the upper abdomen are unremarkable. IMPRESSION: 1. No acute intrathoracic abnormality. Signs of chronic hypertensive atherosclerotic cardiovascular disease Medical Decision Making Additional Information 59-year-old male presenting with acute onset chest pain. His EKG was unremarkable. Lab workup shows normal troponins but elevated lactic acid level of 2.7. Additionally his WBC count is slightly elevated to 12.8. His checked it who was unremarkable aside from some cardiomegaly. Patient was initially medicated with 10 mg of eye V morphine for his severe pain. He was also given 2 L of IV normal saline as well as started on IV antibiotics as per sepsis protocol. His chest pain greatly improved. The patient however does appear septic possibly from a pulmonary source. Given the findings patient will need to be admitted for the treatment of his unstable angina which is likely cause of his chest pain as well as potential pneumonia. Departure Disposition: ADMITTED INPATIENT Admitted to Inpatient Unit: to hospitalist Admission Level of Care: Med/Surg with Tele Impression: Primary Impression: Unstable angina Additional Impressions: Sepsis Pneumonia Hyperglycemia Condition: Guarded Referrals: NO PRIMARY CARE PROVIDER (PCP) Signature Scribe Signature: 1 Attestation: 1 MAURO ALCANTAR MD Apr 01, 2025 14:48
[2025-04-01] MEDS: ondansetron/PF 4mg/2ml inj IV ONE (15:00)
[2025-04-01] MEDS: morphine 10mg/ml inj. IV ONE (15:00)
[2025-04-01 15:19] LABS: APTT 25 SECONDS (22-32); INR 1.0 INR
[2025-04-01 15:30] LABS: CREATINE KINASE MB 1.5 ng/ml (0.3-3.6)
[2025-04-01] MEDS: normal saline 1000ml 1,000 ML IV ONE ×2 (16:00→17:19)
[2025-04-01] MEDS: azithromycin/NS 500mg/250ml 250 ML IV ONE (16:00)
[2025-04-01] MEDS: CefTRIAXone/D5W-Rocephin 1gm 50 ML IV ONE (16:00)
[2025-04-01] MEDS ORDERED: INSU100I8 SQ (16:06)
--- NOTE | 2025-04-01 17:13 | RADIOLOGY REPORT ---
Procedure: CT CT CHEST Reason for study/Clinical History: chest pain- assess lungs and cardiac sillhouette Comparison Study: None Exam Date: 04/01/2025 04:21 PM TECHNIQUE: Multidetector CT of the chest was performed from the lung apices to the upper abdomen with out the use of intravenous contract. Axial, coronal and sagittal multiplanar reformats were performed . Radiation Dose Information: CT Dose: CTDI volume is 18 mGy. Dose-length product is 732 mGy*cm The dose indicators for CT are the volume Computed Tomography (CT) Dose Index (CTDIvol) and the Dose Length Product (DLP), and are measured in units of mGy and mGy-cm, respectively. These indicators are not patient dose, but values generated from the CT scanner acquisition factors. The report includes radiation exposure data for exposures received during this examination. FINDINGS: Lower neck: Normal thyroid. Lungs: No focal consolidation, pleural effusion or pneumothorax. Heart/Vascular Structures: Normal heart size. No pericardial effusion. There is coronary artery calci fication present. Aorta is tortuous. Lymph Nodes: No adenopathy Pleura: No pleural effusion or significant pneumothorax. Musculoskeletal: No acute osseous abnormality. Soft tissues: Normal. Upper abdomen: Limited portions of the upper abdomen are unremarkable. IMPRESSION: 1. No acute intrathoracic abnormality. Signs of chronic hypertensive atherosclerotic cardiovascular d isease Radiation optimization: All CT scans at this facility use at least one of these dose optimization stephon hniques: automated exposure control mA and/or kV adjustment per patient size (includes targeted exam s where dose is matched to clinical indication) or iterative reconstruction.
[2025-04-01 17:20] LABS: LEUKOCYTE ESTERASE ,URINE NEGATIVE (Neg); NITRITES, URINE NEGATIVE (Neg); OCCULT BLOOD,URINE NEGATIVE (Neg)
[2025-04-01] MEDS: HYDROcodone/acetaminophen 10/325mg tab PO ONE (17:20)
[2025-04-01 17:22] LABS: UA COLLECTION TYPE VOIDED
[2025-04-01 17:30] LABS: SQUAMOUS EPITHELIAL CELL,UR FEW /LPF (FEW)
[2025-04-01] MEDS ORDERED: potassium Cl 20 mEq SR tablet PO PRN ×2 (17:30)
[2025-04-01] MEDS ORDERED: mag hydrox/Alum hydrox/simeth 30ml oral suspension PO PRN (17:30)
[2025-04-01] MEDS ORDERED: magnesium sulf-water 4G/100mL 100 ML IV PRN (17:30)
[2025-04-01] MEDS ORDERED: ondansetron/PF 4mg/2ml inj IV PRN (17:30)
[2025-04-01] MEDS ORDERED: magnesium sulf-water 2g/50mL 50 ML IV PRN (17:30)
[2025-04-01] MEDS ORDERED: potassium Cl 40MEQ/1/2NS 520ml 520 ML IV PRN (17:30)
[2025-04-01] MEDS ORDERED: magnesium hydroxide 30ml (MOM) UD suspension PO PRN (17:30)
[2025-04-01] MEDS ORDERED: magnesium Cl slow-release 64mg tablet PO PRN (17:30)
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
[2025-04-01] MEDS ORDERED: metoprolol tartrate 1mg/ml inj IV PRN (18:10)
[2025-04-01] MEDS ORDERED: aminophylline 500mg/20ml vial IV PRN (18:10)
[2025-04-01] MEDS ORDERED: DEXTROSE 15 GM of carb/4 tabs (each vial/BOTTLE has 4 tablets) PO PRN ×4 (18:25→20:50)
[2025-04-01] MEDS ORDERED: dextrose 50%-water 50ml dispensing syringe IV PRN ×4 (18:25→20:50)
[2025-04-01] MEDS ORDERED: glucagon, human recombinant 1mg kit SUBCUT PRN ×2 (18:25→20:50)
[2025-04-01] MEDS ORDERED: aminophylline 250mg/10ml inj. IV PRN (18:31)
[2025-04-01 18:52] LABS: OSMOLALITY 297 MOSM/K (280-300)
[2025-04-01] MEDS: normal saline 1000ml 1,000 ML IV SCH (19:43)
[2025-04-01] MEDS ORDERED: heparin, porcine 5000 units/ml vial SQ SCH (20:00)
[2025-04-01] MEDS: K and/or MAG REPLACEMENT MC SCH (20:00)
[2025-04-01] MEDS ORDERED: ASPI-611 PO (20:30)
[2025-04-01] MEDS ORDERED: INSU100I31 (20:30)
[2025-04-01] MEDS ORDERED: INSULIN LISPRO 100 UNIT/ML INSULN.PEN MULTI-DOSE SQ SCH (21:00)
[2025-04-01] MEDS ORDERED: insulin glargine (Lantus) pen - multi-dose SQ SCH (21:00)
[2025-04-01] MEDS: HYDROcodone/acetaminophen 10/325mg tab PO PRN (21:30)
[2025-04-01 21:41] VITALS: RESP 11; O2SAT 91
[2025-04-01 21:52] VITALS: BP 169/77; PULSE 72; RESP 11; TEMP 98.1; O2SAT 91
[2025-04-01 22:00] VITALS: BP 145/74; PULSE 75; RESP 18; TEMP 98.5; O2SAT 98
[2025-04-01] MEDS: INSULIN LISPRO 100 UNIT/ML INSULN.PEN MULTI-DOSE SQ SCH (22:25)
[2025-04-01] MEDS: insulin glargine (Lantus) pen - multi-dose SQ SCH (22:28)
[2025-04-01] MEDS: hydrALAZINE 20mg/ml inj. IV ONE (22:36)
[2025-04-02] VITALS (15 sets, daily range): BP systolic 98–143; BP diastolic 52–83; PULSE 58–82; RESP 10–18; TEMP 97.3–98.3; O2SAT 92–100
--- NOTE | 2025-04-02 05:21 | ELECTROCARDIOGRAPH REPORT ---
[facility] Test Date: 2025-04-01 Test Time: 18:52:20 Pat Name: FLYNN MERINO Department: EMERGENCY ROOM Room: [place] [address] B Gender: M Rhinologist: ISRRA[place] : 1965 Requested By: DEPARTMENT EMERGENCY Order Number: [id number] Reading MD: Measurements Intervals [place] Rate: 79 P: 12 WV: 209 QRS: 82 QRSD: 97 T: 97 QT: 392 QTc: 450 Interpretive Statements Sinus rhythm Borderline right axis deviation Nonspecific T abnormalities, lateral leads Please click the below link to view image of tracing.
[2025-04-02] MEDS: cholecalciferol (vitamin D3) 1,000 unit (25mcg) tablet PO SCH (07:35)
[2025-04-02] MEDS: cyanocobalamin 500mcg tablet PO SCH (07:35)
[2025-04-02] MEDS: isosorbide mononitrate 30mg tab.SR.24H PO SCH (07:36)
[2025-04-02] MEDS ORDERED: glucagon, human recombinant 1mg kit SUBCUT PRN (07:55)
[2025-04-02] MEDS ORDERED: DEXTROSE 15 GM of carb/4 tabs (each vial/BOTTLE has 4 tablets) PO PRN ×2 (07:55)
[2025-04-02] MEDS ORDERED: dextrose 50%-water 50ml dispensing syringe IV PRN ×2 (07:55)
[2025-04-02 08:38] LABS: MEAN PLATELET VOLUME 8.0 FL (7.4-10.4); RED CELL DISTRIBUTION WIDTH 14.4 % (11.5-14.5)
[2025-04-02 08:57] LABS: CHOL/HDL RATIO 2.6 (0.00-4.99); CREATININE 1.05 MG/DL (0.60-1.10); LDL CHOLESTEROL 39 MG/DL (50-100); TOTAL CARBON DIOXIDE 30.1 MMOL/L (24-32); eCRCL 81 ML/MIN; eGFR 72 ML/MIN
[2025-04-02] MEDS: regadenoson 0.4mg/5ml syringe IV PRN (10:56)
[2025-04-02] MEDS: INSULIN LISPRO 100 UNIT/ML INSULN.PEN MULTI-DOSE SQ SCH ×2 (12:23→12:24)
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
--- NOTE | 2025-04-02 18:30 | RADIOLOGY REPORT ---
Procedure: NM NM SVEN SCAN Exam Date: 04/02/2025 09:48 AM Reason for study/Clinical History: Chest pain Comparison Study: NM NM SVEN SCAN on DOS: 09/05/24, NM NM SVEN SCAN on DOS: 06/05/24, NM SVEN SCAN on DOS: 05/19/19 Myocardial Perfusion Study with SPECT Technique: The patient received an intravenous injection of 9.9 mCi of technetium-99m sestamibi whil e at rest. After a short delay, SPECT tomographic images of the heart were obtained. The patient th en went to the stress lab where they received an intravenous infusion of 0.[address] andard protocol. 31. mCi of technetium-99m sestamibi was injected intravenously immediately after t he start of the lexiscan infusion. Gated SPECT tomographic images of the heart were acquired and pro cessed. Findings: No reversible perfusion defect. End diastolic volume: 98 mL End systolic volume: 33 mL The left ventricular ejection fraction is 66 %. (normal greater than 50%) Impression: No reversible defect. The left ventricular ejection fraction is 66 %.
--- NOTE | 2025-04-02 19:17 | CARDIOLOGY REPORT ---
APPROVED REPORT EXAM: Comprehensive 2D, Doppler, and color-flow Echocardiogram. 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 Anderson, [facility] Card[facility]. PRIOR ECHOCARDIOGRAM: 01/23/2025 [facility] LVEF 55-60%; m AV sclerosis; m MAC; tr MR tr TR m Ao Root di litation 2D Dimensions RVDd 3.4 cm IVSd 1.3 (0.7-1.1cm) LVDd 5.7 cm PWd 1.3 (0.7-1.1cm) IVSs 1.4 (0.8-1.2cm) LVDs 4.2 (2.5-4.0cm) PWs 2.1 (0.8-1.2cm) LVOT Diameter 2.15 (1.8-2.4cm) LVEF(%) 55.0 (>50%) FS (%) 26.8 % SV 82.9 ml CO 6.0 L/min M-Mode Dimensions Left Atrium(MM) 4.60 (2.5-4.0cm) Aortic Root 3.52 (2.2-3.7cm) Aortic Cusp Exc 1.78 (1.5-2.0cm) Aortic Valve AoV Peak Jaylen. 169.6 cm/s AoV VTI 36.1 cm AO Peak GR. 11.5 mmHg AO Mean GR. 6 mmHg LVOT VTI 23.17 cm LVOT Peak Jaylen. 99.9 cm/s GINA(VTI)/BSA 2.33 cm2/m2 GINA (VTI) 2.33 cm2 Mitral Valve MV E Velocity 99.3 cm/s MV Peak Gr. 3 mmHg MV DECEL TIME 276 ms MV A Velocity 95.5 cm/s MV PHT 60 ms E/A Ratio 1.0 MVA (PHT) 3.67 cm2 MV VMax85.6 cm/s LEFT VENTRICLE Normal LV size and function. Mild concentric hypertrophy. LVEF is 55-60%. RIGHT VENTRICLE RV is normal size and function. ATRIA Left atrium is mildly dilated. AORTIC VALVE Trileaflet AV appears mildly sclerotic without stenosis. No insufficiency. MITRAL VALVE Mild mitral annular calcification without stenosis. No regurgitation. TRICUSPID VALVE TV appears structurally normal with trace regurgitation. PULMONIC VALVE Pulmonic valve is not well visualized. GREAT VESSELS Aortic root is mildly dilated. PERICARDIUM Normal pericardium. No effusion. Other Information Study Quality: Poor Technically limited study due to Body habitus. Conclusion Normal LV size and function. Mild concentric hypertrophy. LVEF is 55-60%. RV is normal size and function. Left atrium is mildly dilated. Trileaflet AV appears mildly sclerotic without stenosis. No insufficiency. Mild mitral annular calcification without stenosis. No regurgitation. TV appears structurally normal with trace regurgitation. Aortic root is mildly dilated. Normal pericardium. No effusion.
[2025-04-02] MEDS ORDERED: insulin glargine (Lantus) pen - multi-dose SQ SCH (21:00)
[2025-04-02] MEDS: insulin glargine (Lantus) pen - multi-dose SQ SCH (21:59)
[2025-04-03] VITALS (8 sets, daily range): BP systolic 95–135; BP diastolic 57–72; PULSE 57–73; RESP 10–18; TEMP 96.8–97.6; O2SAT 96–97
[2025-04-03 05:32] LABS: MEAN PLATELET VOLUME 7.6 FL (7.4-10.4); RED CELL DISTRIBUTION WIDTH 14.4 % (11.5-14.5)
[2025-04-03 05:55] LABS: CREATININE 0.93 MG/DL (0.60-1.10); TOTAL CARBON DIOXIDE 29.1 MMOL/L (24-32); eCRCL 92 ML/MIN; eGFR 83 ML/MIN
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
== END 2025-04-03 17:25 | disposition home or self-care (01) | DRG 720 ==
LOC: ER 13:43 → ED HOLD 17:30 → PCU 3S 21:37
PROVIDERS: ADMIT Family Medicine; ATTEND Family Medicine
PROC: 4A02XM4 Measurement of Cardiac Total Activity, External Approach (ICD-10-PCS; principal; 2025-04-02)
PROC: 3E033HZ Introduction of Radioactive Substance into Peripheral Vein, Percutaneous Approach (ICD-10-PCS; 2025-04-02)
DX: A41.9 Sepsis, unspecified organism (principal); N17.0 Acute kidney failure with tubular necrosis; E11.22 Type 2 diabetes mellitus with diabetic chronic kidney disease; I48.0 Paroxysmal atrial fibrillation; N18.9 Chronic kidney disease, unspecified; E11.65 Type 2 diabetes mellitus with hyperglycemia; Z20.822 Contact with and (suspected) exposure to COVID-19; I20.0 Unstable angina; E66.9 Obesity, unspecified; Z68.38 Body mass index [BMI] 38.0-38.9, adult; Z79.01 Long term (current) use of anticoagulants; Z88.0 Allergy status to penicillin; Z88.8 Allergy status to other drugs, medicaments and biological substances; Z79.82 Long term (current) use of aspirin; Z79.899 Other long term (current) drug therapy; Z90.49 Acquired absence of other specified parts of digestive tract; Z85.038 Personal history of other malignant neoplasm of large intestine; Z83.3 Family history of diabetes mellitus
CPT/HCPCS: 36415; 71045; 71250; 78452; 80048; 80053; 80061; 81001; 82550; 82553; 82948; 83036; 83605; 83735; 83880; 83930; 84145; 84484; 85025; 85379; 85610; 85651; 85730; 86140; 87040; 87811; 93005; 93017; 93306; 96365; 96368; 96372; 96375; 97116; 97162; 97530; 99285; A9500; G0378; J0360; J0456; J0696; J1815; J2270; J2274; J2405; J2785; J7030

== ENCOUNTER 2025-04-18 08:55 | Emergency (ER) | payer MEDICAID ==
[~2025-04-18] VITALS: Ht 182.9 cm; Wt 121.8 kg
[~2025-04-18 08:55] MED LIST changes: -ASPI-1265 PO; +ASPI-611 PO; -CYAN-104 PO; +INSU100I31; -LIDO700A47 TOP; -LISI40TA13 PO; +LISI40TA20 PO
--- NOTE | 2025-04-18 09:15 | Physician Documentation ---
History of Present Illness ~ Chief Complaint: Chest Pain Stated Complaint: CP Time Seen by MD: 09:03 Primary Medical Doctor: DOG OR ANIMAL SITTER: Alecia Baltazar [facility]. Source: patient Mode of Arrival: POV Exam Limitations: no limitations HPI Patient with a history of AFib, hypertension, diabetes. When asked if he has llamas d a heart attack before he states no but he has had to have CPR before. States that he had a stress test a few weeks ago and was told it was normal. Never been a smoker. Has had a cough for the past 2 days with white sputum production. Pain is central over the top of his chest and has been pretty constant since 730 this morning. Rates it as moderate and sharp. Arrived about 90 minutes into his chest pain. No fever. Asking for a [place] for his chronic back pain. States he normally takes it but did not take 1 this morning. Did take 3 baby aspirin. Normally he takes 1 a day. Medication Reconciliation Allergies: Coded Allergies: Penicillins (Verified Allergy, Mild, HIVES, 04/01/25) metformin (Verified Allergy, Unknown, 04/01/25) ketorolac (Verified Adverse Reaction, Unknown, n/v, 04/01/25) Scheduled Amlodipine Besylate (Amlodipine Besylate), 1 TABLET PO DAILY Apixaban (Eliquis), 1 TAB PO Q12H, (Reported) Aspirin (Aspir 81), 1 TAB PO DAILY, (Reported) Atorvastatin Calcium (Lipitor), 1 TAB PO DAILY, (Reported) Bumetanide (Bumetanide), 1 TAB PO BID, (Reported) Carvedilol (Carvedilol), 1 TAB PO BID, (Reported) Cholecalciferol (Vitamin D3) (Vitamin D3), 1 TAB PO DAILY, (Reported) Insulin Glargine,Hum.rec.anlog (Basaglar Kwikpen U-100), 50 SQ HS, (Reported) Insulin Lispro (Humalog), 14 UNIT SQ TID, (Reported) Isosorbide Mononitrate (Isosorbide Mononitrate Er), 1 TAB PO DAILY, (Reported) Lisinopril* (Lisinopril*), 1 TAB PO BID, (Reported) Sitagliptin Phosphate* (Januvia*), 1 TAB PO DAILY, (Reported) Scheduled PRN Hydrocodone Bit/Acetaminophen (Hydrocodone-Apap 10-325 Tablet), 1 TAB PO Q4H PRN for pain, (Reported) Miscellaneous Medications Insulin Glargine,Hum.rec.anlog (Ronnieaglvicente Quinnpen U-100), (Reported) Past Medical History Past Medical History: CVA/TIA/Stroke, Arrhythmia, Atrial Fibrillation, Hypertension, Chronic Kidney Disease, Diabetes, Colon Cancer Past Surgical History: cancer surgery, colectomy Patient History: FH: diabetes mellitus FATHER, , Onset:50's - 60 FH: lung cancer maternal uncle, Onset:60 years & older FH: myocardial infarction maternal grandfather, Onset:60 years & older FH: suicide FATHER, , Onset:60 years & older Alcohol Use: None Drug Use: none Lives with: Mother Lives In: Home Occupation: disabled Review of Systems All Other Systems at this time: Reviewed and Negative Physical Exam Vital Signs: Temperature: 98.2, Source: Oral, Heart Rate: 107, Respiratory R ate: 19, BP: 198/118, Pulse Oximetry: 98, Weight: 121.820 Oxygen Flow Rate: 0 General Appearance: alert, WD/WN Neck: normal inspection, full range of motion, supple Respiratory: no respiratory distress, other (Mild rhonchi and trace wheezing in the right lower base) Chest: no accessory muscle use Cardiovascular: regular rate, rhythm, no edema, no JVD, no murmur Gastrointestinal: normal palpation, non-tender Extremities: normal inspection, no calf tenderness Neurologic: oriented x4, memory intact Psychiatric: normal mood/affect Skin: normal color, warm/dry Progress Progress Note Patient in with chest pain. He is seen frequently in the ER for this. Recently had a normal echo. Troponins negative x2. Lactate initially for but improved after food bags of fluids. Likely dehydrated. Was tachycardic when he came in and heart rate resolved to normal after the fluids. Counseled on staying hydrated. Discharging in good condition to follow up with PCP in the next 7-10 days. Return here if new or worsening symptoms prior to follow up. Results/Orders Results/Orders Orders - COLTON GRISSOM MD Chest,Single View (04/18/25 09:03) Cardiac Rehab Referral (04/18/25 09:03) Culture Blood (04/18/25 09:11) Completed Orders - COLTON GRISSOM MD Cbc/Diff (04/18/25 09:03) MG (04/18/25 09:03) Lipase (04/18/25 09:03) Pt Inr (04/18/25 09:03) PBNP (04/18/25 09:03) Chest,Single View (04/18/25 09:03) Hs Troponin I W Calculations (04/18/25 09:03) Hs Troponin I W Calculations (04/18/25 11:03) Hydrocodone/Apap 10/325 ([place] 10/325mg (04/18/25 09:10) Lacticsepsis (04/18/25 09:11) Aspirin 81mg Chew Tablet (Aspirin 81mg C (04/18/25 09:20) Normal Saline 1000ml (0.9% Sodium Chlori (04/18/25 09:50) Normal Saline 1000ml (0.9% Sodium Chlori (04/18/25 10:30) Acetaminophen 325mg Tablet (Tylenol Tabl (04/18/25 10:30) Lactic,2hr (04/18/25 10:49) Electrocardiogram (04/18/25 ) Medications Received in ER Medications (Trade) Dose Ordered Sig/Ivonne Route PRN Reason Start Time Stop Time Status Last Admin Dose Admin Sodium Chloride 1,000 ml @ 1,000 mls/hr ONCE ONCE IV 04/18/25 09:50 04/18/25 10:49 DC 04/18/25 10:00 1,000 MLS/HR Sodium Chloride 1,000 ml @ 1,000 mls/hr ONCE ONCE IV 04/18/25 10:30 04/18/25 11:29 DC 04/18/25 10:57 1,000 MLS/HR Vital Signs 04/18/25 04/18/25 04/18/25 04/18/25 08:58 09:25 09:50 10:06 Temp 98.2 Pulse 107 Resp 19 16 16 16 B/P (MAP) 198/118 Pulse Ox 98 O2 Flow Rate 0 04/18/25 04/18/25 10:18 11:56 Temp 97.8 Pulse 85 87 Resp 16 18 B/P (MAP) 145/87 (106) 145/96 Pulse Ox 97 98 O2 Flow Rate 0 Laboratory Tests Test 04/18/25 09:19 04/18/25 10:57 White Blood Count 10.2 Red Blood Count 4.87 Hemoglobin 13.4 L Hematocrit 39.2 L Mean Corpuscular Volume 80.4 Mean Corpuscular Hemoglobin 27.4 Mean Corpuscular Hemoglobin Concent 34.1 Red Cell Distribution Width 14.6 H Platelet Count 230 Mean Platelet Volume 7.5 Neutrophils (%) (Auto) 77.5 H Lymphocytes (%) (Auto) 14.9 L Monocytes (%) (Auto) 5.9 Eosinophils (%) (Auto) 1.0 Basophils (%) (Auto) 0.7 Neutrophils # (Auto) 7.9 H Lymphocytes # (Auto) 1.5 Monocytes # (Auto) 0.6 Eosinophils # (Auto) 0.1 Basophils # (Auto) 0.1 CBC Comment Prothrombin Time 11.0 INR International Normalized Ratio 1.1 Coagulation Comments Lactic Acid Level 4.0 *H 2.7 H Magnesium Level 2.1 Troponin I High Sensitivity 9 10 Pro-B-Type Natriuretic Peptide 198 H Lipase 50 Troponin I High Sens Percent Delta 11 Troponin I Hi Sens Absolute Change 1 Microbiology Date/Time Source Procedure Growth Status 04/18/25 09:42 Blood Iv Start Blood Culture - Preliminary NEGATIVE (LESS THAN 24 HOURS) Resulted EKG/XRAY/CT/US/VASC/MRI EKG : EKG Rate: 107 EKG: sinus tach, no ST T wave changes, GA (163) Medical Decision Making Additional Information Differential includes but isn't limited to: Myocardial infarction, pneumonia, viral URI, dissection, tamponade, pneumothorax Departure Impression: Primary Impression: Chest pain Qualified Codes: R07.9 - Chest pain, unspecified Additional Impression: Dehydration Condition: Improved Discharge Instructions: Dehydration, Adult, Ajao-hu-Demx, Nonspecific Chest Pain, Adult Additional Instructions: Follow up with your doctor in the next 7-10 days. Return if new or worsening symptoms. Referrals: NO PRIMARY CARE PROVIDER (PCP) Education Educated: Patient Educated regarding: diagnosis, treatment, prognosis, need for follow up Signature Scribe Signature: No scribe used Attestation: No scribe used COLTON GRISSOM MD Apr 18, 2025 09:15
[2025-04-18] MEDS: HYDROcodone/acetaminophen 10/325mg tab PO ONE (09:25)
[2025-04-18 09:26] LABS: MEAN PLATELET VOLUME 7.5 FL (7.4-10.4); RED CELL DISTRIBUTION WIDTH 14.6 % (11.5-14.5)
[2025-04-18 09:37] LABS: INR 1.1 INR
[2025-04-18 09:48] LABS: PRO BRAIN NATRIURETIC PEPTIDE 198.0 PG/ML (0-125)
--- NOTE | 2025-04-18 09:52 | RADIOLOGY REPORT ---
CHEST RADIOGRAPH Indication: CHEST PAIN Technique: Single frontal view of the chest was obtained COMPARISON: DI CHEST,SINGLE VIEW on DOS: 04/01/25, DI CHEST,SINGLE VIEW on DOS: 02/24/25, DI CHEST,SINGL E VIEW on DOS: 01/31/25, DI CHEST,SINGLE VIEW on DOS: 01/22/25, DI CHEST,SINGLE VIEW on DOS: 12/25/24 FINDINGS: Lines and Tubes: None Lungs: Clear Pleura: No effusion. No pneumothorax. Cardiomediastinal contours: Unremarkable Bones: Unremarkable IMPRESSION: No acute disease.
[2025-04-18] MEDS: normal saline 1000ml 1,000 ML IV ONE ×2 (10:00→10:57)
[2025-04-18 11:56] VITALS: BP 145/96; PULSE 87; RESP 18; TEMP 97.8; O2SAT 98
--- NOTE | 2025-04-18 13:00 | ELECTROCARDIOGRAPH REPORT ---
[facility] Test Date: 2025-04-18 Test Time: 09:00:15 Pat Name: FLYNN MERINO Department: EMERGENCY ROOM [id number] Room: Gender: M Wash Helper: KALE : 1965 Requested By: COLTON GRISSOM Order Number: [id number] Reading MD: Dr. New Loyd Measurements Intervals [place] Rate: 107 P: -52 [place]: 163 QRS: 76 QRSD: 92 T: 77 QT: 328 QTc: 438 Interpretive Statements Sinus or ectopic atrial tachycardia Borderline low voltage, extremity leads Baseline wander in lead(s) II Electronically Signed On 04-19-2025 19:28:[address] New Loyd Please click the below link to view image of tracing.
== END 2025-04-18 11:58 | disposition home or self-care (01) ==
LOC: ER 08:56
DX: R07.89 Other chest pain (principal); E86.0 Dehydration; I12.9 Hypertensive chronic kidney disease with stage 1 through stage 4 chronic kidney disease, or unspecified chronic kidney disease; E11.22 Type 2 diabetes mellitus with diabetic chronic kidney disease; N18.9 Chronic kidney disease, unspecified; I48.91 Unspecified atrial fibrillation; Z85.038 Personal history of other malignant neoplasm of large intestine; Z86.73 Personal history of transient ischemic attack (TIA), and cerebral infarction without residual deficits; Z88.0 Allergy status to penicillin; Z90.49 Acquired absence of other specified parts of digestive tract; Z88.8 Allergy status to other drugs, medicaments and biological substances; Z79.82 Long term (current) use of aspirin; Z79.899 Other long term (current) drug therapy
CPT/HCPCS: 36415; 71045; 83605; 83690; 83735; 83880; 84484; 85025; 85610; 87040; 93005; 96360; 96361; 99285; A6258; J7030

== ENCOUNTER 2025-04-23 14:33 | Emergency (ER) | payer MEDICAID ==
[~2025-04-23] VITALS: Ht 182.9 cm; Wt 128.4 kg
[2025-04-23 14:41] VITALS: BP 167/82; PULSE 89; TEMP 98.6; O2SAT 97
--- NOTE | 2025-04-23 15:25 | Physician Documentation ---
History of Present Illness Chief Complaint: Abdominal Pain Stated Complaint: ABDOMINAL PAIN Time Seen by MD: 15:15 Primary Medical Doctor: HAZMAT TRUCK DRIVER: Alecia Baltaazr [facility]. HPI 59-year-old male presents to the ED with a complaint of acute onset abdominal pain. He has had previous abdominal surgeries resections and colorectal cancer Symptoms are worsened with lifting, coughing and when having a bowel movement. Day of Onset: Apr 23, 2025 Medication Reconciliation Allergies: Coded Allergies: Penicillins (Verified Allergy, Mild, HIVES, 04/23/25) metformin (Verified Allergy, Unknown, 04/23/25) ketorolac (Verified Adverse Reaction, Unknown, n/v, 04/23/25) Scheduled Amlodipine Besylate (Amlodipine Besylate), 1 TABLET PO DAILY Apixaban (Eliquis), 1 TAB PO Q12H, (Reported) Aspirin (Aspir 81), 1 TAB PO DAILY, (Reported) Atorvastatin Calcium (Lipitor), 1 TAB PO DAILY, (Reported) Bumetanide (Bumetanide), 1 TAB PO BID, (Reported) Carvedilol (Carvedilol), 1 TAB PO BID, (Reported) Cholecalciferol (Vitamin D3) (Vitamin D3), 1 TAB PO DAILY, (Reported) Insulin Glargine,Hum.rec.anlog (Basaglar Kwikpen U-100), 50 SQ HS, (Reported) Insulin Lispro (Humalog), 14 UNIT SQ TID, (Reported) Isosorbide Mononitrate (Isosorbide Mononitrate Er), 1 TAB PO DAILY, (Reported) Lisinopril* (Lisinopril*), 1 TAB PO BID, (Reported) Sitagliptin Phosphate* (Januvia*), 1 TAB PO DAILY, (Reported) Scheduled PRN Hydrocodone Bit/Acetaminophen (Hydrocodone-Apap 10-325 Tablet), 1 TAB PO Q4H PRN for pain, (Reported) Miscellaneous Medications Insulin Glargine,Hum.rec.anlog (Basaglar Kwikpen U-100), (Reported) Past Medical History Past Medical History: CVA/TIA/Stroke, Arrhythmia, Atrial Fibrillation, Hypertension, Chronic Kidney Disease, Diabetes, Colon Cancer Past Surgical History: cancer surgery, colectomy Patient History: FH: diabetes mellitus FATHER, , Onset:50's - 60 FH: lung cancer maternal uncle, Onset:60 years & older FH: myocardial infarction maternal grandfather, Onset:60 years & older FH: suicide FATHER, , Onset:60 years & older Alcohol Use: None Drug Use: none Lives with: Mother Lives In: Home Occupation: disabled Review of Systems All Other Systems at this time: Reviewed and Negative ROS As stated above in the HPI, otherwise all systems are reviewed and negative. Physical Exam Vital Signs: Temperature: 98.6, Source: Oral, Heart Rate: 89, Respiratory Rate: 18, BP: 167/82, Pulse Oximetry: 97, Weight: 128.400 Oxygen Flow Rate: 0 Physical Exam Gastrointestinal: Soft, raised area left lateral of umbilicus Neurologic: Oriented x4. Psychiatric: Normal mood and affect. Skin: Normal color, warm and dry. No edema, no ecchymosis. Progress Results/Orders Results/Orders Orders - KVNG ABDALLA NP Ultrasound Of Abdomen (04/23/25 15:22) Vital Signs 04/23/25 14:41 Temp 98.6 Pulse 89 Resp 18 B/P (MAP) 167/82 Pulse Ox 97 O2 Flow Rate 0 Medical Decision Making Findings Sound indicated the patient has a small non strangulated non incarcerated hernia in left of the umbilicus. This is nonemergent and can be evaluated in the outpatient setting. Does not have any obvious infectious processes based on his laboratory values. going to discharge him for outpatient evaluation Differential Dx:Considerations: Include: AAA, Angina/MO, Aortic dissection, Appendicitis, Bowel obstruction, Cholangitis, Cholelithasis, Constipation, Diverticular disease, Esophageal rupture, Esophagitis, Gastritis/PUD, Gastroenteritis, GI hemorrhage, Hernia, Hepatitis, Inflammatory BD, Ischemic bowel, Pancreatitis, Porphyria, Testicular torsion, Trauma, intraabdominal, Urinary obstruction, Urinary tract infection, Urolithiasis, Other Departure Disposition: 01 HOME / SELF CARE / HOMELESS Impression: Primary Impression: Hernia Condition: Stable Discharge Instructions: Hernia, Adult, [id number] Referrals: NO PRIMARY CARE PROVIDER (PCP) Education Educated: Patient Educated regarding: diagnosis Signature Scribe Signature: y Attestation: Scribed for Kvng Abdalla Singer Back Tender by Kvng Gunn NP . 04/23/25 16:25 KVNG ABDALLA NP Apr 23, 2025 15:25
[2025-04-23 16:07] VITALS: RESP 18
[2025-04-23] MEDS: HYDROcodone/acetaminophen 10/325mg tab PO ONE (16:07)
--- NOTE | 2025-04-23 16:11 | RADIOLOGY REPORT ---
INDICATION: sustpected hernia left lateral/ incisional TECHNIQUE: Multiple real-time sonographic images of the abdomen area of interest were obtained. COMPARISON: CT CT ABDOMEN PELVIS on DOS: 04/03/24, VASC VL ARTERIAL on DOS: 03/06/24, CT CTA ABDOMEN PE LVIS on DOS: 03/06/24 FINDINGS /IMPRESSION: 5.5 x 5.4 x 3.8 cm hernia with heterogeneous content is noted over the left periumbilical region area of interest with the hernia neck measuring up to 0.7 cm. Limited evaluation for bowel loop within t he hernia. CT may be considered for further evaluation.
[2025-04-23 16:12] LABS: MEAN PLATELET VOLUME 7.6 FL (7.4-10.4); RED CELL DISTRIBUTION WIDTH 14.5 % (11.5-14.5)
[2025-04-23 16:30] LABS: CREATININE 1.11 MG/DL (0.60-1.10); TOTAL CARBON DIOXIDE 30.1 MMOL/L (24-32); eCRCL 77 ML/MIN; eGFR 67 ML/MIN
== END 2025-04-23 16:32 | disposition home or self-care (01) ==
LOC: ER 14:33
DX: K46.9 Unspecified abdominal hernia without obstruction or gangrene (principal); I12.9 Hypertensive chronic kidney disease with stage 1 through stage 4 chronic kidney disease, or unspecified chronic kidney disease; E11.22 Type 2 diabetes mellitus with diabetic chronic kidney disease; N18.9 Chronic kidney disease, unspecified; I48.91 Unspecified atrial fibrillation; Z85.048 Personal history of other malignant neoplasm of rectum, rectosigmoid junction, and anus; Z86.73 Personal history of transient ischemic attack (TIA), and cerebral infarction without residual deficits; Z88.0 Allergy status to penicillin; Z90.49 Acquired absence of other specified parts of digestive tract; Z88.8 Allergy status to other drugs, medicaments and biological substances; Z79.82 Long term (current) use of aspirin; Z79.899 Other long term (current) drug therapy; Z79.4 Long term (current) use of insulin
CPT/HCPCS: 36415; 76705; 80053; 83690; 85025; 99284

== ENCOUNTER 2025-04-24 10:58 | Emergency (ER) | payer MEDICAID ==
--- NOTE | 2025-04-24 11:46 | ELECTROCARDIOGRAPH REPORT ---
[facility] Test Date: 2025-04-24 Test Time: 11:07:30 Pat Name: FLYNN MERINO Department: EMERGENCY ROOM Room: Gender: M Flute Teacher: BILLY : 1965 Requested By: DEPARTMENT EMERGENCY Order Number: [id number] Reading MD: Dr. New Loyd Measurements Intervals [place] Rate: 100 P: -23 [place]: 190 QRS: 77 QRSD: 93 T: 106 QT: 354 QTc: 457 Interpretive Statements Sinus tachycardia Borderline low voltage, extremity leads Repol abnrm suggests ischemia, lateral leads Electronically Signed On 04-24-2025 22:10:[address] New Loyd Please click the below link to view image of tracing.
[2025-04-24 16:29] LABS: MEAN PLATELET VOLUME 8.2 FL (7.4-10.4); RED CELL DISTRIBUTION WIDTH 14.8 % (11.5-14.5)
[2025-04-24 16:42] LABS: CREATININE 1.20 MG/DL (0.60-1.10); PRO BRAIN NATRIURETIC PEPTIDE 203 PG/ML (0-125); TOTAL CARBON DIOXIDE 28.3 MMOL/L (24-32); eGFR 62 ML/MIN
--- NOTE | 2025-04-24 16:56 | RADIOLOGY REPORT ---
CHEST RADIOGRAPH Indication: CP Technique: DI CHEST,SINGLE VIEW Comparison: None FINDINGS: 1 The cardiac silhouette is unremarkable. The lungs demonstrate no pulmonary airspace consolidation. Th e pulmonary vasculature is mildly prominent. There is no pleural effusion. There is no pneumothorax. Aortic atherosclerotic disease. IMPRESSION: Mild pulmonary vascular congestion.
[2025-04-24 17:08] VITALS: TEMP 97.6
[2025-04-24] MEDS: HYDROcodone/acetaminophen 10/325mg tab PO ONE ×2 (19:46→22:07)
--- NOTE | 2025-04-24 20:47 | Physician Documentation ---
History of Present Illness ~ Chief Complaint: Chest Pain Stated Complaint: CHEST DISCOMFORT Time Seen by MD: 17:40 Primary Medical Doctor: MINI LAB OPERATOR: Alecia Baltazar [facility]. Mode of Arrival: EMS HPI Patient is a 49-year-old gentleman that presents to the emergency department for evaluation of chest pain that he states he has had on and off for several weeks or months. Reports that he denied taking nitro from the EMS because nitroglycerin does not work for him he would prefer to have [place]. Reports that he has left arm pain that has also been intermittent over the last day or two. Denies any chest pressure palpitations or shortness of breath at this time. She reports a he was seen here in the last couple weeks he received a full cardiac workup including echo and chest CT. Patient reports he has chronic back pain that he takes [place] 10 for. Medication Reconciliation Allergies: Coded Allergies: Penicillins (Verified Allergy, Mild, HIVES, 04/23/25) metformin (Verified Allergy, Unknown, 04/23/25) ketorolac (Verified Adverse Reaction, Unknown, n/v, 04/23/25) Scheduled Amlodipine Besylate (Amlodipine Besylate), 1 TABLET PO DAILY Apixaban (Eliquis), 1 TAB PO Q12H, (Reported) Aspirin (Aspir 81), 1 TAB PO DAILY, (Reported) Atorvastatin Calcium (Lipitor), 1 TAB PO DAILY, (Reported) Bumetanide (Bumetanide), 1 TAB PO BID, (Reported) Carvedilol (Carvedilol), 1 TAB PO BID, (Reported) Cholecalciferol (Vitamin D3) (Vitamin D3), 1 TAB PO DAILY, (Reported) Insulin Glargine,Hum.rec.anlog (Basaglar Kwikpen U-100), 50 SQ HS, (Reported) Insulin Lispro (Humalog), 14 UNIT SQ TID, (Reported) Isosorbide Mononitrate (Isosorbide Mononitrate Er), 1 TAB PO DAILY, (Reported) Lisinopril* (Lisinopril*), 1 TAB PO BID, (Reported) Sitagliptin Phosphate* (Januvia*), 1 TAB PO DAILY, (Reported) Scheduled PRN Hydrocodone Bit/Acetaminophen (Hydrocodone-Apap 10-325 Tablet), 1 TAB PO Q4H PRN for pain, (Reported) Miscellaneous Medications Insulin Glargine,Hum.rec.anlog (Emilee Russell U-100), (Reported) Past Medical History Past Medical History: CVA/TIA/Stroke, Arrhythmia, Atrial Fibrillation, Hypertension, Chronic Kidney Disease, Diabetes, Colon Cancer Past Surgical History: cancer surgery, colectomy Patient History: FH: diabetes mellitus FATHER, , Onset:50's - 60 FH: lung cancer maternal uncle, Onset:60 years & older FH: myocardial infarction maternal grandfather, Onset:60 years & older FH: suicide FATHER, , Onset:60 years & older Alcohol Use: None Drug Use: none Lives with: Mother Lives In: Home Occupation: disabled Review of Systems ROS As stated above in the HPI, otherwise all systems are reviewed and negative. Physical Exam Vital Signs: Temperature: 97.6, Source: Oral, Heart Rate: 101, Respiratory Rate: 17, BP: 174/106, Pulse Oximetry: 97 Oxygen Flow Rate: 0 Physical Exam VITALS: Reviewed and as above. GENERAL: Alert, no apparent distress. HEENT: Normocephalic, atraumatic, PERRL, EOMI, dry mucosa, no erythema RESPIRATORY: Lungs clear, normal breath sounds, no respiratory distress. CHEST: No accessory muscle use, no retractions CV: Regular rate, rhythm, no edema, no murmur, No: JVD GI: Soft, non-tender, bowels sounds present, no rebound, guarding, or rigidity BACK: No CVA tenderness, or swelling MUSCULOSKELETAL No deformities, no edema. pain in left arm/shoulder with movement. SKIN: Warm and dry, no rash NEURO: Oriented x4, No motor or sensory deficit PSYCH: Normal mood and affect, no agitation Progress Results/Orders Results/Orders Orders - LU MOTA NP Hydrocodone/Apap 10/325 ([place] 10/325mg (04/24/25 22:05) Medications Received in ER Medications (Trade) Dose Ordered Sig/Ivonne Route PRN Reason Start Time Stop Time Status Last Admin Dose Admin ([place] 10/325mg tab) 1 tab ONCE ONCE PO 04/24/25 19:35 04/24/25 19:36 DC 04/24/25 19:46 1 TAB (Catapres tablet) 0.1 mg ONCE ONCE PO 04/24/25 19:35 04/24/25 19:36 DC 04/24/25 19:46 0.1 MG Vital Signs 04/24/25 04/24/25 04/24/25 04/24/25 11:07 16:11 17:00 17:08 Temp 97.6 97.6 97.6 Pulse 105 97 103 Resp 18 20 17 13 B/P (MAP) 150/91 188/99 (128) 148/93 (111) Pulse Ox 99 99 98 O2 Flow Rate 0 0 0 04/24/25 04/24/25 04/24/25 04/24/25 18:23 19:30 19:46 20:34 Pulse 90 98 101 Resp 12 14 19 17 B/P (MAP) 208/100 (136) 180/96 (124) 174/106 (128) Pulse Ox 98 96 97 O2 Flow Rate 0 0 0 04/24/25 04/24/25 04/24/25 20:49 21:14 21:50 Pulse 92 90 Resp 17 15 16 B/P (MAP) 172/97 (122) 131/85 (100) Pulse Ox 98 O2 Flow Rate 0 Laboratory Tests Test 04/24/25 11:10 04/24/25 21:06 White Blood Count 11.2 H Red Blood Count 4.97 Hemoglobin 13.4 L Hematocrit 40.1 L Mean Corpuscular Volume 80.7 Mean Corpuscular Hemoglobin 27.0 Mean Corpuscular Hemoglobin Concent 33.5 Red Cell Distribution Width 14.8 H Platelet Count 275 Mean Platelet Volume 8.2 Neutrophils (%) (Auto) 80.3 H Lymphocytes (%) (Auto) 13.1 L Monocytes (%) (Auto) 4.8 Eosinophils (%) (Auto) 0.9 Basophils (%) (Auto) 0.9 Neutrophils # (Auto) 9.0 H Lymphocytes # (Auto) 1.5 Monocytes # (Auto) 0.5 Eosinophils # (Auto) 0.1 Basophils # (Auto) 0.1 CBC Comment Sodium Level 135 Potassium Level 4.3 Chloride Level 98 L Carbon Dioxide Level 28.3 Anion Gap 9 Blood Urea Nitrogen 13 Creatinine 1.20 H Estimated GFR/1.73 m2 62 BUN/Creatinine Ratio 10.8 Glucose Level 325 H Calcium Level 9.0 Troponin I High Sensitivity 11 Pro-B-Type Natriuretic Peptide 203 H Albumin 3.3 L Chemistry Comments Urine Specimen Description Voided Urine Color Yellow Urine Clarity Clear Urine pH 6.5 Urine Specific [place] 1.015 Urine Protein 100 H Urine Glucose (UA) >=1000 H Urine Ketones Trace H Urine Occult Blood Trace-intact Urine Nitrite Negative Urine Bilirubin Negative Urine Urobilinogen 0.2 Urine Leukocyte Esterase Negative Urine RBC 0-2 Urine WBC 0-4 Urine Squamous Epithelial Cells None seen Urine Bacteria Few Urine Culture Indicated Not ind Volume Urine Centrifuged 10 ml Urine Comment Urine Opiates Screen Positive Urine Methadone Screen Negative Urine Fentanyl Screen Negative Urine Barbiturates Screen Negative Urine Phencyclidine Screen Negative Urine Amphetamines Screen Negative Urine Benzodiazepines Screen Negative Urine Cocaine Screen Negative Urine Cannabinoids Screen Negative Drug Screen Comment EKG/XRAY/CT/US/VASC/MRI Chest X-Ray : Additional Comments CHEST RADIOGRAPH Indication: CP Technique: DI CHEST,SINGLE VIEW Comparison: None FINDINGS: 1 The cardiac silhouette is unremarkable. The lungs demonstrate no pulmonary airspace consolidation. The pulmonary vasculature is mildly prominent. There is no pleural effusion. There is no pneumothorax. Aortic atherosclerotic disease. IMPRESSION: Mild pulmonary vascular congestion. Heart Score: Heart Score Response (Comments) Value History Slightly Suspicious 0 EKG Normal 0 Age 45-64 1 Risk Factors 1 or 2 risk factors 1 Troponin Normal limit 0 Total 2 Medical Decision Making Findings Patient had cardiac workup at the end of March as well as labs being reassuring today patient had some hypertension clonidine provided and [place] which he takes routinely at home anyways blood pressure upon re-evaluation in the 130s and 140s systolic. Patient continues to have some intermittent chest pain which he has had that is been chronic. Heart score 2. Mild vascular congestion proBNP slightly elevated in the 200s. Patient's evaluation otherwise unremarkable. Patient states that his flavor maker from [employer] has moved he is waiting to be reassigned. Patient does have primary care follow up. Took over at 8:00 p.m. from MARK Scanlon, discussed with the attending physician agreeable with plan to discharge Heart Score: 2 Differential Dx:Considerations: Include: angina, chest wall pain, CHF, costochondritis, esophageal reflux/spasm, pericarditis, pneumonia, pneumothorax, pulmonary embolus Departure Time of Disposition: 22:02 Disposition: 01 HOME / SELF CARE / HOMELESS Impression: Primary Impression: Chest pain Additional Impression: Back pain, chronic Condition: Stable Discharge Instructions: Nonspecific Chest Pain, Adult Additional Instructions: At this time with the cardiac workup done in the ER shanna I advise you to follow up with primary care for potential referral to new flavor maker or call your flavor maker office to see if you have been reassigned to a new flavor maker. Take medications as previously prescribed Referrals: NO PRIMARY CARE PROVIDER (PCP) Education Educated: Patient Educated regarding: diagnosis, treatment, need for follow up Signature Scribe Signature: No scribe Attestation: The note accurately reflects work and decisions made by me.Lu Mota - LINN 04/24/25 22:05 LIYAH SCANLONP Apr 24, 2025 20:47 LU MOTA NP Apr 24, 2025 22:05
[2025-04-24 21:14] VITALS: O2SAT 98
[2025-04-24 21:17] LABS: LEUKOCYTE ESTERASE ,URINE NEGATIVE (Neg); NITRITES, URINE NEGATIVE (Neg); OCCULT BLOOD,URINE TRACE-INTACT (Neg)
[2025-04-24 21:25] LABS: URINE AMPHETAMINE SCREEN NEGATIVE (Neg); URINE BARBITUATE SCREEN NEGATIVE (Neg); URINE BENZODIAZEPINES SCREEN NEGATIVE (Neg); URINE CANNABINOID SCREEN NEGATIVE (Neg); URINE COCAINE SCREEN NEGATIVE (Neg); URINE METHADONE SCREEN NEGATIVE (Neg); URINE OPIATE SCREEN POSITIVE (Neg); URINE PHENCYCLIDINE SCREEN NEGATIVE (Neg)
[2025-04-24 21:38] LABS: UA COLLECTION TYPE VOIDED
[2025-04-24 21:42] LABS: SQUAMOUS EPITHELIAL CELL,UR NONE SEEN /LPF (FEW)
[2025-04-24 21:50] VITALS: BP 131/85; PULSE 90
[2025-04-24 22:07] VITALS: RESP 19
== END 2025-04-24 22:20 | disposition home or self-care (01) ==
LOC: ER 10:58
DX: R07.9 Chest pain, unspecified (principal); G89.29 Other chronic pain; M54.9 Dorsalgia, unspecified; R06.02 Shortness of breath; M79.602 Pain in left arm; E11.22 Type 2 diabetes mellitus with diabetic chronic kidney disease; I12.9 Hypertensive chronic kidney disease with stage 1 through stage 4 chronic kidney disease, or unspecified chronic kidney disease; N18.9 Chronic kidney disease, unspecified; I48.91 Unspecified atrial fibrillation; Z86.73 Personal history of transient ischemic attack (TIA), and cerebral infarction without residual deficits; Z88.0 Allergy status to penicillin; Z88.8 Allergy status to other drugs, medicaments and biological substances; Z90.49 Acquired absence of other specified parts of digestive tract; Z79.82 Long term (current) use of aspirin
CPT/HCPCS: 36415; 71045; 80048; 80305; 81001; 83880; 84484; 85025; 93005; 99285

== ENCOUNTER 2025-04-28 16:55 | Emergency (ER) | payer MEDICAID ==
[~2025-04-28] VITALS: Ht 177.8 cm; Wt 127.3 kg
[2025-04-28 16:59] VITALS: TEMP 98.5
--- NOTE | 2025-04-28 17:08 | ELECTROCARDIOGRAPH REPORT ---
[facility] Test Date: 2025-04-28 Test Time: 17:01:41 Pat Name: FLYNN MERINO Department: EMERGENCY ROOM Room: Gender: M Genetic Counselor: ABHINAV : 1965 Requested By: JOEY CANDELARIO Order Number: [id number] Reading MD: Measurements Intervals [place] Rate: 96 P: -19 [place]: 200 QRS: 64 QRSD: 98 T: 79 QT: 346 QTc: 438 Interpretive Statements Sinus rhythm Multiple premature complexes, vent & supraven Please click the below link to view image of tracing.
[2025-04-28 18:18] VITALS: BP 142/91; PULSE 76; RESP 17; O2SAT 98
--- NOTE | 2025-04-28 18:25 | RADIOLOGY REPORT ---
EXAMINATION: DI CHEST,SINGLE VIEW CLINICAL HISTORY: chest pain COMPARISON: DI CHEST,SINGLE VIEW on DOS: 04/24/25 FINDINGS: Lead wires overlie the thorax. Pulmonary interstitial prominence again noted. No lobar consolidation identified. Aortic calcifications. Apparent prominence of the cardiomediastinal silhouette may be in part exaggerated by technique. No definite pleural effusion or pneumothorax. IMPRESSION: Pulmonary vascular congestion.
[2025-04-28 19:05] LABS: MEAN PLATELET VOLUME 7.9 FL (7.4-10.4); RED CELL DISTRIBUTION WIDTH 15.0 % (11.5-14.5)
[2025-04-28 19:16] LABS: CREATININE 1.34 MG/DL (0.60-1.10); TOTAL CARBON DIOXIDE 31.0 MMOL/L (24-32); eCRCL 60 ML/MIN; eGFR 54 ML/MIN
[2025-04-28 19:28] LABS: PRO BRAIN NATRIURETIC PEPTIDE 203 PG/ML (0-125)
[2025-04-28] MEDS ORDERED: ketorolac trometh 15mg/ml vial 15 MG/ML ML IM ONE (19:50)
--- NOTE | 2025-04-28 20:56 | Physician Documentation ---
History of Present Illness ~ Chief Complaint: Chest Pain Stated Complaint: CHEST PAIN Time Seen by MD: 18:02 Primary Medical Doctor: HEALTH COORDINATOR: Alecia Baltazar [facility]. HPI 59 year old male reports an acute onset this morning of sharp R sided sternal ch est pain for which he has been seen several times in the past month here at our facility. Denies fevers, shortness of breath, N/V/D. Requesting norco 10's as he uses at home and has not had one for many hours. Medication Reconciliation Allergies: Coded Allergies: Penicillins (Verified Allergy, Mild, HIVES, 04/23/25) metformin (Verified Allergy, Unknown, 04/23/25) ketorolac (Verified Adverse Reaction, Unknown, n/v, 04/23/25) Scheduled Amlodipine Besylate (Amlodipine Besylate), 1 TABLET PO DAILY Apixaban (Eliquis), 1 TAB PO Q12H, (Reported) Aspirin (Aspir 81), 1 TAB PO DAILY, (Reported) Atorvastatin Calcium (Lipitor), 1 TAB PO DAILY, (Reported) Bumetanide (Bumetanide), 1 TAB PO BID, (Reported) Carvedilol (Carvedilol), 1 TAB PO BID, (Reported) Cholecalciferol (Vitamin D3) (Vitamin D3), 1 TAB PO DAILY, (Reported) Insulin Glargine,Hum.rec.anlog (Basaglar Kwikpen U-100), 50 SQ HS, (Reported) Insulin Lispro (Humalog), 14 UNIT SQ TID, (Reported) Isosorbide Mononitrate (Isosorbide Mononitrate Er), 1 TAB PO DAILY, (Reported) Lisinopril* (Lisinopril*), 1 TAB PO BID, (Reported) Sitagliptin Phosphate* (Januvia*), 1 TAB PO DAILY, (Reported) Scheduled PRN Hydrocodone Bit/Acetaminophen (Hydrocodone-Apap 10-325 Tablet), 1 TAB PO Q4H PRN for pain, (Reported) Miscellaneous Medications Insulin Glargine,Hum.rec.anlog (Basaglar Kwikpen U-100), (Reported) Past Medical History Past Medical History: CVA/TIA/Stroke, Arrhythmia, Atrial Fibrillation, Hypertension, Chronic Kidney Disease, Diabetes, Colon Cancer Past Surgical History: cancer surgery, colectomy Patient History: FH: diabetes mellitus FATHER, , Onset:50's - 60 FH: lung cancer maternal uncle, Onset:60 years & older FH: myocardial infarction maternal grandfather, Onset:60 years & older FH: suicide FATHER, , Onset:60 years & older Alcohol Use: None Drug Use: none Lives with: Mother Lives In: Home Occupation: disabled Review of Systems All Other Systems at this time: Reviewed and Negative Physical Exam Vital Signs: RN Vital Signs have been reviewed: Yes, Temperature: 98.5, Source: Temporal, Heart Rate: 76, Respiratory Rate: 17, BP: 142/91, Pulse Oximetry: 98, Weight: 127.270 Oxygen Flow Rate: 0 Physical Exam HEENT: PERRL, moist oral mucosa, EOMI Pulmonary: No respiratory distress Cardiac: RRR, no murmur, rub or gallop GI: nondistended, soft, nontender, no guarding, no rebound MSK: no deformity Skin: w/d/i, no rash Neuro: alert, nonfocal Psych: normal affect Progress Results/Orders Results/Orders Orders - BHAVNA CROWDER MD Chest,Single View (04/28/25 18:12) Completed Orders - BHAVNA CROWDER MD Cbc/Diff (04/28/25 18:06) CMP (04/28/25 18:06) Chest,Single View (04/28/25 18:12) Hs Troponin I W Calculations (04/28/25 18:06) PBNP (04/28/25 18:26) Vital Signs 04/28/25 04/28/25 04/28/25 16:59 18:18 18:18 Temp 98.5 Pulse 105 76 Resp 18 17 B/P (MAP) 166/100 142/91 (108) Pulse Ox 98 98 100 O2 Delivery Room Air* O2 Flow Rate 0 0 0 FiO2 21 Laboratory Tests Test 04/28/25 18:26 White Blood Count 11.0 Red Blood Count 4.98 Hemoglobin 13.4 L Hematocrit 39.9 L Mean Corpuscular Volume 80.3 Mean Corpuscular Hemoglobin 26.8 L Mean Corpuscular Hemoglobin Concent 33.4 Red Cell Distribution Width 15.0 H Platelet Count 272 Mean Platelet Volume 7.9 Neutrophils (%) (Auto) 73.3 Lymphocytes (%) (Auto) 18.4 L Monocytes (%) (Auto) 5.6 Eosinophils (%) (Auto) 1.8 Basophils (%) (Auto) 0.9 Neutrophils # (Auto) 8.0 H Lymphocytes # (Auto) 2.0 Monocytes # (Auto) 0.6 Eosinophils # (Auto) 0.2 Basophils # (Auto) 0.1 CBC Comment Sodium Level 135 Potassium Level 4.2 Chloride Level 99 Carbon Dioxide Level 31.0 Anion Gap 5 L Blood Urea Nitrogen 16 Creatinine 1.34 H Estimated GFR/1.73 m2 54 BUN/Creatinine Ratio 11.9 Glucose Level 288 H Calcium Level 8.7 Total Bilirubin 0.4 Aspartate Amino Transf (AST/SGOT) 18 Alanine Aminotransferase (ALT/SGPT) 30 Alkaline Phosphatase 95 Troponin I High Sensitivity 12 Pro-B-Type Natriuretic Peptide 203 H Total Protein 7.6 Albumin 3.2 L Globulin 4.4 H Albumin/Globulin Ratio 0.7 L Chemistry Comments Medical Decision Making Findings 59 year old male with R sided chest pain as above. Has been worked up here at our facility several times with no specific findings. Exam, and vitals benign here today. Workup today was also negative for acute findings other than some mild pulmonary vascular congestion on CXR interpreted by myself, also demonstrating no evidence of PNA, PTX, normal contours. Counseled, reassured, discharged with return precautions to follow up with PCP. Reports his last stress test was <1 year ago. Differential Dx:Considerations: Include: angina, chest wall pain, costochondritis, esophageal reflux/spasm, myocardial infarction, pericarditis, pancreatitis, pneumonia, pneumothorax, pulmonary embolus Departure Disposition: HOME / SELF CARE / HOMELESS Impression: Primary Impression: Chest pain Condition: Stable Discharge Instructions: Nonspecific Chest Pain, Adult Referrals: NO PRIMARY CARE PROVIDER (PCP) Education Educated: Patient Educated regarding: diagnosis, treatment, prognosis, need for follow up Signature Scribe Signature: . Attestation: . BHAVNA CROWDER MD Apr 28, 2025 20:56
== END 2025-04-28 21:06 | disposition home or self-care (01) ==
LOC: ER 16:56
DX: R07.89 Other chest pain (principal); I12.9 Hypertensive chronic kidney disease with stage 1 through stage 4 chronic kidney disease, or unspecified chronic kidney disease; E11.22 Type 2 diabetes mellitus with diabetic chronic kidney disease; N18.9 Chronic kidney disease, unspecified; I48.91 Unspecified atrial fibrillation; Z85.038 Personal history of other malignant neoplasm of large intestine; Z86.73 Personal history of transient ischemic attack (TIA), and cerebral infarction without residual deficits; Z88.0 Allergy status to penicillin; Z88.8 Allergy status to other drugs, medicaments and biological substances; Z90.49 Acquired absence of other specified parts of digestive tract; Z79.899 Other long term (current) drug therapy; Z79.82 Long term (current) use of aspirin
CPT/HCPCS: 36415; 71045; 80053; 83880; 84484; 85025; 93005; 99285

== ENCOUNTER 2025-06-26 10:37 | Emergency (ER) | payer MEDICAID ==
[~2025-06-26] VITALS: Ht 182.9 cm; Wt 118.2 kg
--- NOTE | 2025-06-26 10:54 | Physician Documentation ---
History of Present Illness ~ Chief Complaint: Blood in Urine Stated Complaint: BLOOD IN URINE Time Seen by MD: 11:02 Primary Medical Doctor: PATIENT ADVOCATE: Alecia Baltazar [facility]. HPI 59 yr old male presents with concerns for bloody urine since Tuesday, three days ago. No trauma. Also notes sharp mid-abdominal pain and hx of colon cancer. Does report chills, elevated HR, and possible fever. Hx intermittent afib. Medication Reconciliation Allergies: Coded Allergies: Penicillins (Verified Allergy, Mild, HIVES, 06/26/25) metformin (Verified Allergy, Unknown, 06/26/25) ketorolac (Verified Adverse Reaction, Unknown, n/v, 06/26/25) Scheduled Amlodipine Besylate (Amlodipine Besylate), 1 TABLET PO DAILY Apixaban (Eliquis), 1 TAB PO Q12H, (Reported) Aspirin (Aspir 81), 1 TAB PO DAILY, (Reported) Atorvastatin Calcium (Lipitor), 1 TAB PO DAILY, (Reported) Bumetanide (Bumetanide), 1 TAB PO BID, (Reported) Carvedilol (Carvedilol), 1 TAB PO BID, (Reported) Cholecalciferol (Vitamin D3) (Vitamin D3), 1 TAB PO DAILY, (Reported) Insulin Glargine,Hum.rec.anlog (Basaglar Kwikpen U-100), 50 SQ HS, (Reported) Insulin Lispro (Humalog), 14 UNIT SQ TID, (Reported) Isosorbide Mononitrate (Isosorbide Mononitrate Er), 1 TAB PO DAILY, (Reported) Lisinopril* (Lisinopril*), 1 TAB PO BID, (Reported) Sitagliptin Phosphate* (Januvia*), 1 TAB PO DAILY, (Reported) Scheduled PRN Hydrocodone Bit/Acetaminophen (Hydrocodone-Apap 10-325 Tablet), 1 TAB PO Q4H PRN for pain, (Reported) Miscellaneous Medications Insulin Glargine,Hum.rec.anlog (Basaglar Kwikpen U-100), (Reported) Past Medical History Past Medical History: CVA/TIA/Stroke, Arrhythmia, Atrial Fibrillation, Hypertension, Chronic Kidney Disease, Diabetes, Colon Cancer Past Surgical History: cancer surgery, colectomy Patient History: FH: diabetes mellitus FATHER, , Onset:50's - 60 FH: lung cancer maternal uncle, Onset:60 years & older FH: myocardial infarction maternal grandfather, Onset:60 years & older FH: suicide FATHER, , Onset:60 years & older Alcohol Use: None Drug Use: none Lives with: Mother Lives In: Home Occupation: disabled Review of Systems ROS As stated above in the HPI, otherwise all systems are reviewed and negative. Physical Exam Physical Exam General: Alert, no apparent distress. Neck: Full range of motion. Respiratory: Lungs clear, no respiratory distress. Chest: No accessory muscle use. Cardiovascular: Regular rate and rhythm, no murmurs. Gastrointestinal: Somewhat firm and distended with TTP midline. Bowel sounds active. Extremities: Normal range of motion, no deformity. Neurologic: Oriented x4. Psychiatric: Normal mood and affect. Skin: Normal color, warm and dry. No edema, no ecchymosis. Progress Results/Orders Results/Orders Orders - BHAVNA CROWDER MD Ultrasound Kidney Non Vasc (06/26/25 12:01) Completed Orders - BHAVNA CROWDER MD Hydrocodone/Apap 10/325 ([place] 10/325mg (06/26/25 11:10) Medications Received in ER Medications (Trade) Dose Ordered Sig/Ivonne Route PRN Reason Start Time Stop Time Status Last Admin Dose Admin ([place] 10/325mg tab) 1 tab ONCE ONCE PO 06/26/25 11:10 06/26/25 11:11 DC 06/26/25 11:23 1 TAB Vital Signs 06/26/25 06/26/25 06/26/25 06/26/25 10:50 11:13 11:19 11:23 Temp 97.2 97.2 Pulse 95 89 Resp 18 18 18 18 B/P (MAP) 139/80 123/87 (99) Pulse Ox 99 97 O2 Flow Rate 0 06/26/25 12:01 Temp 97.2 Pulse 84 Resp 18 B/P (MAP) 128/79 (95) Pulse Ox 97 O2 Flow Rate 0 Laboratory Tests Test 06/26/25 11:02 06/26/25 11:24 Urine Specimen Description Cln catch midstream Urine Color Yellow Urine Clarity Clear Urine pH 6.0 Urine Specific [place] 1.010 Urine Protein Negative Urine Glucose (UA) 250 H Urine Ketones Negative Urine Occult Blood Negative Urine Nitrite Negative Urine Bilirubin Negative Urine Urobilinogen 0.2 Urine Leukocyte Esterase Negative Urine Culture Indicated Not ind Volume Urine Centrifuged 10 ml Urine Comment White Blood Count 10.2 Red Blood Count 4.98 Hemoglobin 13.6 L Hematocrit 39.9 L Mean Corpuscular Volume 80.1 Mean Corpuscular Hemoglobin 27.3 Mean Corpuscular Hemoglobin Concent 34.0 Red Cell Distribution Width 14.7 H Platelet Count 260 Mean Platelet Volume 7.3 L Neutrophils (%) (Auto) 75.3 H Lymphocytes (%) (Auto) 17.3 L Monocytes (%) (Auto) 5.0 Eosinophils (%) (Auto) 1.3 Basophils (%) (Auto) 1.1 H Neutrophils # (Auto) 7.6 Lymphocytes # (Auto) 1.8 Monocytes # (Auto) 0.5 Eosinophils # (Auto) 0.1 Basophils # (Auto) 0.1 CBC Comment Sodium Level 139 Potassium Level 4.3 Chloride Level 101 Carbon Dioxide Level 29.8 Anion Gap 8 Blood Urea Nitrogen 14 Creatinine 1.03 Estimated GFR/1.73 m2 73 BUN/Creatinine Ratio 13.6 Glucose Level 231 H Calcium Level 9.0 Total Bilirubin 0.5 Aspartate Amino Transf (AST/SGOT) 22 Alanine Aminotransferase (ALT/SGPT) 24 Alkaline Phosphatase 84 Total Protein 7.6 Albumin 3.2 L Globulin 4.4 H Albumin/Globulin Ratio 0.7 L Lipase 37 Chemistry Comments Medical Decision Making Findings 59 year old male with subjective fever, dysuria, hematuria but benign exam and vitals. Workup unremarkable other than mild anemia. UA demonstrated no infection or blood. US demonstrated no evidence of kidney or bladder tumors. Counseled, reassured discharged with return precautions. Additional Comment Ddx = UTI, pyelonephritis, AVM, bladder tumor, kidney tumor Departure Disposition: HOME / SELF CARE / HOMELESS Impression: Primary Impression: Hematuria Condition: Stable Discharge Instructions: Hematuria, Adult Referrals: NO PRIMARY CARE PROVIDER (PCP) Education Educated: Patient Educated regarding: diagnosis, treatment, prognosis, need for follow up Signature Scribe Signature: x Attestation: The note accurately reflects work and decisions made by me.Bella Gunn NP 06/26/25 10:53 BELLA BEARD NP Jun 26, 2025 10:54 BHAVNA CROWDER MD Jun 26, 2025 12:33
[2025-06-26] MEDS: HYDROcodone/acetaminophen 10/325mg tab PO ONE (11:23)
[2025-06-26 11:35] LABS: MEAN PLATELET VOLUME 7.3 FL (7.4-10.4); RED CELL DISTRIBUTION WIDTH 14.7 % (11.5-14.5)
[2025-06-26 11:48] LABS: LEUKOCYTE ESTERASE ,URINE NEGATIVE (Neg); NITRITES, URINE NEGATIVE (Neg); OCCULT BLOOD,URINE NEGATIVE (Neg)
[2025-06-26 11:49] LABS: UA COLLECTION TYPE CLN CATCH MIDSTREAM
[2025-06-26 12:00] LABS: CREATININE 1.03 MG/DL (0.60-1.10); TOTAL CARBON DIOXIDE 29.8 MMOL/L (24-32); eCRCL 83 ML/MIN; eGFR 73 ML/MIN
[2025-06-26 12:01] VITALS: BP 128/79; PULSE 84; RESP 18; O2SAT 97
[2025-06-26 12:40] VITALS: TEMP 97.2
--- NOTE | 2025-06-26 13:11 | RADIOLOGY REPORT ---
INDICATION: hematuria TECHNIQUE: Multiple real-time sonographic images of the kidneys and bladder were obtained. COMPARISON: US ULTRASOUND OF ABDOMEN on DOS: 04/23/25, CT CT ABDOMEN PELVIS on DOS: 04/03/24, CT CTA ABDOMEN PELVIS on DOS: 03/06/24, CT CT ABDOMEN PELVIS on DOS: 03/06/24, CT CT ABDOMEN PELVIS on DOS: 03/03/24 FINDINGS: The right kidney measures 9.8 cm in length, which is normal in size. There is normal echogenicity of the right kidney. No hydronephrosis. The left kidney measures 10.8 cm in length, which is normal in size. There is normal echogenicity of the left kidney. No hydronephrosis. The urinary bladder is contracted which limits evaluation. IMPRESSION: 1. Normal sonographic appearance of the kidneys. No hydronephrosis.
== END 2025-06-26 12:44 | disposition home or self-care (01) ==
LOC: ER 10:38
DX: R31.9 Hematuria, unspecified (principal); I12.9 Hypertensive chronic kidney disease with stage 1 through stage 4 chronic kidney disease, or unspecified chronic kidney disease; E11.22 Type 2 diabetes mellitus with diabetic chronic kidney disease; N18.9 Chronic kidney disease, unspecified; I48.91 Unspecified atrial fibrillation; Z85.038 Personal history of other malignant neoplasm of large intestine; Z86.73 Personal history of transient ischemic attack (TIA), and cerebral infarction without residual deficits; Z88.0 Allergy status to penicillin; Z90.49 Acquired absence of other specified parts of digestive tract; Z88.8 Allergy status to other drugs, medicaments and biological substances; Z79.82 Long term (current) use of aspirin; Z79.899 Other long term (current) drug therapy; Z79.4 Long term (current) use of insulin
CPT/HCPCS: 36415; 76770; 80053; 81003; 83690; 85025; 99284

== ENCOUNTER 2025-06-28 21:26 | Inpatient (IN) | payer MEDICAID ==
[~2025-06-28] VITALS: Ht 198.1 cm; Wt 133.0 kg
--- NOTE | 2025-06-28 21:42 | Physician Documentation ---
History of Present Illness ~ Chief Complaint: Stroke Alert Stated Complaint: STROKE ALERT Time Seen by MD: 21:33 Primary Medical Doctor: FIRE CLAIMS ADJUSTER: Alecia Baltazar [facility]. HPI 59-year-old male presents to the ED after having acute onset left-sided weakness approximately 1 hour ago.According to EMS patient woke up on the floor this evening with a severe headache. Patient also reports dizziness elevated blood pressure in the 200 systolic range. positive SOB, denies nausea vomiting. EMS indicated that the patient's blood pressure upon arrival was 210/110 and the patient was in atrial fibrillation which the patient has a history of and takes Eliquis. His blood sugar was 309. Primarily complains of right-sided pain to his head left-sided weakness in the left arm drift. Left leg feels weaker than the right. No dysphagia According to patient couple of months ago he had a TIA Day of Onset: Jun 28, 2025 Timing / Duration: sudden onset, present now Onset: spontaneous, while asleep Symptoms: weakness History of: TIA, atrial fibrillation Weakness Location: arm, leg Associated Symptoms: headache, left sided weakness; Denies: confusion, loss of consciousness, ringing in ears, seizures, slurred speech, tingling in legs/feet, vision changes Medication Reconciliation Allergies: Coded Allergies: Penicillins (Verified Allergy, Mild, HIVES, 06/28/25) metformin (Verified Allergy, Unknown, 06/28/25) ketorolac (Verified Adverse Reaction, Unknown, n/v, 06/28/25) Scheduled Amlodipine Besylate (Amlodipine Besylate), 1 TABLET PO DAILY Apixaban (Eliquis), 1 TAB PO Q12H, (Reported) Aspirin (Aspir 81), 1 TAB PO DAILY, (Reported) Atorvastatin Calcium (Lipitor), 1 TAB PO DAILY, (Reported) Bumetanide (Bumetanide), 1 TAB PO BID, (Reported) Carvedilol (Carvedilol), 1 TAB PO BID, (Reported) Cholecalciferol (Vitamin D3) (Vitamin D3), 1 TAB PO DAILY, (Reported) Insulin Glargine,Hum.rec.anlog (Basaglar Kwikpen U-100), 50 SQ HS, (Reported) Insulin Lispro (Humalog), 14 UNIT SQ TID, (Reported) Isosorbide Mononitrate (Isosorbide Mononitrate Er), 1 TAB PO DAILY, (Reported) Lisinopril* (Lisinopril*), 1 TAB PO BID, (Reported) Sitagliptin Phosphate* (Januvia*), 1 TAB PO DAILY, (Reported) Scheduled PRN Hydrocodone Bit/Acetaminophen (Hydrocodone-Apap 10-325 Tablet), 1 TAB PO Q4H PRN for pain, (Reported) Miscellaneous Medications Insulin Glargine,Hum.rec.anlog (Basaglar Kwikpen U-100), (Reported) Past Medical History Past Medical History: CVA/TIA/Stroke, Arrhythmia, Atrial Fibrillation, Hypertension, Chronic Kidney Disease, Diabetes, Colon Cancer Past Surgical History: cancer surgery, colectomy Patient History: FH: diabetes mellitus FATHER, , Onset:50's - 60 FH: lung cancer maternal uncle, Onset:60 years & older FH: myocardial infarction maternal grandfather, Onset:60 years & older FH: suicide FATHER, , Onset:60 years & older Alcohol Use: None Drug Use: none Lives with: Mother Lives In: Home Occupation: disabled Review of Systems All Other Systems at this time: Reviewed and Negative ROS As stated above in the HPI, otherwise all systems are reviewed and negative. Physical Exam Vital Signs: Temperature: 97.7, Source: Temporal, Heart Rate: 87, Respiratory Rate: 20, BP: 198/133, Pulse Oximetry: 100, Weight: 133.000 Oxygen Flow Rate: 0 General Appearance: alert, no apparent distress General Appearance Cranial nerve xi deficit Pupils/EOM/Fundus: PERRLA Neck: normal inspection Respiratory: lungs clear Chest: no accessory muscle use Gastrointestinal: normal palpation, non-tender, bowels sounds present Orientation / Memory / CN Exam: normal hearing, normal speech Motor / Sensory: weak motor strength LUE Psychiatric: appropriate ( b) t-PA t-PA given w/in 2hrs?: No Progress Results/Orders Results/Orders Medications Received in ER Medications (Trade) Dose Ordered Sig/Ivonne Route PRN Reason Start Time Stop Time Status Last Admin Dose Admin Nicardipine/ Sodium Chloride 200 ml @ 25 mls/hr Q8H IV 06/28/25 21:35 06/28/25 22:00 25 MLS/HR (Apresoline inj.) 10 mg ONCE ONCE IV 06/28/25 21:35 06/28/25 21:37 DC 06/28/25 22:00 10 MG Vital Signs 06/28/25 06/28/25 06/28/25 06/28/25 21:29 21:43 21:43 21:52 Temp 97.7 97.9 Pulse 87 99 88 Resp 20 21 20 20 B/P (MAP) 198/133 197/135 179/126 (143) Pulse Ox 100 97 99 O2 Flow Rate 0 0 06/28/25 06/28/25 06/28/25 06/28/25 22:00 22:00 22:38 23:23 Temp 97.9 98.8 Pulse 88 84 103 105 Resp 20 20 B/P (MAP) 179/126 138/83 (101) 164/93 (116) Pulse Ox 98 98 O2 Flow Rate 0 0 06/29/25 06/29/25 00:09 00:15 Temp 98.7 Pulse 108 100 Resp 20 16 B/P (MAP) 129/87 (101) 129/87 (101) Pulse Ox 99 99 O2 Flow Rate 0 0 Laboratory Tests Test 06/28/25 21:36 06/28/25 21:41 06/28/25 23:22 White Blood Count 10.8 Red Blood Count 4.69 L Hemoglobin 12.9 L Hematocrit 37.7 L Mean Corpuscular Volume 80.4 Mean Corpuscular Hemoglobin 27.5 Mean Corpuscular Hemoglobin Concent 34.3 Red Cell Distribution Width 14.6 H Platelet Count 247 Mean Platelet Volume 7.6 Neutrophils (%) (Auto) 66.5 Lymphocytes (%) (Auto) 23.0 Monocytes (%) (Auto) 7.8 Eosinophils (%) (Auto) 1.6 Basophils (%) (Auto) 1.1 H Neutrophils # (Auto) 7.2 Lymphocytes # (Auto) 2.5 Monocytes # (Auto) 0.8 Eosinophils # (Auto) 0.2 Basophils # (Auto) 0.1 CBC Comment Prothrombin Time 10.3 INR International Normalized Ratio 1.0 Activated Partial Thromboplast Time 26 Coagulation Comments Sodium Level 136 Potassium Level 3.5 Chloride Level 98 L Carbon Dioxide Level 29.4 Anion Gap 9 Blood Urea Nitrogen 16 Creatinine 1.13 H Estimated GFR/1.73 m2 66 BUN/Creatinine Ratio 14.2 Glucose Level 302 H Calcium Level 8.2 L Albumin 3.0 L Chemistry Comments Glucometer 279 H Urine Specimen Description Non-specified Urine Color Yellow Urine Clarity Clear Urine pH 6.5 Urine Specific [place] <=1.005 Urine Protein Negative Urine Glucose (UA) >=1000 H Urine Ketones Negative Urine Occult Blood Negative Urine Nitrite Negative Urine Bilirubin Negative Urine Urobilinogen 0.2 Urine Leukocyte Esterase Negative Urine RBC None seen Urine WBC None seen Urine Squamous Epithelial Cells Few Urine Bacteria None seen Urine Culture Indicated Not ind Volume Urine Centrifuged 10 ml Urine Comment Medical Decision Making Findings 59-year-old male was initially concerning for possible ischemic stroke. CT indicates there is no sign of a bleed at this time. Patient's blood pressure was grossly elevated which we have treated with hydralazine and Cardene. I advised the ED nurses to allow for permissive hypertension next 24 hours. This is per Neurology recommendation. Addition the neurologist requested an echo, MRI without contrast and to hold Eliquis. Additional note by Fermín Andrew DO: I took over the care of this patient from previous physician. I reviewed any previous notes available, obtain my own history, review of systems and physical examination was performed by myself. Differential includes but not limited to CVA, TIA, partial seizure, complex migraine, hypoglycemia, electrolyte derangement, intracranial neoplasm. His workup was unremarkable, normal labs, normal CT, CTA was obtained but he will need MRI as noted above. TPA/TNKase has been considerably but risks outweigh the benefits. Differential Dx:Considerations: Include: Bassett's Palsey, CVA, Delirium tremens, DKA, Drug overdose, Electrolyte imbalance, Encephalopathy, Hypoxemia, Hypoglycemia, Mass lesion, Respiratory failure, Subarachnoid Hemorrhage, TIA, Other Departure Disposition: ADMITTED INPATIENT Impression: Primary Impression: History of CVA (cerebrovascular accident) Additional Impressions: Transient ischemic attack Hypertension Hypertensive emergency Referrals: NO PRIMARY CARE PROVIDER (PCP) Critical Care Note Critical Care Note CRITICAL CARE TIME: [ 35] minutes Treatments/Evaluations: Close monitoring and treatment of unstable vital signs, cardiorespiratory, and neurologic status, while maintaining tight balance of fluid, respiratory, and cardiac interventions. This time includes discussing the case with the patient and the patients family. This time does not include all procedures stated elsewhere in this record. This time also includes reviewing old records, labs and radiological studies. This time includes examining and re- examining the patient. Additionally, this time also includes arranging care with admitting and consulting physicians. Signature Scribe Signature: staci Attestation: Scribed for Kvng Dodson Np by Kvng Gunn NP . 06/28/25 21:42 KVNG DODSON NP Jun 28, 2025 21:42 FERMÍN ANDREW DO Jun 29, 2025 00:37
[2025-06-28 21:56] LABS: MEAN PLATELET VOLUME 7.6 FL (7.4-10.4); RED CELL DISTRIBUTION WIDTH 14.6 % (11.5-14.5)
[2025-06-28 21:58] LABS: CREATININE 1.13 MG/DL (0.60-1.10); TOTAL CARBON DIOXIDE 29.4 MMOL/L (24-32); eCRCL 89 ML/MIN; eGFR 66 ML/MIN
[2025-06-28] MEDS: niCARDipine-NS 40mg/200ml IVPB 200 ML IV SCH (22:00)
[2025-06-28] MEDS: hydrALAZINE 20mg/ml inj. IV ONE (22:00)
[2025-06-28 22:01] LABS: APTT 26 SECONDS (22-32); INR 1.0 INR
--- NOTE | 2025-06-28 22:08 | RADIOLOGY REPORT ---
CHEST RADIOGRAPH Indication: Stroke Alert Technique: Single frontal view of the chest was obtained COMPARISON: DI CHEST,SINGLE VIEW on DOS: 04/28/25, DI CHEST,SINGLE VIEW on DOS: 04/24/25, DI CHEST,SINGLE VIEW on DOS: 04/18/25, CT CT CHEST on DOS: 04/01/25, DI CHEST,SINGLE VIEW on DOS: 04/01/25 FINDINGS: Lines and Tubes: None Lungs: Clear Pleura: No effusion. No pneumothorax. Cardiomediastinal contours: Unremarkable Bones: Unremarkable IMPRESSION: 1. No acute disease.
--- NOTE | 2025-06-28 22:13 | RADIOLOGY REPORT ---
EXAM: CT CT STROKE ALERT INDICATION: Stroke Alert TECHNIQUE: CT of the head without intravenous contrast. Radiation Dose : 1. Head: CT Dose: CTDI volume is 66.93 mGy. Dose-length product is 1429.62 mGy*cm The dose indicators for CT are the volume Computed Tomography (CT) Dose Index (CTDIvol) and the Dose Length Product (DLP), and are measured in units of mGy and mGy-cm, respectively. These indicators are not patient dose, but values generated from the CT scanner acquisition factors. The report includes radiation exposure data for exposures received during this examination. COMPARISON: MR MRI HEAD on DOS: 01/23/25, CT CTA NECK/HEAD on DOS: 01/22/25, CT CT STROKE ALERT on DOS: 01/22/25, MR MRI HEAD on DOS: 12/06/24, CT CT HEAD on DOS: 12/05/24 FINDINGS: There is no evidence of acute intracranial hemorrhage, extra-axial collection, mass effect, midline shift, herniation or hydrocephalus. Increased prominence of the ventricles, sulci and cisterns consistent with sequelae of atrophic cortical volume loss. The kennedy-white differentiation is intact. Moderate diffuse confluent periventricular and subcortical white matter hypoattenuation is nonspecific but may be related to small vessel ischemic disease. Left sphenoid mucosal sinus disease. The remaining visualized paranasal sinuses and mastoid air cells are clear. The surrounding soft tissues and osseous structures are unremarkable. IMPRESSION: 1. No acute intracranial abnormality. 2. Chronic sequelae of microangiopathy and atrophic cortical volume loss. Radiation optimization: All CT scans at this facility use at least one of these dose optimization techniques: automated exposure control mA and/or kV adjustment per patient size (includes targeted exams where dose is matched to clinical indication) or iterative reconstruction.
--- NOTE | 2025-06-28 22:39 | [facility] CONSULT REPORT ---
[facility] Procedure Note [facility] Procedure Note Consult [facility] Note # Demographics Consult Type: Acute Stroke Level 1 (0-4.5 hrs) Patient Location: Emergency Room First Name: FLYNN Last Name: WILBER Date of : 1965 Age: 59 Gender: Male Facility: [facility] Time of Initial Page (): 06/28/2025 21:56 First Contact with Site (): 06/28/2025 21:56 # HPI Chief Complaint: - weakness (focal) History: 59yom with a fib (on Eliquis) who p/w L sided weakness, numbness, fall, and headache. Denies missing any doses of Eliquis. Last Known Normal: - I have collected independent history specific to time last normal or last known well. We have collaborated with the provider and at this time, we have the most current timeline with the information that is available. 9PM # Scores Time of exam and NIHSS (): 06/28/2025 22:05 Level of Consciousness 1a: [0] = Alert; keenly responsive LOC Questions 1b: [0] = Answers both questions correctly LOC Commands 1c: [0] = Performs both tasks correctly Best Gaze 2: [0] = Normal Visual 3: [0] = No visual loss Facial Palsy 4: [0] = Normal symmetrical movements Motor Arm Left 5a: [1] = Drift Motor Arm Right 5b: [0] = No drift Motor Leg Left 6a: [1] = Drift Motor Leg Right 6b: [0] = No drift Limb Ataxia 7: [0] = Absent Sensory 8: [1] = Odhv-lm-ijarwgyz sensory loss Best Language 9: [0] = No aphasia Dysarthria 10: [1] = Wfyc-ki-wownfprh dysarthria Extinction and Inattention 11: [0] = No abnormality NIHSS Total: 4 # Assessment Impression: - Ischemic Stroke (Acute) # Plan Thrombolytic/Intervention: Possible IA candidate Thrombolytic Exclusion (< 3 hour window): - on anticoagulation Possible IA Candidate: - CTA pending - If CTA shows large vessel occlusion, notify neurology and/or neuro- interventional team, per hospital protocol. Blood Pressure Management: Use labetolol 10-20mg IV PRN or nicardipine gtt to maintain BP parameters Target Blood Pressure: - SBP < 220 - DBP < 120 Imaging: (urgency: STAT): - CT Angiogram Head and CT Angiogram Neck AND call back with results if abnormal Imaging: (urgency: routine): - MRI Brain without contrast Diagnostic Test: - echo with bubble study Telemetry for a fib monitoring Therapy/Evaluation: - PT/OT evaluation - speech/swallow consultation - NPO until swallow evaluation Medication: atorvastatin 80mg daily, goal LDL <70 Hold DOAC until obtaining MR brain wo contrast, timing of restart depending on size of infarct. If none, can immediately restart Eliquis Other: - If patient has any neurological deterioration please call me back immediately Additional Recommendations: - Hydrate with NS - Permissive HTN for next 24-48 hours, then gradual control by no more than 15% daily monitoring for neurological stability - Avoid dehydration and relative hypotension - Risk factor modification, including smoking cessation and alcohol moderation if appropriate - Monitor glucose and correct as needed - If cryptogenic non-lacunar stroke on MRI, obtain outpatient cardiac monitoring for a fib - Call back for neurological deterioration Disposition: admit # Logistics Attestation of consult completion: The patient is located at: [facility]. Facility staff participated in the visit. I performed this telemedicine visit from my offsite office utilizing interactive 2 way audio and visual telecommunication technology at the request of the onsite emergency room provider. Total time spent in telemedicine encounter: I spent 27 minutes reviewing clinical data and/or imaging, obtaining history, examining the patient, communicating with the onsite care team, and in preparation of this report. # Demographics First Name: FLYNN Last Name: STEWPABLO Facility: [facility] Neuro Consult Order placed for: Yes MONICO SNOWDEN MD Jun 28, 2025 22:39
[2025-06-28 23:46] LABS: LEUKOCYTE ESTERASE ,URINE NEGATIVE (Neg); NITRITES, URINE NEGATIVE (Neg); OCCULT BLOOD,URINE NEGATIVE (Neg)
[2025-06-28 23:49] LABS: UA COLLECTION TYPE NON-SPECIFIED
[2025-06-28 23:51] LABS: SQUAMOUS EPITHELIAL CELL,UR FEW /LPF (FEW)
--- NOTE | 2025-06-29 00:52 | RADIOLOGY REPORT ---
INDICATION: stroke COMPARISON: MR MRI HEAD on DOS: 01/23/25, CT CTA NECK/HEAD on DOS: 01/22/25, MR MRI HEAD on DOS: 12/06/24, CT CT HEAD on DOS: 12/05/24, MR MRI HEAD on DOS: 10/02/24 TECHNIQUE: CTA head without and with intravenous contrast. CTA neck with intravenous contrast. 3D image postprocessing was performed on a dedicated workstation and images were used for interpretation and reporting. Radiation Dose Information: CT Dose: CTDI volume is 16.51 mGy. Dose-length product is 671.32 mGy*cm FINDINGS: CTA head: There is normal enhancement of the visualized distal internal carotid, anterior and middle cerebral arteries. There is a normal anterior communicating artery complex. There are bilateral posterior communicating arteries. The vertebral, basilar, cerebellar and posterior cerebral arteries are within normal limits. The early parenchymal enhancement is grossly unremarkable. The visualized intracranial venous structures are grossly unremarkable. CTA neck: The visualized thoracic aortic arch and proximal great vessels are unremarkable. Calcified plaque in the proximal left internal carotid artery without hemodynamically significant stenosis. Dense calcified plaque within the right carotid bulb resulting in approximately 50% stenosis, unchanged when compared to the prior exam. No hemodynamically significant stenosis within the right internal carotid artery. 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 The right vertebral artery is patent without hemodynamically significant stenosis. The limited visualized lung apices are clear. The surrounding soft tissues and osseous structures are otherwise unremarkable. IMPRESSION: 1. No evidence of hemodynamically significant intracranial stenosis, proximal occlusion or aneurysm. 2. Dense calcified plaque within the right carotid bulb resulting in approximately 50% stenosis, unchanged when compared to the prior exam. 3. Stable appearing high-grade stenosis of the origin of the left vertebral artery. All CT scans at this medical facility are performed using dose modulation techniques as appropriate to a performed exam including the following: Automated exposure control was utilized; adjustment of the MA and/or KV according to patient size; and use of iterative reconstruction technique.
[2025-06-29] MEDS ORDERED: mag hydrox/Alum hydrox/simeth 30ml oral suspension PO PRN (01:00)
[2025-06-29] MEDS ORDERED: ondansetron/PF 4mg/2ml inj IV PRN (01:00)
[2025-06-29] MEDS ORDERED: magnesium sulf-water 4G/100mL 100 ML IV PRN (01:00)
[2025-06-29] MEDS ORDERED: potassium Cl 20 mEq SR tablet PO PRN ×2 (01:00)
[2025-06-29] MEDS ORDERED: potassium Cl 40MEQ/1/2NS 520ml 520 ML IV PRN (01:00)
[2025-06-29] MEDS ORDERED: magnesium hydroxide 30ml (MOM) UD suspension PO PRN (01:00)
[2025-06-29] MEDS ORDERED: magnesium sulf-water 2g/50mL 50 ML IV PRN (01:00)
[2025-06-29] MEDS ORDERED: magnesium Cl slow-release 64mg tablet PO PRN (01:00)
--- NOTE | 2025-06-29 01:11 | HISTORY AND PHYSICAL-Residence ---
History & Physical Providers to CC Resident Creating Document: DESIREE GOMEZ RES ~ History of Present Illness Primary Medical Doctor: LAND SURVEYOR MANAGER: Alecia Baltazar [facility]. Reason for Admit\Complaint: Syncope/stroke History of Present Illness 59-year-old male patient with a past medical history of obesity, atrial fibrillation, CKD stage 3, insulin-dependent type 2 diabetes mellitus, hypertension, recurrent TIAs and history of sigmoid colon cancer status post resection presented to the hospital via EMS after an episode of syncope at home. The patient was apparently in good health until today morning, he was walking to the bathroom and felt acute onset dizziness leading to his syncope. He lives at home with his mom and his syncope was unwitnessed, he estimates LOC for about 5 minutes. Post syncopal symptoms included headache and dizziness. Denies any confusion, he himself called the EMS. Denies any loss of bowel or bladder function. Denies any nausea or vomiting. Blood pressure on site was 210/140 and blood glucose was 300's. He reports being compliant with all his blood pressure medications, denies any recent changes in his medications. Home blood pressure is usually between 120 to 130s systolic. Other unrelated symptoms include occasional hematuria, burning micturition, 30 lb weight loss over the last three months, worsening shortness of breath with activity and, left lower limb pain and paresthesias over the last couple of days. Allergies: Coded Allergies: Penicillins (Verified Allergy, Mild, HIVES, 06/28/25) metformin (Verified Allergy, Unknown, 06/28/25) ketorolac (Verified Adverse Reaction, Unknown, n/v, 06/28/25) Home Medications Home Medications Active Amlodipine Besylate 5 Mg Tablet 1 Tablet PO DAILY Reported Aspir 81 (Aspirin) 81 Mg Tablet.dr 1 Tab PO DAILY 30 Days Basaglar Kwikpen U-100 (Insulin Glargine,Hum.rec.anlog) 100 Unit/Ml (3 Ml) Insuln.pen Humalog (Insulin Lispro) 100 Unit/Ml Insuln.pen 14 Unit SQ TID Bumetanide 1 Mg Tablet 1 Tab PO BID Januvia* (Sitagliptin Phosphate*) 100 Mg Tablet 1 Tab PO DAILY Vitamin D3 (Cholecalciferol (Vitamin D3)) 125 Mcg (5000 Unit) Tablet 1 Tab PO DAILY Isosorbide Mononitrate Er (Isosorbide Mononitrate) 30 Mg Tab.er.24h 1 Tab PO DAILY Carvedilol 12.5 Mg Tablet 1 Tab PO BID Lisinopril* (Lisinopril) 40 Mg Tablet 1 Tab PO BID Basaglar Junaidikpen U-100 (Insulin Glargine,Hum.rec.anlog) 100 Unit/Ml (3 Ml) Insuln.pen 50 SQ HS Lipitor (Atorvastatin Calcium) 40 Mg Tablet 1 Tab PO DAILY Eliquis (Apixaban) 5 Mg Tablet 1 Tab PO Q12H Hydrocodone-Apap 10-325 Tablet (Acetaminophen/Hydrocodone Bitart) 10mg/325mg Tablet 1 Tab PO Q4H PRN 5 Days Past Medical History Past Medical History Obesity CKD stage 3 Insulin-dependent type 2 diabetes mellitus Hypertension TIAs Back pain secondary to herniated disc Atrial fibrillation Past Surgical History Surgical History Comment Sigmoid colon cancer status post resection (2017) Last colonoscopy in 2021 Other minor surgeries include multiple hernia repair Family History Family History: FH: diabetes mellitus FATHER, , Onset:50's - 60 FH: lung cancer maternal uncle, Onset:60 years & older FH: myocardial infarction maternal grandfather, Onset:60 years & older FH: suicide FATHER, , Onset:60 years & older Past Social History Social History Comment Lifetime nonsmoker. Denies alcohol use. Denies any illicit drug abuse Lives at home with his mom. Uses a cane or a walker to ambulate. Smoking: Non-Smoker Alcohol Use: None Drug Use: None Lives with: Mother Lives In: Home Occupation: disabled ROS All Other Systems: Reviewed and Negative Constitutional: Reports: no symptoms reported Eyes: Reports: no symptoms reported ENT: Reports: no symptoms reported Respiratory: Reports: shortness of breath Cardiovascular: Reports: no symptoms reported Gastrointestinal: Reports: no symptoms reported Genitourinary: Reports: burning, hematuria Neurological: Reports: headache, dizziness, fainting, tingling, left sided numbness, left sided weakness Musculoskeletal: Reports: back pain Integumentary: Reports: no symptoms reported Allergic/Immunologic: Reports: no symptoms reported Hematologic/Lymphatic: Reports: no symptoms reported Endocrine: Reports: no symptoms reported Psychiatric: Reports: no symptoms reported Exam Vitals: Vital Signs Date Time Temp Pulse Resp B/P (MAP) Pulse Ox O2 Delivery O2 Flow Rate FiO2 06/29/25 00:58 97 16 172/108 (129) 98 0 06/29/25 00:09 98.7 General: General: Awake and Alert, no acute distress. HEENT: Conjunctiva pink, Sclera clear, Mucus Membranes moist. Pale tongue. Multiple teeth absent Resp: Unlabored. Lungs clear to auscultation bilaterally. Heart: Regular Rate and rhythm, normal S1 and S2 without murmur, rub or gallop. Abdomen: Obese, Soft and non tender no organomegaly INTERNET WEBMASTER: Oriented x4. No cranial nerve deficits. Tone and nutrition normal. 3+ left lower extremity motor strength, diminished light touch in the left lower extremity extending to the anterior lower calf. Left upper extremity drift present. Strength and sensations preserved in the right upper and lower extremity. Reflexes intact. Gait unable to be examined Extremities: No cyanosis,clubbing or edema. Skin: Warm and Dry. Diagnostic Data Last Recorded Lab Results: 06/28/256 06/29/25 0255 Diagnostic Data: Laboratory Tests Test 06/28/25 21:36 Prothrombin Time 10.3 SECONDS (9.0-12.0) INR International Normalized Ratio 1.0 INR Activated Partial Thromboplast Time 26 SECONDS (22-32) Coagulation Comments Advance Care Planning Advanced Care plannin - 30 Minutes Additional Plan 1. Syncope under evaluation Differentials- situational/cerebral ischemia secondary to vertebrobasilar insufficiency/hypertensive emergency NIHSS 3- left upper extremity drift and lower extremity drift, lower extremity motor weakness, kilf-pz-kqujdros dysarthria Cardiogenic etiology- patient is rate controlled. Echocardiogram in 2023 ruled out positive bubble study. Continue telemetry monitoring Situational secondary to presyncopal symptoms triggered by bowel movements/urinary urgency; resolved presyncopal symptoms with the defecation/micturition Neurology consulted. NIHSS score 4 as per neurology, acute ischemic stroke as diagnosis. Recommendations follow up with CTA head and neck, MRI brain without contrast. Atorvastatin to be increased to maintain LDL less than 70, hold DOAC until MRI brain without contrast resulted- if no infarcts, restart Eliquis. CTA head and neck reveals stable high-grade stenosis of the origin of left vertebral artery and 50% stenosis of the right carotid bulb. Recommend vascular surgery consult in a.m. On home medication of aspirin 81. Total cholesterol 99, and LDL 44. Continue home medication of atorvastatin 40 mg daily Maintain permissive hypertension between 180-220/110-120 Fall precautions, neuro checks q.4, BSS study PT eval and treat for discharge planning 2. Hypertensive emergency: History of resistant hypertension On nicardipine drip Maintain permissive hypertension Home medications of Bumex, amlodipine 10, and lisinopril 40 mg Other medications include isosorbide 30 mg daily, metoprolol 12.5 mg b.i.d. Discontinue nicardipine drip started in the ER, blood pressure control with labetalol PRN. Home medications to be restarted in a.m. 3. Type 2 diabetes mellitus: Insulin-dependent A1c 8.3 Hyperglycemia/hypoglycemia protocol started Carb controlled diet Goal between 110-140 mg per dL Outpatient evaluation for diabetic neuropathy 4. 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 Morbid obesity: Hypertriglyceridemia LDL 44, HDL 37 Continue home medication of atorvastatin 40 mg daily Carb controlled diet recommended 6. Atrial fibrillation Hold DOAC until MRI results Continue telemetry monitoring Rate controlled, on metoprolol 7. Chronic back pain: [place] 10 t.i.d. ordered 8. History of sigmoid colon cancer: Status post sigmoidectomy Mild normocytic and normochromic anemia; slightly decreased from 13.6 on 06/825 to 12.9 today. Follow iron studies Last colonoscopy three years ago; resection of polyps done and no mass identified Recommend outpatient close follow up with obiee obia solution architect Lines: PIV Code status: Full code Diet: Carb controlled DVT prophylaxis: Heparin Desiree Gomez PGY3, Internal medicine resident Date of Service: Jun 29, 2025 Billing Provider: KATHLEEN PUGA MD Addendum Attestation I agree with the residents assessment and plan as below: Patient with history of a fib and multiple TIAs admitted with LOC and hypertensive emergency Plan: MRI brain Hold AC permissive htn restart home bp meds CCT 52 min using HIPPA compliant A/V technology DESIREE GOMEZ, RES Jun 29, 2025 01:11 KATHLEEN PUGA MD Jun 29, 2025 19:44
[2025-06-29 01:34] LABS: CHOL/HDL RATIO 2.7 (0.00-4.99); LDL CHOLESTEROL 44 MG/DL (50-100)
[2025-06-29] MEDS ORDERED: dextrose 50%-water 50ml dispensing syringe IV PRN ×4 (02:00→09:55)
[2025-06-29] MEDS ORDERED: glucagon, human recombinant 1mg kit SUBCUT PRN ×2 (02:00→09:55)
[2025-06-29] MEDS ORDERED: DEXTROSE 15 GM of carb/4 tabs (each vial/BOTTLE has 4 tablets) PO PRN ×4 (02:00→09:55)
[2025-06-29] MEDS: HYDROcodone/acetaminophen 10/325mg tab PO PRN ×2 (02:26→07:41)
--- NOTE | 2025-06-29 02:37 | ELECTROCARDIOGRAPH REPORT ---
[facility] Test Date: 2025-06-29 Test Time: 02:34:57 Pat Name: FLYNN MERINO Department: ED HOLD Room: ED 8 1 Gender: M It Teacher: : 1965 Requested By: KAITLYNN DOWD Order Number: [id number] Reading MD: Measurements Intervals [place] Rate: 90 P: 0 MT: 0 QRS: 67 QRSD: 98 T: 132 QT: 375 QTc: 459 Interpretive Statements Atrial fibrillation Borderline low voltage, extremity leads Abnormal T, consider ischemia, lateral leads Please click the below link to view image of tracing.
[2025-06-29] MEDS: isosorbide mononitrate 30mg tab.SR.24H PO ONE (02:42)
--- NOTE | 2025-06-29 06:06 | ELECTROCARDIOGRAPH REPORT ---
[facility] Test Date: 2025-06-28 Test Time: 21:33:45 Pat Name: FLYNN MERINO Department: EMERGENCY ROOM Room: ED 8 Gender: M Call Center Support Representative: [place] : 1965 Requested By: KVNG ABDALLA Order Number: [id number] Reading MD: Measurements Intervals [place] Rate: 95 P: -10 CO: 221 QRS: 64 QRSD: 95 T: 134 QT: 352 QTc: 443 Interpretive Statements Sinus rhythm Atrial premature complex Sinus pause Prolonged CO interval Nonspecific T abnormalities, lateral leads Please click the below link to view image of tracing.
[2025-06-29] MEDS: K and/or MAG REPLACEMENT MC SCH (07:54)
[2025-06-29] MEDS: INSULIN LISPRO 100 UNIT/ML INSULN.PEN MULTI-DOSE SQ SCH ×4 (07:59→14:15)
[2025-06-29] MEDS: isosorbide mononitrate 30mg tab.SR.24H PO SCH (08:00)
[2025-06-29] MEDS: docusate sod 100mg capsule PO SCH (08:00)
[2025-06-29] MEDS: heparin, porcine 5000 units/ml vial SQ SCH (09:48)
[2025-06-29] MEDS: aspirin 81mg, enteric-coated 1 TAB TABLET.DR PO SCH (09:49)
--- NOTE | 2025-06-29 16:03 | RADIOLOGY REPORT ---
CLINICAL INDICATION: Syncope COMPARISON: MR MRI HEAD on DOS: 01/23/25, CT dated 06/28/2025. TECHNIQUE: Multisequence multiplanar MRI images of the brain were obtained without contrast. FINDINGS: Motion artifact limits evaluation on some sequences. No acute infarct or hemorrhage. No mass or midline shift. Ventricles and sulci are within normal limits. Basal cisterns are patent. Cerebellum, brainstem, and midline structures are within normal limits. Moderate mucosal thickening of the left side of the sphenoid sinus. Mild mucosal thickening of the ethmoid air cells. Orbits are grossly unremarkable. IMPRESSION: No evidence of acute intracranial abnormality.
[2025-06-29 17:00] VITALS: RESP 18
[2025-06-29 18:00] VITALS: BP 107/62; PULSE 90; RESP 16; TEMP 98.3; O2SAT 96
[2025-06-29 20:00] VITALS: RESP 16; O2SAT 96
[2025-06-29] MEDS: metoprolol succinate 25mg (24-HOUR) SR. Tablet PO SCH (20:41)
[2025-06-29] MEDS: insulin glargine (Lantus) pen - multi-dose SQ SCH (20:52)
[2025-06-29] MEDS ORDERED: insulin glargine (Lantus) pen - multi-dose SQ SCH (21:00)
[2025-06-29 22:00] VITALS: BP 115/74; PULSE 89; RESP 18; TEMP 98.2; O2SAT 99
[2025-06-30 02:00] VITALS: BP 98/70; PULSE 70; RESP 16; TEMP 97.6; O2SAT 98
[2025-06-30 05:33] LABS: MEAN PLATELET VOLUME 7.7 FL (7.4-10.4); RED CELL DISTRIBUTION WIDTH 14.6 % (11.5-14.5)
[2025-06-30 06:00] VITALS: BP 121/73; PULSE 63; RESP 19; TEMP 97.7; O2SAT 98
[2025-06-30 06:05] LABS: CREATININE 1.08 MG/DL (0.60-1.10); TOTAL CARBON DIOXIDE 30.0 MMOL/L (24-32); eCRCL 93 ML/MIN; eGFR 70 ML/MIN
[2025-06-30 08:00] VITALS: BP_SYST 134; BP_SYST 137; BP_DIAS 86; BP_DIAS 89; PULSE 75; PULSE 77
[2025-06-30 08:53] VITALS: RESP 18
[2025-06-30] MEDS ORDERED: CLOP-32 PO (10:20)
--- NOTE | 2025-06-30 16:30 | DISCHARGE SUMMARY-Residence ---
Discharge Summary Providers to CC Resident Creating Document: IGORJAYESHMANISHA, PAUL ~ Discharge Summary Admission Diagnosis: SYNCOPE Hospital Course DATE OF ADMISSION: 06/29/25 DATE OF DISCHARGE: 06/30/25 Discharge Diagnosis\Comment: TIA Possible Syncope Hypertensive emergency History of resistant hypertension Type 2 diabetes mellitus Insulin-dependent CKD stage 2 Morbid obesity Atrial fibrillation Chronic back pain History of sigmoid colon cancer Operations\Procedures: None Consultants: Tele neuro was consulted Complications: none Condition on DC: Stable New Medications: Clopidogrel Bisulfate (Plavix) 75 Mg Tablet 1 TAB PO DAILY for 30 Days, #30 TAB 0 Refills Continued Medications: Amlodipine Besylate (Amlodipine Besylate) 5 Mg Tablet 1 TABLET PO DAILY, #30 TABLET 5 Refills Apixaban (Eliquis) 5 Mg Tablet 1 TAB PO Q12H, TAB 0 Refills Aspirin (Aspir 81) 81 Mg Tablet.dr 1 TAB PO DAILY for 30 Days, #30 TAB Atorvastatin Calcium (Lipitor) 40 Mg Tablet 1 TAB PO DAILY, TAB 0 Refills Bumetanide (Bumetanide) 1 Mg Tablet 1 TAB PO BID Carvedilol (Carvedilol) 12.5 Mg Tablet 1 TAB PO BID Cholecalciferol (Vitamin D3) (Vitamin D3) 125 Mcg (5000 Unit) Tablet 1 TAB PO DAILY Hydrocodone Bit/Acetaminophen (Hydrocodone-Apap 10-325 Tablet) 10mg/325mg Tablet 1 TAB PO Q4H PRN for pain for 5 Days, #15 TAB Insulin Glargine,Hum.rec.anlog (Basaglar Kwikpen U-100) 100 Unit/Ml (3 Ml) Insuln.pen 50 SQ HS Insulin Glargine,Hum.rec.anlog (Basaglar Kwikpen U-100) 100 Unit/Ml (3 Ml) Insuln.pen Insulin Lispro (Humalog) 100 Unit/Ml Insuln.pen 14 UNIT SQ TID Isosorbide Mononitrate (Isosorbide Mononitrate Er) 30 Mg Tab.er.24h 1 TAB PO DAILY Lisinopril* (Lisinopril*) 40 Mg Tablet 1 TAB PO BID Sitagliptin Phosphate* (Januvia*) 100 Mg Tablet 1 TAB PO DAILY Discharge Summary: Hospital Course 59-year-old male patient with a past medical history of obesity, atrial fibrillation on Elliquis, CKD , insulin-dependent type 2 diabetes mellitus, hypertension, history of sigmoid colon cancer status post resection presented to the hospital via EMS after an episode of syncope at home. Patient was dizzy while walking in the living room he passed out and lost consciousness for few minutes. Initial evaluation included a noncontrast CT head which showed no acute intracranial abnormality but revealed chronic microangiopathic changes and atropic volume loss. In view of concern for stroke teleneurology was consulted recommended further imaging with CTA head and neck, brain MRI, and Held Eliquis until MRI is done. 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 And on POA patient had blood pressure around 198/133, In view of this nicardipine drip was started however later it was discontinued to maintain permissive hypertension as per neurologist recommendation. Later during hospitalization his blood pressure was managed appropriately with his home medication,bumex and on day of discharge BP was 121/79 and 137/86. On the day of admission patient has some mild weakness on left side of the leg which improved on admission, Orthostatic vitals were negative and diagnosis of possible TIA was was made and patient was discharged on Plavix, aspirin and Eliquis. In addition to that start patient continued atorvastatin 40 mg. Apart from that patient was treated for diabetes mellitus with insulin regimen and for AFib patient was placed on telemetry,continued metoprolol and Elliquis which was initially held as per neurologist, and later it was started after MRI results. Discharge Instructions Take Plavix 75 mg po daily along with Aspirin 81 mg for 21 days. Then, stop aspirin and continue taking Plavix Take medications as prescribed Follow up with PCP,HR ASSOCIATE AND VASCUAR SURGEON WITHIN 2 WEEKS. Fall Precaution Call 911 or go to nearest ER if you experience chest pain, shortness of breath or stroke symptoms (weakness,slurred speech, paralysis) Physical Examination on Discharge Awake , alert and oriented to time,place, person,not in distress HEENT: Atraumatic, normocephalic, PERRLA, EOMI, anicteric sclera ; pink conjunctiva, moist mucos membranes Neck: Trachea midline. Supple, normal range of motion, no JVD, no lymphadenopathy Chest and Respiratory: Equal breath sounds bilaterally, no tachypnea, wheezing, ronchi,rubs .Chest wall is symmetric and without deformity. Cardiac: S1, S2 heard,Regular rate and rhythm, no murmurs heard. Abdomen: Soft, No tenderness, No guarding or rigidity, Champagne's sign negative. normal bowel sounds x4 quadrant, no hepatosplenomegaly MSK: Range of motion of all extremities are normal. There is no joint pain or joint swelling or joint erythema. There is no muscle pain or tenderness or swelling. Extremities: warm, well-perfused, No cyanosis, clubbing or edema Neurological: Speech is clear, alert, and oriented x 4. No sensory or motor deficits. Cranial nerves II-XII intact Mild numbness left foot. Skin: Warm and dry Psychiatry: Affect and mood are normal Labs: WBC: 8.8 RBC: 4.37 HGB: 12 Na: 136 K: 4.1 Imaging CTA HEAD AND NECK FINDINGS: CTA head: There is normal enhancement of the visualized distal internal carotid, anterior and middle cerebral arteries. There is a normal anterior communicating artery complex. There are bilateral posterior communicating arteries. The vertebral, basilar, cerebellar and posterior cerebral arteries are within normal limits. The early parenchymal enhancement is grossly unremarkable. The visualized intracranial venous structures are grossly unremarkable. CTA neck: The visualized thoracic aortic arch and proximal great vessels are unremarkable. Calcified plaque in the proximal left internal carotid artery without hemodynamically significant stenosis. Dense calcified plaque within the right carotid bulb resulting in approximately 50% stenosis, unchanged when compared to the prior exam. No hemodynamically significant stenosis within the right internal carotid artery. 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 The right vertebral artery is patent without hemodynamically significant stenosis. The limited visualized lung apices are clear. The surrounding soft tissues and osseous structures are otherwise unremarkable. IMPRESSION: No evidence of hemodynamically significant intracranial stenosis, proximal occlusion or aneurysm. Dense calcified plaque within the right carotid bulb resulting in approximately 50% stenosis, unchanged when compared to the prior exam. Stable appearing high-grade stenosis of the origin of the left vertebral artery. CT SCAN HEAD FINDINGS: There is no evidence of acute intracranial hemorrhage, extra-axial collection, mass effect, midline shift, herniation or hydrocephalus. Increased prominence of the ventricles, sulci and cisterns consistent with sequelae of atrophic cortical volume loss. The kennedy-white differentiation is intact. Moderate diffuse confluent periventricular and subcortical white matter hypoattenuation is nonspecific but may be related to small vessel ischemic d isease. Left sphenoid mucosal sinus disease. The remaining visualized paranasal sinuses and mastoid air cells are clear. The surrounding soft tissues and osseous structures are unremarkable. IMPRESSION: 1. No acute intracranial abnormality. 2. Chronic sequelae of microangiopathy and atrophic cortical volume loss MRI HEAD FINDINGS: Motion artifact limits evaluation on some sequences. No acute infarct or hemorrhage. No mass or midline shift. Ventricles and sulci are within normal limits. Basal cisterns are patent. Cerebellum, brainstem, and midline structures are within normal limits. Moderate mucosal thickening of the left side of the sphenoid sinus. Mild mucosal thickening of the ethmoid air cells. Orbits are grossly unremarkable. IMPRESSION: No evidence of acute intracranial abnormality *Problems/Diagnosis: (1) Hypertensive emergency Status: Resolved Total Time Spent on D/C: > 30 Minutes Date of Service: Jun 30, 2025 Billing Provider: MOSHE BOLDEN MD Common Visit Codes: 12684-IRV/OBS DISCH DAY >30min MANISHA COSTA, RES Jun 30, 2025 16:30 MOSHE BOLDEN MD Jul 01, 2025 08:17
== END 2025-06-30 11:25 | disposition home or self-care (01) | DRG 47 ==
LOC: ER 21:27 → ED HOLD 06-29 01:03 → EDBEDREQ 06-29 06:24 → ORTHO 4S 06-29 13:25
PROVIDERS: ADMIT Internal Medicine; ATTEND Internal Medicine
PROC: B3251ZZ Computerized Tomography (CT Scan) of Bilateral Common Carotid Arteries using Low Osmolar Contrast (ICD-10-PCS; principal; 2025-06-28)
PROC: B3201ZZ Computerized Tomography (CT Scan) of Thoracic Aorta using Low Osmolar Contrast (ICD-10-PCS; 2025-06-28)
PROC: B32R1ZZ Computerized Tomography (CT Scan) of Intracranial Arteries using Low Osmolar Contrast (ICD-10-PCS; 2025-06-28)
PROC: B3281ZZ Computerized Tomography (CT Scan) of Bilateral Internal Carotid Arteries using Low Osmolar Contrast (ICD-10-PCS; 2025-06-28)
DX: G45.9 Transient cerebral ischemic attack, unspecified (principal); I16.1 Hypertensive emergency; E11.22 Type 2 diabetes mellitus with diabetic chronic kidney disease; E66.01 Morbid (severe) obesity due to excess calories; D64.9 Anemia, unspecified; E78.1 Pure hyperglyceridemia; I48.91 Unspecified atrial fibrillation; I12.9 Hypertensive chronic kidney disease with stage 1 through stage 4 chronic kidney disease, or unspecified chronic kidney disease; N18.30 Chronic kidney disease, stage 3 unspecified; G89.29 Other chronic pain; M54.9 Dorsalgia, unspecified; Z79.899 Other long term (current) drug therapy; Z83.3 Family history of diabetes mellitus; Z82.49 Family history of ischemic heart disease and other diseases of the circulatory system; Z86.73 Personal history of transient ischemic attack (TIA), and cerebral infarction without residual deficits; Z88.0 Allergy status to penicillin; Z88.1 Allergy status to other antibiotic agents; Z88.8 Allergy status to other drugs, medicaments and biological substances; Z85.038 Personal history of other malignant neoplasm of large intestine; Z68.33 Body mass index [BMI] 33.0-33.9, adult
CPT/HCPCS: 36415; 70450; 70496; 70498; 70551; 71045; 80048; 80061; 81001; 82728; 82948; 83036; 83540; 83735; 84132; 84466; 85025; 85610; 85730; 86885; 86900; 86901; 87081; 93005; 96365; 96375; 97116; 97161; 97530; 99291; G0378; J0360; J1644; J1815; J3490; Q9967

== ENCOUNTER 2025-07-21 18:15 | Emergency (ER) | payer MEDICAID ==
[~2025-07-21] VITALS: Ht 91.4 cm; Wt 142.8 kg
[~2025-07-21 18:15] MED LIST changes: +CLOP-32 PO
--- NOTE | 2025-07-21 18:34 | Physician Documentation ---
History of Present Illness ~ Chief Complaint: Chest Pain Stated Complaint: CHEST PAIN Time Seen by MD: 18:33 Primary Medical Doctor: ELECTRONICS SUPERVISOR: Alecia Baltazar [facility]. HPI 59-year-old male, history of hypertension, who presents with chest pain He tells me that he has been having intermittent chest pain symptoms for several months. He states it is located in the central left chest, and does radiate down his left arm. He has associated intermittent shortness of breath. He tells me he thinks it is because he has a blockage in his carotid artery. He thinks he may need surgery. He tells me he had heart testing done about 6 months ago including an angiogram. He does not know what the results were. He went to [facility] emergency department this morning. He says they did testing including a CT scan of his chest, and then he was discharged. He tells me he thinks he needs to be admitted for an MRI or some other testing. He tells me that he takes hydrocodone regularly, and that that is the only thing that helps with his pain. He does not like nitroglycerin, states that it never helps. Medication Reconciliation Allergies: Coded Allergies: Penicillins (Verified Allergy, Mild, HIVES, 06/28/25) metformin (Verified Allergy, Unknown, 06/28/25) ketorolac (Verified Adverse Reaction, Unknown, n/v, 06/28/25) Scheduled Amlodipine Besylate (Amlodipine Besylate), 1 TABLET PO DAILY Apixaban (Eliquis), 1 TAB PO Q12H, (Reported) Aspirin (Aspir 81), 1 TAB PO DAILY, (Reported) Atorvastatin Calcium (Lipitor), 1 TAB PO DAILY, (Reported) Bumetanide (Bumetanide), 1 TAB PO BID, (Reported) Carvedilol (Carvedilol), 1 TAB PO BID, (Reported) Cholecalciferol (Vitamin D3) (Vitamin D3), 1 TAB PO DAILY, (Reported) Clopidogrel Bisulfate (Plavix), 1 TAB PO DAILY Insulin Glargine,Hum.rec.anlog (Basaglar Kwikpen U-100), 50 SQ HS, (Reported) Insulin Lispro (Humalog), 14 UNIT SQ TID, (Reported) Isosorbide Mononitrate (Isosorbide Mononitrate Er), 1 TAB PO DAILY, (Reported) Lisinopril* (Lisinopril*), 1 TAB PO BID, (Reported) Sitagliptin Phosphate* (Januvia*), 1 TAB PO DAILY, (Reported) Scheduled PRN Hydrocodone Bit/Acetaminophen (Hydrocodone-Apap 10-325 Tablet), 1 TAB PO Q4H PRN for pain, (Reported) Miscellaneous Medications Insulin Glargine,Hum.rec.anlog (Emilee Russell U-100), (Reported) Past Medical History Past Medical History: CVA/TIA/Stroke, Arrhythmia, Atrial Fibrillation, Hypertension, Chronic Kidney Disease, Diabetes, Colon Cancer Past Surgical History: cancer surgery, colectomy Patient History: FH: diabetes mellitus FATHER, , Onset:50's - 60 FH: lung cancer maternal uncle, Onset:60 years & older FH: myocardial infarction maternal grandfather, Onset:60 years & older FH: suicide FATHER, , Onset:60 years & older Alcohol Use: None Drug Use: none Lives with: Mother Lives In: Home Occupation: disabled Review of Systems Constitutional: Denies: fever Respiratory: Reports: shortness of breath Cardiovascular: Reports: chest pain Gastrointestinal: Denies: abdominal pain Physical Exam Vital Signs: Temperature: 98.5, Source: Oral, Heart Rate: 93, Respiratory Rate: 18, BP: 162/107, Pulse Oximetry: 99, Weight: 142.800 Oxygen Flow Rate: 0 Physical Exam General: This is an anxious appearing middle-aged man, who is very talkative, does not appear in distress HEENT: Atraumatic, oropharynx is moist Heart: Mild tachycardic, appears regular and appears sinus rhythm on the monitor, strong right radial pulse Lungs: Diminished breath sounds bilateral, normal work of breathing, normal oxygen saturation on room air Abdomen: Soft, mildly distended/obese abdomen, nontender all quadrants Extremities: Warm and well-perfused, no significant pitting edema Neuro: Alert and oriented Psychiatric: Anxious in his slightly pressured speech, but is cooperative with exam Progress Results/Orders Results/Orders Orders - POLLY MONROE MD Chest,Single View (07/21/25 18:17) Monitor (07/21/25 18:17) Saline Lock (07/21/25 18:17) Oxygen (07/21/25 18:17) Electrocardiogram (07/21/25 18:17) Completed Orders - POLLY MONROE MD Chest,Single View (07/21/25 18:17) Cbc/Diff (07/21/25 18:17) BMP (07/21/25 18:17) PBNP (07/21/25 18:17) Hs Troponin I W Calculations (07/21/25 18:17) Hs Troponin I W Calculations (07/21/25 20:17) Morphine 4mg/Ml Inj. (Morphine Inj.) (07/21/25 19:05) Ethanol (07/21/25 18:35) Vital Signs 07/21/25 07/21/25 07/21/25 07/21/25 18:18 18:34 19:00 19:09 Temp 98.5 Pulse 93 92 Resp 18 18 17 17 B/P (MAP) 162/107 162/107 (125) Pulse Ox 99 95 O2 Flow Rate 0 07/21/25 07/21/25 07/21/25 20:00 20:42 21:38 Temp 98.5 Pulse 89 81 Resp 14 14 15 B/P (MAP) 157/94 (115) 156/95 Pulse Ox 96 97 Laboratory Tests Test 07/21/25 18:35 07/21/25 20:31 White Blood Count 10.1 Red Blood Count 4.81 Hemoglobin 13.3 L Hematocrit 38.4 L Mean Corpuscular Volume 79.9 Mean Corpuscular Hemoglobin 27.6 Mean Corpuscular Hemoglobin Concent 34.5 Red Cell Distribution Width 14.5 Platelet Count 245 Mean Platelet Volume 7.7 Neutrophils (%) (Auto) 69.0 Lymphocytes (%) (Auto) 21.4 Monocytes (%) (Auto) 7.4 Eosinophils (%) (Auto) 1.4 Basophils (%) (Auto) 0.8 Neutrophils # (Auto) 7.0 Lymphocytes # (Auto) 2.2 Monocytes # (Auto) 0.8 Eosinophils # (Auto) 0.1 Basophils # (Auto) 0.1 CBC Comment Sodium Level 135 Potassium Level 3.8 Chloride Level 99 Carbon Dioxide Level 26.9 Anion Gap 9 Blood Urea Nitrogen 14 Creatinine 1.22 H Estimated GFR/1.73 m2 60 BUN/Creatinine Ratio 11.5 Glucose Level 333 H Calcium Level 8.4 L Troponin I High Sensitivity 12 12 Pro-B-Type Natriuretic Peptide 167 H Albumin 3.1 L Chemistry Comments Ethyl Alcohol Level < 10 Troponin I High Sens Percent Delta 0 Troponin I Hi Sens Absolute Change 0 EKG/XRAY/CT/US/VASC/MRI EKG : Additional Comment I personally interpreted the EKG and this shows: Sinus rhythm, rate 90, QTC 435, no STEMI, does have a PVC Chest X-Ray : Additional Comments I personally interpreted the x-ray, and it shows: The patient has an enlarged heart with some pulmonary edema, no focal consolidation Heart Score: Heart Score Response (Comments) Value History Moderate Suspicious 1 EKG Repolarization Disturb 1 Age 45-64 1 Risk Factors 1 or 2 risk factors 1 Troponin Normal limit 0 Total 4 Medical Decision Making Additional information obtaine: old records, other Findings Reviewed EMS report Received records from [facility] Emergency Department. The patient was seen there earlier today, with chest pain. He reportedly has multiple visits for chest pain and pain medicine seeking behavior. He is on Eliquis. On 02/03/2025 he had a normal Lexiscan stress test. Today he had a workup that was unremarkable including normal troponin. He had a CT angiogram of the chest which showed no pulmonary embolus or other acute abnormality. Heart Score: 4 Differential Dx:Considerations: Include: angina, aortic dissection, chest wall pain, cholelithiasis, CHF, costochondritis, myocardial infarction, pneumonia, pulmonary embolus Additional Information The patient presents with chest pain, which appears to be a chronic issue. He was seen earlier today at an outside hospital and had imaging including a CT scan of his chest. We will obtain outside records. His EKG does not show ischemic changes. He was given pain medication. On review of his outside imaging, he did have a normal CTA of the chest earlier today. On review of his chart, he has had an extensive workup for all these symptoms over the past year including multiple stress tests, images, vascular imaging of his neck, MRI of his brain, and other. His testing here in the ED shows no dangerous findings as well. Overall, the exact cause of his pain is unclear, but it seems unlikely to be a dangerous cardiac cause. I suspect anxiety is playing a large part of his presentation. He also repeatedly asked for pain medication, and so perhaps part of his presentation is pain seeking behavior. Regardless, he does not have an acute medical or surgical emergency identified and I see no indication for admission at this time. He will be discharged home with outpatient follow up. Departure Time of Disposition: 21:22 Disposition: 01 HOME / SELF CARE / HOMELESS Impression: Primary Impression: Chronic chest pain Additional Impression: Anxiety about health Condition: Stable Discharge Instructions: Nonspecific Chest Pain, Adult Referrals: NO PRIMARY CARE PROVIDER (PCP) Education Educated: Patient Educated regarding: diagnosis, need for follow up Signature Scribe Signature: na Attestation: POLLY Smith MD Jul 21, 2025 18:34
--- NOTE | 2025-07-21 18:57 | RADIOLOGY REPORT ---
CHEST RADIOGRAPH Indication: CP Technique: Single frontal view of the chest was obtained Comparison: DI CHEST,SINGLE VIEW on DOS: 06/28/25, DI CHEST,SINGLE VIEW on DOS: 04/28/25, DI CHEST,SINGLE VIEW on DOS: 04/24/25 FINDINGS: Lines and Tubes: None Lungs: No focal consolidation. Mild interstitial prominence. Pleura: No effusion. No pneumothorax. Cardiomediastinal contours: Mild cardiomegaly with mild Atherosclerotic calcification uncoiling of the aorta. Bones: No acute osseous abnormality. IMPRESSION: Mild cardiomegaly with mild pulmonary vascular congestion.
[2025-07-21 19:07] LABS: MEAN PLATELET VOLUME 7.7 FL (7.4-10.4); RED CELL DISTRIBUTION WIDTH 14.5 % (11.5-14.5)
[2025-07-21] MEDS: morphine 4 MG/ML inj SYRINge IV ONE (19:09)
[2025-07-21 19:29] LABS: CREATININE 1.22 MG/DL (0.60-1.10); PRO BRAIN NATRIURETIC PEPTIDE 167 PG/ML (0-125); TOTAL CARBON DIOXIDE 26.9 MMOL/L (24-32); eGFR 60 ML/MIN
[2025-07-21 20:05] LABS: ETHANOL < 10 MG/DL (<10)
[2025-07-21 21:38] VITALS: BP 156/95; PULSE 81; RESP 15; TEMP 98.5; O2SAT 97
--- NOTE | 2025-07-22 09:16 | ELECTROCARDIOGRAPH REPORT ---
[facility] Test Date: 2025-07-21 Test Time: 18:20:22 Pat Name: FLYNN MERINO Department: EMERGENCY ROOM Room: Gender: M Cardiac/Vascular Sonographer: FA : [id number] Requested By: POLLY MONROE Order Number: [id number] Reading MD: Dr. New Loyd Measurements Intervals [place] Rate: 90 P: 4 W[place]: 218 QRS: 62 QRSD: 99 T: 82 QT: 355 QTc: 435 Interpretive Statements Sinus rhythm Ventricular premature complex Borderline prolonged [place] interval Electronically Signed On 07-23-2025 20:43:[address] New Loyd Please click the below link to view image of tracing.
== END 2025-07-21 21:42 | disposition home or self-care (01) ==
LOC: ER 18:15
DX: G89.29 Other chronic pain (principal); R07.9 Chest pain, unspecified; F41.9 Anxiety disorder, unspecified; R06.02 Shortness of breath; E11.22 Type 2 diabetes mellitus with diabetic chronic kidney disease; I12.9 Hypertensive chronic kidney disease with stage 1 through stage 4 chronic kidney disease, or unspecified chronic kidney disease; N18.9 Chronic kidney disease, unspecified; I48.91 Unspecified atrial fibrillation; Z86.73 Personal history of transient ischemic attack (TIA), and cerebral infarction without residual deficits; Z88.0 Allergy status to penicillin; Z79.82 Long term (current) use of aspirin; Z88.8 Allergy status to other drugs, medicaments and biological substances; Z90.49 Acquired absence of other specified parts of digestive tract
CPT/HCPCS: 36415; 71045; 80048; 80320; 83880; 84484; 85025; 93005; 96374; 99285; J2270